=== PATIENT | female | born 1965 | race Two or more races ===

== ENCOUNTER → 2020-04-04 12:36 | Outpatient (BNVA) | payer OTHER, SELFPAY | PROVIDERS: PCP Emergency Medicine; Referring Provider Emergency Medicine; Visit Provider Nurse Practitioner Gerontology | DX: E11.65 Type 2 diabetes mellitus with hyperglycemia (principal); E11.649 Type 2 diabetes mellitus with hypoglycemia without coma; E11.42 Type 2 diabetes mellitus with diabetic polyneuropathy; Z79.4 Long term (current) use of insulin; I10 Essential (primary) hypertension; E78.5 Hyperlipidemia, unspecified; E66.01 Morbid (severe) obesity due to excess calories; Z68.42 Body mass index [BMI] 45.0-49.9, adult | CPT/HCPCS: 99212 ==

== ENCOUNTER 2020-04-05 12:56 | Outpatient (REF) | payer OTHER, SELFPAY ==
[2020-04-05 14:38] LABS: Estimated Average Glucose 212 mg/dL
[2020-04-05 15:07] LABS: Cholesterol 221 mg/dL; HDL Cholesterol 45 mg/dL; LDL Cholesterol Calculated 137 mg/dl; Triglycerides 195 mg/dL
[2020-04-05 15:48] LABS: Creatinine Urine 92.12 mg/dL; Microalbum/Creatinine Ratio Ur 6.5 ug/mg cr
== END 2020-04-05 12:57 | disposition home or self-care (01) ==
LOC: HO.10HDL 12:56
PROVIDERS: Visit Provider Nurse Practitioner Gerontology
DX: E11.42 Type 2 diabetes mellitus with diabetic polyneuropathy (principal); E11.65 Type 2 diabetes mellitus with hyperglycemia
CPT/HCPCS: 80061; 82043; 83036

== ENCOUNTER 2020-05-02 12:46 | Outpatient (RCR) | payer OTHER, SELFPAY | END 2020-05-09 08:00 | disposition home or self-care (01) | LOC: HO.WCC 12:46 | PROVIDERS: Visit Provider Surgery | DX: M79.671 Pain in right foot (principal); L98.8 Other specified disorders of the skin and subcutaneous tissue; E11.9 Type 2 diabetes mellitus without complications | CPT/HCPCS: 99212 ==

== ENCOUNTER 2020-05-02 13:52 | Outpatient (REF) | payer OTHER, SELFPAY ==
--- NOTE | 2020-05-02 14:04 | XR_ITS ---
EXAMINATION: XR FOOT, RIGHT CLINICAL INFORMATION: Diabetic foot. COMPARISON: None TECHNIQUE: AP, lateral, and oblique views of the right foot. FINDINGS: There is no visible acute fracture or dislocation. The large calcaneal heel and retrocalcaneal enthesophytes. The ankle mortise and subtalar joints are normal. The soft tissues are normal. XR/XR foot RT 2V IMPRESSION: Large calcaneal heel and retrocalcaneal enthesophytes.
== END 2020-05-02 13:53 | disposition home or self-care (01) ==
LOC: HO.XRAY 13:52
PROVIDERS: PCP Emergency Medicine; Visit Provider Surgery
DX: E11.621 Type 2 diabetes mellitus with foot ulcer (principal)
CPT/HCPCS: 73620

== ENCOUNTER 2020-06-14 10:13 | Day surgery (SDC) | payer OTHER, SELFPAY ==
[2020-04-05 10:27] VITALS: BMI 43.6
--- NOTE | 2020-04-08 08:44 | P.CONAN_ITS ---
HPI - Anesthesia Eval Consult details Narrative: Postponed d/t elevated A1C 04/05/2020 54yo F for umbilical hernia repair Cardiac cleared at interm risk - avoid fluid overload, watch for daryl arrhythmia (01/2020 had junctional rhythm - resolved with d/c of clonidine and metoprolol.) [facility] Past Medical History Medical History (Updated 04/04/20 @ 16:11 by Abimbola Aj) Anxiety Asthma BMI 45.0-49.9, adult Depression Essential hypertension Fatty liver GERD (gastroesophageal reflux disease) Hyperlipidemia LDL goal <100 Morbid obesity due to excess calories Pre-syncope Type 2 diabetes mellitus with diabetic polyneuropathy Type 2 diabetes mellitus with hyperglycemia Umbilical hernia Family History Family History (Updated 03/22/20 @ 08:32 by EFFIE Goldstein) Father Diabetes mellitus HTN (hypertension) Mother CVD (cardiovascular disease) Mother Diabetes mellitus HTN (hypertension) Asthma Surgical History Surgical History (Updated 03/22/20 @ 08:30 by EFFIE Goldstein) History of esophagogastroduodenoscopy (EGD) Hx of gastric bypass Social History Social History (Updated 04/04/20 @ 16:12 by Abimbola Aj) Household Members: None Alcohol intake: never Smoking Status: Never smoker Meds Allergies Allergy/AdvReac Type Severity Reaction Status Date / Time Penicillins Allergy Severe analphylaxi Verified 04/05/20 10:20 s dulaglutide [From Trulicity] Allergy Unknown Rash Verified 04/05/20 10:20 potassium Allergy Unknown Itching Verified 04/05/20 10:20 SHELLFISH Allergy Unknown HIVES Uncoded 04/04/20 12:46 Home Medications Medication Instructions Recorded Confirmed Type amlodipine 5 mg tablet 5 mg PO DAILY 04/04/20 04/05/20 History fenofibrate 54 mg tablet 54 mg PO DAILY 04/04/20 04/05/20 History fluoxetine 40 mg capsule 40 mg PO DAILY 04/04/20 04/05/20 History gabapentin 300 mg capsule 900 mg PO TID cap 04/04/20 04/05/20 History insulin glargine 100 unit/mL (3 16 unit SUBCUT QPM ml 04/04/20 04/05/20 History mL) subcutaneous pen omeprazole 20 mg capsule,delayed 20 mg PO DAILY 04/04/20 04/05/20 History release polyethylene glycol 3350 17 17 g PO DAILY 04/04/20 04/04/20 History gram/dose oral powder rosuvastatin 40 mg tablet 40 mg PO DAILY 04/04/20 04/05/20 History trazodone 100 mg tablet 100 mg PO BEDTIME PRN 04/04/20 04/05/20 History bupropion HCl 1 tab PO BID 04/05/20 04/05/20 History fluticasone propionate [Flovent 1 puff PO BID 04/05/20 04/05/20 History HFA] lisinopril 1 tab PO QAM 04/05/20 04/05/20 History Exam Exam Date and Time: April 08, 2020 0844 Height,Weight and Vital Signs: Height 4 ft 11 in Weight 97.976 kg Pertinent Lab Results Pertinent Lab Results: Laboratory Tests 12/08/19 01/04/20 05:43 11:38 WBC 9.8 Hgb 12.4 Hct 39.1 Plt Count 321 Sodium 137 Potassium 5.1 Chloride 102 BUN 19 H Creatinine 0.86 Narrative Narrative: Holter: SR with avg rate in 60's Echo: nml EF, grade 2 DD, Nuc stress: Suboptimal quality d/t body habitus, no definite evidence of ischemia or infarct noted, EF 52%, trans ischemic dilation could not be evaluated d/t poor image quality EKG 11/2019: SB with short RI @57, mod volt criteria for LVH Assessment and Plan Assessment Anesthesia Assessment: Chart Reviewed
--- NOTE | 2020-06-13 09:37 | P.CONAN_ITS ---
Documented by User: Hilda Whittenney 06/13/20 09:49 HPI - Anesthesia Eval Consult details Narrative: 54yo F for umbilical hernia repair Cardiac cleared at [facility] risk - avoid fluid overload, watch for daryl arrhythmia (01/2020 had junctional rhythm - resolved with d/c of clonidine and metoprolol.) Prev cancel d/t elevated A1C=9. No repeat since. Per Dr Guzman, redraw preop. [facility] Past Medical History Medical History Anxiety Asthma BMI 45.0-49.9, adult Depression Essential hypertension Fatty liver GERD (gastroesophageal reflux disease) Hyperlipidemia LDL goal <100 Morbid obesity due to excess calories Pre-syncope Type 2 diabetes mellitus with diabetic polyneuropathy Type 2 diabetes mellitus with hyperglycemia Umbilical hernia Family History Family History Father Diabetes mellitus HTN (hypertension) Mother CVD (cardiovascular disease) Mother Diabetes mellitus HTN (hypertension) Asthma Surgical History Surgical History History of esophagogastroduodenoscopy (EGD) Hx of gastric bypass Social History Social History Household Members: None Alcohol intake: never Smoking Status: Never smoker Use of substances other than those prescribed or required for medical reasons: No Have you been hit, kicked, punched, or otherwise hurt by someone within the past year? If so, by whom?: No Advance Directives: No Advance Directives Information Provided: No Advance Directives on File: No Recently lost weight without trying: No Meds Allergies Allergy/AdvReac Type Severity Reaction Status Date / Time Penicillins Allergy Severe analphylaxi Verified 04/05/20 10:20 s dulaglutide [From Trulicity] Allergy Unknown Rash Verified 04/05/20 10:20 potassium Allergy Unknown Itching Verified 04/05/20 10:20 SHELLFISH Allergy Unknown HIVES Uncoded 04/04/20 12:46 Home Medications Medication Instructions Recorded Confirmed Type fenofibrate 54 mg tablet 54 mg PO DAILY 04/04/20 04/05/20 History fluoxetine 40 mg capsule 40 mg PO DAILY 04/04/20 04/05/20 History gabapentin 300 mg capsule 900 mg PO TID cap 04/04/20 04/05/20 History insulin glargine 100 unit/mL (3 16 unit SUBCUT QPM ml 04/04/20 04/05/20 History mL) subcutaneous pen omeprazole 20 mg capsule,delayed 20 mg PO DAILY 04/04/20 04/05/20 History release polyethylene glycol 3350 17 17 g PO DAILY 04/04/20 04/04/20 History gram/dose oral powder rosuvastatin 40 mg tablet 40 mg PO DAILY 04/04/20 04/05/20 History trazodone 100 mg tablet 100 mg PO BEDTIME PRN 04/04/20 04/05/20 History bupropion HCl 1 tab PO BID 04/05/20 04/05/20 History fluticasone propionate [Flovent 1 puff PO BID 04/05/20 04/05/20 History HFA] lisinopril 1 tab PO QAM 04/05/20 04/05/20 History alcohol swabs 0 pad TOPICAL 05/02/20 History blood sugar diagnostic #10 ea 05/02/20 History lancets 33 gauge #100 ea 05/02/20 History metoprolol tartrate 50 mg tablet 50 mg PO BID 05/02/20 History multivitamin-ferrous 0 tab PO 05/02/20 History fumarate-folic acid 18 mg-400 mcg tablet pen needle, diabetic 32 gauge x #50 ea 05/02/20 History spironolactone 25 mg tablet 25 mg PO QAM 05/02/20 History Exam Exam Date and Time: June 13, 2020 0937 Height,Weight and Vital Signs: Height 4 ft 11 in Weight 97.976 kg Pertinent Lab Results Pertinent Lab Results: Laboratory Tests 12/08/19 01/04/20 05:43 11:38 WBC 9.8 Hgb 12.4 Hct 39.1 Plt Count 321 Sodium 137 Potassium 5.1 Chloride 102 BUN 19 H Creatinine 0.86 Narrative Narrative: Holter: SR with avg rate in 60's Echo: nml EF, grade 2 DD, Nuc stress: Suboptimal quality d/t body habitus, no definite evidence of ischemia or infarct noted, EF 52%, trans ischemic dilation could not be evaluated d/t poor image quality EKG 11/2019: SB with short MO @57, mod volt criteria for LVH Assessment and Plan Assessment Anesthesia Assessment: Chart Reviewed Documented by User: Hilary Eid 06/14/20 11:26 PMFSH Past Medical History Medical History Anxiety Asthma BMI 45.0-49.9, adult Depression Essential hypertension Fatty liver GERD (gastroesophageal reflux disease) Hyperlipidemia LDL goal <100 Morbid obesity due to excess calories Pre-syncope Type 2 diabetes mellitus with diabetic polyneuropathy Type 2 diabetes mellitus with hyperglycemia Umbilical hernia Family History Family History Father Diabetes mellitus HTN (hypertension) Mother CVD (cardiovascular disease) Mother Diabetes mellitus HTN (hypertension) Asthma Family history of problems with anesthesia: No Surgical History Surgical History History of esophagogastroduodenoscopy (EGD) Hx of gastric bypass History of Problems with Anesthesia: No Social History Social History Household Members: None Alcohol intake: never Smoking Status: Never smoker Use of substances other than those prescribed or required for medical reasons: No Have you been hit, kicked, punched, or otherwise hurt by someone within the past year? If so, by whom?: No Advance Directives: No Advance Directives Information Provided: No Advance Directives on File: No Recently lost weight without trying: No Meds Allergies Allergy/AdvReac Type Severity Reaction Status Date / Time Penicillins Allergy Severe analphylaxi Verified 04/05/20 10:20 s dulaglutide [From Trulicity] Allergy Unknown Rash Verified 04/05/20 10:20 potassium Allergy Unknown Itching Verified 04/05/20 10:20 SHELLFISH Allergy Unknown HIVES Uncoded 04/04/20 12:46 Home Medications Medication Instructions Recorded Confirmed Type fenofibrate 54 mg tablet 54 mg PO DAILY 04/04/20 04/05/20 History fluoxetine 40 mg capsule 40 mg PO DAILY 04/04/20 04/05/20 History gabapentin 300 mg capsule 900 mg PO TID cap 04/04/20 04/05/20 History insulin glargine 100 unit/mL (3 16 unit SUBCUT QPM ml 04/04/20 04/05/20 History mL) subcutaneous pen omeprazole 20 mg capsule,delayed 20 mg PO DAILY 04/04/20 04/05/20 History release polyethylene glycol 3350 17 17 g PO DAILY 04/04/20 04/04/20 History gram/dose oral powder rosuvastatin 40 mg tablet 40 mg PO DAILY 04/04/20 04/05/20 History trazodone 100 mg tablet 100 mg PO BEDTIME PRN 04/04/20 04/05/20 History bupropion HCl 1 tab PO BID 04/05/20 04/05/20 History fluticasone propionate [Flovent 1 puff PO BID 04/05/20 04/05/20 History HFA] lisinopril 1 tab PO QAM 04/05/20 04/05/20 History alcohol swabs 0 pad TOPICAL 05/02/20 History blood sugar diagnostic #10 ea 05/02/20 History lancets 33 gauge #100 ea 05/02/20 History metoprolol tartrate 50 mg tablet 50 mg PO BID 05/02/20 History multivitamin-ferrous 0 tab PO 05/02/20 History fumarate-folic acid 18 mg-400 mcg tablet pen needle, diabetic 32 gauge x #50 ea 05/02/20 History spironolactone 25 mg tablet 25 mg PO QAM 05/02/20 History Exam Height,Weight and Vital Signs: Vital Signs Temp Pulse Resp BP Pulse Ox 06/14/20 10:45 97 F 49 L 18 132/42 L 99 Pertinent Lab Results Pertinent Lab Results: Lab Results 06/14/20 Range/Units 10:41 POC Glucose 200 H (60-115) mg/dL Airway Mallampati Class: II TM Dist: >3cm Neck ROM: Full Denture: Upper Heart: RRR Lungs: CTAB Assessment and Plan Assessment Anesthesia Assessment: Anesthesia Plan Discussed and Chart Reviewed Final Anesthetic Review NPO: Yes ASA Class: III Final Preanesthetic Review: No Changes in Pt Med Stat, Meds/Allgs Chart Reviewed, Consent Obtained/Reviewed and Anes Risks/Benef Reviewed Patient Risk: Intermediate Procedure Risk: Low Assessment/Block/Sedation in SS: Assess/Block/Sedation-SS Anesthetic Plan Anesthetic Plan: GA Disposition: Standard PACU
[2020-06-14] VITALS (13 sets, daily range): BP systolic 132–185; BP diastolic 42–73; PULSE 49–70; RESP 16–18; TEMP 36.1–36.6; O2SAT 92–100; BMI 43.6
[2020-06-14 10:45] LABS: Glucose, Whole Blood 200 mg/dL (60-115)
--- NOTE | 2020-06-14 10:55 | MHC.SHP ---
Pre-Procedural Eval Section B Chief Complaint: Umbilical Hernia Details of Present Illness: has partially reducible umb hernia x many years, increasing in size Relevant Family History (Specify if Yes): No Relevant Social History: None Present Medications: see Short Stay Collaborative assessment Medical History: Significant History (obesity, DM, HTN) History of Previous Operations: Relevant previous surgery/procedure and date(s) (gastric bypass, 2005) Allergies: Allergies Allergy/AdvReac Type Severity Reaction Status Date / Time Penicillins Allergy Severe analphylaxi Verified 04/05/20 10:20 s dulaglutide [From Trulicity] Allergy Unknown Rash Verified 04/05/20 10:20 potassium Allergy Unknown Itching Verified 04/05/20 10:20 SHELLFISH Allergy Unknown HIVES Uncoded 04/04/20 12:46 Review of Systems Sugical H&P ROS: Negative: Constitution, Cardiovascular, Respiratory, Neurological, Psychiatric, Hem-Onc, Allergic/Immunologic, Gastrointestinal, Genitourinary, Musculoskeletal, Integumentary, Endocrine and Eyes/Ears/Nose/Throat Exam Surgical H&P Exam: Normal: HEENT, Normal: Heart, Normal: Lungs, Normal: Extremities, Normal: Skin and Normal: Neurological and Significant Findings: Abdomen (umbilical hernia, about 3 cm, partially reducible) Plan Diagnosis/Plan: Unchanged I have reviewed the history and physical and performed a pertinent physical examination on my patient. No changes have occurred unless specified.
--- NOTE | 2020-06-14 10:56 | PC.NURSE ---
aic cancelled per dr cantrell and anesthesia poc 200
[2020-06-14] MEDS: ceFAZolin Sodium/Dextrose,Iso 2 GM/50 ML PIGGYBACK IV (11:04)
[2020-06-14] MEDS: Lactated Ringers 1,000 ML 100 ML IVCONT (11:07)
--- NOTE | 2020-06-14 12:22 | PM.OP ---
Brief Operative Note Date of Service: 06/14/20 Pre-op diagnosis: umbilical hernia Post-op diagnosis: same Procedure: repair of umbilical hernia with mesh Implants: Ventralex 8cm mesh Surgeon: FUENTES SHELLEY MD Anesthesia: [place] Home [employer] Washing Machine Mechanic: Karie Poole Estimated blood loss (mL): 10 Pathology: none sent Condition: stable Disposition: PACU
[2020-06-14] MEDS: fentaNYL citrate/PF 100 MCG/2 ML VIAL 25 MCG IVPUSH ×2 (12:49→13:00)
[2020-06-14] MEDS: oxyCODONE HCl Immed Release 5 MG TABLET PO (12:50)
--- NOTE | 2020-06-14 13:26 | OP_ITS ---
SURGEON: Jonny Guzman MD INDICATIONS: The patient is a 54-year-old female with a large umbilical hernia, which she has had for many years. This has been increasing in size, and she wanted to proceed with repair. She was morbidly obese, so exact dimensions of the hernia was difficult to ascertain, but it appeared to be about 3 cm to 4 cm. This actually turned out to be much bigger intraoperatively. She understood the technique of the procedure and she was aware of the risks, benefits, and alternatives. PREOPERATIVE DIAGNOSIS: Umbilical hernia. POSTOPERATIVE DIAGNOSIS: Umbilical hernia. PROCEDURE PERFORMED: Repair of large umbilical hernia with Ventralex mesh. ESTIMATED BLOOD LOSS: COMPLICATIONS: ANESTHESIA: ASSISTANTS: Karie Poole PA-C SPECIMENS: DESCRIPTION OF PROCEDURE: She was brought to the operating room and placed in supine position under general anesthesia via endotracheal tube. The abdomen was prepped in the usual sterile fashion. A surgical time-out was done. The patient received cefazolin 2 g IV preoperatively. A transverse infraumbilical incision was made in the skin using blade #15. It was carried down to full-thickness skin and subcutaneous layer with electrocautery. We therefore then proceeded to continue to dissect. We were able to visualize the sac, and we continued to dissect around this to separate this from the rest of the thick subcutaneous layer. Again, the patient was morbidly obese, so she had a very thick layer of subcutaneous fat. We had to do a lot of sharp dissection with electrocautery to separate the entire sac off the rest of the subcutaneous layer. This part of the procedure took an extended period of time until we were able to reach the neck of the hernia. There was large amount of omentum within the hernia. We could not reduce this through the neck. Proceeded to continue to define the neck. I decided to open the sac to allow us to reduce the entire hernia. We made an incision using electrocautery and proceeded to excise the entire sac at the fascial edge. The excision of the entire sac was done using electrocautery circumferentially. The sac was sent as specimen. We then able to reduce the hernia through the fascial defect. We were able to apply Khadar clamps on the fascial edges on all four quadrants. We measured the fascial defect, which was about almost 5 cm in diameter and circular. However, the fascial edges came together without difficulty and without tension, so I chose a large Ventralex mesh. The mesh was positioned underneath the fascial defect. We applied 4 transfascial sutures, one in each quadrant through the fascia into the Prolene side of the mesh. We then proceeded to pull up all 4 stay sutures and to bring the fascia flat on the abdominal wall. All the 4 subfascial sutures were then tied tight. We then proceeded to copiously irrigate. I closed the fascia with multiple [id number] Maxon 1 sutures. We then proceeded to irrigate again in view of the thick subcutaneous layer. We trimmed the excess skin. I reapposed with thick subcutaneous layer with Dexon 3-0 interrupted sutures. Skin closure achieved with skin rosmery. The incision was then infiltrated with Marcaine 0.5% for postoperative analgesia. The procedure was completed. The patient tolerated this well. There were no complications noted. Initial and final counts of sponge and instruments were correct. Estimated blood loss was about 5 mL. The patient was extubated without difficulty and transferred to recovery room with stable vital signs. MD CT Tobar/GABRIEL / [id number] MTDDemi
== END 2020-06-14 14:43 | disposition home or self-care (01) ==
PROVIDERS: Visit Provider Surgery
PROC: (CPT 49585; principal; 2020-06-14 12:00)
DX: K42.9 Umbilical hernia without obstruction or gangrene (principal); E66.01 Morbid (severe) obesity due to excess calories; Z68.42 Body mass index [BMI] 45.0-49.9, adult; E11.65 Type 2 diabetes mellitus with hyperglycemia; E11.42 Type 2 diabetes mellitus with diabetic polyneuropathy; Z79.4 Long term (current) use of insulin; J45.909 Unspecified asthma, uncomplicated; I10 Essential (primary) hypertension; K76.0 Fatty (change of) liver, not elsewhere classified; K21.9 Gastro-esophageal reflux disease without esophagitis; Z98.84 Bariatric surgery status; Z79.51 Long term (current) use of inhaled steroids; Z79.899 Other long term (current) drug therapy; Z88.0 Allergy status to penicillin; Z88.8 Allergy status to other drugs, medicaments and biological substances
CPT/HCPCS: 49585; 82947; 88302; C1781; J0690; J1885; J2250; J2405; J3010

== ENCOUNTER → 2020-06-21 08:31 | Outpatient (BNVA) | payer OTHER, SELFPAY | PROVIDERS: Visit Provider Nurse Practitioner Gerontology | DX: E11.65 Type 2 diabetes mellitus with hyperglycemia (principal); E11.42 Type 2 diabetes mellitus with diabetic polyneuropathy; I10 Essential (primary) hypertension; E78.5 Hyperlipidemia, unspecified; E66.01 Morbid (severe) obesity due to excess calories; Z68.42 Body mass index [BMI] 45.0-49.9, adult | CPT/HCPCS: Q3014 ==

== ENCOUNTER → 2020-06-27 09:10 | Outpatient (BNVA) | payer OTHER, SELFPAY | PROVIDERS: PCP Emergency Medicine; Visit Provider Surgery | DX: K42.9 Umbilical hernia without obstruction or gangrene (principal) | CPT/HCPCS: 99212 ==

== ENCOUNTER 2020-06-27 09:44 | Outpatient (REF) | payer OTHER, SELFPAY | END 2020-06-27 09:45 | disposition home or self-care (01) | LOC: HO.LAB 09:44 | PROVIDERS: Visit Provider Internal Medicine | DX: Z20.822 Contact with and (suspected) exposure to COVID-19 (principal) | CPT/HCPCS: 36415; C9803; U0003 ==

== ENCOUNTER → 2020-08-01 11:39 | Outpatient (BNVA) | payer OTHER, SELFPAY | PROVIDERS: PCP Emergency Medicine; Visit Provider Surgery Vascular Surgery | DX: I83.11 Varicose veins of right lower extremity with inflammation (principal) | CPT/HCPCS: 99202 ==

== ENCOUNTER 2020-08-23 08:02 | Outpatient (REF) | payer OTHER, SELFPAY ==
--- NOTE | ~2020-08-23 | US_ITS ---
EXAMINATION: RIGHT AND LEFT LOWER EXTREMITY VENOUS ULTRASOUND (REFLUX EXAM) CLINICAL INDICATION: Varicose veins. COMPARISON: 10/29/2011 TECHNIQUE: Color flow triplex imaging and compression Doppler was performed to evaluate both the deep and the superficial systems bilaterally. To evaluate the superficial system, the examination was performed in the upright position. Color-flow Doppler ultrasound and compression ultrasound were utilized. In addition, maneuvers were utilized to demonstrate reflux. FINDINGS: 1. DEEP VENOUS ULTRASOUND OF THE RIGHT LOWER EXTREMITY: Respiratory variation, normal compression and augmented flow are noted in the right common femoral vein as well as the right popliteal vein and there is no evidence of deep venous thrombosis at these locations. There is no evidence of reflux in the deep system in either the common femoral vein or the popliteal vein. No popliteal artery aneurysm. No popliteal fossa cyst. 2. SUPERFICIAL ULTRASOUND WITH DOPPLER OF RIGHT LOWER EXTREMITY: The right great saphenous vein at the saphenofemoral junction measures 7 mm, at the midthigh 4 mm, [id number] 3 mm, [id number]-weu-ahsd 4 mm, at midcalf 3 mm and at the ankle measures 4 mm. There is reflux demonstrated in the right great saphenous vein only at the ankle with insufficiency time of approximately 2.5 seconds. The right small saphenous vein measures 3 mm and shows no reflux. There are right perforators seen within the proximal thigh one measuring approximately 4 mm in diameter without reflux. Within the distal calf there is a 5 mm greater saphenous vein sports centre manager with reflux up to 2.5 seconds in duration. Varicose veins are seen within the calf measuring up to 3 mm in diameter and with reflux time up to 2.5 seconds. 3. DEEP VENOUS ULTRASOUND OF THE LEFT LOWER EXTREMITY: Respiratory variation, normal compression and augmented flow are noted in the left common femoral vein as well as the left popliteal vein and there is no evidence of deep venous thrombosis at these locations. There is no evidence of reflux in the deep system in either the common femoral vein or the popliteal vein. No popliteal fossa cyst. No popliteal artery aneurysm. 4. SUPERFICIAL ULTRASOUND WITH DOPPLER OF LEFT LOWER EXTREMITY: Left great saphenous vein at the saphenofemoral junction measures 6 mm, at the midthigh 3 mm, kvslg-gxo-sjuc 2 mm, vemwr-bzd-afye 3 mm, at midcalf 2 mm and at the ankle measures 3 mm. There is no reflux demonstrated in the left great saphenous vein. The left small saphenous vein measures 2 mm and shows no reflux. There is a left greater saphenous vein sports centre manager seen in the distal calf measuring 2 mm in diameter without reflux. Small varicose veins with reflux are seen within the mid to distal calf. US/US venous duplex LE BI IMPRESSION: 1. No evidence of reflux or thrombus in the common femoral veins or popliteal veins bilaterally. 2. No reflux identified at the saphenofemoral junctions bilaterally. The only reflux noted was in the right ankle where it measured approximately 2.5 seconds in duration. Perforators and varicosities as described.
== END 2020-08-23 08:03 | disposition home or self-care (01) ==
LOC: HO.US 08:02
PROVIDERS: Visit Provider Surgery Vascular Surgery
DX: I83.893 Varicose veins of bilateral lower extremities with other complications (principal)
CPT/HCPCS: 93970

== ENCOUNTER → 2020-08-26 09:34 | Outpatient (BNVA) | payer OTHER, SELFPAY | PROVIDERS: Visit Provider Internal Medicine Cardiovascular Disease | DX: R42 Dizziness and giddiness (principal); I10 Essential (primary) hypertension | CPT/HCPCS: 93005; 99212 ==

== ENCOUNTER → 2020-09-05 10:20 | Outpatient (BNVA) | payer OTHER, SELFPAY | PROVIDERS: Visit Provider Surgery Vascular Surgery | DX: I83.11 Varicose veins of right lower extremity with inflammation (principal) | CPT/HCPCS: 99212 ==

== ENCOUNTER → 2020-10-18 14:10 | Outpatient (BNVA) | payer OTHER, SELFPAY | PROVIDERS: PCP Nurse Practitioner Family; Visit Provider Nurse Practitioner Gerontology | DX: Z13.89 Encounter for screening for other disorder (principal) | CPT/HCPCS: Q3014 ==

== ENCOUNTER → 2020-11-08 07:27 | Outpatient (BNVA) | payer OTHER, SELFPAY | PROVIDERS: Visit Provider Nurse Practitioner Gerontology | CPT/HCPCS: 99212 ==

== ENCOUNTER → 2020-12-17 11:01 | Outpatient (REF) | payer OTHER, SELFPAY ==
--- NOTE | 2020-12-17 11:04 | HM_ITS ---
REASON FOR TEST: Palpitation. INTERPRETATION: The patient was hooked up to cardiac event monitor from 12/17/2020 to 01/16/2021 for a total period of 30 days. FINDINGS: Baseline rhythm is normal sinus rhythm with heart rate varying from 39 beats per minute to 125 beats per minute. There were no arrhythmias noted including no ectopics or any supraventricular or ventricular tachyarrhythmias or bradyarrhythmias. The patient reported multiple events of palpitations which correlated with sinus rhythm or sinus bradycardia, sinus tachycardia. There were no arrhythmias noted. CONCLUSION: Holter report is remarkable for: 1. Baseline normal sinus rhythm. 2. Multiple patient reported symptoms of palpitation that did not correlate with any arrhythmias or any fast or slow heart rate. Parviz Pedersen MD NRS/MODL / [id number]
== END ==
LOC: HO.CARD 11:01
PROVIDERS: Visit Provider Internal Medicine Cardiovascular Disease
DX: R42 Dizziness and giddiness (principal)
CPT/HCPCS: 93270

== ENCOUNTER 2020-12-18 08:04 | Outpatient (REF) | payer OTHER, SELFPAY ==
[2020-12-18 10:38] LABS: Alanine Aminotransferase 15 U/L (0-31); Albumin Level 3.8 g/dL (3.5-5.0); Alkaline Phosphatase 89 U/L (39-117); Anion Gap 11 (12-20); Aspartate Amino Transferase 15 U/L (5-31); Bilirubin Total 0.4 mg/dL (0.0-1.0); Blood Urea Nitrogen 19 mg/dL (9-16); Calcium 9.3 mg/dL (8.4-10.2); Carbon Dioxide 28 mmol/L (22-29); Chloride 104 mmol/L (96-108); Cholesterol 208 mg/dL; Estimated Glomerular Filt Rate > 60; Glucose Fasting 190 mg/dL (60-99); HDL Cholesterol 47 mg/dL; LDL Cholesterol Calculated 117 mg/dl; Sodium 138 mmol/L (135-145); Total Protein 7.5 g/dL (6.5-8.0); Triglycerides 222 mg/dL
[2020-12-19 09:06] LABS: LDL Cholesterol Direct 114 mg/dL (<100)
== END 2020-12-18 08:05 | disposition home or self-care (01) ==
LOC: HO.10HDL 08:04
PROVIDERS: PCP Registered Nurse; Visit Provider Nurse Practitioner Gerontology
DX: E11.65 Type 2 diabetes mellitus with hyperglycemia (principal); E11.42 Type 2 diabetes mellitus with diabetic polyneuropathy; E66.01 Morbid (severe) obesity due to excess calories; Z68.42 Body mass index [BMI] 45.0-49.9, adult; E78.5 Hyperlipidemia, unspecified; I10 Essential (primary) hypertension; Z79.4 Long term (current) use of insulin
CPT/HCPCS: 36415; 80053; 80061; 82947; 83721; 99212

== ENCOUNTER → 2021-01-02 08:07 | Outpatient (BNVA) | payer OTHER, SELFPAY | PROVIDERS: PCP Registered Nurse; Visit Provider Nurse Practitioner Gerontology | DX: E66.01 Morbid (severe) obesity due to excess calories (principal); Z68.42 Body mass index [BMI] 45.0-49.9, adult | CPT/HCPCS: Q3014 ==

== ENCOUNTER → 2021-02-04 08:21 | Outpatient (BNVA) | payer OTHER, SELFPAY | PROVIDERS: PCP Registered Nurse; Referring Provider Registered Nurse; Visit Provider Internal Medicine Cardiovascular Disease | DX: R42 Dizziness and giddiness (principal); I10 Essential (primary) hypertension | CPT/HCPCS: 93005; 99212 ==

== ENCOUNTER → 2021-08-14 12:32 | Outpatient (BNVA) | payer OTHER, SELFPAY | PROVIDERS: Visit Provider Nurse Practitioner Gerontology | DX: E11.65 Type 2 diabetes mellitus with hyperglycemia (principal); E11.42 Type 2 diabetes mellitus with diabetic polyneuropathy; E78.5 Hyperlipidemia, unspecified; I10 Essential (primary) hypertension; E66.01 Morbid (severe) obesity due to excess calories; Z68.42 Body mass index [BMI] 45.0-49.9, adult; Z79.4 Long term (current) use of insulin | CPT/HCPCS: 82947; 83036; 99212 ==

== ENCOUNTER → 2021-11-13 10:38 | Outpatient (BNVA) | payer OTHER, SELFPAY | PROVIDERS: Visit Provider Nurse Practitioner Gerontology | DX: E11.65 Type 2 diabetes mellitus with hyperglycemia (principal); E11.42 Type 2 diabetes mellitus with diabetic polyneuropathy; I10 Essential (primary) hypertension; E78.5 Hyperlipidemia, unspecified; E66.01 Morbid (severe) obesity due to excess calories; Z68.42 Body mass index [BMI] 45.0-49.9, adult; Z79.4 Long term (current) use of insulin | CPT/HCPCS: Q3014 ==

== ENCOUNTER 2022-02-05 08:33 | Outpatient (REF) | payer OTHER, SELFPAY ==
[2022-02-05 10:11] LABS: Anion Gap 15 (12-20); Blood Urea Nitrogen 19 mg/dL (9-16); Calcium 9.1 mg/dL (8.4-10.2); Carbon Dioxide 24 mmol/L (22-29); Chloride 104 mmol/L (96-108); Estimated Glomerular Filt Rate > 60; Glucose Random 95 mg/dL (60-115); Magnesium 2.1 mg/dL (1.6-2.6); Potassium 4.8 mmol/L (3.3-5.1); Sodium 138 mmol/L (135-145)
[2022-02-05 10:39] LABS: TSH reflex Free T4 1.45 uIU/mL (0.32-4.0)
[2022-02-07 05:12] LABS: Lyme Abs Screen <0.90 index
== END 2022-02-05 08:34 | disposition home or self-care (01) ==
LOC: HO.LAB 08:33
PROVIDERS: PCP Nurse Practitioner Primary Care; Visit Provider Internal Medicine Cardiovascular Disease
DX: R00.1 Bradycardia, unspecified (principal); I11.0 Hypertensive heart disease with heart failure; I50.30 Unspecified diastolic (congestive) heart failure
CPT/HCPCS: 36415; 80048; 83735; 84443; 86617; 86618; 93005; 99212

== ENCOUNTER → 2022-02-26 08:51 | Outpatient (REF) | payer OTHER, SELFPAY ==
--- NOTE | 2022-02-26 08:53 | CA_ITS ---
Transthoracic Echocardiogram Patient (Last, First, Middle): Sia Tripathi, Gender: Female Date of : 1965 Age: 56 Procedure Date: 02/26/2022 Procedure Type: Transthoracic Echocardiogram Location: OP Height: 152.4 cm Weight: 95.26 kg BSA: 1.91 m2 Heart Rate: 44 bpm BP: 140 / 80 mmHg Air Hose Coupler: ANNELISE Referring MD: Parviz Pedersen MD Logistics Engineer: Parviz Pedersen MD Symptoms: R00.1 - Bradycardia, unspecified Study Quality: Fair ECG Rhythm: Sinus bradycardia Conclusions: - 1. Normal LV systolic function with pseudonormal filling pattern 2. Mildly dilated left atrium 3. Mild aortic stenosis 4. Normal RV systolic pressure 5. No gross pericardial effusion Findings Left Ventricle Normal left ventricular size, thickness, and systolic function. The visually estimated ejection fraction is between 55-60%. Spectral Doppler is indicative of a pseudonormal filling pattern. E/E prime ratio is between 8 and 15 consistent with indeterminate filling pressures. Wall Motion Rest Echo Findings The basal inferior segment is hypokinetic. The basal inferoseptal segment is akinetic. All other scored wall segments showed normal motion. Right Ventricle Normal right ventricular cavity size and systolic function. Atria The left atrium is mildly dilated. Interatrial shunt cannot be excluded. The right atrium is normal in size. Aortic Valve There is mild aortic valve stenosis. The peak aortic gradient is 15 mmHg.The mean gradient is 7 mmHg. The aortic valve area is 1.80 cm2. There is no aortic valve regurgitation. Mitral Valve There is mild anterior and moderate posterior mitral leaflet thickening. There is trace mitral valve regurgitation. There is no mitral valve stenosis. Tricuspid Valve Normal tricuspid valve structure. There is mild tricuspid valve regurgitation. The right ventricular systolic pressure is normal. The right ventricular systolic pressure is 31 mmHg. Normal right atrial pressure. There is no evidence of pulmonary hypertension. Great Vessels All visible segments of the aorta are normal in size. The pulmonary artery was not well visualized. Venous The inferior vena cava is normal in size and collapses greater than 50% with inspiration. Pericardium/Pleural There is no evidence of pericardial effusion. Measurements 2D Linear Measurements IVSd: 0.80 0.6-0.9/0.6-1.0 cm LVIDd: 5.06 3.9-5.3/4.2-5.9 cm LVIDd Index: 2.65 2.4-3.2/2.2-3.1 cm/m2 LVIDs: 3.85 2.0-3.6 cm LVPWd: 1.19 0.7-1.1 cm LA Diam: 4.00 2.7-3.8/3.0-4.0 cm LAIDs Index: 2.09 1.5-2.3 cm/m2 LV Mass: 229.53 67-162/88-224 g LV Mass Index: 120.17 43-95/49-115 g/m2 LVOT Diam: 2.00 3.0+(-)1.3 cm 2D Systolic Function EF 4C: 56.20 >55% EF 2C: 55.80 >55% Mitral Valve MV Pk E: 0.99 MV PK A: 0.57 MV Decel Time: 249.00 E/A: 1.70 E'Lateral: 8.70 E'Medial: 8.92 E/E' Med: 11.00 E/E' Lat: 11.30 PHT: 73.00 MVA PHT: 3.01 Decel Titus: 3.96 Aortic Valve AoV Pk Tomas: 1.95 AoV Mn Tomas: 1.21 AoV VTI: 0.49 AoV Pk Grad: 15.00 Aov Mn Grad: 7.00 ANDREW Cont.VTI: 1.80 LVOT LVOT Pk Tomas: 1.01 LVOT Mn Tomas: 0.72 LVOT VTI: 0.28 LVOT Pk Grad: 4.00 LVOT Mn Grad: 2.00 LVOT Diam: 2.00 LVOT Area: 3.14 Diastolic Function MV Pk E: 0.99 MV Pk A: 0.57 E/A: 1.70 E'Medial: 8.92 E/E' Med: 11.00 E' Laterial: 8.70 E/E' Lat: 11.30 Right Ventricle TAPSE (mm): 23.30 TVS' Tomas: 17.00 Tricuspid Valve TR Pk Tomas: 2.63 TR Pk Grad: 28.00 RA Press: 3.00 RVSP: 31.00 Great Vessels Aorta Sinus of Valsalva: 3.20 2.0-3.5 cm Ao Asc: 3.20 2.1-3.4 cm Pulmonary Valve PV Pk Tomas: 0.97 Peak PV Grad: 4.00 Updated in Other Vendor System with Status of Final Parviz Pedersen MD electronically signed on 02/27/2022 12:35:19 PM with status of Final
--- NOTE | 2022-02-26 08:53 | HM_ITS ---
* Total monitoring time 2 days and 23 hours. * Underlying rhythm is sinus. Average heart rate 57/Min. Range 39 to 115/Min. * About 63% the time, rate less than 60/Min. * Very rare supraventricular and ventricular ectopy. * No significant pauses or AV blocks. * No patient diary. MTDD
== END ==
LOC: HO.CARD 08:51
PROVIDERS: PCP Nurse Practitioner Primary Care; Visit Provider Internal Medicine Cardiovascular Disease
DX: R00.1 Bradycardia, unspecified (principal)
CPT/HCPCS: 93242; 93306

== ENCOUNTER 2022-03-17 10:55 | Outpatient (REF) | payer OTHER, SELFPAY ==
--- NOTE | ~2022-03-17 | MM_ITS ---
EXAMINATION: MM SCREENING DIGITAL BREAST TOMOSYNTHESIS, BILATERAL CLINICAL INFORMATION: Screening. Asymptomatic. The lifetime risk of breast cancer based on the Tyrer-Cuzick Model is 6%. COMPARISON: Mammography: 06/27/2019, 11 12/05/2017, 01/13/2017 TECHNIQUE: Digital breast tomosynthesis is performed in both the craniocaudal and mediolateral oblique views along with computer-aided detection (CAD). Synthesized 2D images are generated from the tomosynthesis. FINDINGS: The breasts are almost entirely fatty (ACR BI-RADS breast composition Category a). Background stromal markings are normal. No developing density or architectural abnormality. There are no significant masses, abnormal calcifications, or other abnormalities. The axilla and skin contours are unremarkable. MM/MM tomosynthesis screening BI IMPRESSION: No mammographic evidence of malignancy. ASSESSMENT: BI-RADS 1: Negative RECOMMENDATION: Routine annual mammography screening. This patient's information was entered into a reminder system with a target due date for their next mammogram.
== END 2022-03-17 10:56 | disposition home or self-care (01) ==
LOC: HO.MAMMO 10:55
PROVIDERS: PCP Nurse Practitioner Primary Care; Visit Provider Nurse Practitioner Primary Care
DX: Z12.31 Encounter for screening mammogram for malignant neoplasm of breast (principal)
CPT/HCPCS: 77063; 77067

== ENCOUNTER → 2022-04-28 09:23 | Outpatient (BNVA) | payer OTHER, SELFPAY | PROVIDERS: PCP Nurse Practitioner Primary Care; Referring Provider Nurse Practitioner Primary Care; Visit Provider Internal Medicine Cardiovascular Disease | DX: R00.1 Bradycardia, unspecified (principal); I35.0 Nonrheumatic aortic (valve) stenosis | CPT/HCPCS: 99212 ==

== ENCOUNTER → 2022-04-29 08:49 | Outpatient (REF) | payer OTHER, SELFPAY ==
--- NOTE | 2022-04-29 08:52 | CA_ITS ---
Acquisition Time: 2022-04-29 09:13:00 Total Exercise Time: 00:02:50 Test Indications: BRADYCARDIA Medications: SEE CHART Protocol: SAMUEL Max HR: 127 BPM 76% of Pred: 166 BPM Max BP: 170/040 mmHG Max Work Load: 4.6 METS Exercise stress test with exercise 2 min 50 sec of Samuel protocol, achieving 76% MPHR ( baseline as 27% MPHR), with report of dizziness and need to stop exercise, with moderate sob, no chest discomfort, with frequent isolated PVCs, with one ventricular cuplet, with normotensive response to exercise, with normal chronotropic response at achieved workload, with nondiagnostic EKG for ischemia due to suboptimal heart rate. In recovery PVCs resolved, symptoms resolved and heart rate returned to 30% MPHR. Test reviewed with Dr Pemberton Referred By: Parviz Pedersen Overread By: RANI BARRIENTOS
== END ==
LOC: HO.CARD 08:49
PROVIDERS: PCP Nurse Practitioner Primary Care; Visit Provider Internal Medicine Cardiovascular Disease
DX: R00.1 Bradycardia, unspecified (principal)
CPT/HCPCS: 93017

== ENCOUNTER → 2022-09-17 09:04 | Outpatient (BNVA) | payer OTHER, SELFPAY | PROVIDERS: PCP Nurse Practitioner Primary Care; Visit Provider Surgery Vascular Surgery | DX: I83.11 Varicose veins of right lower extremity with inflammation (principal); R20.0 Anesthesia of skin | CPT/HCPCS: 99212 ==

== ENCOUNTER 2022-09-22 08:17 | Outpatient (REF) | payer OTHER, SELFPAY ==
--- NOTE | ~2022-09-22 | US_ITS ---
EXAMINATION: RIGHT AND LEFT LOWER EXTREMITY VENOUS ULTRASOUND (REFLUX EXAM) CLINICAL INDICATION: Varicose veins with inflammation. COMPARISON: 10/23/2020 and 10/29/2011. TECHNIQUE: Color flow triplex imaging and compression Doppler was performed to evaluate both the deep and the superficial systems bilaterally. To evaluate the superficial system, the examination was performed in the upright position. Color-flow Doppler ultrasound and compression ultrasound were utilized. In addition, maneuvers were utilized to demonstrate reflux. FINDINGS: 1. DEEP VENOUS ULTRASOUND OF THE RIGHT LOWER EXTREMITY: Respiratory variation, normal compression and augmented flow are noted in the right common femoral vein as well as the right popliteal vein and there is no evidence of deep venous thrombosis at these locations. There is no evidence of reflux in the deep system in either the common femoral vein or the popliteal vein. No popliteal artery aneurysm or popliteal fossa cyst. 2. SUPERFICIAL ULTRASOUND WITH DOPPLER OF RIGHT LOWER EXTREMITY: The right great saphenous vein at the saphenofemoral junction measures 4 mm, at the midthigh 4 mm, above the knee 3 mm, below the knee 2 mm, at midcalf 4 mm and at the ankle measures 3 mm. There is no reflux demonstrated in the right great saphenous vein other than for the midcalf where there is reflux time of approximately 1.7 seconds. The right small saphenous vein measures 3 mm and shows no reflux. There are varicosities seen within the calf measuring up to 6 mm in diameter. Within the distal calf, there is a 5 mm in diameter perforating vein. 3. DEEP VENOUS ULTRASOUND OF THE LEFT LOWER EXTREMITY: Respiratory variation, normal compression and augmented flow are noted in the left common femoral vein as well as the left popliteal vein and there is no evidence of deep venous thrombosis at these locations. There is no evidence of reflux in the deep system in either the common femoral vein or the popliteal vein. No popliteal artery aneurysm. No popliteal fossa cyst. 4. SUPERFICIAL ULTRASOUND WITH DOPPLER OF LEFT LOWER EXTREMITY: Left great saphenous vein at the saphenofemoral junction measures 6 mm, at the midthigh 2 mm, above the knee 2 mm, below the knee 3 mm, at midcalf 3 mm and at the ankle measures 2 mm. There is no reflux demonstrated in the left great saphenous vein other than in the upper calf with reflux time of 2.7 seconds and at the ankle where there is a reflux time of 0.9 seconds. The left small saphenous vein measures 2 mm and shows no reflux. Within the calf, there are some varices present off of the greater saphenous vein and small saphenous vein. These measure up to 5 mm in diameter. A greater saphenous stock broker is seen within the distal calf. US/US venous duplex LE BI IMPRESSION: No evidence of reflux or thrombus in the common femoral veins or popliteal veins bilaterally. No venous insufficiency seen at the saphenofemoral junctions bilaterally. Bilateral varicosities and stock broker seen within the capsule. Venous insufficiency on the right is seen in the midcalf and on the left within the midcalf and ankle.
== END 2022-09-22 08:18 | disposition home or self-care (01) ==
LOC: HO.US 08:17
PROVIDERS: PCP Nurse Practitioner Primary Care; Visit Provider Surgery Vascular Surgery
DX: I83.11 Varicose veins of right lower extremity with inflammation (principal)
CPT/HCPCS: 93970

== ENCOUNTER → 2022-10-27 13:04 | Outpatient (BNVA) | payer OTHER, SELFPAY | PROVIDERS: PCP Nurse Practitioner Primary Care; Referring Provider Nurse Practitioner Primary Care; Visit Provider Nurse Practitioner Family | DX: R07.89 Other chest pain (principal); R00.1 Bradycardia, unspecified; I35.0 Nonrheumatic aortic (valve) stenosis; I10 Essential (primary) hypertension; R42 Dizziness and giddiness; E11.65 Type 2 diabetes mellitus with hyperglycemia | CPT/HCPCS: 93005; 99212 ==

== ENCOUNTER → 2022-11-12 08:48 | Outpatient (BNVA) | payer OTHER, SELFPAY | PROVIDERS: PCP Nurse Practitioner Primary Care; Visit Provider Surgery Vascular Surgery | DX: M79.606 Pain in leg, unspecified (principal) | CPT/HCPCS: 99212 ==

== ENCOUNTER → 2022-12-15 08:51 | Outpatient (REF) | payer OTHER, SELFPAY ==
--- NOTE | ~2022-12-15 | NM_ITS ---
EXERCISE MYOCARDIAL PERFUSION STUDY INDICATION: Chest pain TECHNIQUE: The patient was brought in for an exercise perfusion study on 12/15/2022. Patient performed exercise as per Thomas protocol and was injected 30 mCi of sestamibi once target heart rate was achieved. Images were obtained using the SPECT gamma camera interlaced with the gating device. Images were obtained in supine position. Resting perfusion study was performed on 12/17/2022. Patient was administered 30 mCi of sestamibi intravenously at rest. Images were then obtained in supine position. Total DLP 145mGy-cm. Images were processed with the software and compared side to side in short axis, horizontal long axis and vertical long axis views. FINDINGS: Raw images were reviewed. Imaging quality is suboptimal. The stress perfusion study showed diminished tracer uptake in the distal part of inferolateral wall and adjacent apex. There is some improvement with CT attenuation correction and hence could indicate components of diaphragmatic attenuation artifact. The gated study shows diminished LV systolic function with calculated LVEF of 50%. LV cavity is normal in size. The gated study shows diminished lateral wall contractility towards the distal aspect. Resting study shows diminished tracer uptake in the distal part of lateral wall and adjacent apex. Difficult to comment regarding CT attenuation correction. Gating at rest reveals ejection fraction at 41%. Probable distal lateral hypokinesis. The findings are consistent with fixed defect in the distal part of lateral wall and adjacent apex of inferior reversible. NH/NH cardiolite stress test IMPRESSION: 1. Myocardial perfusion imaging study shows fixed defect in the distal part of lateral wall and adjacent apex. Could indicate prior infarct. However, the study quality is also suboptimal and hence can't exclude artifactual findings. 2. Gated LVEF is 50% during stress and 46% during rest. 3. Transient ischemic dilatation not present. EKG component of the test reported separately.
--- NOTE | 2022-12-15 08:53 | CA_ITS ---
Acquisition Time: 2022-12-15 09:07:19 Total Exercise Time: 00:05:51 Test Indications: CP Medications: SEE H Protocol: SAMUEL Max HR: 134 BPM 81% of Pred: 165 BPM Max BP: 150/062 mmHG Max Work Load: 4.7 METS Exercise stress test exercise 5 min 51 sec of Samuel protocol (held stage one increased speed to 1.9 MPHthen decreased to 1.5 MPH), with 7/10 mid chest tightness, mild SOB, with isolated PVCs, ventricular bigemeny and cuplets, with normal chronotropic response to exercise, with downsloping ST V3-V6. Chest discomfort resolved with rest. Nuclear images pending. Test reviewed with Dr. Pemberton. Referred By: Conchita Kennedy Overread By: Ayden Pemberton
== END ==
LOC: HO.CARD 08:51
PROVIDERS: Visit Provider Nurse Practitioner Family
DX: R07.89 Other chest pain (principal); R00.1 Bradycardia, unspecified; I10 Essential (primary) hypertension
CPT/HCPCS: 78452; 93017; A9500

== ENCOUNTER → 2022-12-15 08:53 | Outpatient (BNV) | payer OTHER, SELFPAY | PROVIDERS: Visit Provider Internal Medicine Cardiovascular Disease | DX: I25.10 Atherosclerotic heart disease of native coronary artery without angina pectoris (principal) | CPT/HCPCS: 78452; 93016; 93018 ==

== ENCOUNTER 2023-01-27 17:52 | Outpatient (REF) | payer OTHER, SELFPAY ==
[2023-01-28 13:10] LABS: BV Int Neg Control Negative (Negative); BV Int Pos Control Positive (Positive)
[2023-02-02 18:49] LABS: HPV mRNA E6/E7 rflx Not Detected (Not Detected)
== END 2023-01-27 17:53 | disposition home or self-care (01) ==
LOC: HO.HHCLNP 17:52
PROVIDERS: Visit Provider Advanced Practice Midwife
DX: Z12.4 Encounter for screening for malignant neoplasm of cervix (principal); Z11.51 Encounter for screening for human papillomavirus (HPV); L29.2 Pruritus vulvae
CPT/HCPCS: 87480; 87510; 87624; 87660; 88142

== ENCOUNTER 2023-03-09 10:07 | Outpatient (REF) | payer OTHER, SELFPAY ==
[2023-03-09 11:54] LABS: MANUAL DIFF FLAG NO
[2023-03-09 12:17] LABS: Basophils Percent Auto 0.4 % (0-2); Eosinophils Absolute Auto 0.2 X10*3/uL (0.0-0.4); Eosinophils Percent Auto 1.7 % (0-4); Hematocrit 40.2 % (37.0-47.0); Hemoglobin 12.4 g/dl (12.0-16.0); Imm Gran Abs Auto 0.04 X10*3/uL (0.00-0.03); Imm Gran Pct Auto 0.4 % (0.0-0.4); Lymphocytes Absolute Auto 2.4 X10*3/uL (1.2-4.9); Mean Corpuscular HGB Conc 30.8 g/dl (31.0-35.0); Mean Corpuscular Hemoglobin 28.8 pg (27.0-33.0); Mean Corpuscular Volume 93.5 fL (80.0-98.0); Mean Platelet Volume 9.1 fL (9.4-12.3); Monocytes Absolute Auto 0.7 X10*3/uL (0.1-1.2); Monocytes Percent Auto 7.9 % (2-11); Neutrophils Absolute Auto 5.6 x10*3/uL (2.0-8.3); Neutrophils Percent Auto 62.6 % (45-73); Platelet Count 359 X10*3/uL (160-400); White Blood Count 8.9 X10*3/uL (4.8-10.8)
[2023-03-09 12:44] LABS: Creatinine Urine 58.45 mg/dL; Microalbumin Urine < 5.0 mg/L
[2023-03-09 12:53] LABS: Vitamin B12 390 pg/mL (200-900)
[2023-03-09 13:01] LABS: Anion Gap 14 (12-20); Blood Urea Nitrogen 16 mg/dL (9-16); Calcium 9.8 mg/dL (8.4-10.2); Carbon Dioxide 25 mmol/L (22-29); Chloride 105 mmol/L (96-108); Cholesterol 184 mg/dL (<200); Estimated Glomerular Filt Rate > 60; Ferritin 115 ng/mL (10-250); Glucose Random 74 mg/dL (60-115); HDL Cholesterol 53 mg/dL (>40); Iron 79 mcg/dL (30-160); LDL Cholesterol Calculated 98 mg/dL (<100); Percent Iron Saturation 25 % (15-50); Potassium 4.9 mmol/L (3.3-5.1); Sodium 139 mmol/L (135-145); Total Iron Binding Capacity 314 mcg/dL (228-428); Triglycerides 169 mg/dL (<150); Unsaturated Iron Binding 235 ug/dL
== END 2023-03-09 10:08 | disposition home or self-care (01) ==
LOC: HO.HHCL 10:07
PROVIDERS: Visit Provider Nurse Practitioner Primary Care
DX: I15.2 Hypertension secondary to endocrine disorders (principal); E11.59 Type 2 diabetes mellitus with other circulatory complications; R23.3 Spontaneous ecchymoses; R52 Pain, unspecified
CPT/HCPCS: 36415; 80048; 80061; 82043; 82550; 82570; 82607; 82728; 83540; 85025

== ENCOUNTER 2023-03-18 10:00 | Outpatient (REF) | payer OTHER, SELFPAY ==
--- NOTE | ~2023-03-18 | XR_ITS ---
EXAMINATION: XR CHEST CLINICAL INFORMATION: Cough. COMPARISON: Chest x-ray 12/07/2019 TECHNIQUE: 2 views of the chest were obtained. FINDINGS: The lungs are well-expanded and clear. The heart size is enlarged. Pulmonary vascularity is normal. There is moderate spondylosis dorsal spine. XR/XR chest 2V IMPRESSION: Mild cardiomegaly. Otherwise no acute process seen.
[2023-03-18 19:33] LABS: Influenza A PCR NEGATIVE (Negative); Influenza B PCR NEGATIVE (Negative); Resp Syncy Virus RNA Qual PCR NEGATIVE (Negative); SARS COV2 PCR INHOUSE NEGATIVE (Negative)
== END 2023-03-18 10:01 | disposition home or self-care (01) ==
LOC: HO.HHCX 10:00
PROVIDERS: Visit Provider Family Medicine
DX: Z20.822 Contact with and (suspected) exposure to COVID-19 (principal); J06.9 Acute upper respiratory infection, unspecified; R05.9 Cough, unspecified
CPT/HCPCS: 0241U; 71046

== ENCOUNTER 2023-03-19 07:05 | Emergency (ER) | payer OTHER, SELFPAY ==
[2023-03-19 07:09] VITALS: BP 132/44; PULSE 57; RESP 18; TEMP 36.9; O2SAT 95; BMI 42.2
--- NOTE | 2023-03-19 07:20 | ED_ITS ---
HPI - URI/Sore Throat General Chief Complaint: Upper Respiratory Symptoms Stated Complaint: cold cough Time Seen by Provider: 03/19/23 07:20 Source: patient and healthcare interpreter Mode of arrival: ambulatory Limitations: no limitations History of Present Illness HPI Narrative: 57 yo female with PMH of aortic stenosis, HTN, HLD, obesity, DM, bradycardia, asthma, anxiety, depression was seen at urgent care yesterday for URI symptoms had negative chest xray and negative SARS/FLU/COVID testing that is in our system. She received both of her flu and pneumonia vaccines last week. urgent care sent her home with supportive medications. She presents to the ED today with c/o persistent cough, wheezing, white phlegm and difficulty sleeping. No fevers or chest pain. MD elicited complaint: cough Pertinent past history: asthma Onset (ago): day(s) (7) Consistency: intermittent Severity: moderate Description of mucous: clear Able to tolerate fluids by mouth: Yes Exacerbating factors: other (laying down and coughing) Relieving factors: nothing Context: other Associated symptoms: rhinorrhea, cough and shortness of breath Treatments prior to arrival: none Related Data Home Medications Medication Instructions Recorded Confirmed fenofibrate 54 mg tablet 54 mg PO DAILY 04/04/20 10/27/22 fluoxetine 40 mg capsule 40 mg PO DAILY 04/04/20 10/27/22 omeprazole 20 mg capsule,delayed 20 mg PO DAILY 04/04/20 10/27/22 release polyethylene glycol 3350 17 17 g PO DAILY 04/04/20 10/27/22 gram/dose oral powder (Miralax) rosuvastatin 40 mg tablet 40 mg PO DAILY 04/04/20 10/27/22 trazodone 100 mg tablet 100 mg PO BEDTIME PRN Insomnia 04/04/20 10/27/22 fluticasone propionate 220 1 puff PO BID 04/05/20 10/27/22 mcg/actuation HFA aerosol inhaler (Flovent HFA) alcohol swabs 0 pad topical 05/02/20 10/27/22 blood sugar diagnostic #10 ea 05/02/20 10/27/22 lancets 33 gauge #100 ea 05/02/20 10/27/22 pen needle, diabetic 32 gauge x #50 ea 05/02/20 10/27/22 lisinopril 40 mg tablet 40 mg PO QAM 06/21/20 10/27/22 cholecalciferol (vitamin D3) 50 50 mcg PO DAILY 08/01/20 10/27/22 mcg (2,000 unit) capsule cyclobenzaprine 5 mg tablet 5 mg PO TID PRN muscle pain 08/01/20 10/27/22 ipratropium 0.5 mg-albuterol 3 mg ml inhalation 08/01/20 10/27/22 (2.5 mg base)/3 mL nebulization soln gabapentin 400 mg capsule 400 mg PO TID 08/14/21 10/27/22 levothyroxine 25 mcg tablet 25 mcg PO DAILY 08/14/21 10/27/22 multivitamin-iron sulfate 15 1 tab PO QAM 08/14/21 10/27/22 mg-folic acid 400 mcg tablet (Tab-A-Cristobal Multivitamin w-iron) bupropion HCl 150 mg tablet,12 hr 150 mg PO BID 04/28/22 10/27/22 sustained-release amlodipine 2.5 mg tablet 2.5 mg PO QAM 10/27/22 10/27/22 glucose 4 gram chewable tablet 16 g PO 10/27/22 10/27/22 (TRUEplus Glucose) semaglutide 0.25 mg or 0.5 mg (2 mg subcut 11/12/22 mg/3 mL) subcutaneous pen injector (OzWireic) Previous Rx's Medication Instructions Recorded ibuprofen 600 mg tablet 600 mg PO Q6H PRN pain #30 tabs 06/14/20 lancets 33 gauge (TRUEplus Lancets) 1 gauge miscellaneous QID for 12/22/20 diabetes mellitus #300 ea blood sugar diagnostic (FreeStyle #400 ea 11/13/21 Lite Strips) blood-glucose meter (FreeStyle #1 ea 11/13/21 [place] Lite kit) empagliflozin 25 mg tablet 25 mg PO QAM #30 tabs 11/13/21 (Jardiance) insulin aspart U-100 100 unit/mL 6 - 12 unit (0.06 - 0.12 mL) 11/13/21 (3 mL) subcutaneous pen (Novolog subcut TID #15 mL FlexPen U-100 Insulin aspart) insulin glargine 100 unit/mL (3 24 unit (0.24 mL) subcut QPM #15 mL 11/13/21 mL) subcutaneous pen (Lantus Solostar U-100 Insulin) pen needle, diabetic 32 gauge x #125 ea 11/13/2132 (BD Ultra-Fine Sirena Pen Needle) metformin 500 mg tablet 1,000 mg (2 x 500 mg) PO BID #120 02/24/22 tabs ezetimibe 10 mg tablet 10 mg PO QAM #30 tabs 07/03/22 azithromycin 250 mg tablet See Rx Instructions PO .COMPLEX #6 03/19/23 tabs prednisone 20 mg tablet 40 mg (2 x 20 mg) PO DAILY 4 days 03/19/23 #8 tabs Allergies Allergy/AdvReac Type Severity Reaction Status Date / Time Penicillins Allergy Severe analphylaxi Verified 03/19/23 07:16 s dulaglutide [From Trulicity] Allergy Unknown Rash Verified 03/19/23 07:16 potassium Allergy Unknown Itching Verified 03/19/23 07:16 SHELLFISH Allergy Unknown HIVES Uncoded 10/27/22 13:23 Review of Systems Review of Systems: Constitutional : No Fever, No Chills ENT/Mouth : No Hoarseness, No sore throat, No Rhinorrhea Eyes: No Redness, No Discharge, No Vision Changes Cardiovascular : No Chest Pain, positive SOB, positive Dyspnea on Exertion, No Edema Respiratory : positive Cough, pos Sputum, positive Wheezing, Gastrointestinal : No Nausea, No Vomiting, No Diarrhea, No abdominal Pain Genitourinary : No Dysuria, No Hematuria Musculoskeletal : No joint pain, No Myalgias Skin : No rash Neuro : No Weakness, No Numbness, No Headache Psych : No anxiety, depression Heme/Lymph: No Bruising, No Bleeding Endocrine : No Polyuria, No Polydipsia All other systems reviewed and are negative [facility] Past Medical History Attestation statement: The following information was validated with the patient. Source: old records reviewed Medical History GERD (gastroesophageal reflux disease) Pre-syncope Umbilical hernia Fatty liver Asthma Anxiety Depression Type 2 diabetes mellitus with diabetic polyneuropathy Essential hypertension Hyperlipidemia LDL goal <100 Morbid obesity due to excess calories BMI 45.0-49.9, adult Type 2 diabetes mellitus with hyperglycemia Surgical History Hx of hernia repair Hx of gastric bypass History of esophagogastroduodenoscopy (EGD) Family History Family History Father Diabetes mellitus HTN (hypertension) Mother CVD (cardiovascular disease) Mother HTN (hypertension) Diabetes mellitus Asthma Social History Social History Household Members: None Alcohol intake: never Patient Tobacco Use Status: Never used Tobacco Advance Directives: No Advance Directives Information Provided: Yes Physical Exam Vital Signs: Vital Signs: Last Vital Signs Temp 98.4 F 03/19/23 07:09 Pulse 57 03/19/23 08:40 Resp 18 03/19/23 08:40 BP 132/44 L 03/19/23 07:09 Pulse Ox 95 03/19/23 07:09 O2 Del Method Room Air 03/19/23 07:09 BMI result Body Mass Index 42.2 Appearance: Alert. Oriented X3. No acute distress. Eyes: Pupils equal, round and reactive to light. ENT: Pharynx normal. Neck: Normal inspection. Neck supple. CVS: Normal heart rate and rhythm. Pulses normal. Respiratory: No respiratory distress. Breath sounds diminished with exp wheezes throughout Abdomen: Soft and non-tender. Skin: Skin warm and dry. Normal skin color. Normal skin turgor. Extremities: No lower extremity edema. Neuro: Oriented X 3. No motor deficit. No sensory deficit. Course Course Course Narrative: improved eager to go home stable for DC Medications Administered Discontinued Medications Generic Name Dose Route Start Last Admin Trade Name Freq PRN Reason Stop Dose Admin Albuterol Sulfate 2 puff 03/19/23 08:32 03/19/23 08:39 Albuterol Sulfate 90 Mcg 8 Gm Inhaler INHALE 03/19/23 08:33 2 puff ONCE ONE Administration Prednisone 40 mg 03/19/23 07:47 03/19/23 08:05 Prednisone 20 Mg Tablet PO 03/19/23 07:48 40 mg ONCE ONE Administration Medical Decision Making Medical Decision Making [facility] Narrative: 57 yo female with PMH of aortic stenosis, HTN, HLD, obesity, DM, bradycardia, asthma, anxiety, depression here with wheezing and productive cough just had PCR panel that was negative, normal CXR she is not having fevers at this time concern for bronchitis will give neb, PO prednisone and likely treatment for bronchitis - no CP to suggest ACS, VTE. She has no LE edema to suggest BNP Differential Diagnosis Differential Diagnoses: The differential diagnosis associated with the presentation includes asthma, viral syndrome, bronchitis Admission/Observation Consideration of admission/observation: Escalation of care including admission/observation considered improved, no hypoxia stable for DC Lab Data MDM Lab Attestation statement: I reviewed the patient's lab results. Independent Interpretation I performed an independent interpretation of an: Plain X-Ray (from yesterday no pneumonia) Radiology Impression Discussion of test interpretation with radiology: I have reviewed the radiologist's reading. External Record Review External record reviewed: Inpatient record Prescription Management I considered prescription management with: Antibiotic and Other Discharge Plan Discharge Clinical Impression: Bronchitis Patient Disposition: Home, Self-Care Instructions: Acute Bronchitis (ED) Additional Instructions: return for worsening breathing, pain, fevers, or no improvement. use your inhalers and breathing adjuncts. start the prednisone tomorrow you were already given a dose in the emergency department today. Regrese si empeora la respiraci?n, dolor, fiebre o no mejora. use henrietta inhaladores y complementos respiratorios. ma?vivi empieza la prednisona, hoy ya te dieron debra dosis en urgencias. Prescriptions: New prednisone 20 mg tablet 40 mg PO DAILY 4 Days Qty: 8 0RF azithromycin 250 mg tablet See Rx Instructions PO .COMPLEX Qty: 6 0RF Rx Instructions: For 250 mg dose pack: take 500 mg today (day 1), then 250 mg for 4 days (days 2-5) No Action lancets [TRUEplus Lancets] 33 gauge misc 1 gauge miscellaneous QID Qty: 300 8RF metformin 500 mg tablet 1,000 mg PO BID Qty: 120 3RF ezetimibe 10 mg tablet 10 mg PO QAM Qty: 30 4RF Flovent HFA 220 mcg/actuation HFA aerosol inhaler 1 puff PO BID ibuprofen 600 mg tablet 600 mg PO Q6H PRN (Reason: pain) Qty: 30 0RF lisinopril 40 mg tablet 40 mg PO QAM bupropion HCl 150 mg tablet sustained-release 12 hr 150 mg PO BID rosuvastatin 40 mg tablet 40 mg PO DAILY polyethylene glycol 3350 [Miralax] 17 gram/dose powder 17 g PO DAILY fenofibrate 54 mg tablet 54 mg PO DAILY fluoxetine 40 mg capsule 40 mg PO DAILY omeprazole 20 mg capsule,delayed release(DR/EC) 20 mg PO DAILY trazodone 100 mg tablet 100 mg PO BEDTIME PRN (Reason: Insomnia) (DME) lancets 33 gauge misc See Rx Instructions .ROUTE TID Qty: 100 Rx Instructions: As directed (DME) pen needle, diabetic 32 gauge x 5/32 needle See Rx Instructions .ROUTE DAILY Qty: 50 Rx Instructions: As directed alcohol swabs Pads, Medicated 0 pad topical (DME) blood sugar diagnostic Strip See Rx Instructions .ROUTE TID Qty: 10 Rx Instructions: As directed cholecalciferol (vitamin D3) 50 mcg (2,000 unit) capsule 50 mcg PO DAILY cyclobenzaprine 5 mg tablet 5 mg PO TID PRN (Reason: muscle pain) ipratropium-albuterol 0.5 mg-3 mg(2.5 mg base)/3 mL solution for nebulization inhalation levothyroxine 25 mcg tablet 25 mcg PO DAILY gabapentin 400 mg capsule 400 mg PO TID Tab-A-Cristobal Multivitamin w-iron 15 mg iron- 400 mcg tablet 1 tab PO QAM insulin aspart U-100 [Novolog FlexPen U-100 Insulin] 100 unit/mL (3 mL) insulin pen 6 - 12 unit subcut TID Qty: 15 7RF Jardiance 25 mg tablet 25 mg PO QAM Qty: 30 7RF (DME) blood-glucose meter [FreeStyle [place] Lite] Kit See Rx Instructions .ROUTE .MEDSUPPLY Qty: 1 0RF Rx Instructions: 4 times a day (DME) FreeStyle Lite Strips Strip See Rx Instructions .ROUTE .MEDSUPPLY Qty: 400 3RF Rx Instructions: four times a day insulin glargine [Lantus Solostar U-100 Insulin] 100 unit/mL (3 mL) insulin pen 24 unit subcut QPM Qty: 15 6RF (DME) pen needle, diabetic [BD Ultra-Fine Sirena Pen Needle] 32 gauge x 5/32 needle See Rx Instructions .ROUTE .MEDSUPPLY Qty: 125 11RF Rx Instructions: As directed four times a day glucose [TRUEplus Glucose] 4 gram tablet,chewable 16 g PO amlodipine 2.5 mg tablet 2.5 mg PO QAM Ozempic 0.25 mg or 0.5 mg (2 mg/3 mL) pen injector subcut Print Language: Pashto
[2023-03-19] MEDS: predniSONE 20 MG TABLET 40 MG PO (08:05)
[2023-03-19] MEDS: Albuterol Sulfate 90 MCG 8 GM INHALER 2 PUFF INHALE (08:39)
[2023-03-19 08:40] VITALS: PULSE 57; RESP 18; O2SAT 95
== END 2023-03-19 08:58 | disposition home or self-care (01) ==
PROVIDERS: Emergency Provider Emergency Medicine; PCP Nurse Practitioner Primary Care
DX: J40 Bronchitis, not specified as acute or chronic (principal); R05.9 Cough, unspecified; Z79.899 Other long term (current) drug therapy
CPT/HCPCS: 94640; 99283; 99284

== ENCOUNTER 2023-05-18 08:58 | Outpatient (AMB) | payer OTHER, SELFPAY ==
[2023-05-18 09:41] VITALS: BP 120/52; PULSE 59; BMI 40.4
--- NOTE | 2023-05-18 09:41 | A.OFFVIS_ITS ---
Intake Vital Signs 05/18/23 09:41 Height 5 ft Weight 206 lb 12.697 oz BMI 40.4 BP 120/52 L Blood Pressure Location Lt brachial Position Sitting Pulse 59 Pulse Source Pulse Oximeter Intake Visit Reasons: r/s 6 month f/u Music Writer Required: Yes Music Writer Language: Asphalt Mixer Name: mandy hall [id number] Allergies Penicillins Allergy (Severe, Verified 05/18/23 09:44) analphylaxis dulaglutide [From Trulicity] Allergy (Unknown, Verified 05/18/23 09:44) Rash potassium Allergy (Unknown, Verified 05/18/23 09:44) Itching SHELLFISH Allergy (Unknown, Uncoded 10/27/22 13:23) HIVES Medication List - Last Reconciled 05/18/23 by KENNEDY Gifford alcohol swabs 0 pad topical amlodipine 2.5 mg PO QAM azithromycin For 250 mg dose pack: take 500 mg today (day 1), then 250 mg for 4 days (days 2-5) blood sugar diagnostic As directed blood sugar diagnostic (FreeStyle Lite Strips) four times a day blood-glucose meter (FreeStyle [place] Lite kit) 4 times a day bupropion HCl 150 mg PO BID cholecalciferol (vitamin D3) 50 mcg PO DAILY cyclobenzaprine 5 mg PO TID PRN empagliflozin (Jardiance) 25 mg PO QAM ezetimibe 10 mg PO QAM fenofibrate 54 mg PO DAILY fluoxetine 40 mg PO DAILY fluticasone propionate 220 mcg/actuation (Flovent HFA) 1 puff PO BID gabapentin 400 mg PO TID glucose (TRUEplus Glucose) 16 grams PO ibuprofen 600 mg PO Q6H PRN insulin aspart U-100 (Novolog FlexPen U-100 Insulin aspart) 6 - 12 units (0.06 - 0.12 mL) subcut TID insulin glargine (Lantus Solostar U-100 Insulin) 24 units (0.24 mL) subcut QPM ipratropium-albuterol 0.5 mg-3 mg(2.5 mg base)/3 mL mL inhalation lancets As directed lancets (TRUEplus Lancets) 1 gauge miscellaneous QID levothyroxine 25 mcg PO DAILY lisinopril 40 mg PO QAM metformin 1,000 mg (2 x 500 mg) PO BID multivit-iron sulf-folic acid 15 mg iron- 400 mcg (Tab-A-Cristobal Multivitamin w- iron) 1 tab PO QAM omeprazole 20 mg PO DAILY pen needle, diabetic As directed pen needle, diabetic (BD Ultra-Fine Sirena Pen Needle) As directed four times a day polyethylene glycol 3350 (Miralax) 17 grams PO DAILY prednisone 40 mg (2 x 20 mg) PO DAILY 4 days rosuvastatin 40 mg PO DAILY semaglutide (Ozempic) mg subcut trazodone 100 mg PO BEDTIME PRN HPI r/s 6 month f/u HPI Details Sia is a 57-year-old female with past medical history of hypertension, hyperlipidemia, diabetes, morbid obesity, sinus bradycardia, mild aortic stenosis who presents for follow-up of chest discomfort. Today she reports she has not been doing well in recent months. She has been having increasing amounts of left-sided chest discomfort. She describes it as a sharp feeling to the left chest that what can last for several minutes before relieving some. When she has the discomfort she can notice some shortness of breath and feeling sweaty. Has occurred with walking and stair climbing. It also has occurred at rest. She reports much concern. No she shortness of breath at rest, PND, orthopnea or edema. No palpitations, presyncope, syncope, falls. Taking meds as directed. Certified visual and stock associate used [facility] Medical History GERD (gastroesophageal reflux disease) Pre-syncope Umbilical hernia Fatty liver Asthma Anxiety Depression Type 2 diabetes mellitus with diabetic polyneuropathy Essential hypertension Hyperlipidemia LDL goal <100 Morbid obesity due to excess calories BMI 45.0-49.9, adult Type 2 diabetes mellitus with hyperglycemia Surgical History Hx of hernia repair Hx of gastric bypass History of esophagogastroduodenoscopy (EGD) Family History Father Diabetes mellitus HTN (hypertension) Mother CVD (cardiovascular disease) Mother HTN (hypertension) Diabetes mellitus Asthma Social History Household Members: None Alcohol intake: never Patient Tobacco Use Status: Never used Tobacco Review of Systems Const All systems reviewed & are unremarkable except as noted in HPI and below ENT Reports no additional complaints and Denies dizziness Card Details: feels sweaty when she gets chest pains Reports chest pain, Reports chest pain at rest, Reports chest pain with activity, Denies rapid heart rate, Denies pedal edema, Denies edema, Denies leg edema, Denies lightheadedness, Denies palpitations, Denies dyspnea, Reports dyspnea on exertion and Denies orthopnea Resp Denies cough, Denies dyspnea and Reports dyspnea on exertion GI Denies hematochezia and Denies change in stool character Musc Denies abnormal gait, Denies limited range of motion, Denies muscle cramps, Denies muscle weakness, Denies numbness, Denies radiating pain into limb, Denies stiffness and Denies tingling Neuro Denies abnormal gait, Denies dizziness, Denies numbness and Denies tingling Endo Denies palpitations Physical Exam Vital Signs: Last Vital Signs Pulse 59 05/18/23 09:41 BP 120/52 L 05/18/23 09:41 BMI result Body Mass Index 40.4 Const General: cooperative, comfortable and no acute distress Orientation/consciousness: patient oriented x3 Neck Neck: Yes normal visual inspection Resp Effort & Inspection: normal respiratory effort Auscultation: clear to auscultation bilaterally, no rales, no rhonchi and no wheezes Cardio Jugular venous distension: no JVD Rate: regular rate Rhythm: regular rhythm Heart sounds: S1 normal heart sound present, S2 normal heart sound present, no murmurs and no rubs Neuro General: patient oriented x3 Extrem General: Yes normal to inspection, No no pedal edema and No calf tenderness Psych Appearance: grossly normal Mental Status: mental status grossly normal Speech and movement: Normal speech and movement present Office Procedures EKG Details: Today, read by me, sinus bradycardia, short KS interval, no acute ST or T-wave abnormalities, can not exclude anterior infarct however R-wave progression could be from body habitus, rate 57, QTC 337 millisecond [id number], Complete Assessment & Plan Assessment & Plan (1) Chest discomfort: Code(s): R07.89 - Other chest pain Plan: Reports of chest discomfort at rest and with activity, sharp, left chest and radiated up into her head increasing over the last year. Last echo done 02/26/22 showing EF 55-60%, mild aortic stenosis, basal inferior hypokinetic and inferior septal akinetic. No known CAD history. She does have cardiac risk factors of hypertension, hyperlipidemia, diabetes, obesity. An exercise stress test was done 03/2022 with poor exercise capacity and nondiagnostic EKGs for ischemia. Following last visit she underwent an exercise nuclear stress test with exercise close to 6 minutes, 7/10 chest tightness, mild shortness of breath, downsloping ST segments noted, nuclear imaging showing fixed defect in the distal part of lateral wall and adjacent apex, could be prior infarct however can not exclude artifact. T.i.d. not present. Cardiac catheterization had been scheduled however patient canceled the appointment. Today she reports increasing amounts of chest discomfort with associated symptoms of shortness of breath and feeling sweaty. EKG done today shows no acute ST or T-wave abnormalities. Spent time reviewing cardiac catheterization procedure, risks and possible findings. Inform the symptoms may be that her heart is not getting good blood flow and it needs to be addressed. She is agreeable to proceed with cardiac catheterization at this time. We will make arrangements. Will increase amlodipine up to 5 mg daily. Unable to add beta-solo due to history of bradycardia with heart rate in the 50s. Cardiology follow-up 2 weeks post catheterization. Emergency care if needed for symptoms not relieved by rest. (2) Sinus bradycardia: Code(s): R00.1 - Bradycardia, unspecified Plan: History of sinus bradycardia with EKG done last visit showing sinus Magan, heart rate 44. A Holter monitor was done on 02/26/2022 for 3 days showing sinus bradycardia with average heart rate 57, heart rate range 39 to 115 with no significant Magan or pauses. During exercise nuclear stress test 11/2022, she was noted to have normal chronotropic competence. EKG done today showing sinus bradycardia, short KS, rate 57. Keep off all rate slowing medications. (3) Aortic stenosis: Code(s): I35.0 - Nonrheumatic aortic (valve) stenosis Plan: Last echo done 02/26/2022 shows mild aortic stenosis. Plan for repeat echo about 2 years from last. (4) Essential hypertension: Code(s): I10 - Essential (primary) hypertension Plan: Well controlled at present time. Increasing amlodipine from 2.5 mg daily up to 5 mg daily to help as antianginal (5) Abnormal nuclear stress test: Code(s): R94.39 - Abnormal result of other cardiovascular function study Plan: As above Plan Time spent on chart review, documentation, interview and assessment Orders: Orders Prothrombin Time INR Today R94.39 - Abnormal result of other cardiovascular function study Cardiac Cath LT w PCI Today Basic Metabolic Panel Today R94.39 - Abnormal result of other cardiovascular function study Complete Blood Count Auto Diff Today R94.39 - Abnormal result of other cardiovascular function study Medications: New amlodipine 5 mg PO DAILY 30 tabs 5RF Coding Level of Care Code Est Pt Level 4 (36485) Diagnoses Chest discomfort R07.89 Sinus bradycardia R00.1 Aortic stenosis I35.0 Essential hypertension I10 Abnormal nuclear stress test R94.39 CPT Codes EKG - CPT: 54237-[id number], Complete ([id number]) Time Spent (min) 30
== END 2023-05-18 10:15 | disposition home or self-care (01) ==
PROVIDERS: PCP Nurse Practitioner Primary Care; Visit Provider Nurse Practitioner Family
DX: R07.89 Other chest pain (principal); R00.1 Bradycardia, unspecified; I35.0 Nonrheumatic aortic (valve) stenosis; I10 Essential (primary) hypertension; R94.39 Abnormal result of other cardiovascular function study
CPT/HCPCS: 93010; 99214

== ENCOUNTER → 2023-05-18 08:58 | Outpatient (BNVA) | payer OTHER, SELFPAY | PROVIDERS: PCP Nurse Practitioner Primary Care; Visit Provider Nurse Practitioner Family | DX: R07.89 Other chest pain (principal); R94.39 Abnormal result of other cardiovascular function study; R00.1 Bradycardia, unspecified; I35.0 Nonrheumatic aortic (valve) stenosis; I10 Essential (primary) hypertension | CPT/HCPCS: 93005; 99212 ==

== ENCOUNTER 2023-07-06 10:43 | Outpatient (REF) | payer OTHER, SELFPAY ==
--- NOTE | ~2023-07-06 | XR_ITS ---
EXAMINATION: XR CHEST CLINICAL INFORMATION: Cough x1 month COMPARISON: Chest 03/18/2023 TECHNIQUE: 2 views of the chest were obtained. FINDINGS: The lungs are hypoexpanded but clear of acute process. Heart size is mildly enlarged. Pulmonary vascularity is normal. No gross bony abnormality seen. XR/XR chest 2V IMPRESSION: Hypoexpanded lungs without acute process. Mild cardiomegaly. No major change from 03/18/2023
== END 2023-07-06 10:44 | disposition home or self-care (01) ==
LOC: HO.HHCX 10:43
PROVIDERS: Visit Provider Nurse Practitioner Primary Care
DX: R05.1 Acute cough (principal)
CPT/HCPCS: 71046

== ENCOUNTER 2023-07-28 08:22 | Outpatient (REF) | payer OTHER, SELFPAY ==
[2023-07-28 10:30] LABS: Hematocrit 38.7 % (37.0-47.0); Hemoglobin 12.3 g/dl (12.0-16.0); Mean Corpuscular HGB Conc 31.8 g/dl (31.0-35.0); Mean Corpuscular Hemoglobin 29.5 pg (27.0-33.0); Mean Corpuscular Volume 92.8 fL (80.0-98.0); Platelet Count 347 X10*3/uL (160-400); Red Blood Count 4.17 X10*6/uL (4.20-5.50); White Blood Count 7.5 X10*3/uL (4.8-10.8)
[2023-07-28 10:35] LABS: INTERNATIONAL NORM RATIO 0.9 (0.9-1.1); Prothrombin Time 10.9 SEC (11.1-13.3)
[2023-07-28 11:02] LABS: Anion Gap 11 (12-20); Blood Urea Nitrogen 16 mg/dL (9-16); Calcium 9.5 mg/dL (8.4-10.2); Carbon Dioxide 25 mmol/L (22-29); Chloride 107 mmol/L (96-108); Estimated Glomerular Filt Rate > 60; Glucose Random 87 mg/dL (60-115); Potassium 4.2 mmol/L (3.3-5.1); Sodium 139 mmol/L (135-145)
== END 2023-07-28 08:23 | disposition home or self-care (01) ==
LOC: HO.LAB 08:22
PROVIDERS: PCP Nurse Practitioner Primary Care; Visit Provider Internal Medicine Cardiovascular Disease
DX: R07.9 Chest pain, unspecified (principal); I35.0 Nonrheumatic aortic (valve) stenosis; Z79.4 Long term (current) use of insulin; Z79.899 Other long term (current) drug therapy
CPT/HCPCS: 36415; 80048; 85027; 85610; 93005; 99212

== ENCOUNTER 2023-07-28 08:22 | Outpatient (AMB) | payer OTHER, SELFPAY ==
--- NOTE | 2023-07-28 08:42 | A.OFFVIS_ITS ---
Intake Vital Signs 07/28/23 08:44 Pulse 60 Pulse Source Pulse Oximeter Intake Visit Reasons: Follow up/discuss rescheduling cath (cx'd 4x) Intake Note: follow up to discuss reschedule cath. PT feels good Civil Engineer Land Development Required: No Allergies Penicillins Allergy (Severe, Verified 07/28/23 08:47) analphylaxis dulaglutide [From Trulicity] Allergy (Unknown, Verified 07/28/23 08:47) Rash potassium Allergy (Unknown, Verified 07/28/23 08:47) Itching SHELLFISH Allergy (Unknown, Uncoded 10/27/22 13:23) HIVES Medication List - Last Reconciled 07/28/23 by Parviz Pedersen MD alcohol swabs 0 pad topical amlodipine 5 mg PO DAILY blood sugar diagnostic As directed blood sugar diagnostic (FreeStyle Lite Strips) four times a day blood-glucose meter (FreeStyle [place] Lite kit) 4 times a day bupropion HCl 150 mg PO BID cholecalciferol (vitamin D3) 50 mcg PO DAILY cyclobenzaprine 5 mg PO TID PRN empagliflozin (Jardiance) 25 mg PO QAM ezetimibe 10 mg PO QAM fenofibrate 54 mg PO DAILY fluoxetine 40 mg PO DAILY fluticasone propionate 220 mcg/actuation (Flovent HFA) 1 puff PO BID gabapentin 400 mg PO TID glucose (TRUEplus Glucose) 16 grams PO ibuprofen 600 mg PO Q6H PRN insulin aspart U-100 (Novolog FlexPen U-100 Insulin aspart) 6 - 12 units (0.06 - 0.12 mL) subcut TID insulin glargine (Lantus Solostar U-100 Insulin) 24 units (0.24 mL) subcut QPM ipratropium-albuterol 0.5 mg-3 mg(2.5 mg base)/3 mL mL inhalation lancets As directed lancets (TRUEplus Lancets) 1 gauge miscellaneous QID levothyroxine 25 mcg PO DAILY lisinopril 40 mg PO QAM metformin 1,000 mg (2 x 500 mg) PO BID multivit-iron sulf-folic acid 15 mg iron- 400 mcg (Tab-A-Cristobal Multivitamin w- iron) 1 tab PO QAM omeprazole 20 mg PO DAILY pen needle, diabetic As directed pen needle, diabetic (BD Ultra-Fine Sirena Pen Needle) As directed four times a day polyethylene glycol 3350 (Miralax) 17 grams PO DAILY prednisone 40 mg (2 x 20 mg) PO DAILY 4 days rosuvastatin 40 mg PO DAILY semaglutide (Ozempic) mg subcut trazodone 100 mg PO BEDTIME PRN HPI HPI Comments History of Present Illness Details Sia comes for follow-up. She continues to have exertional chest discomfort and shortness of breath as well as she had 1 episode a couple weeks ago while she was resting she suddenly got precordial chest pressure associated diaphoresis with left arm and leg numbness. Symptoms then subsided within 10-15 minutes. She has had no recurrent chest discomfort at rest since then. She has had prior cardiac catheterization appointments but she could not make it due to asthma attack 1 time and the COVID infection the next time. She takes all her medications. No heart failure symptoms. No lightheadedness, syncope. [facility] Medical History GERD (gastroesophageal reflux disease) Pre-syncope Umbilical hernia Fatty liver Asthma Anxiety Depression Type 2 diabetes mellitus with diabetic polyneuropathy Essential hypertension Hyperlipidemia LDL goal <100 Morbid obesity due to excess calories BMI 45.0-49.9, adult Type 2 diabetes mellitus with hyperglycemia Surgical History Hx of hernia repair Hx of gastric bypass History of esophagogastroduodenoscopy (EGD) Family History Father Diabetes mellitus HTN (hypertension) Mother CVD (cardiovascular disease) Mother HTN (hypertension) Diabetes mellitus Asthma Social History Household Members: None Alcohol intake: never Patient Tobacco Use Status: Never used Tobacco Review of Systems Const Denies chills, Denies fatigue, Denies fever(s), Denies frequent falls, Denies weakness, Denies weight gain and Denies weight loss ENT Denies dizziness Card Reports chest pain, Denies leg edema, Denies lightheadedness, Denies palpitations, Denies dyspnea, Denies dyspnea on exertion, Denies orthopnea and Denies other (loss of consciousness) Resp Denies cough, Denies dyspnea and Denies dyspnea on exertion GI Denies hematochezia and Denies change in stool character Musc Denies abnormal gait, Denies muscle weakness, Denies numbness, Denies radiating pain into limb and Denies tingling Neuro Denies abnormal gait, Denies dizziness, Denies frequent falls, Denies numbness, Denies tingling and Denies weakness Endo Denies fatigue and Denies palpitations Physical Exam Vital Signs: Last Vital Signs Pulse 60 07/28/23 08:44 Const General: cooperative, comfortable and no acute distress Orientation/consciousness: patient oriented x3 Neck Neck: Yes normal visual inspection Resp Effort & Inspection: normal respiratory effort Auscultation: clear to auscultation bilaterally, no rales, no rhonchi and no wheezes Cardio Jugular venous distension: no JVD Rate: regular rate Rhythm: regular rhythm Heart sounds: S1 normal heart sound present, S2 normal heart sound present, Murmur heart sound present systolic early, decrescendo and crescendo and no rubs Neuro General: patient oriented x3 Extrem General: Yes normal to inspection, No no pedal edema and No calf tenderness Psych Appearance: grossly normal Mental Status: mental status grossly normal Speech and movement: Normal speech and movement present Office Procedures EKG Details: EKG shows normal sinus rhythm with nonspecific T-wave changes [id number], Complete Assessment & Plan Assessment & Plan (1) Exertional chest pain: Code(s): R07.9 - Chest pain, unspecified Plan: Exertional chest pain in this middle-aged woman with multiple risk factors including hypertension, diabetes, hyperlipidemia with concerning symptoms with positive EKG portion of treadmill stress test although myocardial perfusion imaging did not show any significant perfusion defects. Concern for balanced ischemia. Patient had 1 episode of symptoms at rest. Recommend her to undergo cardiac catheterization to further evaluate coronary anatomy and pursue revascularization if needed. Meanwhile will start on isosorbide therapy. If she has prolonged chest pain she is advised to come to the emergency room. Continue amlodipine therapy. Continue low-dose aspirin therapy. Continue high- intensity statin therapy along with ezetimibe. Continue diabetes management. She can not be on beta-solo due to baseline bradycardia. (2) Aortic stenosis: Code(s): I35.0 - Nonrheumatic aortic (valve) stenosis Plan: Aortic stenosis which appears to be mild. Recommend to continue aggressive vascular risk factor modification above. No interventions required per se for the same. Will follow up in the clinic after cardiac catheterization. Thank you for allowing me to partake in her care Coding Level of Care Code Est Pt Level 4 (24322) Diagnoses Exertional chest pain R07.9 Aortic stenosis I35.0 CPT Codes EKG - CPT: 55673-[id number], Complete ([id number])
[2023-07-28 08:44] VITALS: PULSE 60
== END 2023-07-28 09:30 | disposition home or self-care (01) ==
PROVIDERS: PCP Nurse Practitioner Primary Care; Visit Provider Internal Medicine Cardiovascular Disease
DX: R07.9 Chest pain, unspecified (principal); I35.0 Nonrheumatic aortic (valve) stenosis
CPT/HCPCS: 93010; 99214

== ENCOUNTER → 2023-08-10 23:59 | Outpatient (BNV) | payer OTHER, SELFPAY | PROVIDERS: PCP Nurse Practitioner Primary Care; Visit Provider Internal Medicine Cardiovascular Disease | DX: I20.89 Other forms of angina pectoris (principal) | CPT/HCPCS: 93458; 99152 ==

== ENCOUNTER 2023-08-24 08:24 | Outpatient (AMB) | payer OTHER, SELFPAY ==
[2023-08-24 08:50] VITALS: BP 120/42; PULSE 54; BMI 40.5
--- NOTE | 2023-08-24 08:50 | MHC.OFFVIS ---
Intake Vital Signs 08/24/23 08:50 Height 5 ft Weight 207 lb 3.752 oz BMI 40.5 BP 120/42 L Blood Pressure Location Lt brachial Position Sitting Pulse 54 Pulse Source Pulse Oximeter Intake Visit Reasons: 2 wk s/p cath NS Glass Breaker Required: Yes Glass Breaker Language: Sling Operator Name: mandy atkins [id number] Allergies Penicillins Allergy (Severe, Verified 08/24/23 08:54) analphylaxis dulaglutide [From Trulicity] Allergy (Unknown, Verified 08/24/23 08:54) Rash potassium Allergy (Unknown, Verified 08/24/23 08:54) Itching SHELLFISH Allergy (Unknown, Uncoded 08/24/23 08:54) HIVES Medication List - Last Reconciled 08/24/23 by KENNEDY Gifford alcohol swabs 0 pad topical amlodipine 5 mg PO DAILY blood sugar diagnostic As directed blood sugar diagnostic (FreeStyle Lite Strips) four times a day blood-glucose meter (FreeStyle [place] Lite kit) 4 times a day bupropion HCl 150 mg PO BID cholecalciferol (vitamin D3) 50 mcg PO DAILY cyclobenzaprine 5 mg PO TID PRN empagliflozin (Jardiance) 25 mg PO QAM ezetimibe 10 mg PO QAM fenofibrate 54 mg PO DAILY fluoxetine 40 mg PO DAILY fluticasone propionate 220 mcg/actuation (Flovent HFA) 1 puff PO BID gabapentin 400 mg PO TID glucose (TRUEplus Glucose) 16 grams PO ibuprofen 600 mg PO Q6H PRN insulin aspart U-100 (Novolog FlexPen U-100 Insulin aspart) 6 - 12 units (0.06 - 0.12 mL) subcut TID ipratropium-albuterol 0.5 mg-3 mg(2.5 mg base)/3 mL mL inhalation isosorbide mononitrate ER 30 mg PO DAILY lancets As directed lancets (TRUEplus Lancets) 1 gauge miscellaneous QID levothyroxine 25 mcg PO DAILY lisinopril 40 mg PO QAM metformin 1,000 mg (2 x 500 mg) PO BID multivit-iron sulf-folic acid 15 mg iron- 400 mcg (Tab-A-Cristobal Multivitamin w-iron) 1 tab PO QAM omeprazole 20 mg PO DAILY pen needle, diabetic As directed pen needle, diabetic (BD Ultra-Fine Sirena Pen Needle) As directed four times a day polyethylene glycol 3350 (Miralax) 17 grams PO DAILY prednisone 40 mg (2 x 20 mg) PO DAILY 4 days rosuvastatin 40 mg PO DAILY semaglutide (Ozempic) mg subcut trazodone 100 mg PO BEDTIME PRN HPI 2 wk s/p cath NS HPI Details Audelia is a 58-year-old female with past medical history of hypertension, hyperlipidemia, diabetes, morbid obesity who reported chest discomfort and had abnormal stress test. She then underwent a cardiac catheterization and now presents for follow-up. Today she reports that she has episodes of sharp pains in her left chest that occur randomly and lasts 5-10 minutes before fully resolving. The area is tender to palpation. She states that her prior exertional chest symptoms have improved since taking isosorbide. She currently does not get chest discomfort brought on by physical activity. She has mild shortness of breath with exertion which is not new. No PND, orthopnea or edema. No heart palpitations, lightheadedness, presyncope, syncope, falls. Her right radial catheterization site is feeling good. Takes all meds as directed. [facility] Medical History (Updated 08/24/23 @ 10:53 by Conchita Kennedy, GEOVANNA-C) GERD (gastroesophageal reflux disease) Pre-syncope Umbilical hernia Fatty liver Asthma Anxiety Depression Type 2 diabetes mellitus with diabetic polyneuropathy Essential hypertension Hyperlipidemia LDL goal <100 Morbid obesity due to excess calories BMI 45.0-49.9, adult Type 2 diabetes mellitus with hyperglycemia Surgical History (Updated 08/24/23 @ 11:39 by Conchita Kennedy, MUNICIPAL SERVICES MANAGER-C) History of cardiac cath Hx of hernia repair Hx of gastric bypass History of esophagogastroduodenoscopy (EGD) Family History Father Diabetes mellitus HTN (hypertension) Mother CVD (cardiovascular disease) Mother HTN (hypertension) Diabetes mellitus Asthma Social History Household Members: None Alcohol intake: never Patient Tobacco Use Status: Never used Tobacco Review of Systems Const All systems reviewed & are unremarkable except as noted in HPI and below ENT Denies dizziness Card Reports chest pain, Denies chest pain at rest, Denies chest pain with activity, Denies rapid heart rate, Denies pedal edema, Denies edema, Denies leg edema, Denies lightheadedness, Denies palpitations, Denies dyspnea, Denies dyspnea on exertion and Denies orthopnea Resp Denies cough, Denies dyspnea and Denies dyspnea on exertion GI Denies hematochezia and Denies change in stool character Musc Denies abnormal gait, Denies limited range of motion, Denies muscle cramps, Denies muscle weakness, Denies numbness, Denies radiating pain into limb, Denies stiffness and Denies tingling Neuro Denies abnormal gait, Denies dizziness, Denies numbness and Denies tingling Endo Denies palpitations Physical Exam Vital Signs: Last Vital Signs Pulse 54 08/24/23 08:50 BP 120/42 L 08/24/23 08:50 BMI result Body Mass Index 40.5 Const General: cooperative, healthy appearing, comfortable and no acute distress Orientation/consciousness: patient oriented x3 Neck Neck: Yes normal visual inspection and Yes no JVD Chest Other: Tenderness to palpation of left chest, facial grimace and pulls away Resp Effort & Inspection: normal respiratory effort Auscultation: clear to auscultation bilaterally, no rales, no rhonchi and no wheezes Cardio Jugular venous distension: no JVD Rate: regular rate Rhythm: regular rhythm Heart sounds: S1 normal heart sound present, S2 normal heart sound present, no murmurs and no rubs Neuro General: patient oriented x3 Extrem General: Yes normal to inspection and No no pedal edema Psych Appearance: grossly normal Mental Status: mental status grossly normal Speech and movement: Normal speech and movement present Assessment & Plan Assessment & Plan (1) Abnormal nuclear stress test: Code(s): R94.39 - Abnormal result of other cardiovascular function study Plan: Patient with reports of shortness of breath and chest discomfort with activity. She had a nuclear stress test done 12/17/2022 showing a fixed defect in the distal part of the lateral wall and adjacent apex which could indicate prior infarct. On last visit she reported exertional symptoms. She was started on isosorbide. She then underwent a cardiac catheterization on 08/10/2023 showing only nonobstructive disease. Today she reports having sharp pains to the left chest in a localized area that is worse to palpation. This symptom is most likely chest wall in nature. She states her prior exertional symptoms resolved with the addition of the isosorbide. Since she is feeling better on isosorbide will have her continue that medication. Reviewed signs and symptoms of true angina root with her. Continue risk factor modification including good blood sugar, blood pressure and cholesterol control. Benefits of increasing physical activity and weight loss reviewed. Aspirin is not on her list, no allergy listed. Will sent to her pharmacy. Will have her continue on rosuvastatin and Zetia with ideal LDL goal less than 70. Continue amlodipine and isosorbide. Cardiology follow-up 6 months, sooner if needed. (2) Chest discomfort: Code(s): R07.89 - Other chest pain Plan: Currently atypical and most likely chest wall discomfort (3) History of cardiac cath: Comment: 08/10/2023, lad mild luminal irregularities, left circumflex minimal luminal irregularities, RCA distal 50% stenosis Code(s): Z98.890 - Other specified postprocedural states Plan: Right radial catheterization site well healed (4) CAD (coronary artery disease): Code(s): I25.10 - Atherosclerotic heart disease of [place] coronary artery without angina pectoris Plan: As above, nonobstructive coronary disease (5) Essential hypertension: Code(s): I10 - Essential (primary) hypertension Plan: Well controlled at present time. No medication changes made (6) Hyperlipidemia LDL goal <100: Code(s): E78.5 - Hyperlipidemia, unspecified Plan: [facility] LDL goal actually less than 70 in patient with diabetes and CAD. Labs done on 03/09/2023 showed LDL 98. Will recheck of fasting lipid profile and if continues to be elevated she would benefit from PCSK9 inhibitor Plan Time spent on chart review, documentation, interview and assessment Orders: Orders Lipid Panel Today I25.10 - Atherosclerotic heart disease of [place] coronary artery without angina pectoris Comprehensive Met. Panel Today I25.10 - Atherosclerotic heart disease of [place] coronary artery without angina pectoris Medications: New aspirin 81 mg PO DAILY 90 tabs 3RF Coding Level of Care Code Est Pt Level 4 (44042) Diagnoses Abnormal nuclear stress test R94.39 Chest discomfort R07.89 History of cardiac cath Z98.890 CAD (coronary artery disease) I25.10 Essential hypertension I10 Hyperlipidemia LDL goal <100 E78.5 Time Spent (min) 28
== END 2023-08-24 09:33 | disposition home or self-care (01) ==
PROVIDERS: PCP Nurse Practitioner Primary Care; Visit Provider Nurse Practitioner Family
DX: R94.39 Abnormal result of other cardiovascular function study (principal); R07.89 Other chest pain; Z98.890 Other specified postprocedural states; I25.10 Atherosclerotic heart disease of native coronary artery without angina pectoris; I10 Essential (primary) hypertension; E78.5 Hyperlipidemia, unspecified
CPT/HCPCS: 99214

== ENCOUNTER → 2023-08-24 08:24 | Outpatient (BNVA) | payer OTHER, SELFPAY | PROVIDERS: PCP Nurse Practitioner Primary Care; Visit Provider Nurse Practitioner Family | DX: I25.10 Atherosclerotic heart disease of native coronary artery without angina pectoris (principal); I10 Essential (primary) hypertension; R94.39 Abnormal result of other cardiovascular function study; R07.89 Other chest pain; E78.5 Hyperlipidemia, unspecified; Z98.890 Other specified postprocedural states | CPT/HCPCS: 99212 ==

== ENCOUNTER 2023-09-22 08:27 | Outpatient (REF) | payer OTHER, SELFPAY ==
--- NOTE | ~2023-09-22 | MM_ITS ---
EXAMINATION: MM SCREENING DIGITAL BREAST TOMOSYNTHESIS, BILATERAL CLINICAL INFORMATION: Screening. Asymptomatic. COMPARISON: Mammography: 03/17/2022, 06/27/2019, 11 12/05/2017, 01/13/2017 TECHNIQUE: Digital breast tomosynthesis is performed in both the craniocaudal and mediolateral oblique views along with computer-aided detection (CAD). Synthesized 2D images are generated from the tomosynthesis. FINDINGS: The breasts are almost entirely fatty (ACR BI-RADS breast composition Category a). There are bilateral vascular calcifications. There are no suspicious masses, suspicious grouped calcifications, or areas of architectural distortion in either breast. The parenchymal pattern is stable from prior exams. MM/MM tomosynthesis screening BI IMPRESSION: No mammographic evidence of malignancy. ASSESSMENT: BI-RADS BI-RADS 1 - Negative RECOMMENDATION: Routine annual mammography screening. 1 year F/U This examination should not preclude the clinical evaluation of a suspicious palpable abnormality. This patient's information was entered into a reminder system with a target due date for their next mammogram.
== END 2023-09-22 08:28 | disposition home or self-care (01) ==
LOC: HO.MAMMO 08:27
PROVIDERS: PCP Nurse Practitioner Primary Care; Visit Provider Nurse Practitioner Primary Care
DX: Z12.31 Encounter for screening mammogram for malignant neoplasm of breast (principal)
CPT/HCPCS: 77063; 77067

== ENCOUNTER → 2023-09-22 08:45 | Outpatient (BNV) | payer OTHER, SELFPAY | PROVIDERS: PCP Nurse Practitioner Primary Care; Visit Provider Radiology Diagnostic Radiology | DX: Z12.31 Encounter for screening mammogram for malignant neoplasm of breast (principal) | CPT/HCPCS: 77063; 77067 ==

== ENCOUNTER 2024-02-14 08:31 | Outpatient (REF) | payer OTHER, SELFPAY ==
[2024-02-14 09:26] LABS: MANUAL DIFF FLAG NO
[2024-02-14 09:46] LABS: Basophils Absolute Auto 0.1 X10*3/uL (0.0-0.2); Basophils Percent Auto 0.7 % (0-2); Eosinophils Absolute Auto 0.2 X10*3/uL (0.0-0.4); Hematocrit 38.8 % (37.0-47.0); Hemoglobin 12.3 g/dl (12.0-16.0); Imm Gran Abs Auto 0.07 X10*3/uL (0.00-0.03); Imm Gran Pct Auto 0.8 % (0.0-0.4); Lymphocytes Absolute Auto 2.5 X10*3/uL (1.2-4.9); Lymphocytes Percent Auto 30.2 % (20-40); Mean Corpuscular HGB Conc 31.7 g/dl (31.0-35.0); Mean Corpuscular Hemoglobin 29.6 pg (27.0-33.0); Mean Corpuscular Volume 93.5 fL (80.0-98.0); Mean Platelet Volume 8.7 fL (9.4-12.3); Monocytes Absolute Auto 0.6 X10*3/uL (0.1-1.2); Monocytes Percent Auto 7.4 % (2-11); Neutrophils Absolute Auto 4.9 x10*3/uL (2.0-8.3); Neutrophils Percent Auto 58.9 % (45-73); Platelet Count 346 X10*3/uL (160-400); Red Blood Count 4.15 X10*6/uL (4.20-5.50); Red Cell Distribution Width 13.8 % (11.0-16.0); White Blood Count 8.4 X10*3/uL (4.8-10.8)
[2024-02-14 09:51] LABS: INTERNATIONAL NORM RATIO 0.9 (0.9-1.1); Prothrombin Time 10.7 SEC (11.1-13.3)
[2024-02-14 10:03] LABS: Estimated Average Glucose 126 mg/dL
[2024-02-14 10:34] LABS: Alanine Aminotransferase 19 U/L (0-31); Albumin Level 3.9 g/dL (3.5-5.0); Alkaline Phosphatase 66 U/L (39-117); Anion Gap 12 (12-20); Aspartate Amino Transferase 18 U/L (5-31); Bilirubin Total 0.3 mg/dL (0.0-1.0); Blood Urea Nitrogen 24 mg/dL (9-16); Calcium 9.6 mg/dL (8.4-10.2); Carbon Dioxide 27 mmol/L (22-29); Chloride 107 mmol/L (96-108); Cholesterol 181 mg/dL (<200); Estimated Glomerular Filt Rate > 60; Glucose Random 85 mg/dL (60-115); HDL Cholesterol 58 mg/dL (>40); LDL Cholesterol Calculated 105 mg/dL (<100); Potassium 4.6 mmol/L (3.3-5.1); Sodium 141 mmol/L (135-145); Total Protein 7.3 g/dL (6.5-8.0); Triglycerides 94 mg/dL (<150)
[2024-02-14 10:53] LABS: TSH reflex Free T4 1.43 uIU/mL (0.32-4.0)
[2024-02-14 11:20] LABS: Vitamin B12 363 pg/mL (200-900)
== END 2024-02-14 08:32 | disposition home or self-care (01) ==
LOC: HO.LAB 08:31
PROVIDERS: PCP Nurse Practitioner Primary Care; Referring Provider Nurse Practitioner Primary Care; Visit Provider Nurse Practitioner Family
DX: E11.69 Type 2 diabetes mellitus with other specified complication (principal); E11.42 Type 2 diabetes mellitus with diabetic polyneuropathy; E03.9 Hypothyroidism, unspecified; R94.39 Abnormal result of other cardiovascular function study; E78.5 Hyperlipidemia, unspecified; I10 Essential (primary) hypertension; E66.9 Obesity, unspecified; I25.10 Atherosclerotic heart disease of native coronary artery without angina pectoris; R07.89 Other chest pain; Z98.890 Other specified postprocedural states
CPT/HCPCS: 36415; 80053; 80061; 82607; 83036; 84443; 85025; 85610; 99212

== ENCOUNTER 2024-02-14 08:31 | Outpatient (AMB) | payer OTHER, SELFPAY ==
[2024-02-14 08:33] VITALS: BP 118/42; PULSE 51; BMI 38.6
--- NOTE | 2024-02-14 08:33 | A.OFFVIS_ITS ---
Vital Signs 02/14/24 08:33 Height 5 ft Weight 197 lb 8.547 oz BMI 38.6 BP 118/42 L Blood Pressure Location Lt brachial Position Sitting Pulse 51 Pulse Source Pulse Oximeter Intake Visit Reasons: 6 mnth f/up [employer] Revenue Officer Required: Yes [employer] Revenue Officer Name: mandy hanley [id number] Allergies Penicillins Allergy (Severe, Verified 02/14/24 08:36) analphylaxis dulaglutide [From Trulicity] Allergy (Unknown, Verified 02/14/24 08:36) Rash potassium Allergy (Unknown, Verified 02/14/24 08:36) Itching SHELLFISH Allergy (Unknown, Uncoded 02/14/24 08:36) HIVES Medication List - Last Reconciled 02/14/24 by KENNEDY Gifford alcohol swabs 0 pad topical amlodipine 5 mg PO DAILY aspirin 81 mg PO DAILY blood sugar diagnostic As directed blood sugar diagnostic (FreeStyle Lite Strips) four times a day blood-glucose meter (FreeStyle [place] Lite kit) 4 times a day bupropion HCl SR 150 mg PO BID cholecalciferol (vitamin D3) 50 mcg PO DAILY cyclobenzaprine 5 mg PO TID PRN empagliflozin (Jardiance) 25 mg PO QAM ezetimibe 10 mg PO QAM fenofibrate 54 mg PO DAILY fluoxetine 40 mg PO DAILY fluticasone propionate 220 mcg/actuation (Flovent HFA) 1 puff PO BID gabapentin 400 mg PO TID glucose (TRUEplus Glucose) 16 grams PO ibuprofen 600 mg PO Q6H PRN insulin aspart U-100 (Novolog FlexPen U-100 Insulin aspart) 6 - 12 units (0.06 - 0.12 mL) subcut TID ipratropium-albuterol 0.5 mg-3 mg(2.5 mg base)/3 mL mL inhalation isosorbide mononitrate ER 30 mg PO QAM lancets As directed lancets (TRUEplus Lancets) 1 gauge miscellaneous QID levothyroxine 25 mcg PO DAILY lisinopril 40 mg PO QAM metformin 1,000 mg (2 x 500 mg) PO BID multivit-iron sulf-folic acid 15 mg iron- 400 mcg (Tab-A-Cristobal Multivitamin w- iron) 1 tab PO QAM omeprazole 20 mg PO DAILY pen needle, diabetic As directed pen needle, diabetic (BD Ultra-Fine Sirena Pen Needle) As directed four times a day polyethylene glycol 3350 (Miralax) 17 grams PO DAILY prednisone 40 mg (2 x 20 mg) PO DAILY 4 days rosuvastatin 40 mg PO DAILY semaglutide (Ozempic) mg subcut trazodone 100 mg PO BEDTIME PRN HPI HPI 6 mnth f/up: Details: Audelia is a 58-year-old female with past medical history of hypertension, hyperlipidemia, diabetes, morbid obesity who reported chest discomfort and had abnormal stress test. She then underwent a cardiac catheterization showing nonobstructive CAD. Today she reports that she still has episodes of sharp pains in her left chest that occur randomly and lasts 5-10 minutes before fully resolving. The area is tender to palpation. She continues to report that her prior exertional chest symptoms have improved since taking isosorbide. She currently does not get chest discomfort brought on by physical activity. She has mild shortness of breath with exertion which is not new. No PND, orthopnea or edema. No heart palpitations, lightheadedness, presyncope, syncope, falls. Takes all meds as directed. [facility] Medical History GERD (gastroesophageal reflux disease) Pre-syncope Umbilical hernia Fatty liver Asthma Anxiety Depression Type 2 diabetes mellitus with diabetic polyneuropathy Essential hypertension Hyperlipidemia LDL goal <100 Morbid obesity due to excess calories BMI 45.0-49.9, adult Type 2 diabetes mellitus with hyperglycemia Surgical History History of cardiac cath Hx of hernia repair Hx of gastric bypass History of esophagogastroduodenoscopy (EGD) Family History Father Diabetes mellitus HTN (hypertension) Mother CVD (cardiovascular disease) Mother HTN (hypertension) Diabetes mellitus Asthma Social History Household Members: None Alcohol intake: never Patient Tobacco Use Status: Never used Tobacco Review of Systems Const All systems reviewed & are unremarkable except as noted in HPI and below ENT Reports dizziness Card Reports chest pain (quick sharp stabbing), Denies chest pain at rest, Denies chest pain with activity, Denies rapid heart rate, Denies pedal edema, Denies edema, Denies leg edema, Denies lightheadedness, Denies palpitations, Denies dyspnea, Denies dyspnea on exertion and Denies orthopnea Resp Denies cough, Denies dyspnea and Denies dyspnea on exertion GI Denies hematochezia and Denies change in stool character Musc Denies abnormal gait, Reports limited range of motion, Reports muscle cramps, Denies muscle weakness, Denies numbness, Denies radiating pain into limb, Denies stiffness and Denies tingling Neuro Denies abnormal gait, Reports dizziness, Denies numbness and Denies tingling Endo Denies palpitations Physical Exam Vital Signs: Last Vital Signs Pulse 51 02/14/24 08:33 BP 118/42 L 02/14/24 08:33 BMI result Body Mass Index 38.6 Const General: cooperative, healthy appearing, comfortable and no acute distress Orientation/consciousness: patient oriented x3 Neck Neck: Yes normal visual inspection and Yes no JVD Chest Other: Tenderness to palpation of left chest, facial grimace and pulls away Resp Effort & Inspection: normal respiratory effort Auscultation: clear to auscultation bilaterally, no rales, no rhonchi and no wheezes Cardio Jugular venous distension: no JVD Rate: regular rate Rhythm: regular rhythm Heart sounds: S1 normal heart sound present, S2 normal heart sound present, no murmurs and no rubs Neuro General: patient oriented x3 Extrem General: Yes normal to inspection and No no pedal edema Psych Appearance: grossly normal Mental Status: mental status grossly normal Speech and movement: Normal speech and movement present Assessment & Plan Assessment & Plan (1) Abnormal nuclear stress test: Code(s): R94.39 - Abnormal result of other cardiovascular function study Category: Medical Plan: Prior reports of shortness of breath and chest discomfort with activity. She had a nuclear stress test done 12/17/2022 showing a fixed defect in the distal part of the lateral wall and adjacent apex which could indicate prior infarct. She had a cardiac catheterization on 08/10/2023 showing only nonobstructive disease. Today she reports still having sharp pains to the left chest in a l ocalized area that is worse to palpation. This symptom is most likely chest wall in nature. She states her prior exertional symptoms resolved with the addition of the isosorbide. Reviewed signs and symptoms of angina with her. Continue risk factor modification including good blood sugar, blood pressure and cholesterol control. Benefits of increasing physical activity and weight loss reviewed. Continue Aspirin. Continue on rosuvastatin and Zetia with ideal LDL goal less than 70. Continue amlodipine and isosorbide. Will send her for labs today. Cardiology follow-up 6 months, sooner if needed. (2) Chest discomfort: Code(s): R07.89 - Other chest pain Category: Medical Plan: Currently atypical and most likely chest wall discomfort (3) History of cardiac cath: Comment: 08/10/2023, lad mild luminal irregularities, left circumflex minimal luminal irregularities, RCA distal 50% stenosis Code(s): Z98.890 - Other specified postprocedural states Category: Surgical Plan: as above (4) CAD (coronary artery disease): Code(s): I25.10 - Atherosclerotic heart disease of [place] coronary artery without angina pectoris Category: Medical Plan: As above, nonobstructive coronary disease (5) Essential hypertension: Code(s): I10 - Essential (primary) hypertension Category: Medical Plan: Well controlled at present time. No medication changes made (6) Hyperlipidemia LDL goal <100: Code(s): E78.5 - Hyperlipidemia, unspecified Category: Medical Plan: [place] LDL goal actually less than 70 in patient with diabetes and CAD. Labs done on 03/09/2023 showed LDL 98. Will recheck of fasting lipid profile today and if continues to be elevated she would benefit from PCSK9 inhibitor Plan Time spent on chart review, documentation, interview and assessment Coding Level of Care Code Est Pt Level 3 (60243) Diagnoses Abnormal nuclear stress test R94.39 Chest discomfort R07.89 History of cardiac cath Z98.890 CAD (coronary artery disease) I25.10 Essential hypertension I10 Hyperlipidemia LDL goal <100 E78.5 Time Spent (min) 24
== END 2024-02-14 08:58 | disposition home or self-care (01) ==
PROVIDERS: PCP Nurse Practitioner Primary Care; Visit Provider Nurse Practitioner Family
DX: R94.39 Abnormal result of other cardiovascular function study (principal); R07.89 Other chest pain; Z98.890 Other specified postprocedural states; I25.10 Atherosclerotic heart disease of native coronary artery without angina pectoris; I10 Essential (primary) hypertension; E78.5 Hyperlipidemia, unspecified
CPT/HCPCS: 99213

== ENCOUNTER 2024-04-07 10:23 | Outpatient (REF) | payer OTHER, SELFPAY ==
--- NOTE | ~2024-04-07 | XR_ITS ---
EXAMINATION: XR HIP, LEFT CLINICAL INFORMATION: Left hip pain following a fall. COMPARISON: None available. TECHNIQUE: Two views of the left hip. FINDINGS: No acute fracture or dislocation. Mild left hip joint space narrowing with small marginal osteophytes. No osseous erosion. No evidence of femoral head avascular necrosis. Atherosclerotic calcifications. XR/XR hip LT min 2V IMPRESSION: 1. No acute fracture or dislocation. 2. Mild left hip osteoarthritis. Electronically signed by: Dima Kraft MD 04/07/2024 12:45 PM KAREN PEARSON
== END 2024-04-07 10:24 | disposition home or self-care (01) ==
LOC: HO.HHCX 10:23
PROVIDERS: Visit Provider Nurse Practitioner Primary Care
DX: M25.552 Pain in left hip (principal)
CPT/HCPCS: 73502

== ENCOUNTER 2024-07-27 16:24 | Outpatient (REF) | payer OTHER, SELFPAY ==
[2024-07-27 16:44] LABS: Appearance Urine Clear; Color Urine Yellow; Glucose Urine UA >=1000 mg/dL (Negative); Leukocyte Esterase Urine Negative (Negative); Nitrite Urine Negative (Negative); PH 6.5 (5.0-9.0); Specific Gravity - Urine 1.025 (1.005-1.025); UMIC TRIGGER UACC YES; Urine Blood Negative (Negative); Urine Ketones Negative (Negative); Urine Protein Negative (Neg-Trace)
[2024-07-27 17:08] LABS: Bacteria Urine None Seen (None Seen); Hyaline Casts Urine 0-2 /LPF (0-2); RBC Urine 0-2 /HPF (0-2); Squamous Epithelial Cell Urine 0-2 /HPF (0-2); WBC Urine 0-5 /HPF (0-5)
[2024-07-27 17:12] LABS: Creatinine Urine 25.75 mg/dL; Microalbumin Urine < 5.0 mg/L
== END 2024-07-27 16:25 | disposition home or self-care (01) ==
LOC: HO.HHCLNP 16:24
PROVIDERS: Visit Provider Nurse Practitioner Primary Care
DX: Z13.89 Encounter for screening for other disorder (principal)
CPT/HCPCS: 81001; 82043; 82570

== ENCOUNTER 2024-07-27 17:00 | Outpatient (REF) | payer OTHER, SELFPAY ==
--- OUTSIDE RECORDS SUMMARY | 2024-07-27 19:33 | XMS_ITS | Encounter Summary ---
Demographics Address [address] [place] [address] [address] [place] [address] Mobile Phone Home Phone Preferred Language es Marital Status Single Episcopal Affiliation Unknown Race Other Race Ethnic Group Cuban Author Organization [employer] Address [address] [place] [address] Care Team Providers Care Relationship Advisor Name Role Phone Angie Edwards Primary Care Provider [phone] Reason for Visit * Reason Comments Med Refill Encounter Details Date Type Department Care Team ([facility] st Contact Info) Description 01/21/2024 Refill [facility] [address] [place], [place] [phone] Angie Edwards ANP [address] [place] [address] Type 2 diabetes mellitus with hyperlipidemia (CMS/HCC) (CMS/HCC); Diabetic polyneuropathy associated with type 2 diabetes mellitus (CMS/HCC) Social History Tobacco Use Types Packs/Day Years Used Date Smoking Tobacco: Never Smokeless Tobacco: Never Alcohol Use Standard Drinks/Week Comments Not Currently 0 (1 standard drink = 0.6 oz pur e alcohol) Alcohol Answer Date Recorded Frequency of Alcohol Consumption Not on file 08/05/2023 Average Number of Drinks Not on file 024 Frequency of Binge Drinking Not on file 11/2023 Score 0 08/05/2023 Depression Answer Date Recorded Patient Health Questionnaire-9 Score 20 01/06/2024 Patient Health Questionnaire-9 Score 20 01/06/2024 Last PHQ-9: Questionnaire Data Not on file 0 01/06/2024 Housing Stability Answer Date Recorded What is your housing situation today? I have sugar rodas 03/18/[address] you li ve. Do you have problems with any of the following? None of the above 03/18/2023 Food Insecurity Answer Date Recorded Within the past 12 months, y ou worried that your food would run out before you got money to buy more: Never True 03/18/2023 Within the past 12 months,th e food you bought just didn't last and you didn't have enough money to get more: Never True Transportation Answer Date Recorded In the past 12 months, has l ack of transportation kept you from medical appts, meetings, work or from getting things needed for daily living? No 03/18/2023 Utilities Answer Date Recorded In the past 12 months, has t he electric, gas, oil or water company threatened to shut off services in your home? No 03/18/2023 Depression Answer Date Recorded Patient Health Questionnaire-2 Score 4 01/06/2024 Comments No Sex and Gender Information Value Date Recorded Sex Assigned at Female 03/30/2022 10:21 AM EDT Legal Sex Female 10:21 AM EDT Gender Identity Female 03/30/2022 10:21 AM EDT Sexual Orientation Straight 03/30/2022 10 :21 AM EDT documented as of this encounter Plan of Treatment Upcoming Encounters Date Type Department Care Team (Late st Contact Info) Description 08/09/2024 9:30 AM EDT Clinical Support [facility] [address] [place] [phone] 10/27/2024 9:15 AM EDT Office Visit [facility] [address] [place] [phone] Angie Edwards ANP [address] [place] [phone] documented as of this encounter Visit Diagnoses Diagnosis Type 2 diabetes mellitus with hyperlipidemia (CMS/HCC) (CMS/HCC) Diabetic polyneuropathy associated with type 2 diabetes mellitus (CMS/HCC) documented in this encounter Additional Health Concerns Assessment Noted Time PHQ-9 Depression Total Score: 20 024 9:36 AM EDT documented as of this encounter Care Teams Relationship Advisor Relationship Specialty Start Date End Date Angie Edwards ANP [address] [place] [id number] PCP - General Family Medicine 05/05/22 documented as of this encounter
--- OUTSIDE RECORDS SUMMARY | 2024-07-27 19:33 | XMS_ITS | Encounter Summary ---
Author Organization [employer] Address [address] [facility] 7t [place] [address] Care Team Providers Care Cleaning Porter Name Role Phone Angie Edwards Primary Care Provider [phone] Reason for Visit * Reason Comments Pre-visit Planning SDOH Screening posit leon and Tobacco screening negative Encounter Details Date Type Department Care Team ([facility] st Contact Info) Description 07/14/2024 Patient Outreach [facility] [address] [place] [address] Angie Edwards ANP [address] [place] [address] Pre-visit Planning (SDOH Screening positive and Tobacco screening negative) Social History Tobacco Use Types Packs/Day Years [...] Answer Date Recorded Patient Health Questionnaire-9 Score 9 04/07/2024 Patient Health Questionnaire-9 Score 9 04/07/2024 Last PHQ-9: Questionnaire Data Not on file 1 06/07/2023 Housing Stability Answer Date Recorded What is your housing situation today? I have sugar rodas 07/14/[address] you li ve. Do you have problems with any of the following? None of the above 07/14/2024 Food Insecurity Answer Date Recorded Within the past 12 months, y ou worried that your food would run out before you got money to buy more: Often true 07/14/2024 Within the past 12 months,th e food you bought just didn't last and you didn't have enough money to get more: Often true Transportation Answer Date Recorded In the past 12 months, has l ack of transportation kept you from medical appts, meetings, work or from getting things needed for daily living? No 07/14/2024 Utilities Answer Date Recorded In the past 12 months, has t he electric, gas, oil or water company threatened to shut off services in your home? No 07/14/2024 Depression Answer Date Recorded Patient Health Questionnaire-2 Score 4 04/07/2024 Internet Access Answer Date Recorded Internet Access Q1 Yes 07/14/2024 Internet Access Q2 Not on file 07/14/2024 Comments No Sex and Gender Information Value Date Recorded Sex Assigned at Female 03/30/2022 10:21 AM EDT Legal Sex Female 10:21 AM EDT Gender Identity Female 03/30/2022 10:21 AM EDT Sexual Orientation Straight 03/30/2022 10 :21 AM EDT documented as of this encounter Progress Notes * Anitra Flores - 07/14/2024 10:16 AM EST CC Anitra Medina placed successful outbound call to patient for pre-visit planning. Patient name and confirmed. Patient confirms appt date and time, and has transportation arrangements. Biggest concern for appointment at this time is came out with arthritis in the hip and been having so much pain and would like more information about it. Patient advised to bring to appointment a photo id and insurance card. Appropriate screenings completed in anticipation of appointment. . SDOH positive. Patient looking for assistance with Food insecurities. Referral will be placed. documented in this encounter Plan of Treatment Upcoming Encounters Date Type Department Care Team ([facility] st Contact Info) Description 08/09/2024 9:30 AM EDT Clinical Support [facility] [address] [place] [phone] 10/27/2024 9:15 AM EDT Office Visit [facility] [address] [place] [address] Angie Edwards, FRANCISCA [address] [place] [address] documented as of this encounter Visit Diagnoses Not on filedocumented in this encounter Additional Health Concerns Assessment Noted Time PHQ-9 Depression Total Score: 9 04/07/20 24 10:05 AM EST documented as of this encounter Care Teams Cleaning Porter Relationship Specialty Start Date End Date Angie Edwards ANP [address] [place] [address] PCP - General Family Medicine 05/05/22 documented as of this encounter
--- OUTSIDE RECORDS SUMMARY | 2024-07-27 19:33 | XMS_ITS | Encounter Summary ---
Author Organization [employer] Address 75 [facility] 7t [place] [address] Care Team Providers Care Wax Engraver Name Role Phone Angie Edwards Primary Care Provider [phone] Reason for Visit * Reason Comments Diabetes Encounter Details Date Type Department Care Team (Latest Contact Info) Description 07/27/2024 9:00 AM EST Office Visit [facility] [address] [place], [place] [phone] Angie Edwards ANP [address] [place] [address] Dysuria (Primary Dx); Vaginal itching; Type 2 diabetes mellitus with hyperlipidemia ([facility]) Social History Tobacco Use Types Packs/Day Years Used Date Smoking Tobacco: Never Smokeless Tobacco: Never Tobacco Cessation:Counseling Given: Not Answered Alcohol Use Standard Drinks/Week Comments Not Currently [...] AM EDT documented as of this encounter Last Filed Vital Signs Vital Sign Reading Time Taken Comments Blood Pressure 156/62 07/27/2024 9:36 AM EST Pulse 67 07/27/2024 9:36 AM EST Temperature 36.4 ??C (97.5 ??F) 07/27/2024 9:36 AM ES T Respiratory Rate 14 07/27/2024 9:36 AM EST Oxygen Saturation 98% 07/27/2024 9:36 AM EST Inhaled Oxygen Concentration - - Weight 92.7 kg (204 lb 6.4 oz) 07/27/2024 9:36 A M EST Height - - Body Mass Index 38.62 01/06/2024 9:26 AM EDT documented in this encounter Plan of Treatment Upcoming Encounters Date Type Department Care Team (Late st Contact Info) Description 08/09/2024 9:30 AM EDT Clinical Support [facility] [address] [place] [phone] 10/27/2024 9:15 AM EDT Office Visit [facility] [address] [place] [phone] Angie Edwards, RFANCISCA [address] [place] [address] Scheduled Orders Name Type Priority Associated Diagnoses Orde r Schedule Bacterial Vaginosis Panel Microbiology Routine Vaginal itching Ordered: 07/27/2024 documented as of this encounter Procedures Procedure Name Priority Date/Time Associated Diagnosis Comments POCT URINALYSIS DIPSTICK Routine 07/27/2024 10:35 AM EST Dysuria URINALYSIS, COMPLETE, WITH REFLEX TO CULTURE Routine 07/27/2024 10:30 AM EST Dysuria ALBUMIN, RANDOM URINE W/CREATININE Routine 07/27/2024 10:30 AM EST Type 2 diabetes mellitus with hyperlipidemia (CMS/HCC) documented in this encounter Results * POCT Urinalysis (07/27/2024 10:35 AM EST) Color, UA Yellow Clarity, UA Clear Glucose, UA Trace Comment:500mg Bilirubin, UA Negative Ketones, UA Negative Spec Grav, UA 1.025 Blood, UA Negative Negative, None Detected pH, UA 6.0 Protein, UA Negative Urobilinogen, UA 0.2 Leukocytes, UA Negative Negative, Rare, Trace Nitrite, UA Negative Negative, None Detected Appearance, UA clear QC Media Lot # [id number] Lot# Expiration Date Urine 07/27/2024 10:3 5 AM EST [facility] POINT OF CARE TEST ENTER/EDIT OR DERABLES Final Result * Albumin, Random Urine W/Creatinine (07/27/2024 10:30 AM EST) Creatinine, Urine 25.75 mg/dL [facility] Microalbumin Urine <5.0 mg/L [facility] Microalbum Creatinine Ratio Ur TNP <30 ug/mg cr [facility] Comment:Unable to calculate albumin/creatinine ratio due to lowmicroalbumin or creatinine result. Urine (Urine, Random) 07/27/2024 10:30 AM EST 07/27/2024 4:26 PM EST Angie Edwards ANP LAB URINE ORDERABLES Final Resul t Performing Organization Address [facility] Co de Phone Number [facility] [address] [place] [address] [phone] * (ABNORMAL) Urinalysis, Complete, with Reflex to Culture (07/27/2024 10:30 AM EST) Color Urine Yellow [facility] Appearance Urine Clear [facility] PH 6.5 5.0 - 9.0 [facility] Glucose Urine UA >=1000(A) Negative mg/dL [facility] Urine Blood Negative Negative [facility] Specific [place] - Urine 1.025 1.005 - 1.025 [facility] Urine Protein Negative Neg-Trace mg/dL [facility] Urine Ketones Negative Negative mg/dL [facility] Nitrite Urine Negative Negative [facility] Leukocyte Esterase Urine Negative Negative [facility] RBC Urine 0-2 0 - 2 /HPF [facility] Urine WBC 0-5 0 - 5 /HPF [facility] Urine Squamous Epithelial Cell 0-2 0 - 2 /HPF [facility] Urine Bacteria None Seen None Seen [facility] Hyaline Casts, Urine 0-2 0 - 2 /LPF [facility] Urine 07/27/2024 10:3 0 AM EST 07/27/2024 4:26 PM EST Narrative [facility] - 07/27/2024 5:11 PM EST Urine, Clean Catch Angie Edwards ANP LAB URINE ORDERABLES Final Resul t Performing Organization Address [facility]/ZIP Co de Phone Number [facility] [address] [place] [phone] documented in this encounter Visit Diagnoses Diagnosis Dysuria- Primary Vaginal itching Pruritus of genital organs Type 2 diabetes mellitus with hyperlipidemia (CMS/HCC) documented in this encounter Additional Health Concerns Assessment Noted Time PHQ-9 Depression Total Score: 9 04/07/20 24 10:05 AM EST documented as of this encounter Care Teams Wax Engraver Relationship Specialty Start Date End Date Angie Edwards ANP [address] [place] [address] PCP - General Family Medicine 05/05/22 documented as of this encounter
--- OUTSIDE RECORDS SUMMARY | 2024-07-27 19:33 | XMS_ITS | Encounter Summary ---
Demographics Address [address] [place] [address] [address] [place] [address] Mobile Phone Home Phone Preferred Language es Marital Status Single Anglican Affiliation Unknown Race Other Race Ethnic Group Jamaican Author Organization [employer] Address [address] [facility] 7t [place] [address] Care Team Providers Care Charge Entry Specialist Name Role Phone Angie Edwards Primary Care Provider [phone] Reason for Visit * Reason Comments Med Refill Encounter Details Date Type Department Care Team ([facility] st Contact Info) Description 07/21/2024 Refill [facility] [address] [place], [place] [phone] Angie Edwards ANP [address] [place] [address] Type 2 diabetes mellitus with hyperlipidemia (CMS/HCC) ; Diabetic polyneuropathy associated with type 2 diabetes [...] Description 08/09/2024 9:30 AM EDT Clinical Support [facility] [address] [place] [address] 10/27/2024 9:15 AM EDT Office Visit [facility] [address] [place] [address] Angie Edawrds ANP [address] [place] [address] documented as of this encounter Visit Diagnoses Diagnosis Type 2 diabetes mellitus with hyperlipidemia (CMS/HCC) Diabetic polyneuropathy associated with type 2 diabetes mellitus (CMS/HCC) documented in this encounter Additional Health Concerns Assessment Noted Time PHQ-9 Depression Total Score: 9 04/07/20 24 10:05 AM EST documented as of this encounter Care Teams Charge Entry Specialist Relationship Specialty Start Date End Date Angie Edwards ANP [address] [place] [phone] PCP - General Family Medicine 05/05/22 documented as of this encounter
--- OUTSIDE RECORDS SUMMARY | 2024-07-27 19:33 | XMS_ITS | Encounter Summary ---
Demographics Address [address] [place] [address] [address] [place] [address] Mobile Phone Home Phone Preferred Language es Marital Status Single Jehovah'S Witness Affiliation Unknown Race Other Race Ethnic Group Jordanian Author Organization [employer] Address [address] [facility] 7t [place] [address] Care Team Providers Care Construction Management Assistant Name Role Phone Angie Edwards Primary Care Provider [phone] Reason for Visit * Reason Comments Med Refill Encounter Details Date Type Department Care Team ([facility] st Contact Info) Description 07/20/2024 Refill [facility] [address] [place], [place] [phone] Angie Edwards ANP [address] [place] [address] Type 2 diabetes mellitus with hyperlipidemia (CMS/HCC) [...] Description 08/09/2024 9:30 AM EDT Clinical Support [facility] [address] [place] [phone] 10/27/2024 9:15 AM EDT Office Visit [facility] [address] [place] [phone] Angie Edwards ANP [address] [place] [address] documented as of this encounter Visit Diagnoses Diagnosis Type 2 diabetes mellitus with hyperlipidemia (CMS/HCC) Diabetic polyneuropathy associated with type 2 diabetes mellitus (CMS/HCC) documented in this encounter Additional Health Concerns Assessment Noted Time PHQ-9 Depression Total Score: 9 04/07/20 24 10:05 AM EST documented as of this encounter Care Teams Construction Management Assistant Relationship Specialty Start Date End Date Angie Edawrds ANP [address] [place] [phone] PCP - General Family Medicine 05/05/22 documented as of this encounter
--- OUTSIDE RECORDS SUMMARY | 2024-07-27 19:33 | XMS_ITS | Encounter Summary ---
Author Organization [employer] Address [address] [facility] 7t [place] [address] Care Team Providers Care Fuel Quality Tech Name Role Phone Angie Edwards Primary Care Provider [phone] Reason for Visit * Reason Comments Med Refill Encounter Details Date Type Department Care Team (Late st Contact Info) Description 12/16/[address] [address] Angie Edwards ANP [address] [place] [address] Diabetic polyneuropathy associated with type 2 diabetes mellitus (CMS/HCC); Type 2 diabetes mellitus with hyperlipidemia ([facility]) Social History Tobacco Use Types Packs/Day Years Used Date Smoking Tobacco: Never Smokeless Tobacco: Never Alcohol Use Standard Drinks/Week Comments Not Currently 0 (1 standard drink = 0.6 oz pur e alcohol) PHQ-2 Answer Date Recorded Patient Health Questionnaire-2 Score 0 11/10/2022 Depression Answer Date Recorded Patient Health Questionnaire-2 Score 0 11/10/2022 Comments Unknown Sex and Gender Information Value Date Recorded Sex Assigned at Female 03/30/2022 10:21 AM EDT Legal Sex Female 10:21 AM EDT Gender Identity Female 03/30/2022 10:21 AM EDT Sexual Orientation Straight 03/30/2022 10 :21 AM EDT documented as of this encounter Plan of Treatment Upcoming Encounters Date Type Department Care Team (Late st Contact Info) Description 08/09/2024 9:30 AM EDT Clinical Support [address] [address] 10/27/2024 9:15 AM EDT Office Visit [address] [address] Angie Edwards ANP [address] [place] [address] documented as of this encounter Visit Diagnoses Diagnosis Diabetic polyneuropathy associated with type 2 diabetes mellitus (CMS/HCC) Type 2 diabetes mellitus with hyperlipidemia (CMS/HCC) (CMS/HCC) documented in this encounter Care Teams Fuel Quality Tech Relationship Specialty Start Date End Date Angie Edwards ANP [address] [place] [address] PCP - General Family Medicine 05/05/22 documented as of this encounter
--- OUTSIDE RECORDS SUMMARY | 2024-07-27 19:33 | XMS_ITS | Encounter Summary ---
Author Organization [employer] Address [address] [facility] 7t [place] [address] Care Team Providers Care Cotton Header Name Role Phone Angie Edwards Primary Care Provider [phone] Reason for Visit * Reason Comments SDOH Concerns BELLA Gonzalez SDOH food insecurities Encounter Details Date Type Department Care Team (Latest Contact Info) Description 07/14/2024 Patient Outreach [facility] [address] [place] [address] Angie Edwards ANP [address] [place] [address] SDOH Concerns (BELLA GonzalezOH food insecurities ) Social History Tobacco Use Types Packs/Day Years [...] as of this encounter Progress Notes * Jett Jacques - 07/14/2024 10:53 AM EST CHW Jett Jacques, placed outbound call to patient in regards to SDOH food insecurity concern. No answer at this time. CHW lvm letting patient know that food pantry list was mailed. CHW also advisedpatient to contact Counsel at [facility] to inform of food insecurity. documented in this encounter Plan of Treatment Upcoming Encounters Date Type Department Care Team ([facility] st Contact Info) Description 08/09/2024 9:30 AM EDT Clinical Support [facility] [address] [place] [phone] 10/27/2024 9:15 AM EDT Office Visit [facility] [address] [place] [address] Angie Edwards ANP [address] [place] [address] documented as of this encounter Visit Diagnoses Not on filedocumented in this encounter Additional Health Concerns Assessment Noted Time PHQ-9 Depression Total Score: 9 04/07/20 24 10:05 AM EST documented as of this encounter Care Teams Cotton Header Relationship Specialty Start Date End Date Angie Edwards ANP [address] [place] [address] PCP - General Family Medicine 05/05/22 documented as of this encounter
--- OUTSIDE RECORDS SUMMARY | 2024-07-27 19:33 | XMS_ITS | Encounter Summary ---
Author Organization [email or web address] Address [address] [facility] [address] 7[address] [place] [address] Care Team Providers Care Patient Attendant Name Role Phone Angie Edwards FRANCISCA Primary Care Provider [phone] Reason for Visit * Reason Onset Date Comments chart prep 07/21/2024 Encounter Details Date Type Department Care Team (Late st Contact Info) Description 07/21/2024 Telephone [facility] [address] [place] [address] Berta Bello MA chart prep Social History Tobacco Use Types Packs/Day Years [...] AM EDT documented as of this encounter Miscellaneous Notes * Telephone Encounter - Berta Bello MA - 07/21/2024 12:45 PM EST Chart Prep Labs: done Images: done Vaccines due: yes Referrals: ortho autho Screenings: Foot Exam Overdue care gaps: A1C, Glucose documented in this encounter Plan of Treatment Upcoming Encounters Date Type Department Care Team (Late st Contact Info) Description 08/09/2024 9:30 AM EDT Clinical Support [address] [address] 10/27/2024 9:15 AM EDT Office Visit [facility] [address] [place] [phone] Angie Edwards ANP [address] [place] [phone] documented as of this encounter Visit Diagnoses Not on filedocumented in this encounter Additional Health Concerns Assessment Noted Time PHQ-9 Depression Total Score: 9 04/07/20 24 10:05 AM EST documented as of this encounter Care Teams Patient Attendant Relationship Specialty Start Date End Date Angie Edwards ANP [address] [place] [phone] PCP - General Family Medicine 05/05/22 documented as of this encounter
--- OUTSIDE RECORDS SUMMARY | 2024-07-27 19:33 | XMS_ITS | Encounter Summary ---
Author Organization [employer] Address [address] [facility] 7t [place] [address] Care Team Providers Care Nutrition Assistant Name Role Phone Angie Edwards Primary Care Provider [phone] Encounter Details Date Type Department Care Team (Latest Contact Info) Description 07/27/2024 Travel Social History Tobacco Use Types Packs/Day Years [...] Description 08/09/2024 9:30 AM EDT Clinical Support [address] [address] 10/27/2024 9:15 AM EDT Office Visit [address] [address] Angie Edwards ANP [address] [place] [address] documented as of this encounter Visit Diagnoses Not on filedocumented in this encounter Additional Health Concerns Assessment Noted Time PHQ-9 Depression Total Score: 9 04/07/20 24 10:05 AM EST documented as of this encounter Care Teams Nutrition Assistant Relationship Specialty Start Date End Date Angie Edwards ANP [address] [place] [address] PCP - General Family Medicine 05/05/22 documented as of this encounter
--- OUTSIDE RECORDS SUMMARY | 2024-07-27 19:33 | XMS_ITS | Clinical Summary ---
Author Organization [employer] Address [address] [facility] [address] [place] [address] Care Team Providers Care Insurance Claim Approver Name Role Phone Stephanie Markham Primary Care Provider [phone] Allergies Active Allergy Reactions Criticality Noted Date Comments Dulaglutide 04/21/2021 Other reaction(s): Rash, Rash Penicillins Anaphylaxis High 05/05/2022 Medications * This document contains information received from the source organization and may not represent a complete record from that organization. Blood Pressure kitIndications:H ypertension associated with type 2 diabetes mellitus (CMS/HCC) ([facility]) 1 kit in the morning. 1 kit 022 Active buPROPion SR (Wellbutrin SR) 150 MG 12 hr tablet Take 1 tablet by mouth every 12 (twelve) hours. Active FLUoxetine (PROzac) 40 MG capsule Take 2 capsules by mouth in the morning. Active spironolactone (Aldactone) 25 MG tablet Take 1 tablet by mouth 1 (one) time each day. Active TRAZODONE HCL PO Take 100 mg by mouth at bedtime. Active Respiratory Therapy Supplies (Nebulizer) device Inhale 1 Device if needed in the morning, at noon, in the evening, and at bedtime. 021 Active TRUEplus Lancets 33G miscIndications: Type 2 diabetes mellitus with hyperlipidemia (CMS/HCC) ([facility]) TEST BLOOD SUGAR FOUR TIMES DAILY 300 each 023 Active glucose blood (FREESTYLE LITE) test stripIndications :Diabetic polyneuropathy associated with type 2 diabetes mellitus ([facility]) Check BG 4x daily or more as needed 200 each 023 Active glucose 4 g chewable tabletIndication s:Type 2 diabetes mellitus with hypoglycemia without coma, with long-term current use of insulin ([facility]) CHEW 4 TABLETS NEEDED FOR LOW BLOOD SUGAR, IF STILL LOW AFTER 15 MINUTES CHEW 4 MORE TABLETS. IF STILL LOW AFTER ANOTHER 15 MINUTES CHEW 4 MORE TABLETS AND CALL 911. 50 tablet 3 023 Active budesonide-formo terol (Symbicort) 160-4.5 MCG/ACT inhalerIndicatio ns:Moderate persistent asthma without complication Inhale 2 puffs in the morning and at bedtime. Rinse mouth with water after use to reduce aftertaste and incidence of candidiasis. Do not swallow. 1 each Active Continuous Blood Gluc Hammer Smith (FreeStyle Ata 2 Alabaster) deviceIndication s:Type 2 diabetes mellitus with hypoglycemia without coma, with long-term current use of insulin ([facility]) Use to check blood sugar 4x/d and more if symptomatic 1 each 024 Active Continuous Blood Gluc Sensor (FreeStyle Ata 2 Sensor) miscIndications: Type 2 diabetes mellitus with hypoglycemia without coma, with long-term current use of insulin ([facility]) 1 each every 14 (fourteen) days. 6 each 3 024 Active glucose blood (FreeStyle Precision Vipul Test) test stripIndications :Type 2 diabetes mellitus with hypoglycemia without coma, with long-term current use of insulin ([facility]) Use to check BG 3-5 times daily 100 each 12 024 2024 Active glucagon (Baqsimi) 3 MG/DOSE nasal powderIndication s:Type 2 diabetes mellitus with hypoglycemia without coma, with long-term current use of insulin ([facility]) Administer 3 mg into affected nostril(s) 1 (one) time if needed for low blood sugar. 2 each 1 Active Alcohol Swabs (Alcohol Prep) 70 % pads USE FOUR TIMES DAILY DIRECTED 100 each Active levothyroxine (Synthroid, Levoxyl) 25 MCG tabletIndication s:Hypothyroidism , unspecified type TAKE 1 TABLET BY MOUTH EVERY MORNING BEFORE BREAKFAST 30 tablet Active loratadine (Claritin) 10 MG tablet TAKE 1 TABLET BY MOUTH EVERY MORNING 90 tablet Active fenofibrate (Tricor) 54 MG tablet TAKE 1 TABLET BY MOUTH AT BEDTIME 90 tablet 1 024 Active lisinopril 40 MG tablet TAKE 1 TABLET BY MOUTH EVERY MORNING 90 tablet 1 024 Active Ozempic, 1 MG/DOSE, 4 MG/3ML solution pen-injectorIndi cations:Type 2 diabetes mellitus with hyperlipidemia (CMS/HCC) ([facility]) INJECT 1mg SUBCUTANEOUSLY ONCE WEEKLY DIRECTED 3 mL 11 024 Active Multiple Vitamins-Iron (Tab-A-Cristobal/Iron ) tabletIndication s:Type 2 diabetes mellitus with hyperlipidemia (CMS/HCC) ([facility]) Take 1 tablet by mouth in the morning. 90 tablet 024 Active Diclofenac Sodium (Voltaren) 1 % gelIndications:L eft hip pain Apply 2-4g up to 4x/d to affected joint(s) for pain/swelling 100 g 2 024 Active ezetimibe (Zetia) 10 MG tabletIndication s:Type 2 diabetes mellitus with hyperlipidemia (CMS/HCC) ([facility]) TAKE 1 TABLET BY MOUTH EVERY MORNING 90 tablet 1 024 Active rosuvastatin (Crestor) 40 MG tabletIndication s:Type 2 diabetes mellitus with hyperlipidemia (CMS/HCC) ([facility]) TAKE 1 TABLET BY MOUTH AT BEDTIME 90 tablet 1 024 Active fluticasone (Flonase) 50 MCG/ACT nasal spray Administer 2 sprays into each nostril Once per day. Shake gently. Before first use, prime pump. After use, clean tip and replace cap. 48 g 1 025 Active albuterol (2.5 MG/3ML) 0.083% nebulizer solutionIndicati ons:Moderate persistent asthma with exacerbation Take 3 mL (2.5 mg) by nebulization every 4 (four) hours if needed for wheezing. 360 mL 2 025 2025 Active pantoprazole (ProtoNix) 40 MG EC tabletIndication s:Gastroesophage al reflux disease, unspecified whether esophagitis present TAKE 1 TABLET BY MOUTH EVERY MORNING BEFORE BREAKFAST DO NOT BREAK, CRUSH, DISSOLVE OR CHEW 30 tablet 11 025 Active Jardiance 25 MGIndications:Ty pe 2 diabetes mellitus with diabetic polyneuropathy, with long-term current use of insulin ([facility]) TAKE 1 TABLET BY MOUTH EVERY MORNING 90 tablet 1 025 Active D3 Super Strength 50 MCG (1999) capsuleIndicatio ns:Vitamin D deficiency TAKE 1 CAPSULE BY MOUTH EVERY MORNING 90 capsule 1 025 Active gabapentin (Neurontin) 100 MG capsuleIndicatio ns:Type 2 diabetes mellitus with hyperlipidemia ([facility]/HCC) ([facility]),Diabet ic polyneuropathy associated with type 2 diabetes mellitus ([facility]) TAKE 2 CAPSULES BY MOUTH THREE TIMES DAILY IN THE MORNING, EVENING AND BEDTIME 180 capsule 2 025 Active terconazole (Terazol 7) 0.4 % vaginal creamIndications :Vaginal itching INSERT 1 APPLICATORFUL VAGINALLY AT BEDTIME FOR 7 DAYS 45 g 025 Active amLODIPine (Norvasc) 5 MG tablet 025 Active Aspirin EC Adult Low Dose 81 MG EC tablet Take 81 mg by mouth at bedtime. Active amLODIPine (Norvasc) 2.5 MG tabletIndication s:Hypertension associated with type 2 diabetes mellitus ([facility]/HCC) ([facility]) TAKE 1 TABLET BY MOUTH EVERY MORNING 90 tablet 1 023 2024 Discontinued(D ose adjustment) terconazole (Terazol 7) 0.4 % vaginal creamIndications :Vaginal itching INSERT 1 APPLICATORFUL VAGINALLY AT BEDTIME FOR 7 DAYS 45 g 024 2024 Discontinued(R eorder (will not trigger notification to Pharmacy)) gabapentin (Neurontin) 100 MG capsuleIndicatio ns:Type 2 diabetes mellitus with hyperlipidemia ([facility]/HCC) ([facility]),Diabet ic polyneuropathy associated with type 2 diabetes mellitus ([facility]) TAKE 2 CAPSULES BY MOUTH THREE TIMES DAILY IN THE MORNING, EVENING AND BEDTIME 180 capsule 2 024 2024 Discontinued Hospital, Clinic, or Other Facility Administered Medication Ordered Dose Route Frequency Start Date End Date Status ipratropium-albuterol (Duo-Neb) 0.5-2.5 mg/3 mL nebulizer solution 3 mLIndications:Moderate persistent asthma with exacerbation 3 mL NEBULIZATION Once 05/05/2022 Active Active Problems Problem Noted Date Diagnosed Date Moderate persistent asthma without complication 08/05/2023 Umbilical hernia 05/05/2022 Bilateral plantar fasciitis 05/14/2020 Diastolic dysfunction 12/29/2019 Essential hypertension 05/26/2018 Type 2 diabetes mellitus with hyperlipidemia (CM S/HCC) 05/08/2016 Overview (05/23/2024): Lab Results Component Value Date HGBA1C 6.6 (A) 04/07/2024 Meds were Metformin 500 mg 2 tabs twice a day, Lantus 12 units daily --> these were STOPPED d/t hypoglycemia which we became aware of b/c she was wearing CGM and was going low overnight. She is now on: Jardiance 25mg daily, ozempic 1mg wkly. A1c </= 7.0 Foot exam: Moderate varicosities, decreased distal pulses, monofilament exam wnl, repeat at f/u Statin: YES / SARAHI or ARB: yes / ASA: yes Eye exam: Clarify at f/u Zetia 10mg daily, rosuvastatin 40mg Could not tolerate Trulicity d/t rash Depressive disorder 02/02/2012 Diabetic neuropathy 02/02/2012 Morbid obesity 02/02/2012 Resolved Problems Problem Noted Date Diagnosed Date Resolved Date Thigh hematoma, right, initial encounter 12/11/2022 03/18/2023 Assessment & Plan (12/11/2022 2:41 PM EDT): 12 x 5 cm hematoma following blunt trauma - no signs of infection currently - continue to monitor blood sugars closely - apply compression to hematoma daily - apply ice 2-3 times daily - trial Diclofenac gel for pain relief, discontinue use of topical alcohol - to represent to clinic with any signs/sx of infection, fevers, spreading of lesion Pruritus of vagina 02/04/2018 2 Encounters Date Type Department Care Team Description 07/27/2024 9:00 AM EST Office Visit [facility] [address] [place] [phone] Stephanie Markham ANP Dysuria (Primary Dx); Vaginal itching; Type 2 diabetes mellitus with hyperlipidemia (CMS/HCC) 07/27/2024 Travel 07/21/2024 Telephone [facility] [address] [place] [phone] Berta Bello MA chart prep 07/21/2024 Refill [facility] [address] [place] [phone] Stephanie Markham ANP Type 2 diabetes mellitus with hyperlipidemia ([facility]/HCC) ; Diabetic polyneuropathy associated with type 2 diabetes mellitus ([facility]/HCC) 07/20/2024 Refill [facility] [address] [place] [phone] Stephanie Markham ANP Type 2 diabetes mellitus with hyperlipidemia ([facility]/HCC) ; Diabetic polyneuropathy associated with type 2 diabetes mellitus ([facility]/HCC) 07/15/2024 Refill [facility] [address] [place] [phone] Stephanie Markham ANP Type 2 diabetes mellitus with hyperlipidemia ([facility]) ; Diabetic polyneuropathy associated with type 2 diabetes mellitus ([facility]/HCC) 07/14/2024 Patient Outreach [address] [id number] Stephanie Markham ANP SDOH Concerns ([facility] Jett Jacques, TC SDOH food insecurities ) 07/14/2024 Patient Outreach [facility] [address] [place] [phone] Stephanie Markham ANP Pre-visit Planning (SDOH Screening positive and Tobacco screening negative) 06/15/2024 Telephone [facility] [address] [place] [phone] Stephanie Markham ANP Referral 06/14/[address] [address] Berta Bello [place] Results (Tried calling pt Please let pt know, x-ray showed mild 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 Hopefully by now she has had PT - if still with pain, can refer to orthopedics. Thanks /no answer lv .) 06/13/2024 Refill [facility] [address] [place] [phone] Stephanie Markham ANP Type 2 diabetes mellitus with diabetic polyneuropathy, with long-term current use of insulin ([facility]); Vitamin D deficiency 06/10/2024 Refill [facility] [address] [place] [phone] Stephanie Markham ANP Gastroesophageal reflux disease, unspecified whether esophagitis present 06/06/2024 8:40 AM EST Office Visit [facility] [address] [place] [phone] Salomnó Hunter MD Moderate persistent asthma with exacerbation (Primary Dx) 05/29/2024 Telephone [facility] [address] [place] [phone] Estela Pichardo MA July recall 05/23/2024 Orders Only [facility] [address] [place] [phone] Stephanie Markham ANP Type 2 diabetes mellitus with hyperlipidemia (CMS/HCC) (Primary Dx) 05/18/2024 Refill [facility] [address] [place] [phone] Stephanie Markham ANP Type 2 diabetes mellitus with hyperlipidemia ([facility]/HCC) ([facility]/HCC) 05/02/2024 Telephone [facility] [address] [place] [address] [phone] Stephnaie Markham ANP FYI from Last 3 Months Immunizations Name Administration Dates Next Due Hep B, adult 06/28/2013,02/14/2013 Influenza Injectable Quadriv alant Preservative Free IIV4 MDCK 04/23/2020 Influenza injectable quadriv alent IIV4 with preservative 05/04/2017,04/12/2015 Influenza injectable quadriv alent preservative free 03/09/2023,02/27/2022,04/21/2021,03/07,05/26/2018 Influenza, IIV3, injectable 03/19/2014, 1,03/06/2010 Influenza, Split (incl. [place] f[place] antigen) 02/14/2013,02/02/2012 Influenza, seasonal, injecta ble, preservative free 02/17/2024 Moderna Covid-19 Vaccine 12+ 04/23/2021,09/07/19 21,08/09/2020 Pertussis 07/09/2009 Pfizer Covid-19 Vaccine 12+ 02/17/2024 Pneumococcal Conjugate PCV 20 03/09/2023 Pneumococcal Polysaccharide PPSV23 07/09/2009 TD (adult), 2 Lf tetanus tox oid, preservative free, adsorbed 01/01/2022 Td (adult), 5 Lf tetanus tox oid, preservative free, adsorbed 05/17/2015 Tdap 02/17/2024,09/29/2011 Social History Tobacco Use Types Packs/Day Years [...] Orientation Straight 03/30/2022 10 :21 AM EDT Last Filed Vital Signs Vital Sign Reading [...] oz) 07/27/2024 9:36 A M EST Height 154.9 cm (5' 1 ) 01/06/2024 9:26 AM EDT Body Mass Index 38.62 01/06/2024 9:26 AM EDT Plan of Treatment Upcoming Encounters Date Type Department Care Team (Late st Contact Info) Description 08/09/2024 9:30 AM EDT Clinical Support [address] [phone] 10/27/2024 9:15 AM EDT Office Visit [facility] [address] [place] [phone] Stephanie Markham, ANP [address] [place] [phone] Health Maintenance Due Date Last Done Comments CT Colonography 1967 Colonoscopy 1967 FIT 1967 FOBT 1967 HIV Screening 1967 Sigmoidoscopy 1967 Diabetes: Foot Exam 1977 Eye Exam 1977 Hepatitis B Vaccines (3 of 3 - 19+ 3-dose series) 08/23/2013 06/28/2013, 02/14/2013 Zoster Vaccines (1 of 2) 2017 Diabetes: Urine Protein Screening 03/09/2024 07/27/2024, 03/09/2023, 07/23/2020, Additional history exists Diabetes: Hemoglobin A1C 07/08/2024 024, 02/14/2024, 10/05/2023, Additional history exists Alcohol/Substance Use Screening 08/04/2024 08/05/2023 Mammogram 09/21/2024 09/22/2023, 02/28, 06/28/2019, Additional history exists Depression Monitoring (PHQ-9) 10/05/2024 04/07/2024, 04/07/2024 Lipid Panel 02/13/2025 02/14/2024, 02/28, 01/17/2021, Additional history exists Depression Screening 04/07/2025 04/07/2024, 04/07/20 Colorectal Cancer Screening 06/25/2025 FIT DNA/Cologuard 06/25/2025 SDOH Screening 07/14/2025 07/14/2024 Tobacco Screening 07/27/2025 07/27/2024 Cervical Cancer Screening 01/28/2028 HPV/Cotest 01/28/2028 01/27/2023, 12/30/2016 Pap Smear 01/28/2028 01/27/2023 DTaP/Tdap/Td Vaccines (5 - Td or Tdap) 02/16/2034 02/17/2024, 01/01/2022, 05/17/2015, Additional history exists RSV Patients and Patients Aged 60 years or older (1 - 1-dose 75+ series) 2042 Hepatitis C Screening Completed 07/23/2020 Pneumococcal Vaccine: 50+ Years Completed 03/09/2023, 07/09/2009 COVID-19 Vaccine Completed 02/17/2024, , 09/06/2020, Additional history exists Influenza Vaccine Completed 02/17/2024, , 02/27/2022, Additional history exists HIB Vaccines Aged Out No longer eligi ble based on patient's age to complete this topic HPV Vaccines Aged Out No longer eligi ble based on patient's age to complete this topic Hepatitis A Vaccines Aged Out No long er eligible based on patient's age to complete this topic IPV Vaccines Aged Out No longer eligi ble based on patient's age to complete this topic Meningococcal Vaccine Aged Out No kirit long eligible based on patient's age to complete this topic RSV under 20 months Aged Out No longe r eligible based on patient's age to complete this topic Rotavirus Vaccines Aged Out No longer eligible based on patient's age to complete this topic Procedures Procedure Name Priority Date/Time Associated Diagnosis Comments POCT URINALYSIS DIPSTICK Routine 07/27/2024 10:35 AM EST Dysuria ALBUMIN, RANDOM URINE W/CREATININE Routine 07/27/2024 10:30 AM EST Type 2 diabetes mellitus with hyperlipidemia (CMS/HCC) URINALYSIS, COMPLETE, WITH REFLEX TO CULTURE Routine 07/27/2024 10:30 AM EST Dysuria POCT INFLUENZA B (ID NOW RAPID MOLECULAR) Routine 06/06/2024 9:01 AM EST Moderate persistent asthma with exacerbation POCT INFLUENZA A (ID NOW RAPID MOLECULAR) Routine 06/06/2024 9:01 AM EST Moderate persistent asthma with exacerbation POCT RAPID STREP A Routine 06/06/2024 9: 01 AM EST Moderate persistent asthma with exacerbation POCT RAPID COVID ANTIGEN Routine 06/06/2024 9:01 AM EST Moderate persistent asthma with exacerbation POCT GLYCATED HEMOGLOBIN, TOTAL Routine 04/07/2024 9:12 AM EST Diabetic polyneuropathy associated with type 2 diabetes mellitus (CMS/HCC) LIPID PANEL, STANDARD Routine 02/14/2024 9:24 AM EDT Type 2 diabetes mellitus with hyperlipidemia (CMS/HCC) BI MAMMOGRAM SCREENING TOMOSYNTHESIS BILATERAL Routine 09/22/2023 8:45 AM EDT HPV MRNA E6/E7 REFLEX TO HPV 16, 18/45 Routine 01/27/2023 10:18 AM EDT PAP SMEAR Routine 01/27/2023 ZZZ HISTORICAL HEPATITIS C AB W/REFL TO HCV RNA, QN, PCR Routine 07/23/2020 8:16 AM EST from Last 3 Months or Most Recently Relevant to Health Maintenance Results * POCT Urinalysis (07/27/2024 10:35 AM [...] Date Urine 07/27/2024 10:3 5 AM EST Stephanie Markham ANP POINT OF CARE TEST ENTER/EDIT OR DERABLES Final Result * (ABNORMAL) Urinalysis, Complete, with Reflex to Culture (07/27/2024 10:30 AM EST) Color Urine Yellow [facility] Appearance Urine Clear [facility] PH 6.5 5.0 - 9.0 [facility] Glucose Urine UA >=1000(A) Negative mg/dL [facility] Urine Blood Negative Negative [facility] Specific [place] - Urine 1.025 1.005 - 1.025 [facility] Urine Protein Negative Neg-Trace mg/dL [facility] Urine Ketones Negative Negative mg/dL [facility] Nitrite Urine Negative Negative [facility] Leukocyte Esterase Urine Negative Negative [facility] RBC Urine 0-2 0 - 2 /HPF [facility] Urine WBC 0-5 0 - 5 /HPF [facility] Urine Squamous Epithelial Cell 0-2 0 - 2 /HPF [facility] Urine Bacteria None Seen None Seen [facility] Hyaline Casts, Urine 0-2 0 - 2 /LPF [facility] Urine 07/27/2024 10:3 0 AM EST 07/27/2024 4:26 PM EST Narrative [facility] - 07/27/2024 5:11 PM EST Urine, Clean Catch us Stephanie Markham ANP LAB URINE ORDERABLES Final Resul t Performing Organization Address City/State/[facility] Co de Phone Number [facility] [address] [place] [phone] * Albumin, Random Urine W/Creatinine (07/27/2024 10:30 AM EST) Creatinine, Urine 25.75 mg/dL [facility] Microalbumin Urine <5.0 mg/L [facility] Microalbum Creatinine Ratio Ur TNP <30 ug/mg cr [facility] Comment:Unable to calculate albumin/creatinine ratio due to lowmicroalbumin or creatinine result. Urine (Urine, Random) 07/27/2024 10:30 AM EST 07/27/2024 4:26 PM EST us Stephanie ESPINOSA LAB URINE ORDERABLES Final Resul t Performing Organization Address [facility] Co de Phone Number [facility] [address] [place] [phone] * Influenza B (ID NOW Rapid Molecular) (06/06/2024 9:01 AM EST) Influenza B Negative Negative, Indeterminate [facility] Swab 06/06/2024 9:01 AM EST us Salomón Hunter MD POINT OF CARE TEST ENTER/EDIT OR DERABLES Final Result Performing Organization Address [facility] Co de Phone Number [facility] [address] [place] [phone] * Influenza A (ID NOW Rapid Molecular) (06/06/2024 9:01 AM EST) Influenza A Negative Negative, Indeterminate [facility] Swab 06/06/2024 9:01 AM EST us Salomón Hunter MD POINT OF CARE TEST ENTER/EDIT OR DERABLES Final Result Performing Organization Address [facility] Co de Phone Number [facility] [address] [place] [phone] * POCT Rapid COVID Ag (06/06/2024 9:01 AM EST) [facility] Rapid COVID Ag Negative [facility] Swab 06/06/2024 9:01 AM EST Salomón Hunter MD POINT OF CARE TEST ENTER/EDIT OR DERABLES Final Result Performing Organization Address [facility] Co de Phone Number [facility] [address] [place] [phone] * POCT rapid strep A manually resulted (06/06/2024 9:01 AM EST) [facility] Rapid Strep A Screen Negative Negative, None Detected [facility] Swab 06/06/2024 9:01 AM EST Salomón Hunter MD POINT OF CARE TEST ENTER/EDIT OR DERABLES Final Result Performing Organization Address [facility] Co de Phone Number [facility] [address] [place] [phone] * (ABNORMAL) POCT HGB A1C (04/07/2024 9:12 AM EST) [facility] Hemoglobin A1C 6.6(A) 4.0 - 6.0 % QC Media Lot # [id number] Lot# Expiration Date Blood 04/07/2024 9:12 AM EST Stephanie ESPINOSA POINT OF CARE TEST ENTER/EDIT OR DERABLES Final Result * (ABNORMAL) Lipid Panel, Standard (02/14/2024 9:24 AM EDT) [facility] Triglycerides 94 <150 mg/dL [facility] Comment:Desirable Triglyceri de: less than 150 mg/dLBorderline High Triglyceride 150-199 mg/dLHigh Triglyceride: 200-499 mg/dLVery High Triglyceride: greater than or equal to 5OO mg/dL Cholesterol 181 <200 mg/dL [facility] Comment:Desirable Cholestero l: less than 200 mg/dLBorderline High Cholesterol: 200-239 mg/dLHigh Cholesterol: greater than 239 mg/dL LDL Cholesterol Calculated 105(H) <100 mg/dL [facility] Comment:Desirable LDL: less than 100 mg/dLNear Optimal/Above Optimal LDL: 110- 129 mg/dLBorderline High LDL: 130-159 mg/dLHigh LDL: 160-189 mg/dLVery High LDL: greater than or equal to 190 mg/dL HDL Cholesterol 58 >40 mg/dL [facility] Comment:Desirable HDL: great er than 40 mg/dL Note: This HDL assay may give artificially low results in patients with liver disease. Blood Venous blood specimen / Unknown 02/14/2024 9:24 AM EDT 02/14/2024 9:24 AM EDT [facility] BLOOD ORDERABLES Final Resul t [facility] [address] [place] [address] [phone] * BI Mammogram Screening Tomosynthesis Bilateral (09/22/2023 8:45 AM EDT) Anatomical Region Laterality Modality Breast Bilateral Mammography 09/22/2023 8:45 AM EDT Narrative 10/13/2023 9:29 AM EDT ? [facility] ? [address] ?[place] [address] ? Mammography Report ? Signed ? Patient: Pena Lopez,Sia ?MR#: M ?? [id number] ? : 1965 ?Acct:[id number] ? Age/Sex: 58 / F ?ADM Date: 04/24/24 ? Loc: HO.MAMMO ? Attending Dr: Stephanie Markham CHIEF CLINICAL DIETITIAN ? Ordering Physician: STEPHANIE MARKHAM NP ?Results: 1Negative ? Date of Service: 09/22/23 ?Follow Up: 1 Year From Orig ?? inal Mammogram ? Procedure(s): MM tomosynthesis screening BI ?? Accession Number(s): [id number] ? cc: STEPHANIE MARKHAM NP ? EXAMINATION: ?? MM SCREENING DIGITAL BREAST TOMOSYNTHESIS, BILATERAL ? CLINICAL INFORMATION: ? Screening. Asymptomatic. ? COMPARISON: ?? Mammography: 03/17/2022, 06/27/2019, 12/05/2017, 01/13/2017 ? TECHNIQUE: ?? Digital breast tomosynthesis is performed in both the craniocaudal and ?? mediolateral oblique views along with computer-aided detection (CAD). ?? Synthesized 2D images are generated from the tomosynthesis. ? FINDINGS: ?? The breasts are almost entirely fatty (ACR BI-RADS breast composition ?? Category a). ? There are bilateral vascular calcifications. ??There are no suspicious ?? masses, suspicious grouped calcifications, or areas of architectural ?? distortion in either breast. The parenchymal pattern is stable from ?? prior exams. ? MM/MM tomosynthesis screening BI ?? IMPRESSION: ?? No mammographic evidence of malignancy. ? ASSESSMENT: ? BI-RADS BI-RADS 1 - Negative ? RECOMMENDATION: ?? Routine annual mammography screening. ? 1 year F/U ? This examination should not preclude the clinical evaluation of a ?? suspicious palpable abnormality. ? This patient's information was entered into a reminder system with a ?? target due date for their next mammogram. ? Dictated By: ?Benji Dotson MD ? Signed By: ?<Electronically signed by Benji Dotson MD in OV> ?10/13/23 0926 ? DD/ 0845 ? TD/TT: ? Jumpbasting Collar Baster: ? Procedure Note Donotuseinterpreter, Image - 10/13/2023 [place] [facility] [address] [place] [address] Mammography Report Signed Patient: Ismael Tripathi#: M [id number] : 1965Acct:[id number] Age/Sex: 58 / FADM Date: 09/22/23 Loc: HO.MAMMO Attending Dr: Stephanie Markham NP Ordering Physician: STEPHANIE MARKHAM NPResults: 1Negative Date of Service: 09/22/23Follow Up: 1 Year From Orig inal Mammogram Procedure(s): MM tomosynthesis screening BI Accession Number(s): [id number] cc: STEPHANIE MARKHAM NP EXAMINATION: MM SCREENING DIGITAL BREAST TOMOSYNTHESIS, BILATERAL CLINICAL INFORMATION: Screening. Asymptomatic. COMPARISON: Mammography: 03/17/2022, 06/27/2019, 11 12/05/2017, 01/13/2017 TECHNIQUE: Digital breast tomosynthesis is performed in both the craniocaudal and mediolateral oblique views along with computer-aided detection (CAD). Synthesized 2D images are generated from the tomosynthesis. FINDINGS: The breasts are almost entirely fatty (ACR BI-RADS breast composition Category a). There are bilateral vascular calcifications. There are no suspicious masses, suspicious grouped calcifications, or areas of architectural distortion in either breast. The parenchymal pattern is stable from prior exams. MM/MM tomosynthesis screening BI IMPRESSION: No mammographic evidence of malignancy. ASSESSMENT: BI-RADS BI-RADS 1 - Negative RECOMMENDATION: Routine annual mammography screening. 1 year F/U This examination should not preclude the clinical evaluation of a suspicious palpable abnormality. This patient's information was entered into a reminder system with a target due date for their next mammogram. Dictated By: Benji Dotson MD Signed By: <Electronically signed by Benji Dotson MD in OV> 10/13/23 09 DD/ 0845 TD/TT: Jumpbasting Collar Baster: us Stephanie ESPINOSA IMG BI PROCEDURES Final Result * HPV mRNA E6/E7 w/Reflex to HPV Genotypes 16, 18/45 (01/27/2023 10:18 AM EDT) HPV nRNA E6/E7 Not Detected Not Detected [facility] Comment:Methodology: Transcr iption-Mediated AmplificationThis assay detects E6/E7 viral messenger RNA (mRNA) from 14high-risk HPV types (16,18,31,33,35,39,45,51,52,56,58,59,66,68).Cervical sources are required for HPV testing.If a vaginal source from a patient who has had atotal hysterectomy with removal of cervix wassubmitted, please contact the testing laboratoryfor alternative testing options.For additional information, please refer tohttp://education.PayProp/faq/ZAV623s7(This link if provided for information/educational purposes only.)THIS TEST WAS PERFORMED AT:[facility] [place] [id number] MORGAN MD HPV mRNA E6/E7 [facility] HPV 16 RNA [facility] HPV 18/45 RNA [facility] 01/27/2023 10:1 8 AM EDT 01/28/2023 12:15 PM EDT us Alba MATHUR LAB CYTOLOGY ORDERABLES F inal Result [facility] [address] [place] [address] [phone] * Pap Smear (01/27/2023) 01/27/2023 01/28/2023 12: 15 PM EDT Narrative [facility] - 02/09/2023 10:04 AM EDT ----- ------- Name: Sia Tripathi ?Age/Sex: 57/F ? : 1965 Unit#: [id number] ?? Attend Dr: ALBA MONROY CNM ?Re01/27/23 ?Status: DEP REF ? Location: HO.HHCLNP ? Disch: ? ----- ------- SPEC : [id number] ?RECD: 01/28/23-1214 ? STATUS: ??SOUT ? REQ NUM: [id number] ? RASHIDA: 01/27/23- ? SUBM : ALBA MONROY CNM ? ENTERED: ??01/28/23-1218 ?SP TYPE: Pap Smr ?OTHR : ? ORDERED: ??Pap Smear ? Interpretation ?? Satisfactory for evaluation. ?? Cytolysis noted. ?? Negative for intraepithelial lesion or malignancy. ?HPV mRNA E6/E7: ?NOT DETECTED ? This assay detects E6/E7 viral messenger RNA (mRNA) from 14 high-risk HPV types (16, 18, ?? 31, 33, 35, 39, 45, 51, 52, 56, 58, 59, 66, 68) ?? HPV testing performed by [facility], [place], [place]. ??See reference laboratory ?? pion of the EMR for entire report. ?Clinical Information LMP:Unknown date Previous PAP test:Unknown date/findings ? Material Received ?? ThinPrep-Vaginal/Cervical ----- ------- Signed (signature on file) MELVA Clemens (ASCP) 02/09/23 1004 ? ----- ------- ? END OF REPORT ? Alba Monroy CNJevon LAB CYTOLOGY ORDERABLES F inal Result [facility] [address] [place] [address] [phone] * HEPATITIS C AB W/REFL TO HCV RNA, QN, PCR (07/23/2020 8:16 AM EST) HEPATITIS C ANTIBODY NON-REACT DIANE NON-REACT DIANE [facility] INDEX 0.03 <1.00 [facility] Comment: ?? HCV antibody was non-reactive. There is no laboratory ?? evidence of HCV infection. ?? In most cases, no further action is required. However, if recent HCV exposure is suspected, a test for HCV RNA (test code 72747) is suggested. ?? For additional information please refer to http://education.PayProp/faq/XBQ64e6 (This link is being provided for informational/ educational purposes only.) ?? 07/23/2020 8:16 AM EST Historical Provider HISTORICAL/NON ORDERABLE LABS Final Result Performing Organization Address City/[facility] Co de Phone Number [facility] [address] [place] [address], from Last 3 Months or Most Recently Relevant to Health Maintenance Insurance [address] [address] [facility] Care Teams Insurance Claim Approver Relationship Specialty Start Date End Date Stephanie Markham ANP [address] [place] [address] PCP - General Family Medicine 05/05/22
--- OUTSIDE RECORDS SUMMARY | 2024-07-27 19:33 | XMS_ITS | Encounter Summary ---
Demographics Address [address] [place] [address] [address] [place] [address] Mobile Phone Home Phone Preferred Language es Marital Status Single Christian Affiliation Unknown Race Other Race Ethnic Group Ecuadorean Author Organization [employer] Address [address] [facility] 7t [place] [address] Care Team Providers Care Foster Care Case Manager Name Role Phone Angie Edwards Primary Care Provider [phone] Reason for Visit * Reason Comments Med Refill Encounter Details Date Type Department Care Team (Late st Contact Info) Description 12/03/2022 Refill [facility] [address] [place], [place] [phone] Angie Edwards ANP [address] [place] [address] Diabetic polyneuropathy associated with type 2 diabetes mellitus (CMS/HCC); Type 2 diabetes mellitus with hyperlipidemia ([facility]/HCC) Social History Tobacco Use Types Packs/Day Years [...] Orientation Straight 03/30/2022 10 :21 AM EDT COVID-19 Exposure Response Date Recorded In the last 10 days, have yo u been in contact with someone who was confirmed or suspected to have Coronavirus/COVID-19? No / Unsure 11/10/2022 8:59 AM EDT documented as of this encounter Plan of Treatment Upcoming Encounters Date Type Department Care Team (Late st Contact Info) Description 08/09/2024 9:30 AM EDT Clinical Support [address] [address] 10/27/2024 9:15 AM EDT Office Visit [address] [address] Angie Edwards ANP [address] [place] [address] documented as of this encounter Visit Diagnoses Diagnosis Diabetic polyneuropathy associated with type 2 diabetes mellitus (CMS/HCC) Type 2 diabetes mellitus with hyperlipidemia (CMS/HCC) ([facility]/HCC) documented in this encounter Care Teams Foster Care Case Manager Relationship Specialty Start Date End Date [place] [address] PCP - General Family Medicine 05/05/22 documented as of this encounter
--- OUTSIDE RECORDS SUMMARY | 2024-07-27 19:33 | XMS_ITS | Encounter Summary ---
Author Organization [employer] [facility] Address [address] [facility] 7t [place] [address] Care Team Providers Care Airplane Woodworker Name Role Phone Angie Edwards Primary Care Provider [phone] Encounter Details Date Type Department Care Team ([facility] Contact Info) Description 05/05/[address] [address] Provider, MD Emy Social History Tobacco Use Types Packs/Day Years Used Date Smoking Tobacco: Never Smokeless Tobacco: Never Comments Unknown Sex and Gender Information Value [...] suspected to have Coronavirus/COVID-19? No / Unsure 05/05/2022 9:08 AM EST documented as of this encounter Plan of Treatment Upcoming Encounters Date Type Department Care Team (Late Contact Info) Description 08/09/2024 9:30 AM EDT Clinical Support [address] [address] 10/27/2024 9:15 AM EDT Office Visit [facility] [address] [place] [address] Angie Edwards ANP [address] [place] [address] documented as of this encounter Visit Diagnoses Not on filedocumented in this encounter Care Teams Airplane Woodworker Relationship Specialty Start Date End Date Angie Edwards ANP [address] [place] [address] PCP - General Family Medicine 05/05/22 documented as of this encounter
--- OUTSIDE RECORDS SUMMARY | 2024-07-27 19:33 | XMS_ITS | Encounter Summary ---
Demographics Address [address] [place] [address] [address] [place] [address] Mobile Phone Home Phone Preferred Language es Marital Status Single Roman Catholic Affiliation Unknown Race Other Race Ethnic Group Panamanian Author Organization [employer] Address [address] [facility] 7t [place] [address] Care Team Providers Care Metal Caster Name Role Phone Angie Edwards Primary Care Provider [phone] Reason for Visit * Reason Comments Med Refill Encounter Details Date Type Department Care Team ([facility] st Contact Info) Description 07/15/2024 Refill [facility] [address] [place], [place] [phone] Angie Edwards ANP [address] [place] [address] Type 2 diabetes mellitus with hyperlipidemia (CMS/HCC) [...] Clinical Support [facility] [address] [place] [address] 10/27/2024 9:15 AM EDT Office Visit [facility] [address] [place] [address] Angie Edwards ANP [address] [place] [address] documented as of this encounter Visit Diagnoses Diagnosis Type 2 diabetes mellitus with hyperlipidemia (CMS/HCC) Diabetic polyneuropathy associated with type 2 diabetes mellitus (CMS/HCC) documented in this encounter Additional Health Concerns Assessment Noted Time PHQ-9 Depression Total Score: 9 04/07/20 24 10:05 AM EST documented as of this encounter Care Teams Metal Caster Relationship Specialty Start Date End Date Angie Edwards ANP [address] [place] [address] PCP - General Family Medicine 05/05/22 documented as of this encounter
--- OUTSIDE RECORDS SUMMARY | 2024-07-27 19:33 | XMS_ITS | Encounter Summary ---
Author Organization [email or web address] Address [address] [facility] 7t [place] [address] Care Team Providers Care Crucible Packer Name Role Phone Angie Edwards Primary Care Provider [phone] Reason for Visit * Reason Comments Med Refill Encounter Details Date Type Department Care Team ([facility] st Contact Info) Description 03/07/2023 Refill [facility] [address] [place], [place] [phone] Angie Edwards ANP [address] [place] [address] Type 2 diabetes mellitus with hyperlipidemia (CMS/HCC) ; Diabetic polyneuropathy associated with type 2 diabetes mellitus (CMS/HCC) Social History Tobacco Use Types Packs/Day Years Used Date Smoking Tobacco: Never Smokeless Tobacco: Never Alcohol Use Standard Drinks/Week Comments Not Currently 0 (1 standard drink = 0.6 oz pur e alcohol) PHQ-2 Answer Date Recorded Patient Health Questionnaire-2 Score 0 11/10/2022 Housing Stability Answer Date Recorded What is your housing situation today? I have sugar rodas 03/07/[address] you li ve. Do you have problems with any of the following? None of the above 03/07/2023 Food Insecurity Answer Date Recorded Within the past 12 months, y ou worried that your food would run out before you got money to buy more: Never True 03/07/2023 Within the past 12 months,th e food you bought just didn't last and you didn't have enough money to get more: Never True 12/2022 Transportation Answer Date Recorded In the past 12 months, has l ack of transportation kept you from medical appts, meetings, work or from getting things needed for daily living? No 03/07/2023 Utilities Answer Date Recorded In the past 12 months, has t he electric, gas, oil or water company threatened to shut off services in your home? No 03/07/2023 Depression Answer Date Recorded Patient Health Questionnaire-2 Score 0 11/10/2022 Comments No Sex and Gender Information Value [...] Description 08/09/2024 9:30 AM EDT Clinical Support [address] [address] 10/27/2024 9:15 AM EDT Office Visit [address] [address] Angie dEwards ANP [address] [place] [address] documented as of this encounter Visit Diagnoses Diagnosis Type 2 diabetes mellitus with hyperlipidemia (CMS/HCC) (CMS/HCC) Diabetic polyneuropathy associated with type 2 diabetes mellitus (CMS/HCC) documented in this encounter Care Teams Crucible Packer Relationship Specialty Start Date End Date Angie Edwards ANP [address] [place] [address] PCP - General Family Medicine 05/05/22 documented as of this encounter
--- OUTSIDE RECORDS SUMMARY | 2024-07-27 19:33 | XMS_ITS | Encounter Summary ---
Demographics Address [address] [place] [address] [address] [place] [address] Mobile Phone Home Phone Preferred Language es Marital Status Single Orthodoxy Affiliation Unknown Race Other Race Ethnic Group Guinean Author Organization [employer] Address [address] [facility] 7t [place] [address] Care Team Providers Care Teletype Mechanic Name Role Phone Angie Edwards Primary Care Provider [phone] Reason for Visit * Reason Comments Med Refill Encounter Details Date Type Department Care Team (Late Contact Info) Description 12/08/2022 Refill [facility] [address] [place], [place] [phone] Angie Edwards ANP [address] [place] [address] Type 2 diabetes mellitus with hyperglycemia (CMS/HCC); intermodal owner operator truck driver (current) use of insulin (CMS/[facility]) Social History Tobacco Use Types Packs/Day Years [...] Description 08/09/2024 9:30 AM EDT Clinical Support [address] [address] 10/27/2024 9:15 AM EDT Office Visit [address] [address] Angie Edwards ANP [address] [place] [address] documented as of this encounter Visit Diagnoses Diagnosis Type 2 diabetes mellitus with hyperglycemia (CMS/HCC) intermodal owner operator truck driver (current) use of insulin (CMS/[facility]) documented in this encounter Care Teams Teletype Mechanic Relationship Specialty Start Date End Date Angie Edwards ANP [address] [place] [address] PCP - General Family Medicine 05/05/22 documented as of this encounter
[2024-07-28 12:09] LABS: Bacterial Vaginosis PCR NEGATIVE (Negative); Candida Group PCR NOT DETECTED (Not Detect); Candida glab krusei PCR DETECTED (Not Detect); Trichomonas vaginalis PCR NOT DETECTED (Not Detect)
== END 2024-07-27 17:01 | disposition home or self-care (01) ==
LOC: HO.LNP 17:00
PROVIDERS: Visit Provider Nurse Practitioner Primary Care
DX: N89.8 Other specified noninflammatory disorders of vagina (principal)
CPT/HCPCS: 81001; 81515; 82570

== ENCOUNTER 2024-08-14 09:21 | Outpatient (REF) | payer OTHER, SELFPAY ==
--- NOTE | ~2024-08-14 | XR_ITS ---
EXAMINATION: XR LUMBOSACRAL SPINE CLINICAL INFORMATION: Low back pain x1 week. No tingling and numbness down. COMPARISON: None available. TECHNIQUE: Three views of the lumbosacral spine. FINDINGS: There is normal lumbar lordosis. The vertebral heights and alignment is normal. There is loss of L2-3 disc level with moderate ventral spondylosis. Rest the disc heights are normal. No visible acute fracture, dislocation or subluxation seen. The paravertebral soft tissues are normal. SI joints are normal. XR/XR lumbar spine 2-3V IMPRESSION: Mild degenerative disc changes with ventral spondylosis L2-3 disc level. No visible acute fracture or dislocation seen. Electronically signed by: Fredi Del Rio MD 08/14/2024 09:42 AM EDT
--- OUTSIDE RECORDS SUMMARY | 2024-08-14 10:08 | XMS_ITS | Encounter Summary ---
Author Organization [employer] Address [address] [facility] 7t [place] [address] Care Team Providers Care Reserves Clerk Name Role Phone Angie Edwards Primary Care Provider [phone] Reason for Visit * Reason Comments Med Refill Encounter Details Date Type Department Care Team ([facility] st Contact Info) Description 03/07/2023 Refill [facility] [address] [place], [place] [phone] Angie Edwards ANP [address] [place] [address] Type 2 diabetes mellitus with hyperlipidemia (CMS/HCC) [...] Care Team (Late st Contact Info) Description 10/27/2024 9:15 AM EDT Office Visit [facility] [address] [place] [address] Angie Edwards ANP 230 [place] [address] documented as of this encounter Visit Diagnoses Diagnosis Type 2 diabetes mellitus with hyperlipidemia (CMS/HCC) (CMS/HCC) Diabetic polyneuropathy associated with type 2 diabetes mellitus (CMS/HCC) documented in this encounter Care Teams Reserves Clerk Relationship Specialty Start Date End Date Angie Edwards ANP [address] [place] [phone] PCP - General Family Medicine 05/05/22 documented as of this encounter
--- OUTSIDE RECORDS SUMMARY | 2024-08-14 10:08 | XMS_ITS | Encounter Summary ---
Demographics Address [address] [facility] [address] [place] [address] Mobile Phone Home Phone Preferred Language es Marital Status Single Hindu Affiliation Unknown Race Other Race Ethnic Group Martiniquais Author Organization [employer] Address [address] [facility] 7t [place] [address] Care Team Providers Care Paper Reel Operator Name Role Phone Angie Edwards Primary Care Provider [phone] Reason for Visit * Reason Comments Med Refill Encounter Details Date Type Department Care Team ([facility] st Contact Info) Description 01/21/[address] [facility] [address] [place], [place] [phone] Angie Edwards ANP [address] [place] [address] Type 2 diabetes mellitus with hyperlipidemia (CMS/HCC) [...] Description 10/27/2024 9:15 AM EDT Office Visit [facility] [address] [place] [address] Angie Edwards ANP [address] [place] [address] documented as of this encounter Visit Diagnoses Diagnosis Type 2 diabetes mellitus with hyperlipidemia (CMS/HCC) (CMS/HCC) Diabetic polyneuropathy associated with type 2 diabetes mellitus (CMS/HCC) documented in this encounter Additional Health Concerns Assessment Noted Time PHQ-9 Depression Total Score: 20 024 9:36 AM EDT documented as of this encounter Care Teams Paper Reel Operator Relationship Specialty Start Date End Date Angie Edwards ANP [address] [place] [address] PCP - General Family Medicine 05/05/22 documented as of this encounter
--- OUTSIDE RECORDS SUMMARY | 2024-08-14 10:08 | XMS_ITS | Encounter Summary ---
Author Organization [employer] Address [address] [facility] 7t [place] [address] Care Team Providers Care Allergy Physician Name Role Phone Angie Edwards Primary Care Provider [phone] Reason for Visit * Reason Comments Med Refill Encounter Details Date Type Department Care Team ([facility] st Contact Info) Description 07/15/2024 Refill [facility] [address] [place], [place] [phone] Angie Edwards ANP [address] [place] [address] Type 2 diabetes mellitus with hyperlipidemia (CMS/HCC) [...] Description 10/27/2024 9:15 AM EDT Office Visit [facility] [address] [place] [address] Angie Edwards ANP [address] [place] [address] documented as of this encounter Visit Diagnoses Diagnosis Type 2 diabetes mellitus with hyperlipidemia (CMS/HCC) Diabetic polyneuropathy associated with type 2 diabetes mellitus (CMS/HCC) documented in this encounter Additional Health Concerns Assessment Noted Time PHQ-9 Depression Total Score: 9 04/07/20 24 10:05 AM EST documented as of this encounter Care Teams Allergy Physician Relationship Specialty Start Date End Date Angie Edwards ANP [address] [place] [address] PCP - General Family Medicine 05/05/22 documented as of this encounter
--- OUTSIDE RECORDS SUMMARY | 2024-08-14 10:08 | XMS_ITS | Encounter Summary ---
Author Organization [employer] Address [address] [facility] [address] 7t [place] [address] Care Team Providers Care Human Development Professor Name Role Phone Angie Edwards FRANCISCA Primary Care Provider [phone] Reason for Visit * Reason Onset Date Comments chart prep 07/21/2024 Encounter Details Date Type Department Care Team ([facility] st Contact Info) Description 07/21/2024 Telephone [facility] [address] [place], [place] [phone] Berta Bello MA chart prep Social History [...] Description 10/27/2024 9:15 AM EDT Office Visit [facility] [address] [place] [address] Angie Edwards ANP [address] [place] [address] documented as of this encounter Visit Diagnoses Not on filedocumented in this encounter Additional Health Concerns Assessment Noted Time PHQ-9 Depression Total Score: 9 04/07/20 24 10:05 AM EST documented as of this encounter Care Teams Human Development Professor Relationship Specialty Start Date End Date Angie Edwards ANP [address] [place] [address] PCP - General Family Medicine 05/05/22 documented as of this encounter
--- OUTSIDE RECORDS SUMMARY | 2024-08-14 10:08 | XMS_ITS | Encounter Summary ---
Author Organization [employer] Address [address] [facility] 7t [place] [address] Care Team Providers Care Log Deckman Name Role Phone Angie Edwards Primary Care Provider [phone] Encounter Details Date Type Department Care Team [...] Description 10/27/2024 9:15 AM EDT Office Visit [facility] [address] [place] [phone] Angie Edwards ANP 230 [place] [address] documented as of this encounter Visit Diagnoses Not on filedocumented in this encounter Additional Health Concerns Assessment Noted Time PHQ-9 Depression Total Score: 9 04/07/20 24 10:05 AM EST documented as of this encounter Care Teams Log Deckman Relationship Specialty Start Date End Date Angie Edwards ANP [address] [place] [address] PCP - General Family Medicine 05/05/22 documented as of this encounter
--- OUTSIDE RECORDS SUMMARY | 2024-08-14 10:08 | XMS_ITS | Encounter Summary ---
Author Organization [employer] Address [address] [facility] [address] [place] [address] Care Team Providers Care Battery Filler Name Role Phone Angie Edwards Primary Care Provider [phone] Reason for Visit * Reason Comments Diabetes Encounter Details Date Type Department Care Team (Latest Contact Info) Description 07/27/2024 9:00 AM EST Office Visit [facility] [address] [place], [place] [phone] Angie Edwards ANP [address] [place] [address] Dysuria (Primary Dx); Vaginal itching; Type 2 diabetes mellitus with hyperlipidemia (CMS/HCC) ; Yeast infection Social History Tobacco Use Types Packs/Day Years [...] 9:26 AM EDT documented in this encounter Progress Notes * FRANCISCA Machado - 07/27/2024 9:00 AM EST SUBJECTIVE: Sia Martinez is a 59 y.o. year old female who presents for chronic disease management. Denies recent illness, injury, or hospitalization. PMH includes type 2 diabetes with polyneuropathy, hypertension, dyslipidemia, depression, asthma Follows with Dr. Martinez for psychiatry [facility] [place] Acute Concerns: Dysuria and frequency x 1 week. Had vag discharge a week ago but none now. Used terconazole w/ goodeffect for vaginal discharge but dysuria cont. DM: lost her CGM reader. Metformin and Lantus were stopped previously due to hypoglycemia. She is continuing Jardiance and Ozempic. She has an appt with ortho next week for her hip. Non-smoker Lives w/ her son, pursuing guardianship/adoption. Social History Social History Narrative Not on file Patient Active Problem List Diagnosis Bilateral plantar fasciitis Depressive disorder Diabetic neuropathy ([facility]) Diastolic dysfunction Essential hypertension Morbid obesity ([facility]) Type 2 diabetes mellitus with hyperlipidemia ([facility]) Umbilical hernia Moderate persistent asthma without complication Past Surgical History: Procedure Laterality Date BARIATRIC SURGERY No family history on file. Review of Systems Constitutional: Negative for chills and fever. HENT: Negative for sore throat. Respiratory: Negative for cough and shortness of breath. Cardiovascular: Negative for chest pain. Gastrointestinal: Negative for constipation and diarrhea. Endocrine: Negative for polydipsia, polyphagia and polyuria. Genitourinary: Positive for dysuria. Negative for flank pain, frequency, genital sores, hematuria, pelvic pain, urgency and vaginal pain. OBJECTIVE: Vitals: 07/27/24 0936 BP: (!) 156/62 BP Location: Right arm Patient Position: Sitting BP Cuff Size: Adult long Pulse: 67 Resp: 14 Temp: 97.5 ??F (36.4 ??C) TempSrc: Temporal SpO2: 98% Weight: 204 lb 6.4 oz (92.7 kg) Physical Exam Constitutional: General: She is not in acute distress. Appearance: Normal appearance. She is obese. She is not ill-appearing. HENT: Head: Normocephalic and atraumatic. Eyes: General: No scleral icterus. Extraocular Movements: Extraocular movements intact. Pupils: Pupils are equal, round, and reactive to light. Cardiovascular: Rate and Rhythm: Normal rate. Pulmonary: Effort: Pulmonary effort is normal. No accessory muscle usage or respiratory distress. Musculoskeletal: Right lower leg: No edema. Left lower leg: No edema. Neurological: Mental Status: She is alert and oriented to person, place, and time. Psychiatric: Mood and Affect: Mood normal. Behavior: Behavior normal. ASSESSMENT/PLAN Sia was seen today for diabetes. Diagnoses and all orders for this visit: Dysuria (Primary) Recommend hydration and UA as below. - Urinalysis, Complete, with Reflex to Culture - POCT Urinalysis Latest Reference Range & Units 07/27/24 10:30 pH, Urine 5.0 - 9.0 6.5 Color Urine Yellow Appearance Urine Clear Specific [place] - Urine 1.005 - 1.025 1.025 Nitrite Urine Negative Negative Leukocyte Esterase Urine Negative Negative Hyaline Casts, Urine 0 - 2 /LPF 0-2 Microalbumin Urine mg/L <5.0 Creatinine, Urine mg/dL 25.75 Glucose Urine UA Negative mg/dL >=1000 ! Microalbum Creatinine Ratio Ur <30 ug/mg cr TNP (due to no microalbumin in urine) RBC Urine 0 - 2 /HPF 0-2 Urine Bacteria None Seen None Seen Urine Blood Negative Negative Urine Ketones Negative mg/dL Negative Urine Protein Neg-Trace mg/dL Negative Urine Squamous Epithelial Cell 0 - 2 /HPF 0-2 Urine WBC 0 - 5 /HPF 0-5 Vaginal itching - terconazole (Terazol 7) 0.4 % vaginal cream; INSERT 1 APPLICATORFUL VAGINALLY AT BEDTIME FOR 7 DAYS - Bacterial Vaginosis Panel Type 2 diabetes mellitus with hyperlipidemia ([facility]) Lab Results Component Value Date HGBA1C 7.5 (A) 08/09/2024 HGBA1C 6.6 (A) 04/07/2024 HGBA1C 6.0 02/14/2024 A1c near goal </= 7 Cont: Jardiance 25mg Continue ozempic 1mg/wk. Metformin stopped due to hypoglycemia Advised patient to please completely stop using Lantus Cont rosuvastatin, zetia, fenofibrate, lisinopril Foot exam no abnormal sensation, yes decreased pedal pulses and varicosities BLE 01/06/24 Eye exam 2022 mild retinopathy R eye. Following w/ eye dr regularly. Call clinic if BG < 70 are frequent or any < 60 occur - Albumin, Random Urine W/Creatinine follow-up 3 mo DM Yeast infection After visit, testing + for yeast. If continues or recurs will need to consider alternate to Jardiance. - fluconazole (Diflucan) 150 MG tablet; Take 1 tablet (150 mg) by mouth 1 (one) time for 1 dose. Repeat once 3 days after 1st dose. Follow Up: with RN for CGM set up, has smart phone, can use as reader Current Outpatient Medications on File Prior to Visit Medication Sig Dispense Refill amLODIPine (Norvasc) 5 MG tablet albuterol (2.5 MG/3ML) 0.083% nebulizer solution Take 3 mL (2.5 mg) by nebulization every 4 (four) hours if needed for wheezing. 360 mL 2 Alcohol Swabs (Alcohol Prep) 70 % pads USE FOUR TIMES DAILY DIRECTED 100 each 11 Aspirin EC Adult Low Dose 81 MG EC tablet Take 81 mg by mouth at bedtime. Blood Pressure kit 1 kit in the morning. 1 kit 0 budesonide-formoterol (Symbicort) 160-4.5 MCG/ACT inhaler Inhale 2 puffs in the morning and at bedtime. Rinse mouth with water after use to reduce aftertaste and incidence of candidiasis. Do not swallow. 1 each 11 buPROPion SR (Wellbutrin SR) 150 MG 12 hr tablet Take 1 tablet by mouth every 12 (twelve) hours. Continuous Blood Gluc [employer]opter (FreeStyle Ata 2 [place]) device Use to check blood sugar 4x/d and more if symptomatic 1 each 0 Continuous Blood Gluc Sensor (FreeStyle Ata 2 Sensor) misc 1 each every 14 (fourteen) days. 6 each 3 D3 Super Strength 50 MCG (2000 UT) capsule TAKE 1 CAPSULE BY MOUTH EVERY MORNING 90 capsule 1 Diclofenac Sodium (Voltaren) 1 % gel Apply 2-4g up to 4x/d to affected joint(s) for pain/swelling 100 g 2 ezetimibe (Zetia) 10 MG tablet TAKE 1 TABLET BY MOUTH EVERY MORNING 90 tablet 1 fenofibrate (Tricor) 54 MG tablet TAKE 1 TABLET BY MOUTH AT BEDTIME 90 tablet 1 FLUoxetine (PROzac) 40 MG capsule Take 2 capsules by mouth in the morning. fluticasone (Flonase) 50 MCG/ACT nasal spray Administer 2 sprays into each nostril Once per day. Shake gently. Before first use, prime pump. After use, clean tip and replace cap. 48 g 1 gabapentin (Neurontin) 100 MG capsule TAKE 2 CAPSULES BY MOUTH THREE TIMES DAILY IN THE MORNING, EVENING AND BEDTIME 180 capsule 2 glucagon (Baqsimi) 3 MG/DOSE nasal powder Administer 3 mg into affected nostril(s) 1 (one) time if needed for low blood sugar. 2 each 1 glucose 4 g chewable tablet CHEW 4 TABLETS NEEDED FOR LOW BLOOD SUGAR, IF STILL LOW AFTER 15 MINUTES CHEW 4 MORE TABLETS. IF STILL LOW AFTER ANOTHER 15 MINUTES CHEW 4 MORE TABLETS AND CALL 911. 50tablet 3 glucose blood (FREESTYLE LITE) test strip Check BG 4x daily or more as needed 200 each 11 [] glucose blood (FreeStyle Precision Vipul Test) test strip Use to check BG 3-5 times daily 100 each 12 Jardiance 25 MG TAKE 1 TABLET BY MOUTH EVERY MORNING 90 tablet 1 levothyroxine (Synthroid, Levoxyl) 25 MCG tablet TAKE 1 TABLET BY MOUTH EVERY MORNING BEFORE BREAKFAST 30 tablet 11 lisinopril 40 MG tablet TAKE 1 TABLET BY MOUTH EVERY MORNING 90 tablet 1 loratadine (Claritin) 10 MG tablet TAKE 1 TABLET BY MOUTH EVERY MORNING 90 tablet 0 Multiple Vitamins-Iron (Tab-A-Cristobal/Iron) tablet Take 1 tablet by mouth in the morning. 90 tablet 0 Ozempic, 1 MG/DOSE, 4 MG/3ML solution pen-injector INJECT 1mg SUBCUTANEOUSLY ONCE WEEKLY DIRECTED 3 mL 11 pantoprazole (ProtoNix) 40 MG EC tablet TAKE 1 TABLET BY MOUTH EVERY MORNING BEFORE BREAKFAST DO NOT BREAK, CRUSH, DISSOLVE OR CHEW 30 tablet 11 Respiratory Therapy Supplies (Nebulizer) device Inhale 1 Device if needed in the morning, at noon, in the evening, and at bedtime. rosuvastatin (Crestor) 40 MG tablet TAKE 1 TABLET BY MOUTH AT BEDTIME 90 tablet 1 spironolactone (Aldactone) 25 MG tablet Take 1 tablet by mouth 1 (one) time each day. TRAZODONE HCL PO Take 100 mg by mouth at bedtime. TRUEplus Lancets 33G [facility] TEST BLOOD SUGAR FOUR TIMES DAILY 300 each 8 Current Facility-Administered Medications on File Prior to Visit Medication Dose Route Frequency Provider Last Rate Last Admin ipratropium-albuterol (Duo-Neb) 0.5-2.5 mg/3 mL nebulizer solution 3 mL 3 mL Nebulization Once FRANCISCA Machado documented in this encounter Miscellaneous Notes * Result Encounter Note - FRANCISCA Machado - 07/27/2024 9:00 AM EST Please let Sia know that her urine was normal and her vaginal testing came back positive for yeast. I will send Diflucan pill to take once and then repeat in 3 days. thanks documented in this encounter Plan of Treatment Upcoming Encounters Date Type Department Care Team (Late st Contact Info) Description 10/27/2024 9:15 AM EDT Office Visit [facility] [address] [place] [address] Angie Edwards ANP [address] [place] [address] documented as of this encounter Procedures Procedure Name Priority Date/Time Associated Diagnosis Comments POCT URINALYSIS DIPSTICK Routine 07/27/2024 10:35 AM EST Dysuria URINALYSIS, COMPLETE, WITH REFLEX TO CULTURE Routine 07/27/2024 10:30 AM EST Dysuria ALBUMIN, RANDOM URINE W/CREATININE Routine 07/27/2024 10:30 AM EST Type 2 diabetes mellitus with hyperlipidemia ([facility]) BACTERIAL VAGINOSIS PANEL Routine 07/27/2024 12:00 AM EST Vaginal itching documented in this encounter Results * POCT [...] Date Urine 07/27/2024 10:3 5 AM EST Angie ESPINOSA POINT OF CARE TEST ENTER/EDIT OR DERABLES Final Result * Albumin, Random Urine W/Creatinine (07/27/2024 10:30 AM EST) Creatinine, Urine 25.75 mg/dL [facility] Microalbumin Urine <5.0 mg/L [facility] Microalbum Creatinine Ratio Ur TNP <30 ug/mg cr [facility] Comment:Unable to calculate albumin/creatinine ratio due to lowmicroalbumin or creatinine result. Urine (Urine, Random) 07/27/2024 10:30 AM EST 07/27/2024 4:26 PM EST Angie Edwards [facility] URINE ORDERABLES Final Resul t Performing Organization Address City/State/[facility] Co de Phone Number [facility] [address] [place] [phone] * (ABNORMAL) Urinalysis, Complete, with Reflex to Culture (07/27/2024 10:30 AM EST) Color Urine Yellow [facility] Appearance Urine Clear [facility] PH 6.5 5.0 - 9.0 [facility] Glucose Urine UA >=1000(A) Negative mg/dL [facility] Urine Blood Negative Negative [facility] Specific [place] - Urine 1.025 1.005 - 1.025 [facility] Urine Protein Negative Neg-Trace mg/dL [facility] Urine Ketones Negative Negative mg/dL [facility] Nitrite Urine Negative Negative [facility] Leukocyte Esterase Urine Negative Negative [facility] RBC Urine 0-2 0 - 2 /HPF [facility] Urine WBC 0-5 0 - 5 /HPF [facility] Urine Squamous Epithelial Cell 0-2 0 - 2 /HPF [facility] Urine Bacteria None Seen None Seen [facility] Hyaline Casts, Urine 0-2 0 - 2 /LPF [facility] Urine 07/27/2024 10:3 0 AM EST 07/27/2024 4:26 PM EST Narrative [facility] - 07/27/2024 5:11 PM EST Urine, Clean Catch Angie ESPINOSA LAB URINE ORDERABLES Final Resul t Performing Organization Address [facility] Co de Phone Number [facility] [address] [place] [phone] * (ABNORMAL) Bacterial Vaginosis Panel (07/27/2024 12:00 AM EST) TRICHOMONAS VAGINALIS DETECTION BY PCR NOT DETECTED Not Detect [facility] BACTERIAL VAGINOSIS DETECTION BY PCR NEGATIVE Negative [facility] Comment:The BV organism targ ets of the Xpert Xpress MVP test can becommensal in women; Xpert Xpress MVP positive results forbacterial vaginosis should be considered in conjunction withother clinical and patient information to determine thedisease status. Organisms that are not detected by the XpertXpress MVP test have also been reported to be associatedwith BV and aerobic vaginitis.The Xpert Xpress MVP test performance has not been evaluatedin patients under the age of 14. FLORES [employer] DETECTION BY PCR NOT DETECTED Not Detect [facility] Flores glab krusei PCR DETECTED(A) Not Detect [facility] Swab Vaginal structure / Unknown 07/27/2024 07/27/2024 5:02 PM EST Angie ESPINOSA LAB MICROBIOLOGY - GENERAL ORDER DANISHA Final Result Performing Organization Address [facility] Co de Phone Number [facility] [address] [place] [phone] documented in this encounter Visit Diagnoses Diagnosis Dysuria- Primary Vaginal itching Pruritus of genital organs Type 2 diabetes mellitus with hyperlipidemia (CMS/HCC) Yeast infection documented in this encounter Additional Health Concerns Assessment Noted Time PHQ-9 Depression Total Score: 9 04/07/20 24 10:05 AM EST documented as of this encounter Care Teams Battery Filler Relationship Specialty Start Date End Date Angie Edwards ANP [address] [place] [phone] PCP - General Family Medicine 05/05/22 documented as of this encounter
--- OUTSIDE RECORDS SUMMARY | 2024-08-14 10:08 | XMS_ITS | Clinical Summary ---
Author Organization [employer] Address [address] [facility] [address] [place] [address] Care Team Providers Care Medical Technologist Microbiology Name Role Phone Stephanie Markham Primary Care Provider [phone] Allergies Active Allergy Reactions Criticality Noted Date Comments Dulaglutide 04/21/2021 Other reaction(s): Rash, Rash Penicillins Anaphylaxis High 05/05/2022 Medications * This document contains information received from the source organization and may not represent a complete record from that organization. Blood Pressure kitIndications:H ypertension associated with type 2 diabetes mellitus (CMS/HCC) ([facility]) 1 kit in the morning. 1 kit [...] Type 2 diabetes mellitus with hyperlipidemia (CMS/HCC) ([facility]) TEST BLOOD SUGAR FOUR TIMES DAILY 300 each 023 Active glucose blood (FREESTYLE LITE) test stripIndications :Diabetic polyneuropathy associated with type 2 diabetes mellitus ([facility]) Check BG 4x daily or more as needed 200 each 023 Active glucose 4 g chewable tabletIndication s:Type 2 diabetes mellitus with hypoglycemia without coma, with long-term current use of insulin ([facility]) CHEW 4 TABLETS NEEDED FOR LOW BLOOD [...] swallow. 1 each Active Continuous Blood Gluc Seat Scooper Machine (FreeStyle Ata 2 Ferguson) deviceIndication s:Type 2 diabetes mellitus with hypoglycemia without coma, with long-term current use of insulin ([facility]) Use to check blood sugar 4x/d and more if symptomatic 1 each 024 Active glucagon (Baqsimi) 3 MG/DOSE nasal powderIndication s:Type 2 diabetes mellitus with hypoglycemia without coma, with long-term current use of insulin ([facility]) Administer 3 mg into affected nostril(s) 1 (one) time if needed for low blood sugar. 2 each 1 024 Active Alcohol Swabs (Alcohol Prep) 70 % pads USE FOUR TIMES DAILY DIRECTED 100 each 024 Active levothyroxine (Synthroid, Levoxyl) 25 MCG tabletIndication s:Hypothyroidism , unspecified type TAKE 1 TABLET BY MOUTH EVERY MORNING BEFORE BREAKFAST 30 tablet 024 Active loratadine (Claritin) 10 MG tablet TAKE 1 TABLET BY MOUTH EVERY MORNING 90 tablet 024 Active lisinopril 40 MG tablet TAKE 1 TABLET BY MOUTH EVERY MORNING 90 tablet 1 024 Active Ozempic, 1 MG/DOSE, 4 MG/3ML solution pen-injectorIndi cations:Type 2 diabetes mellitus with hyperlipidemia (CMS/HCC) ([facility]) INJECT 1mg SUBCUTANEOUSLY ONCE WEEKLY DIRECTED 3 mL 11 Active Multiple Vitamins-Iron (Tab-A-Cristobal/Iron ) tabletIndication s:Type 2 diabetes mellitus with hyperlipidemia (CMS/HCC) ([facility]) Take 1 tablet by mouth in the morning. 90 tablet 024 Active Diclofenac Sodium (Voltaren) 1 % gelIndications:L eft hip pain Apply 2-4g up to 4x/d to affected joint(s) for pain/swelling 100 g 2 024 Active ezetimibe (Zetia) 10 MG tabletIndication s:Type 2 diabetes mellitus with hyperlipidemia ([facility]/HCC) ([facility]) TAKE 1 TABLET BY MOUTH EVERY MORNING 90 tablet 1 024 Active rosuvastatin (Crestor) 40 MG tabletIndication s:Type 2 diabetes mellitus with hyperlipidemia (CMS/HCC) ([facility]) TAKE 1 TABLET BY MOUTH AT BEDTIME [...] polyneuropathy, with long-term current use of insulin ([facility]) TAKE 1 TABLET BY MOUTH EVERY MORNING 90 tablet 025 Active D3 Super Strength 50 MCG (1999 UT) capsuleIndicatio ns:Vitamin D deficiency TAKE 1 CAPSULE BY MOUTH EVERY MORNING 90 capsule 025 Active gabapentin (Neurontin) 100 MG capsuleIndicatio ns:Type 2 diabetes mellitus with hyperlipidemia (CMS/HCC) ([facility]),Diabet ic polyneuropathy associated with type 2 diabetes mellitus ([facility]) TAKE 2 CAPSULES BY MOUTH THREE TIMES DAILY IN THE MORNING, EVENING AND BEDTIME 180 capsule 2 025 Active terconazole (Terazol 7) 0.4 % vaginal creamIndications :Vaginal itching INSERT 1 APPLICATORFUL VAGINALLY AT BEDTIME FOR 7 DAYS 45 g Active amLODIPine (Norvasc) 5 MG tablet Active Aspirin EC Adult Low Dose 81 MG EC tablet Take 81 mg by mouth at bedtime. Active fenofibrate (Tricor) 54 MG tablet TAKE 1 TABLET BY MOUTH AT BEDTIME 90 tablet 1 Active Continuous Glucose Sensor (FreeStyle Ata 2 Sensor) miscIndications: Type 2 diabetes mellitus with hypoglycemia without coma, with long-term current use of insulin ([facility]) USE DIRECTED CHANGE EVERY 14 DAYS 2 each 3 Active meloxicam (Mobic) 15 MG tablet Take 1 tablet (15 mg) by mouth Once per day. 30 tablet 025 2025 Active acetaminophen (Tylenol Extra Strength) 500 MG tablet Take 1 tablet (500 mg) by mouth every 6 (six) hours if needed for mild pain. 120 tablet 025 2024 Active phenazopyridine (Pyridium) 200 MG tablet Take 1 tablet (200 mg) by mouth if needed in the morning, at noon, and at bedtime for bladder spasms for up to 5 days. 15 tablet 025 2024 Active amLODIPine (Norvasc) 2.5 MG tabletIndication s:Hypertension associated with type 2 diabetes mellitus (CMS/HCC) ([facility]) TAKE 1 TABLET BY MOUTH EVERY MORNING 90 tablet 1 023 2024 Discontinued(D ose adjustment) Continuous Blood Gluc Sensor (FreeStyle Ata 2 Sensor) miscIndications: Type 2 diabetes mellitus with hypoglycemia without coma, with long-term current use of insulin ([facility]) 1 each every 14 (fourteen) days. 6 each 3 024 2024 Discontinued glucose blood (FreeStyle Precision Vipul Test) test stripIndications :Type 2 diabetes mellitus with hypoglycemia without coma, with long-term current use of insulin ([facility]) Use to check BG 3-5 times daily 100 each 12 024 2024 terconazole (Terazol 7) 0.4 % vaginal creamIndications :Vaginal itching INSERT 1 APPLICATORFUL VAGINALLY AT BEDTIME FOR 7 DAYS 45 g 024 2024 Discontinued(R eorder (will not trigger notification to Pharmacy)) fenofibrate (Tricor) 54 MG tablet TAKE 1 TABLET BY MOUTH AT BEDTIME 90 tablet 1 024 2024 Discontinued gabapentin (Neurontin) 100 MG capsuleIndicatio ns:Type 2 diabetes mellitus with hyperlipidemia (CMS/HCC) ([facility]),Diabet ic polyneuropathy associated with type 2 diabetes mellitus (CMS/HCC) TAKE 2 CAPSULES BY MOUTH THREE TIMES DAILY IN THE MORNING, EVENING AND BEDTIME 180 capsule 2 024 2024 Discontinued fluconazole (Diflucan) 150 MG tabletIndication s:Yeast infection Take 1 tablet (150 mg) by mouth 1 (one) time for 1 dose. Repeat once 3 days after 1st dose. 2 tablet 025 2024 Hospital, Clinic, or Other Facility Administered Medication Ordered Dose Route Frequency Start Date End Date Status ipratropium-albuterol (Duo-Neb) 0.5-2.5 mg/3 mL nebulizer solution 3 mLIndications:Moderate persistent asthma with exacerbation 3 mL NEBULIZATION Once 05/05/2022 Active Active Problems Problem Noted Date Diagnosed Date Acute bilateral low back pain with right-sided s ciatica 08/14/2024 Assessment & Plan (08/14/2024 9:10 AM EDT): It seems to be muscular, however due to associated LUTS I will order an ultrasound to rule out kidney stones. Take meloxicam daily for 1 or 2 weeks and Tylenol as needed. I will order Pyridium 3 times daily as needed urinary symptoms, advised that he may stay in the urine. I will order x-ray of the spine symptoms probably has underlying DJD of the spine, may need PT in the future Moderate persistent asthma without complication 08/05/2023 Umbilical [...] Encounters Date Type Department Care Team Description 08/14/2024 9:00 AM EDT Office Visit [facility] [address] [place] [phone] Tuyet Merlos MD Acute bilateral low back pain with right-sided sciatica (Primary Dx); Low back pain, unspecified back pain laterality, unspecified chronicity, unspecified whether sciatica present 08/14/2024 Orders Only [address] [address] Tuyet Merlos MD 08/09/2024 9:30 AM EDT Clinical Support [address] [address] Meg Huertas, RN Type 2 diabetes mellitus with hyperlipidemia ([facility]) 08/09/2024 Travel 08/09/2024 Refill [facility] [address] [place] [phone] Stephanie Markham ANP Type 2 diabetes mellitus with hypoglycemia without coma, with long-term current use of insulin ([facility]); Type 2 diabetes mellitus with hyperlipidemia ([facility]) 07/27/2024 9:00 AM EST Office Visit [facility] [address] [place] [phone] Stephanie Markham ANP Dysuria (Primary Dx); Vaginal itching; Type 2 diabetes mellitus with hyperlipidemia ([facility]) ; Yeast infection 07/27/2024 Travel 07/21/2024 Telephone [facility] [address] [place] [phone] Berta Bello MA chart prep 07/21/2024 Refill [facility] [address] [place] [phone] Stephanie Markham ANP Type 2 diabetes mellitus with hyperlipidemia ([facility]) ; Diabetic polyneuropathy associated with type 2 diabetes mellitus ([facility]) 07/20/2024 Telephone [facility] [address] [place] [phone] Stephanie Markham ANP Med Refill; Results 07/15/2024 Refill [facility] [address] [place] [phone] Stephanie Markham ANP Type 2 diabetes mellitus with hyperlipidemia ([facility]) ; Diabetic polyneuropathy associated with type 2 diabetes mellitus ([facility]) 07/14/2024 Patient Outreach [facility] [address] [place] [phone] Stephanie Markham ANP SDOH Concerns (ROBSONW Jett Jacques, TC SDOH food insecurities ) 07/14/2024 Patient Outreach [address] [address] Stephanie Markham ANP Pre-visit Planning (SDOH Screening positive and Tobacco screening negative) 06/15/2024 Telephone [facility] [address] [place] [phone] Stephanie Markham ANP Referral 06/14/2024 Telephone [facility] [address] [place] [phone] Berta Bello MA Results (Tried calling pt Please let pt know, x-ray showed mild 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 Hopefully by now she has had PT - if still with pain, can refer to orthopedics. Thanks /no answer lv .) 06/13/2024 Refill [facility] [address] [place] [address] Stephanie Markham ANP Type 2 diabetes mellitus with diabetic polyneuropathy, with long-term current use of insulin ([facility]); Vitamin D deficiency 06/10/2024 Refill [facility] [address] [place] [address] Stephanie Markham ANP Gastroesophageal reflux disease, unspecified whether esophagitis present 06/06/2024 8:40 AM EST Office Visit [facility] [address] [place] [phone] Salomón Hunter MD Moderate persistent asthma with exacerbation (Primary Dx) 05/29/2024 Telephone [facility] [address] [place] [phone] Estela Pichardo MA February recall 05/23/2024 Orders Only [facility] [address] [place] [address] Stephanie Markham ANP Type 2 diabetes mellitus with hyperlipidemia ([facility]) (Primary Dx) 05/18/2024 Refill [facility] [address] [place] [address] Stephanie Markham ANP Type 2 diabetes mellitus with hyperlipidemia ([facility]/HCC) ([facility]) from Last 3 Months Immunizations Name Administration [...] Sign Reading Time Taken Comments Blood Pressure 151/69 08/14/2024 8:52 AM EDT Pulse 65 08/14/2024 8:52 AM EDT Temperature 36.8 ??C (98.2 ??F) 08/14/2024 8:52 AM ED T Respiratory Rate 16 08/14/2024 8:52 AM EDT Oxygen Saturation 98% 08/14/2024 8:52 AM EDT Inhaled Oxygen Concentration - - Weight 95.3 kg (210 lb) 08/14/2024 8:52 AM EDT Height 154.9 cm (5' 1 ) 01/06/2024 9:26 AM EDT Body Mass Index 39.68 01/06/2024 9:26 AM EDT Plan of Treatment Upcoming Encounters Date Type Department Care Team (Late st Contact Info) Description 10/27/2024 9:15 AM EDT Office Visit [facility] [address] [place] [phone] Stephanie Markham ANP [address] [place] [address] Health Maintenance Due Date Last Done Comments CT Colonography 1967 Colonoscopy 1967 FIT 1967 FOBT 1967 HIV Screening 1967 Sigmoidoscopy 1967 Diabetes: Foot Exam 1977 Eye Exam 1977 Alcohol/Substance Use Screening 1979 Hepatitis B Vaccines (3 of 3 - 19+ 3-dose series) 08/23/2013 06/28/2013, 02/14/2013 Zoster Vaccines (1 of 2) 2017 Mammogram 09/21/2024 09/22/2023, 02/28, 06/28/2019, Additional history exists Depression Monitoring (PHQ-9) 10/05/2024 04/07/2024, 04/07/2024 Diabetes: Hemoglobin A1C 11/09/2024 032 025, 04/07/2024, 02/14/2024, Additional history exists Lipid Panel 02/13/2025 02/14/2024, 02/28, 01/17/2021, Additional history exists Depression Screening 04/07/2025 04/07/2024, 04/07/20 Colorectal Cancer Screening 06/25/2025 FIT DNA/Cologuard 06/25/2025 SDOH Screening 07/14/2025 07/14/2024 Diabetes: Urine Protein Screening 07/27/2025 07/27/2024, 03/09/2023, 07/23/2020, Additional history exists Tobacco Screening 07/27/2025 07/27/2024 Cervical Cancer Screening [...] Procedure Name Priority Date/Time Associated Diagnosis Comments XR LUMBAR SPINE 2-3 VIEWS Routine 08/14/2024 9:23 AM EDT POCT URINALYSIS DIPSTICK Routine 08/14/2024 8:59 AM EDT Acute bilateral low back pain with right-sided sciatica POCT GLYCATED HEMOGLOBIN, TOTAL Routine 08/09/2024 10:32 AM EDT Type 2 diabetes mellitus with hyperlipidemia ([facility]) POCT URINALYSIS DIPSTICK Routine 07/27/2024 10:35 AM EST Dysuria ALBUMIN, RANDOM URINE W/CREATININE Routine 07/27/2024 10:30 AM EST Type 2 diabetes mellitus with hyperlipidemia ([facility]) URINALYSIS, COMPLETE, WITH REFLEX TO CULTURE Routine 07/27/2024 10:30 AM EST Dysuria BACTERIAL VAGINOSIS PANEL Routine 07/27/2024 12:00 AM EST Vaginal itching POCT INFLUENZA B (ID NOW RAPID MOLECULAR) Routine 06/06/2024 9:01 AM EST Moderate persistent asthma with exacerbation POCT INFLUENZA A (ID NOW RAPID MOLECULAR) Routine 06/06/2024 9:01 AM EST Moderate persistent asthma with exacerbation POCT RAPID STREP A Routine 06/06/2024 9: 01 AM EST Moderate persistent asthma with exacerbation POCT RAPID COVID ANTIGEN Routine 06/06/2024 9:01 AM EST Moderate persistent asthma with exacerbation LIPID PANEL, STANDARD Routine 02/14/2024 9:24 AM [...] Recently Relevant to Health Maintenance Results * XR Lumbar Spine 2-3 Views (08/14/2024 9:23 AM EDT) Anatomical Region Laterality Modality Spine, L-spine Radiographic Allie ging 08/14/2024 9:23 AM EDT Narrative 08/14/2024 9:45 AM EDT ?[facility] ?[address] ?[place] [address] ?XRay Report ? Signed ? Patient: Sia Tripathi ?MR#: M ?? [id number] ? : 1965 ?Acct:[id number] ? Age/Sex: 59 / F ?ADM Date: 08/14/24 ? Loc: HO.HHCX ? Attending Dr: Tuyet Merlos MD ? Ordering Physician: Tuyet Merlos MD ?? Date of Service: 08/14/24 ?? Procedure(s): XR lumbar spine 2-3V ?? Accession Number(s): [id number] ? cc: Tuyet Merlos MD ? EXAMINATION: ?? XR LUMBOSACRAL SPINE ? CLINICAL INFORMATION: ?? Low back pain x1 week. No tingling and numbness down. ? COMPARISON: ?? None available. ? TECHNIQUE: ?? Three views of the lumbosacral spine. ? FINDINGS: ?? There is normal lumbar lordosis. The vertebral heights and alignment is ?? normal. There is loss of L2-3 disc level with moderate ventral ?? spondylosis. Rest the disc heights are normal. No visible acute ?? fracture, dislocation or subluxation seen. The paravertebral soft ?? tissues are normal. SI joints are normal. ? XR/XR lumbar spine 2-3V ?? IMPRESSION: ?? Mild degenerative disc changes with ventral spondylosis L2-3 disc ?? level. No visible acute fracture or dislocation seen. ? Electronically signed by: ??Fredi Del Rio MD ??08/14/2024 09:42 AM EDT RP ? Dictated By: ?Fredi Del Rio MD ? Signed By: ?<Electronically signed by Fredi Del Rio MD in OV> ?08/14/24 0942 ? DD/ 2 ? TD/TT: 08/14/24922 ? Electroneurodiagnostic Technician: MSM ? Procedure Note [facility], Image - 08/14/[address] [address] XRay Report Signed Patient: Dara TripathiKofi#: M [id number] : 1965Acct:[id number] Age/Sex: 59 / FADM Date: 08/14/24 Loc: HO.HHCX Attending Dr: Tuyet Merlos MD Ordering Physician: Tuyet Merlos MD Date of Service: 08/14/24 Procedure(s): XR lumbar spine 2-3V Accession Number(s): [id number] cc: Tuyet Merlos MD EXAMINATION: XR LUMBOSACRAL SPINE CLINICAL INFORMATION: Low back pain x1 week. No tingling and numbness down. COMPARISON: None available. TECHNIQUE: Three views of the lumbosacral spine. FINDINGS: There is normal lumbar lordosis. The vertebral heights and alignment is normal. There is loss of L2-3 disc level with moderate ventral spondylosis. Rest the disc heights are normal. No visible acute fracture, dislocation or subluxation seen. The paravertebral soft tissues are normal. SI joints are normal. XR/XR lumbar spine 2-3V IMPRESSION: Mild degenerative disc changes with ventral spondylosis L2-3 disc level. No visible acute fracture or dislocation seen. Electronically signed by: Fredi Del Rio MD 08/14/2024 09:42 AM EDT RP Dictated By: Fredi Del Rio MD Signed By: <Electronically signed by Fredi Del Rio MD in OV> 08/14/24941 DD/ 2 TD/TT: 08/14/24922 Electroneurodiagnostic Technician: [facility] Tuyet Merlos MD IMG XR PROCEDURES Final Result * POCT urinalysis dipstick manually resulted (08/14/2024 8:59 AM EDT) Only the most recent of2 resultswithin the time period is included. Color, UA Yellow Clarity, UA Clear Glucose, UA 4+ >500 Comment:1000mg Bilirubin, UA Negative Ketones, UA Negative Spec Grav, UA 1.010 Blood, UA Negative Negative, None Detected pH, UA 5.5 Protein, UA Negative Urobilinogen, UA 0.2 Leukocytes, UA Negative Negative, Rare, Trace Nitrite, UA Negative Negative, None Detected Appearance, UA OK Urine 08/14/2024 8:59 AM EDT Tuyet Merlos MD POINT OF CARE TEST ENTER /EDIT ORDERABLES Final Result * (ABNORMAL) POCT HGB A1C (08/09/2024 10:32 AM EDT) Hemoglobin A1C 7.5(A) 4.0 - 6.0 % QC Media Lot # [id number] Lot# Expiration Date Blood 08/09/2024 10:3 2 AM EDT Stephanie ESPINOSA POINT OF CARE TEST ENTER/EDIT OR DERABLES Final Result * (ABNORMAL) Urinalysis, Complete, with Reflex to Culture (07/27/2024 10:30 AM EST) Color Urine Yellow [facility] Appearance Urine Clear [facility] PH 6.5 5.0 - 9.0 [facility] Glucose Urine UA >=1000(A) Negative mg/dL [facility] Urine Blood Negative Negative [facility] Specific [place] - Urine 1.025 1.005 - 1.025 [facility] Urine Protein Negative Neg-Trace mg/dL [facility] Urine Ketones Negative Negative mg/dL [facility] Nitrite Urine Negative Negative [facility] Leukocyte Esterase Urine Negative Negative [facility] RBC Urine 0-2 0 - 2 /HPF [facility] Urine WBC 0-5 0 - 5 /HPF [facility] Urine Squamous Epithelial Cell 0-2 0 - 2 /HPF [facility] Urine Bacteria None Seen None Seen [facility] Hyaline Casts, Urine 0-2 0 - 2 /LPF [facility] Urine 07/27/2024 10:3 0 AM EST 07/27/2024 4:26 PM EST Narrative [facility] - 07/27/2024 5:11 PM EST Urine, Clean Catch Stephanie Markham ANP LAB URINE ORDERABLES Final Resul t Performing Organization Address [facility] Co de Phone Number [facility] [address] [place] [phone] * Albumin, Random Urine W/Creatinine (07/27/2024 10:30 AM EST) Creatinine, Urine 25.75 mg/dL [facility] Microalbumin Urine <5.0 mg/L [facility] Microalbum Creatinine Ratio Ur TNP <30 ug/mg cr [facility] Comment:Unable to calculate albumin/creatinine ratio due to lowmicroalbumin or creatinine result. Urine (Urine, Random) 07/27/2024 10:30 AM EST 07/27/2024 4:26 PM EST Stephanie Markham ANP LAB URINE ORDERABLES Final Resul t Performing Organization Address City/[facility] Co de Phone Number [facility] [address] [place] [phone] * (ABNORMAL) Bacterial Vaginosis Panel (07/27/2024 12:00 AM EST) [facility] TRICHOMONAS VAGINALIS DETECTION BY PCR NOT DETECTED Not Detect [facility] BACTERIAL VAGINOSIS DETECTION BY PCR NEGATIVE Negative [facility] Comment:The BV organism targ ets of [...] DETECTION BY PCR NOT DETECTED Not Detect [facility] Flores glab krusei PCR DETECTED(A) Not Detect [facility] Swab Vaginal structure / Unknown 07/27/2024 07/27/2024 5:02 PM EST Stephanie ESPINOSA LAB MICROBIOLOGY - GENERAL ORDER DANISHA Final Result Performing Organization Address City/[facility]/ZIP Co de Phone Number [facility] [address] [place] [phone] * Influenza B (ID NOW Rapid Molecular) (06/06/2024 9:01 AM EST) [facility] Influenza B Negative Negative, Indeterminate [facility] Swab 06/06/2024 9:01 AM EST Salomón Hunter MD POINT OF CARE TEST ENTER/EDIT OR DERABLES Final Result Performing Organization Address [facility]/ZIP Co de Phone Number [facility] [address] [place] [phone] * Influenza A (ID NOW Rapid Molecular) (06/06/2024 9:01 AM EST) [facility] Influenza A Negative Negative, Indeterminate [facility] Swab 06/06/2024 9:01 AM EST us Salomón Hunter MD POINT OF CARE TEST ENTER/EDIT OR DERABLES Final Result Performing Organization Address [facility] Co de Phone Number [facility] [address] [place] [phone] * POCT Rapid COVID Ag (06/06/2024 9:01 AM EST) Rapid COVID Ag Negative [facility] Swab 06/06/2024 9:01 AM EST us Salomón Hunter MD POINT OF CARE TEST ENTER/EDIT OR DERABLES Final Result Performing Organization Address [facility] Phone Number [facility] [address] [place] [phone] * POCT rapid strep A manually resulted (06/06/2024 9:01 AM EST) [facility] Rapid Strep A Screen Negative Negative, None Detected [facility] Swab 06/06/2024 9:01 AM EST us Salomón Hunter MD POINT OF CARE TEST ENTER/EDIT OR DERABLES Final Result Performing Organization Address [facility] Phone Number [facility] [facility] [address] [place] [phone] * (ABNORMAL) Lipid Panel, Standard (02/14/2024 9:24 AM EDT) [facility] Triglycerides 94 <150 mg/dL [facility] Comment:Desirable Triglyceri de: less than 150 mg/dLBorderline High Triglyceride 150-199 mg/dLHigh Triglyceride: 200-499 mg/dLVery High Triglyceride: greater than or equal to 5OO mg/dL Cholesterol 181 <200 mg/dL [facility] Comment:Desirable Cholestero l: less than 200 mg/dLBorderline High Cholesterol: 200-239 mg/dLHigh Cholesterol: greater than 239 mg/dL LDL Cholesterol Calculated 105(H) <100 mg/dL [facility] Comment:Desirable LDL: less than 100 mg/dLNear Optimal/Above Optimal LDL: 110- 129 mg/dLBorderline High LDL: 130-159 mg/dLHigh LDL: 160-189 mg/dLVery High LDL: greater than or equal to 190 mg/dL HDL Cholesterol 58 >40 mg/dL [facility] Comment:Desirable HDL: great er than 40 mg/dL Note: This HDL assay may give artificially low results in patients with liver disease. Blood Venous blood specimen / Unknown 02/14/2024 9:24 AM EDT 02/14/2024 9:24 AM EDT us Stephanie Markham [facility] LAB BLOOD ORDERABLES Final Resul t [facility] [address] [place] [address] [phone] * BI Mammogram Screening Tomosynthesis Bilateral (09/22/2023 8:45 AM EDT) Anatomical Region Laterality Modality Breast Bilateral Mammography 09/22/2023 8:45 AM EDT Narrative 10/13/2023 9:29 AM EDT ? [facility] [place] ? [address] ?[place] [phone] ? Mammography Report ? Signed ? Patient: Pena Lopez,Sia ?MR#: M ?? [id number] ? : 1965 ?Acct:[id number] ? Age/Sex: 58 / F ?ADM Date: 04/24/24 ? Loc: HO.MAMMO ? Attending Dr: Stephanie Markham MECHANICAL PROCESS ENGINEER ? Ordering Physician: STEPHANIE MARKHAM NP ?Results: 1Negative ? Date of Service: 09/22/23 ?Follow Up: 1 Year From Orig ?? inal Mammogram ? Procedure(s): MM tomosynthesis screening BI ?? Accession Number(s): [id number] ? cc: SHAHRZAD,STEPHANIE AUSTIN ? EXAMINATION: ?? MM SCREENING DIGITAL BREAST TOMOSYNTHESIS, BILATERAL ? CLINICAL INFORMATION: ? Screening. Asymptomatic. ? COMPARISON: ?? Mammography: 03/17/2022, 06/27/2019, 11 12/05/2017, 01/13/2017 ? TECHNIQUE: ?? Digital breast [...] 0926 ? DD/ 0845 ? TD/TT: ? Electroneurodiagnostic Technician: ? Procedure Note Donotuseinterpreter, Image - 10/13/2023 [facility] [address] [place] [address] Mammography Report Signed Patient: Radha TripathiR#: M [id number] : 1965Acct:[id number] Age/Sex: 58 / FADM Date: 09/22/23 Loc: HO.MAMMO Attending Dr: Stephanie Markham NP Ordering Physician: STEPHANIE MARKHAM NPResults: 1Negative Date of Service: 09/22/23Follow Up: 1 Year From Orig inal Mammogram Procedure(s): MM tomosynthesis screening BI Accession Number(s): [id number] cc: STEPHANIE MARKHAM NP EXAMINATION: MM SCREENING [...] by Benji Dotson MD in OV> 10/13/23 0926 DD/ 0845 TD/TT: Electroneurodiagnostic Technician: Stephanie Markham ANP IMG BI PROCEDURES Final Result * HPV mRNA E6/E7 w/Reflex to HPV Genotypes 16, 18/45 (01/27/2023 10:18 AM EDT) HPV nRNA E6/E7 Not Detected Not Detected [facility] Comment:Methodology: Transcr iption-Mediated AmplificationThis assay detects E6/E7 viral messenger RNA (mRNA) from 14high-risk HPV types (16,18,31,33,35,39,45,51,52,56,58,59,66,68).Cervical sources are required for HPV testing.If a vaginal source from a patient who has had atotal hysterectomy with removal of cervix wassubmitted, please contact the testing laboratoryfor alternative testing options.For additional information, please refer tohttp://education.ZenPayroll/faq/ZYR216x8(This link if provided for information/educational purposes only.)THIS TEST WAS PERFORMED AT:[facility] [place] [phone] MORGAN MD HPV mRNA E6/E7 TNP [facility] HPV 16 [facility] HPV 18/45 RNA [facility] 01/27/2023 10:1 8 AM EDT 01/28/2023 12:15 PM EDT Alba Monroy [facility] LAB CYTOLOGY ORDERABLES F inal Result [facility] [address] [place] [phone] * Pap Smear (01/27/2023) 01/27/2023 01/28/2023 12: 15 PM EDT Narrative [facility] - 02/09/2023 10:04 AM EDT ----- ------- Name: Sia Tripathi ?Age/Sex: 57/F ? : 1965 Unit#: [id number] ?? Attend Dr: ALBA MONROY CNM ?Re01/27/23 ?Status: DEP REF ? Location: HO.HHCLNP ? Disch: ? ----- ------- SPEC : [id number] ?RECD: 01/28/23-1214 ? STATUS: ??SOUT ? REQ NUM: [id number] ? RASHIDA: 01/27/23- ? SUBM DR: ALBA MONROY CNM ? ENTERED: ??01/28/23-1218 ?SP [...] 66, 68) ?? HPV testing performed by [facility], [place], [place]. ??See reference laboratory ?? pion of the EMR for entire report. ?Clinical Information LMP:Unknown date Previous PAP test:Unknown date/findings ? Material Received ?? ThinPrep-Vaginal/Cervical ----- ------- Signed (signature on file) MELVA Clemens (ASCP) 02/09/23 1004 ? ----- ------- ? END OF REPORT ? us Alba Monroy CN LAB CYTOLOGY ORDERABLES F inal Result [facility] [address] [place] [phone] [phone] * HEPATITIS C AB W/REFL TO HCV RNA, QN, PCR (07/23/2020 8:16 AM EST) HEPATITIS C ANTIBODY NON-REACT DIANE NON-REACT DIANE [facility] INDEX 0.03 <1.00 [facility] Comment: ?? HCV antibody was non-reactive. There is no laboratory ?? evidence of HCV infection. ?? In most cases, no further action is required. However, if recent HCV exposure is suspected, a test for HCV RNA (test code 49024) is suggested. ?? For additional information please refer to http://education.ZenPayroll/faq/ISM68s0 (This link is being provided for informational/ educational purposes only.) ?? 07/23/2020 8:16 AM EST us Historical Provider MD HISTORICAL/NON ORDERABLE LABS Final Result Performing Organization Address City/[facility]/ZIP Co de Phone Number [facility] [address] from Last 3 Months or Most Recently Relevant to Health Maintenance Insurance [facility] Care Teams Medical Technologist Microbiology Relationship Specialty Start Date End Date Stephanie Markham ANP [address] [place] [phone] PCP - General Family Medicine 05/05/22
--- OUTSIDE RECORDS SUMMARY | 2024-08-14 10:09 | XMS_ITS | Encounter Summary ---
Author Organization [facility] Address [address] 7t [place] [address] Care Team Providers Care Harvesting Manager Name Role Phone Angie Edwards Primary Care Provider [phone] Encounter Details Date Type Department Care Team ([facility] Contact Info) Description 05/05/2022 Abstract [facility] MEDICINE [address] [place] [phone] Provider, MD Emy Social History Tobacco Use [...] Department Care Team (Late Contact Info) Description 10/27/2024 9:15 AM EDT Office Visit [facility]INE [address] [place] [phone] Angie Edwards ANP [address] [place] [phone] documented as of this encounter Visit Diagnoses Not on filedocumented in this encounter Care Teams Harvesting Manager Relationship Specialty Start Date End Date Angie Edwards ANP [address] [place] [phone] PCP - General Family Medicine 05/05/22 documented as of this encounter
--- OUTSIDE RECORDS SUMMARY | 2024-08-14 10:09 | XMS_ITS | Encounter Summary ---
Demographics Address [address] [place] [address] Mobile Phone Home Phone Preferred Language es Marital Status Single Restorationist Affiliation Unknown Race Other Race Ethnic Group South Korean Author Organization [employer] Address [address] [facility] 7t [place] [address] Care Team Providers Care Safety And Health Manager Name Role Phone Angie Edwards Primary Care Provider [phone] Reason for Visit * Reason Comments Med Refill Encounter Details Date Type Department Care Team ([facility] st Contact Info) Description 08/09/2024 Refill [facility] [address] [place], [place] [phone] Angie Edwards ANP [address] [place] [address] Type 2 diabetes mellitus with hypoglycemia without coma, with long-term current use of insulin ([facility]); Type 2 diabetes mellitus with hyperlipidemia ([facility]) Social History [...] Description 10/27/2024 9:15 AM EDT Office Visit [facility] [address] [place] [phone] Angie Edwards ANP [address] [place] [address] documented as of this encounter Visit Diagnoses Diagnosis Type 2 diabetes mellitus with hypoglycemia without coma, with long-term current use of insulin ([facility]) Type 2 diabetes mellitus with hyperlipidemia ([facility]) documented in this encounter Additional Health Concerns Assessment Noted Time PHQ-9 Depression Total Score: 9 04/07/20 24 10:05 AM EST documented as of this encounter Care Teams Safety And Health Manager Relationship Specialty Start Date End Date Angie Edwards ANP [address] [place] [phone] PCP - General Family Medicine 05/05/22 documented as of this encounter
--- OUTSIDE RECORDS SUMMARY | 2024-08-14 10:09 | XMS_ITS | Encounter Summary ---
Author Organization [employer] Address [address] [facility] 7t [place] [address] Care Team Providers Care Shaker Washer Name Role Phone Angie Edwards Primary Care Provider [phone] Encounter Details Date Type Department Care Team (Latest Contact Info) Description 08/09/2024 Travel Social History Tobacco Use Types Packs/Day [...] Description 10/27/2024 9:15 AM EDT Office Visit [facility]INE [address] [place] [phone] Angie Edwards ANP [address] [place] [address] documented as of this encounter Visit Diagnoses Not on filedocumented in this encounter Additional Health Concerns Assessment Noted Time PHQ-9 Depression Total Score: 9 04/07/20 24 10:05 AM EST documented as of this encounter Care Teams Shaker Washer Relationship Specialty Start Date End Date Angie Edwards ANP [address] [place] [phone] PCP - General Family Medicine 05/05/22 documented as of this encounter
--- OUTSIDE RECORDS SUMMARY | 2024-08-14 10:09 | XMS_ITS | Encounter Summary ---
Author Organization [employer] Address [address] [facility] 7t [place] [address] Care Team Providers Care Label Operator Name Role Phone Angie Edwards Primary Care Provider [phone] Reason for Visit * Reason Onset Date Comments Med Refill Results 07/20/2024 Encounter Details Date Type Department Care Team ([facility] st Contact Info) Description 07/20/2024 Telephone [facility] [address] [place], [place] [phone] Angie Edwards ANP [address] [place] [address] Med Refill; Results Social History Tobacco Use Types Packs/Day Years [...] encounter Miscellaneous Notes * Telephone Encounter - Meg Huertas RN - 07/29/2024 10:17 AM EST Telephone call placed to pt regarding below results and POC. Informed urine testing normal but vaginal testing showed yeats which is a common fungal infection. Informed pill sent to her pharmacy to treat this. Informed that it is 1 pill and it should clear it up. If she has any vaginal Sx remainingafter Tx, let us know. Pt verbalized understanding and denied having any further questions or concerns at this time. * Telephone Encounter - Kailey Carroll RN - 07/28/2024 4:38 PM EST Telephone call to pt to advise of below results and medication available. No answer, left voicemailto call back [facility]. Will task to call again. * Telephone Encounter - Kailey Carroll RN - 07/28/2024 4:36 PM EST ----- Message from Angie Edwards sent at 07/28/2024 4:18 PM EST ----- Please let Sia know that her urine was normal and her vaginal testing came back positive for yeast. I will send Diflucan pill to take once and then repeat in 3 days. thanks documented in this encounter Plan of Treatment Upcoming Encounters Date Type Department Care Team (Late st Contact Info) Description 10/27/2024 9:15 AM EDT Office Visit [facility] [address] [place] [address] Angie Edwards ANP [address] [place] [address] documented as of this encounter Visit Diagnoses Diagnosis Type 2 diabetes mellitus with hyperlipidemia (CMS/HCC) Diabetic polyneuropathy associated with type 2 diabetes mellitus (CMS/HCC) documented in this encounter Additional Health Concerns Assessment Noted Time PHQ-9 Depression Total Score: 9 04/07/20 24 10:05 AM EST documented as of this encounter Care Teams Label Operator Relationship Specialty Start Date End Date Angie Edwards ANP [address] [place] [phone] PCP - General Family Medicine 05/05/22 documented as of this encounter
--- OUTSIDE RECORDS SUMMARY | 2024-08-14 10:09 | XMS_ITS | Encounter Summary ---
Author Organization [employer] Address [address] [facility] [address] 7[address] [place] [address] Care Team Providers Care Hand Spinner Name Role Phone Angie Edwards Primary Care Provider [phone] Encounter Details Date Type Department Care Team ([facility] st Contact Info) Description 08/14/2024 Orders Only [facility] [address] [place], [place] [phone] Tuyet Merlos MD [address] [place], [place] [phone] Social History Tobacco Use Types Packs/Day Years [...] Description 10/27/2024 9:15 AM EDT Office Visit [facility] [address] [place] [address] Angie Edwards ANP [address] [place] [address] documented as of this encounter Procedures Procedure Name Priority Date/Time Associated Diagnosis Comments XR LUMBAR SPINE 2-3 VIEWS Routine 08/14/2024 9:23 AM EDT documented in this encounter Results * XR Lumbar Spine 2-3 Views (08/14/2024 9:23 AM EDT) Anatomical Region Laterality Modality Spine, L-spine Radiographic Allie ging 08/14/2024 9:23 AM EDT Narrative 08/14/2024 9:45 AM EDT ?[facility] ?[address] ?[place] [address] ?XRay Report ? Signed ? Patient: Pena Lopez,Sia ?MR#: M ?? [id number] ? : 1965 ?Acct:[id number] ? Age/Sex: 59 / F ?ADM Date: 03/17/25 ? Loc: HO.HHCX ? Attending Dr: Tuyet Merlos MD ? Ordering Physician: Tuyet Merlos MD ?? Date of Service: 08/14/24 ?? Procedure(s): XR lumbar spine 2-3V ?? Accession Number(s): [id number] ? cc: Tuyet Merlos MD ? EXAMINATION: [...] MD in OV> ?08/14/24 0942 ? DD/ 09 ? TD/TT: 08/14/24 0923 ? Audio Visual Project Manager: MSM ? Procedure Note Ama Winslow - 08/14/[address] [address] XRay Report Signed Patient: Dara TripathiKofi#: M [id number] : 1965Acct:[id number] Age/Sex: 59 / FADM Date: 08/14/24 Loc: HO.HHCX Attending Dr: Tuyet Merlos MD Ordering Physician: Tuyet Merlos MD Date of Service: 08/14/24 Procedure(s): XR lumbar spine 2-3V Accession Number(s): [id number] cc: Tuyet Merlos MD EXAMINATION: XR LUMBOSACRAL [...] Del Rio MD 08/14/2024 09:42 AM EDT Dictated By: Fredi Del Rio MD Signed By: <Electronically signed by Fredi Del Rio MD in OV> 08/14/24941 DD/ 2 TD/TT: 08/14/24922 Audio Visual Project Manager: MSM Tuyet Merlos MD IMG XR PROCEDURES Final Result documented in this encounter Visit Diagnoses Not on filedocumented in this encounter Additional Health Concerns Assessment Noted Time PHQ-9 Depression Total Score: 9 04/07/20 24 10:05 AM EST documented as of this encounter Care Teams Hand Spinner Relationship Specialty Start Date End Date Angie Edwards ANP [address] [place] [phone] PCP - General Family Medicine 05/05/22 documented as of this encounter
--- OUTSIDE RECORDS SUMMARY | 2024-08-14 10:09 | XMS_ITS | Encounter Summary ---
Author Organization [employer] Address [address] [facility] 7t [place] [address] Care Team Providers Care Squadron Worker Name Role Phone Angie Edwards Primary Care Provider [phone] Reason for Visit * Reason Comments Med Refill Encounter Details Date Type Department Care Team (Late Contact Info) Description 12/08/2022 Refill [facility] [address] [place], [place] [phone] Angie Edwards ANP [address] [place] [address] Type 2 diabetes mellitus with hyperglycemia (CMS/HCC); intermediate accountant (current) use of insulin (CMS/[facility]) Social History Tobacco Use Types [...] Description 10/27/2024 9:15 AM EDT Office Visit [facility] [address] [place] [address] Angie Edwards ANP [address] [place] [address] documented as of this encounter Visit Diagnoses Diagnosis Type 2 diabetes mellitus with hyperglycemia (CMS/HCC) intermediate accountant (current) use of insulin (CMS/[facility]) documented in this encounter Care Teams Squadron Worker Relationship Specialty Start Date End Date Angie Edwards ANP [address] [place] [phone] PCP - General Family Medicine 05/05/22 documented as of this encounter
--- OUTSIDE RECORDS SUMMARY | 2024-08-14 10:09 | XMS_ITS | Encounter Summary ---
Author Organization [employer] Address [address] [facility] 7t [place] [address] Care Team Providers Care Svp Operations Name Role Phone Angie Edwards Primary Care Provider [phone] Reason for Visit * Reason Comments Med Refill Encounter Details Date Type Department Care Team (Late st Contact Info) Description 12/03/2022 Refill [facility] [address] [place], [place] [phone] Angie Edwards ANP [address] [place] [address] Diabetic polyneuropathy associated with type 2 diabetes mellitus (CMS/HCC); Type 2 diabetes mellitus with hyperlipidemia ([facility]/HCC) Social History Tobacco Use Types Packs/Day Years [...] 9:15 AM EDT Office Visit [facility] [address] [place] [address] Angie Edwards ANP [address] [place] [address] documented as of this encounter Visit Diagnoses Diagnosis Diabetic polyneuropathy associated with type 2 diabetes mellitus (CMS/HCC) Type 2 diabetes mellitus with hyperlipidemia (CMS/HCC) ([facility]/HCC) documented in this encounter Care Teams Svp Operations Relationship Specialty Start Date End Date Angie Edwards ANP [address] [place] [address] PCP - General Family Medicine 05/05/22 documented as of this encounter
--- OUTSIDE RECORDS SUMMARY | 2024-08-14 10:09 | XMS_ITS | Encounter Summary ---
Author Organization [employer] Address [address] [facility] 7t [place] [address] Care Team Providers Care Supervisor Real Estate Office Name Role Phone Angie Edwards Primary Care Provider Reason for Visit * Reason Comments RN LOIREES F/U Encounter Details Date Type Department Care Team (Latest Contact Info) Description 08/09/2024 9:30 AM EDT Clinical Support [facility] MEDICINE [address] [place], [place] [phone] Meg Huertas RN [address] [place], [place] [phone] Type 2 diabetes mellitus with hyperlipidemia ([facility]/HCC) Social History Tobacco Use Types Packs/Day [...] as of this encounter Progress Notes * Meg Huertas RN - 08/09/2024 9:30 AM EDT Images from the original note were not included. SUBJECTIVE: Sia Martinez is a pleasant 59 y.o. year old female who presents for instruction on how to connect phone to CGM sensor. However, she does not remember her apple password and states it is written down at home. I screen shot the maría name and picture and gave instruction on how to download and connect once she gets home. To make this appointment useful to the patient, we completed a RN DSMES F/U visit instead. Preferred language for medical information: Dynamometer Tester Engine needed: No. She is bilingual and declined needing hand drawer in helper. Symptoms: diabetic polyneuropathy, polyuria, polydipsia, or blurred vision No, is feeling well today CGM device: CGM DEVICE: Pinnattayle Ata Current Outpatient Medications Medication Sig Dispense Refill albuterol (2.5 MG/3ML) 0.083% nebulizer solution Take 3 mL (2.5 mg) by nebulization every 4 (four) hours if needed for wheezing. 360 mL 2 Alcohol Swabs (Alcohol Prep) 70 % pads USE FOUR TIMES DAILY DIRECTED 100 each 11 amLODIPine (Norvasc) 5 MG tablet Aspirin EC Adult Low Dose 81 MG [...] every 12 (twelve) hours. Continuous Blood Gluc Carder Blankets (GoGoVanStyle Ata 2 [place]) device Use to check blood sugar 4x/d [...] or more as needed 200 each 11 Jardiance 25 MG TAKE 1 TABLET BY [...] by mouth 1 (one) time each day. terconazole (Terazol 7) 0.4 % vaginal cream INSERT 1 APPLICATORFUL VAGINALLY AT BEDTIME FOR 7 DAYS 45 g 0 TRAZODONE HCL PO Take 100 mg by mouth at bedtime. TRUEplus Lancets 33G misc TEST BLOOD SUGAR FOUR TIMES DAILY 300 each 8 Current Facility-Administered Medications Medication Dose Route Frequency Provider Last Rate Last Admin ipratropium-albuterol (Duo-Neb) 0.5-2.5 mg/3 mL nebulizer solution 3 mL 3 mL Nebulization Once FRANCISCA Machado Patient Active Problem List Diagnosis Date Noted Moderate persistent asthma without complication 08/05/2023 Umbilical hernia 05/05/2022 Bilateral plantar fasciitis 05/14/2020 Diastolic dysfunction 12/29/2019 Essential hypertension 05/26/2018 Type 2 diabetes mellitus with hyperlipidemia ([facility]) 05/08/2016 Depressive disorder 02/02/2012 Diabetic neuropathy ([facility]) 02/02/2012 Morbid obesity ([facility]) 02/02/2012 Penicillins and Dulaglutide Sia Jeanne Martinez does confirm adherence to medications for diabetes listed above. Recent hospitalizations: she reports multiple hospital visits for, heart problems . Reports is following with Cardiology for this. Social history as reported by patient: Caffeine use: No Social History Tobacco Use Smoking Status Never Smokeless Tobacco Never Social History Substance and Sexual Activity Alcohol Use Not Currently Social History Substance and Sexual Activity Drug Use Never OBJECTIVE: Lab Results Component Value Date ALT 19 02/14/2024 AST 18 02/14/2024 LDLCHOLCAL 105 (H) 02/14/2024 LDLCHOL 121 (H) 01/17/2021 TRIG 94 02/14/2024 K 4.6 02/14/2024 NA 141 02/14/2024 VITB12 363 02/14/2024 MICROALBCREU TNP 07/27/2024 CREATININE 0.84 02/14/2024 EGFR >60 02/14/2024 HGBA1C 6.6 (A) 04/07/2024 HGBA1C 6.0 02/14/2024 HGBA1C 6.2 (A) 10/05/2023 Lab Results Component Value Date HGBA1C 6.6 (A) 04/07/2024 POCGLU 171 04/07/2024 A1C due today. Completed: 7.5% Immunization History Administered Date(s) Administered Hep B, adult 02/14/2013, 06/28/2013 Influenza Injectable Quadrivalant Preservative Free IIV4 MDCK 04/23/2020 Influenza injectable quadrivalent IIV4 with preservative 04/12/2015, 05/04/2017 Influenza injectable quadrivalent preservative free 05/26/2018, 03/07/2019, 04/21/2021, 02/27/2022,03/09/2023 Influenza, IIV3, injectable 03/06/2010, 02/09/2011, 03/19/2014 Influenza, Split (incl. purified surface antigen) 02/02/2012, 02/14/2013 Influenza, seasonal, injectable, preservative free 02/17/2024 Moderna Covid-19 Vaccine 12+ 08/09/2020, 09/06/2020, 04/23/2021 Pertussis 07/09/2009 Pfizer Covid-19 Vaccine 12+ 02/17/2024 Pneumococcal Conjugate PCV 20 03/09/2023 Pneumococcal Polysaccharide PPSV23 07/09/2009 TD (adult), 2 Lf tetanus toxoid, preservative free, adsorbed 01/01/2022 Td (adult), 5 Lf tetanus toxoid, preservative free, adsorbed 05/17/2015 Tdap 09/29/2011, 02/17/2024 BP Readings from Last 4 Encounters: 07/27/24 (!) 156/62 06/06/24 135/63 04/07/24 130/65 01/06/24 (!) 144/67 Pulse Readings from Last 4 Encounters: 07/27/24 67 06/06/24 61 04/07/24 (!) 48 01/06/24 (!) 48 Dental exam in the past 6 months Yes Eye exam in the past 12 months Yes Foot exam in the past 12 months No, due for foot exam at next PCP visit. CGM sensor data: Hypoglycemic occurrences: Lowest 64mg/dL 08/07/24 Potential reasons: Was ~3 am when pt reports that she usually has hypo events. Hyperglycemic occurrences: Highest 322mg/dL 08/07/24 Potential reasons: Pt reports that this is an improvement. Her BG used to be in the 400s/500s daily Interpretation: Pt is only scanning 28% of the time. Time at target 56%. Time high/very high 43%. Time low 1%. Average glucose 174mg/dL. These numbers aren't very accurate because of how infrequentlyshe is scanning. GOALS: Healthy eating/diet: Breakfast: 2 pieces of wheat toast and eggs Lunch: soup with a few crackers Dinner: rice (1 scoop) with baked meat and beans. She likes vegetables. Some favorites are: broccoli, carrots, green beans, and corn. States only vegetable she doesn't like is cauliflower because it doesn't agree with her stomach. Drinks: Pt reports that she thinks her drinks are the reason why her A1C increased. Pt reports thatshe drinks 3 cups of Coca-Cola daily. She also drinks water and crystal light packets (only likes the lemonade, iced tea, and fruit punch flavors). We discussed alternatives to Coca-Cola. Pt states that she has already tried Diet Coke and Coke Zero as well as the flavored versions (like sage and vanilla) and tried diet pepsi as well and she doesn't like the taste of any of them. Recommended she try a flavored sparkling water or seltzer so she gets the carbonation without the fake sugar taste that she doesn't like. Snacks: not everyday but some nights when she is craving a snack, she usually eats chips Eat out: once/week maximum. Favorites are subway and [employer] Activity level: retired but walks every day Glucose monitoring: Pt is only scanning 28% of the time. We discussed the reason for this. Pt goes for walks usually multiple times/day and also likes to go sit out on her porch and doesn't like bringing her reader with her on these activities. She will work on connecting sensor to her phone later today. Adherence to medication: taking meds Problem solving/Reducing risks: When low she drinks water a lot of water and doesn't eat. At night she does report frequent hypoglycemic events. Advised to keep a small snack next to her bed in case her BG drops at night. Pt reports that she knows when BG is low because she gets shaky and dizzy. Healthy coping: Pt lives alone and cooks for herself. Reports that she tried having a GLASS ETCHER but she prefers to stay busy and cook and clean for herself. Was diagnosed with diabetes in 2008. She remembers, because it was the year my life changed . Reports that she was stressed out and having frequenthyperglycemia and that she gained weight very rapidly. She denies current diabetic burn out and nowthat she feels her diabetes is better controled. She states that she changed her entire lifestyle and feels good now. EDUCATION: The following was reviewed with Sia Martinez and they confirmed understanding Healthy diet and lifestyle Discussed role of A1c monitoring, A1c and SMBG goals Reviewed risks of macrovascular and microvascular complications of uncontrolled T2DM Reviewed signs, symptoms and treatments of hypoglycemia to which patient confirmed understanding ASSESSMENT: Achieve A1C of <7.0% while minimizing episodes of hypoglycemia SMART Goal: Pt will connect new sensor to her phone by the end of today. If she is unable to get itconnected at home, call me or come back in and ask for me so we can do it together. PLAN: Today's findings to be reviewed with PCP. Labs ordered Yes, POCT A1C completed. Sia Martinez agrees to try lifestyle goals listed above and at least 70% usage on CGM. Future Appointments Date Time Provider Department Center 08/09/2024 9:30 AM [facility] MICHAELA TEAM NURSE MEDICINE [facility] 10/27/2024 9:15 AM FRANCISCA Macahdo MEDICINE [facility] Meg Huertas, RN documented in this encounter Plan of Treatment Upcoming Encounters Date Type Department Care Team (Late st Contact Info) Description 10/27/2024 9:15 AM EDT Office Visit [facility] MEDICINE [address] [place] [address] Angie Edwards ANP [address] [place] [address] documented as of this encounter Procedures Procedure Name Priority Date/Time Associated Diagnosis Comments POCT GLYCATED HEMOGLOBIN, TOTAL Routine 08/09/2024 10:32 AM EDT Type 2 diabetes mellitus with hyperlipidemia (CMS/HCC) documented in this encounter Results * (ABNORMAL) POCT HGB A1C (08/09/2024 10:32 AM EDT) Hemoglobin A1C 7.5(A) 4.0 - 6.0 % QC Media Lot # [id number] Lot# Expiration Date Blood 08/09/2024 10:3 2 AM EDT Angie ESPINOSA POINT OF CARE TEST ENTER/EDIT OR DERABLES Final Result documented in this encounter Visit Diagnoses Diagnosis Type 2 diabetes mellitus with hyperlipidemia (CMS/HCC) documented in this encounter Additional Health Concerns Assessment Noted Time PHQ-9 Depression Total Score: 9 04/07/20 24 10:05 AM EST documented as of this encounter Care Teams Supervisor Real Estate Office Relationship Specialty Start Date End Date Angie Edwards ANP [address] [place] [address] PCP - General Family Medicine 05/05/22 documented as of this encounter
--- OUTSIDE RECORDS SUMMARY | 2024-08-14 10:09 | XMS_ITS | Encounter Summary ---
Author Organization [employer] Address [address] [facility] 7t [place] [address] Care Team Providers Care Ballistics Professor Name Role Phone Angie Edwards Primary Care Provider [phone] Reason for Visit * Reason Comments Med Refill Encounter Details Date Type Department Care Team ([facility] st Contact Info) Description 07/21/2024 Refill [facility] MED[facility]INE [address] [place], [place] [phone] Angie Edwards ANP [address] [place] [address] Type 2 diabetes mellitus with hyperlipidemia (CMS/HCC) [...] Description 10/27/2024 9:15 AM EDT Office Visit [facility] MED[facility]INE [address] [place] [phone] Angie Edwards ANP [address] [place] [address] documented as of this encounter Visit Diagnoses Diagnosis Type 2 diabetes mellitus with hyperlipidemia (CMS/HCC) Diabetic polyneuropathy associated with type 2 diabetes mellitus (CMS/HCC) documented in this encounter Additional Health Concerns Assessment Noted Time PHQ-9 Depression Total Score: 9 04/07/20 24 10:05 AM EST documented as of this encounter Care Teams Ballistics Professor Relationship Specialty Start Date End Date Angie Edwards ANP [address] [place] [id number] PCP - General Family Medicine 05/05/22 documented as of this encounter
--- OUTSIDE RECORDS SUMMARY | 2024-08-14 10:09 | XMS_ITS | Encounter Summary ---
Author Organization [employer] Address [address] [facility] 7t [place] [address] Care Team Providers Care Clinical Laboratory Aides Teacher Name Role Phone Angie Edwards Primary Care Provider [phone] Reason for Referral * Imaging (Routine) - Authorized Specialty Diagnoses / Procedures Referred By Contac t Referred To Contact Radiology Diagnoses Acute bilateral low back pain with right-sided sciatica Procedures US RENAL BI Tuyet Merlos MD [address] [place] [address] Phone: tel: fax: [address] Phone: tel: fax: Referral ID Status Reason Start Date Expiration Date V isits Requested Visits Authorized [id number] Authorized 08/14/2024 08/14/2025 1 1 Reason for Visit * Reason Comments IBP Back Pain Encounter Details Date Type Department Care Team (Late st Contact Info) Description 08/14/2024 9:00 AM EDT Office Visit [facility] [address] [place] [phone] Tuyet Merlos MD [address] [place], [place] [phone] Acute bilateral low back pain with right-sided sciatica (Primary Dx); Low back pain, unspecified back pain laterality, unspecified chronicity, unspecified whether sciatica present Social History Tobacco Use Types Packs/Day Years [...] (210 lb) 08/14/2024 8:52 AM EDT Height - - Body Mass Index 39.68 01/06/2024 9:26 AM EDT documented in this encounter Progress Notes * Tuyet Merlos MD - 08/14/2024 9:00 AM EDT SUBJECTIVE: Sia Martinez is a 59 y.o. year old female who presents for Walk In Center/LBP . Denies recent illness, injury, or hospitalization. Acute Concerns: Patient complaining of right-sided back pain radiated to the right groin for approximately 4 days, associated to increased urinary frequency and dysuria. No fever no abdominal pain nausea, nausea or recent fall. She has history of bilateral back pain for few years which is usually resolved with Tylenol 51 or 2 days, she has not received PT and she has not had any significant fall. Social History Social History Narrative Not on file Patient Active Problem List Diagnosis Bilateral plantar fasciitis Depressive disorder Diabetic neuropathy ([facility]) Diastolic dysfunction Essential hypertension Morbid obesity ([facility]) Type 2 diabetes mellitus with hyperlipidemia ([facility]) Umbilical hernia Moderate persistent asthma without complication Acute bilateral low back pain with right-sided sciatica No family history on file. Review of Systems Constitutional: Negative for chills, fatigue and fever. HENT: Negative for congestion, ear pain, nosebleeds, rhinorrhea, sinus pressure, sore throat and trouble swallowing. Eyes: Negative for pain and discharge. Respiratory: Negative for cough, chest tightness and shortness of breath. Cardiovascular: Negative for chest pain, palpitations and leg swelling. Gastrointestinal: Negative for abdominal pain, blood in stool, constipation, diarrhea and nausea. Endocrine: Negative for polydipsia and polyuria. Genitourinary: Positive for dysuria and frequency. Negative for genital sores, pelvic pain and vaginal discharge. Musculoskeletal: Positive for arthralgias and back pain. Negative for neck pain. Skin: Negative for rash. Allergic/Immunologic: Negative for environmental allergies. Neurological: Negative for dizziness, seizures, weakness, light-headedness and headaches. Hematological: Negative for adenopathy. Psychiatric/Behavioral: Negative for agitation, behavioral problems, self-injury and suicidal ideas. OBJECTIVE: Vitals: 08/14/24 0852 BP: (!) 151/69 Pulse: 65 Resp: 16 Temp: 98.2 ??F (36.8 ??C) SpO2: 98% Physical Exam Constitutional: Appearance: Normal appearance. HENT: Right Ear: Tympanic membrane and ear canal normal. Left Ear: Tympanic membrane and ear canal normal. Mouth/Throat: Mouth: Mucous membranes are moist. Pharynx: No oropharyngeal exudate or posterior oropharyngeal erythema. Eyes: Pupils: Pupils are equal, round, and reactive to light. Cardiovascular: Rate and Rhythm: Normal rate and regular rhythm. Heart sounds: No murmur heard. Pulmonary: Breath sounds: Normal breath sounds. No wheezing. Abdominal: General: Bowel sounds are normal. Palpations: Abdomen is soft. Tenderness: There is no abdominal tenderness. There is right CVA tenderness and guarding. Musculoskeletal: Cervical back: Normal range of motion. No tenderness. Thoracic back: Spasms and tenderness present. Lumbar back: Tenderness present. Positive right straight leg raise test. Skin: General: Skin is warm. Neurological: General: No focal deficit present. Mental Status: She is alert and oriented to person, place, and time. Psychiatric: Mood and Affect: Mood normal. Office Visit on 08/14/2024 Component Date Value Ref Range Status Color, UA 08/14/2024 Yellow Final Clarity, UA 08/14/2024 Clear Final Glucose, UA 08/14/2024 4+ >500 Final 1000mg Bilirubin, UA 08/14/2024 Negative Final Ketones, UA 08/14/2024 Negative Final Spec Grav, UA 08/14/2024 1.010 Final Blood, UA 08/14/2024 Negative Negative, None Detected Final pH, UA 08/14/2024 5.5 Final Protein, UA 08/14/2024 Negative Final Urobilinogen, UA 08/14/2024 0.2 Final Leukocytes, UA 08/14/2024 Negative Negative, Rare, Trace Final Nitrite, UA 08/14/2024 Negative Negative, None Detected Final Appearance, UA 08/14/2024 OK Final Problem List Items Addressed This Visit Acute bilateral low back pain with right-sided sciatica - Primary It seems to be muscular, however due [...] spine, may need PT in the future Relevant Orders POCT urinalysis dipstick manually resulted (Completed) US RENAL BI Other Visit Diagnoses Low back pain, unspecified back pain laterality, unspecified chronicity, unspecified whether sciatica present Relevant Orders XR Lumbar Spine Complete 4+ Views Follow Up: Current Outpatient Medications on File Prior to Visit Medication Sig Dispense Refill albuterol (2.5 MG/3ML) [...] every 12 (twelve) hours. Continuous Blood Gluc Clinical Tech (FreeStyle Ata 2 [place]) device Use to check blood sugar 4x/d and more if symptomatic 1 each 0 Continuous Glucose Sensor (FreeStyle Ata 2 Sensor) misc USE DIRECTED CHANGE EVERY 14 DAYS 2 each 3 D3 Super Strength 50 MCG [...] by mouth at bedtime. TRUEplus Lancets 33G [facility] TEST BLOOD SUGAR FOUR TIMES DAILY 300 each 8 [DISCONTINUED] Continuous Blood Gluc Sensor (FreeStyle Ata 2 Sensor) misc 1 each every 14 (fourteen) days. 6 each 3 [DISCONTINUED] fenofibrate (Tricor) 54 MG tablet TAKE 1 TABLET BY MOUTH AT BEDTIME 90 tablet 1 Current Facility-Administered Medications on File Prior to Visit Medication Dose Route Frequency Provider Last Rate Last Admin ipratropium-albuterol (Duo-Neb) 0.5-2.5 mg/3 mL nebulizer solution 3 mL 3 mL Nebulization Once FRANCISCA Machado documented in this encounter Miscellaneous Notes * Assessment & Plan Note - Tuyet Merlos MD - 08/14/2024 9:10 AM EDT Associated Problem(s): Acute bilateral low back pain with right-sided sciatica It seems to be muscular, however due [...] spine, may need PT in the future documented in this encounter Plan of Treatment Upcoming Encounters Date Type Department Care Team (Late st Contact Info) Description 10/27/2024 9:15 AM EDT Office Visit [facility] [address] [place] [address] Angie Edwards ANP [address] [place] [address] Scheduled Orders Name Type Priority Associated Diagnoses Orde r Schedule XR Lumbar Spine Complete 4+ Views Imaging Routine Low back pain, unspecified back pain laterality, unspecified chronicity, unspecified whether sciatica present Ordered: 08/14/2024 US RENAL BI Imaging Routine Acute bilateral low back pain with right-sided sciatica Expected: 08/14/2024 (Approximate), Expires: 08/14/2025 documented as of this encounter Procedures Procedure Name Priority Date/Time Associated Diagnosis Comments POCT URINALYSIS DIPSTICK Routine 08/14/2024 8:59 AM EDT Acute bilateral low back pain with right-sided sciatica documented in this encounter Results * POCT urinalysis dipstick manually resulted (08/14/2024 8:59 AM EDT) Color, UA Yellow Clarity, UA Clear Glucose, [...] CARE TEST ENTER /EDIT ORDERABLES Final Result documented in this encounter Visit Diagnoses Diagnosis Acute bilateral low back pain with right-sided sciatica- Primary Low back pain, unspecified back pain laterality, unspecified chronicity, unspecified whether sciatica present documented in this encounter Additional Health Concerns Assessment Noted Time PHQ-9 Depression Total Score: 9 04/07/20 24 10:05 AM EST documented as of this encounter Care Teams Clinical Laboratory Aides Teacher Relationship Specialty Start Date End Date Angie Edwards ANP [address] [place] [id number] PCP - General Family Medicine 05/05/22 documented as of this encounter
--- OUTSIDE RECORDS SUMMARY | 2024-08-14 10:09 | XMS_ITS | Encounter Summary ---
Author Organization [employer] Address [address] [place] [address] 7[address] [place] [address] Care Team Providers Care Chief Operating Engineer Name Role Phone Angie Edwards Primary Care Provider [phone] Reason for Visit * Reason Comments Med Refill Encounter Details Date Type Department Care Team (Late st Contact Info) Description 12/16/2022 Refill [facility] [address] [place] [phone] Angie Edwards ANP [address] [place], [place] [phone] Diabetic polyneuropathy associated with type 2 diabetes mellitus (CMS/HCC); Type 2 diabetes mellitus with hyperlipidemia ([facility]) Social History Tobacco Use Types [...] Description 10/27/2024 9:15 AM EDT Office Visit [facility] [address] [place] [phone] Angie Edwards ANP [address] [place] [address] documented as of this encounter Visit Diagnoses Diagnosis Diabetic polyneuropathy associated with type 2 diabetes mellitus (CMS/HCC) Type 2 diabetes mellitus with hyperlipidemia (CMS/HCC) (CMS/HCC) documented in this encounter Care Teams Chief Operating Engineer Relationship Specialty Start Date End Date Angie Edwards ANP [address] [place] [address] PCP - General Family Medicine 05/05/22 documented as of this encounter
== END 2024-08-14 09:22 | disposition home or self-care (01) ==
LOC: HO.HHCX 09:21
PROVIDERS: Visit Provider Internal Medicine
DX: M54.50 Low back pain, unspecified (principal)
CPT/HCPCS: 72100

== ENCOUNTER → 2024-08-14 09:23 | Outpatient (BNV) | payer OTHER, SELFPAY | PROVIDERS: Visit Provider Radiology Diagnostic Radiology | DX: M54.50 Low back pain, unspecified (principal) | CPT/HCPCS: 72100 ==

== ENCOUNTER 2024-08-17 13:01 | Outpatient (AMB) | payer OTHER, SELFPAY ==
--- NOTE | 2024-08-17 13:05 | MHC.OFFVIS ---
Vital Signs 08/17/24 13:08 Height 5 ft Weight 212 lb 15.465 oz BMI 41.6 BP 120/42 L Blood Pressure Location Lt brachial Position Sitting Pulse 55 Pulse Source Monitor Intake Visit Reasons: 6 mth f/up Security Management Specialist Required: Yes Security Management Specialist Language: Rn Clinical Research Name: voice cartwright [id number] Allergies Penicillins Allergy (Severe, Verified 08/17/24 13:10) analphylaxis dulaglutide [From [facility]] Allergy (Unknown, Verified 08/17/24 13:10) Rash potassium Allergy (Unknown, Verified 08/17/24 13:10) Itching SHELLFISH Allergy (Unknown, Uncoded 08/17/24 13:10) HIVES Medication List - Last Reconciled 08/17/24 by KENNEDY Gifford alcohol swabs 0 pad topical amlodipine 5 mg PO DAILY aspirin 81 mg PO QPM blood sugar diagnostic As directed blood sugar diagnostic (FreeStyle Lite Strips) four times a day blood-glucose meter (FreeStyle Rosepine Lite kit) 4 times a day bupropion HCl SR 150 mg PO BID cholecalciferol (vitamin D3) 50 mcg PO DAILY cyclobenzaprine 5 mg PO TID PRN empagliflozin (Jardiance) 25 mg PO QAM evolocumab (Repatha SureClick) 140 mg subcut Q2W ezetimibe 10 mg PO QAM fenofibrate 54 mg PO DAILY fluoxetine 40 mg PO DAILY fluticasone propionate 220 mcg/actuation (Flovent HFA) 1 puff PO BID gabapentin 400 mg PO TID glucose (TRUEplus Glucose) 16 grams PO ibuprofen 600 mg PO Q6H PRN insulin aspart U-100 (Novolog FlexPen U-100 Insulin aspart) 6 - 12 units (0.06 - 0.12 mL) subcut TID ipratropium-albuterol 0.5 mg-3 mg(2.5 mg base)/3 mL mL inhalation isosorbide mononitrate ER 30 mg PO QAM lancets As directed lancets (TRUEplus Lancets) 1 gauge miscellaneous QID levothyroxine 25 mcg PO DAILY lisinopril 40 mg PO QAM multivit-iron sulf-folic acid 15 mg iron- 400 mcg (Tab-A-Cristobal Multivitamin w-iron) 1 tab PO QAM omeprazole 20 mg PO DAILY pen needle, diabetic As directed pen needle, diabetic (BD Ultra-Fine Sirena Pen Needle) As directed four times a day polyethylene glycol 3350 (Miralax) 17 grams PO DAILY prednisone 40 mg (2 x 20 mg) PO DAILY 4 days rosuvastatin 40 mg PO DAILY semaglutide (Ozempic) mg subcut trazodone 100 mg PO BEDTIME PRN HPI HPI 6 mth f/up: Details: Audelia is a 59-year-old female with past medical history of hypertension, hyperlipidemia, diabetes, morbid obesity, nonobstructive CAD who presents for follow-up. Today she reports that she gets random sharp pains in her left chest that she describes as pinching. This can occur at rest or during activity. The left chest region is tender to palpation and she had Mets that this is her discomfort. She has mild shortness of breath with exertion which is not new. No PND, orthopnea or edema. No heart palpitations, lightheadedness, presyncope, syncope, falls. Takes all meds as directed. Certified cylinder filler used. [facility] Medical History GERD (gastroesophageal reflux disease) Pre-syncope Umbilical hernia Fatty liver Asthma Anxiety Depression Type 2 diabetes mellitus with diabetic polyneuropathy Essential hypertension Hyperlipidemia LDL goal <100 Morbid obesity due to excess calories BMI 45.0-49.9, adult Type 2 diabetes mellitus with hyperglycemia Surgical History History of cardiac cath Hx of hernia repair Hx of gastric bypass History of esophagogastroduodenoscopy (EGD) Family History Father Diabetes mellitus HTN (hypertension) Mother CVD (cardiovascular disease) Mother HTN (hypertension) Diabetes mellitus Asthma Social History Household Members: None Alcohol intake: never Patient Tobacco Use Status: Never used Tobacco Review of Systems Const All systems reviewed & are unremarkable except as noted in HPI and below ENT Denies dizziness Card Reports chest pain (worse with palpation, pinching pain), Reports chest pain at rest, Reports chest pain with activity, Denies rapid heart rate, Denies pedal edema, Denies edema, Denies leg edema, Denies lightheadedness, Denies palpitations, Denies dyspnea, Denies dyspnea on exertion and Denies orthopnea Resp Denies cough, Denies dyspnea and Denies dyspnea on exertion GI Denies hematochezia and Denies change in stool character Musc Denies abnormal gait, Denies limited range of motion, Denies muscle cramps, Denies muscle weakness, Denies numbness, Denies radiating pain into limb, Denies stiffness and Denies tingling Neuro Denies abnormal gait, Denies dizziness, Denies numbness and Denies tingling Endo Denies palpitations Physical Exam Vital Signs: Last Vital Signs Pulse 55 08/17/24 13:08 BP 120/42 L 08/17/24 13:08 BMI result Body Mass Index 41.6 Const General: cooperative, healthy appearing, comfortable and no acute distress Orientation/consciousness: patient oriented x3 Neck Neck: Yes normal visual inspection and Yes no JVD Carotids: normal carotid upstroke Resp Effort & Inspection: normal respiratory effort Auscultation: clear to auscultation bilaterally, no crackles, no rales, no rhonchi and no wheezes Cardio Jugular venous distension: no JVD Rate: regular rate Rhythm: regular rhythm Heart sounds: S1 normal heart sound present, S2 normal heart sound present, no gallops, no murmurs and no rubs Neuro General: patient oriented x3 Extrem General: Yes normal to inspection, No no pedal edema and No calf tenderness Psych Appearance: grossly normal Mental Status: mental status grossly normal Speech and movement: Normal speech and movement present Office Procedures EKG Details: Read by me, sinus bradycardia, can not exclude prior anterior infarct, rate 55, QTC 403 milliseconds [id number], Complete Assessment & Plan Assessment & Plan (1) CAD (coronary artery disease): Code(s): I25.10 - Atherosclerotic heart disease of [place] coronary artery without angina pectoris Category: Medical Plan: Nobstructive coronary disease as seen on cardiac catheterization last year. Currently reporting only atypical chest discomfort that is worse with palpation of the area. EKG done today showing sinus bradycardia, can not exclude prior anterior infarct, rate 55. Continue aspirin indefinitely. Continue Repatha, rosuvastatin and Zetia with ideal LDL goal less than 70. Continue lisinopril for good blood pressure control. She was previously put on isosorbide for more anginal sounding chest discomfort and she said it did help. Blood pressure is controlled. Will keep isosorbide on her list for now. Signs and symptoms of angina reviewed. Cardiology follow-up 6 months, sooner if needed. (2) Abnormal nuclear stress test: Code(s): R94.39 - Abnormal result of other cardiovascular function study Category: Medical Plan: She had a nuclear stress test done 12/17/2022 showing a fixed defect in the distal part of the lateral wall and adjacent apex which could indicate prior infarct. She had a cardiac catheterization on 08/10/2023 showing only nonobstructive disease. Stress test false-positive (3) Chest discomfort: Code(s): R07.89 - Other chest pain Category: Medical Plan: Currently atypical and most likely chest wall discomfort (4) History of cardiac cath: Comment: 08/10/2023, lad mild luminal irregularities, left circumflex minimal luminal irregularities, RCA distal 50% stenosis Code(s): Z98.890 - Other specified postprocedural states Category: Surgical Plan: as above (5) Essential hypertension: Code(s): I10 - Essential (primary) hypertension Category: Medical Plan: Well controlled at present time. No medication changes made (6) Hyperlipidemia LDL goal <100: Code(s): E78.5 - Hyperlipidemia, unspecified Category: Medical Plan: Hay LDL goal actually less than 70 in patient with diabetes and CAD. Labs done on 02/14/2024 showed LDL 105. He was started on Repatha. Will need to verify compliance and then have her recheck fasting lipid profile. Plan Time spent on chart review, documentation, interview and assessment Orders: Orders Lipid Panel Today I25.10 - Atherosclerotic heart disease of [place] coronary artery without angina pectoris Comprehensive Met. Panel Today I25.10 - Atherosclerotic heart disease of [place] coronary artery without angina pectoris Coding Level of Care Code Est Pt Level 4 (09476) Complex EM visit Add On G2211 Diagnoses CAD (coronary artery disease) I25.10 Abnormal nuclear stress test R94.39 Chest discomfort R07.89 History of cardiac cath Z98.890 Essential hypertension I10 Hyperlipidemia LDL goal <100 E78.5 CPT Codes EKG - CPT: [id number]-[id number], Complete ([id number]) Time Spent (min) 30
[2024-08-17 13:08] VITALS: BP 120/42; PULSE 55; BMI 41.6
== END 2024-08-17 13:42 | disposition home or self-care (01) ==
LOC: HO.HCS 13:02
PROVIDERS: PCP Nurse Practitioner Primary Care; Visit Provider Nurse Practitioner Family
DX: I25.10 Atherosclerotic heart disease of native coronary artery without angina pectoris (principal); R94.39 Abnormal result of other cardiovascular function study; R07.89 Other chest pain; Z98.890 Other specified postprocedural states; I10 Essential (primary) hypertension; E78.5 Hyperlipidemia, unspecified
CPT/HCPCS: 93010; 99214; G2211

== ENCOUNTER → 2024-08-17 13:01 | Outpatient (BNVA) | payer OTHER, SELFPAY | PROVIDERS: PCP Nurse Practitioner Primary Care; Visit Provider Nurse Practitioner Family | DX: I10 Essential (primary) hypertension (principal); I25.10 Atherosclerotic heart disease of native coronary artery without angina pectoris; E78.5 Hyperlipidemia, unspecified; R94.39 Abnormal result of other cardiovascular function study; R07.89 Other chest pain; E66.01 Morbid (severe) obesity due to excess calories; Z68.41 Body mass index [BMI] 40.0-44.9, adult; Z98.890 Other specified postprocedural states | CPT/HCPCS: 93005; 99212 ==

== ENCOUNTER 2024-09-08 08:05 | Outpatient (REF) | payer OTHER, SELFPAY ==
--- NOTE | ~2024-09-08 | XR_ITS ---
EXAMINATION: XR PELVIS CLINICAL INFORMATION: M25.559 - Pain in unspecified hip COMPARISON: 04/07/2024. TECHNIQUE: AP view of the pelvis. FINDINGS: No fracture, dislocation, or suspicious bone lesion. Normal bone mineralization. Mild degenerative arthritis in both hip joints. Normal acetabular coverage. Femoral heads normal in contour without evidence of AVN. Mild degenerative changes in both SI joints. The sacrum appears intact. Diffuse vascular calcifications present in the soft tissues. XR/XR pelvis 1-2V IMPRESSION: 1. No acute bony abnormalities. 2. 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 Electronically signed by: Benji Dotson MD 09/08/2024 09:55 AM EDT
--- OUTSIDE RECORDS SUMMARY | 2024-09-11 08:26 | XMS_ITS | Encounter Summary ---
Demographics Address [address] [facility] [address] [place] [address] Mobile Phone Home Phone Preferred Language es Marital Status Single Sikhism Affiliation Unknown Race Other Race Ethnic Group Wallisian Author Organization [employer] Address [address] [facility] 7t [place] [address] Care Team Providers Care Reed Worker Name Role Phone Angie Edwards Primary Care Provider [phone] Reason for Visit * Reason Comments Med Refill Encounter Details Date Type Department Care Team ([facility] st Contact Info) Description 01/21/2024 Refill [facility] [address] [place], [place] [phone] Angie Edwards ANP [address] [place] [address] Type 2 diabetes mellitus with hyperlipidemia (CMS/HCC) [...] Description 10/27/2024 9:15 AM EDT Office Visit [facility] [address] [place] [address] Angie Edwards ANP [address] [place] [address] documented as of this encounter Visit Diagnoses Diagnosis Type 2 diabetes mellitus with hyperlipidemia (CMS/HCC) (CMS/HCC) Diabetic polyneuropathy associated with type 2 diabetes mellitus (CMS/HCC) documented in this encounter Additional Health Concerns Assessment Noted Time PHQ-9 Depression Total Score: 20 024 9:36 AM EDT documented as of this encounter Care Teams Reed Worker Relationship Specialty Start Date End Date Angie Edwards ANP [address] [place] [address] PCP - General Family Medicine 05/05/22 documented as of this encounter
--- OUTSIDE RECORDS SUMMARY | 2024-09-11 08:26 | XMS_ITS | Encounter Summary ---
Author Organization [employer] Address [address] [facility] 7t [place] [address] Care Team Providers Care Bereavement Counselor Name Role Phone Angie Edwards Primary Care Provider [phone] Reason for Visit * Reason Comments Med Refill Encounter Details Date Type Department Care Team ([facility] st Contact Info) Description 03/07/[address] [facility] [address] [place], [place] [phone] Angie Edwards ANP [address] [place] [address] Type 2 diabetes mellitus with hyperlipidemia (CMS/HCC) [...] Description 10/27/2024 9:15 AM EDT Office Visit [facility] [address] [place] [address] Angie Edwards ANP [address] [place] [address] documented as of this encounter Visit Diagnoses Diagnosis Type 2 diabetes mellitus with hyperlipidemia (CMS/HCC) (CMS/HCC) Diabetic polyneuropathy associated with type 2 diabetes mellitus (CMS/HCC) documented in this encounter Care Teams Bereavement Counselor Relationship Specialty Start Date End Date Angie Edwards ANP [address] [place] [phone] PCP - General Family Medicine 05/05/22 documented as of this encounter
--- OUTSIDE RECORDS SUMMARY | 2024-09-11 08:26 | XMS_ITS | Clinical Summary ---
Author Organization [employer] Address [address] [facility] 7t [place] [address] Care Team Providers Care Gasket Winder Name Role Phone Stephanie Markham Primary Care Provider [phone] Allergies Active Allergy Reactions Criticality Noted Date Comments Dulaglutide 04/21/2021 Other reaction(s): Rash, Rash Penicillins Anaphylaxis High 05/05/2022 Medications * This document contains information received from the source organization and may not represent a complete record from that organization. Blood Pressure kitIndications:Hy pertension associated with type 2 diabetes mellitus ([facility]) 1 kit in the morning. 1 kit [...] ype 2 diabetes mellitus with hyperlipidemia (CMS/HCC) ([facility]) TEST BLOOD SUGAR FOUR TIMES DAILY 300 each 023 Active glucose blood (FREESTYLE LITE) test stripIndications: Diabetic polyneuropathy associated with type 2 diabetes mellitus ([facility]) Check BG 4x daily or more as needed 200 each 023 Active glucose 4 g chewable tabletIndications :Type 2 diabetes mellitus with hypoglycemia without coma, with long-term current use of insulin ([facility]) CHEW 4 TABLETS NEEDED FOR LOW BLOOD [...] swallow. 1 each Active Continuous Blood Gluc Data Collection Interviewer (FreeStyle Ata 2 Holt) deviceIndications :Type 2 diabetes mellitus with hypoglycemia without coma, with long-term current use of insulin ([facility]) Use to check blood sugar 4x/d and more if symptomatic 1 each 024 Active glucagon (Baqsimi) 3 MG/DOSE nasal powderIndications :Type 2 diabetes mellitus with hypoglycemia without coma, with long-term current use of insulin ([facility]) Administer 3 mg into affected nostril(s) 1 [...] pen-injectorIndic ations:Type 2 diabetes mellitus with hyperlipidemia ([facility]/HCC) ([facility]) INJECT 1mg SUBCUTANEOUSLY ONCE WEEKLY DIRECTED 3 mL 024 Active Multiple Vitamins-Iron (Tab-A-Cristobal/Iron) tabletIndications :Type 2 diabetes mellitus with hyperlipidemia ([facility]/HCC) ([facility]) Take 1 tablet by mouth in the morning. 90 tablet 024 Active Diclofenac Sodium (Voltaren) 1 % gelIndications:Le ft hip pain Apply 2-4g up to 4x/d to affected joint(s) for pain/swelling 100 g 2 024 Active ezetimibe (Zetia) 10 MG tabletIndications :Type 2 diabetes mellitus with hyperlipidemia ([facility]/HCC) ([facility]) TAKE 1 TABLET BY MOUTH EVERY MORNING 90 tablet 1 024 Active rosuvastatin (Crestor) 40 MG tabletIndications :Type 2 diabetes mellitus with hyperlipidemia ([facility]/HCC) ([facility]) TAKE 1 TABLET BY MOUTH AT BEDTIME [...] polyneuropathy, with long-term current use of insulin ([facility]) TAKE 1 TABLET BY MOUTH EVERY MORNING 90 tablet 1 025 Active D3 Super Strength 50 MCG (1999 UT) capsuleIndication s:Vitamin D deficiency TAKE 1 CAPSULE BY MOUTH EVERY MORNING 90 capsule 025 Active gabapentin (Neurontin) 100 MG capsuleIndication s:Type 2 diabetes mellitus with hyperlipidemia ([facility]/HCC) ([facility]),Diabeti c polyneuropathy associated with type 2 diabetes mellitus ([facility]) TAKE 2 CAPSULES BY MOUTH THREE TIMES [...] coma, with long-term current use of insulin ([facility]) USE DIRECTED CHANGE EVERY 14 DAYS 2 [...] Type Department Care Team Description 09/04/2024 Refill [facility] [address] [place] [address] Stephanie Markham ANP 08/15/2024 Telephone [facility] [address] [place] [address] Tuyet Merlos MD 08/14/2024 9:00 AM EDT Office Visit [facility] [address] [place] [phone] Tuyet Merlos MD Acute bilateral low back pain with right-sided sciatica (Primary Dx); Low back pain, unspecified back pain laterality, unspecified chronicity, unspecified whether sciatica present 08/14/2024 Orders Only [facility] [address] [place] [phone] Tuyet Merlos MD 08/09/2024 9:30 AM EDT Clinical Support [address] [address] Meg Huertas, RN Type 2 diabetes mellitus with hyperlipidemia (CMS/HCC) 08/09/2024 Travel 08/09/2024 Refill [facility] [address] [place] [address] Stephanie Markham ANP Type 2 diabetes mellitus with hypoglycemia without coma, with long-term current use of insulin ([facility]); Type 2 diabetes mellitus with hyperlipidemia (CMS/HCC) 07/27/2024 9:00 AM EST Office Visit [address] [address] Stephanie Markham ANP Dysuria (Primary Dx); Vaginal itching; Type 2 diabetes mellitus with hyperlipidemia (CMS/HCC) ; Yeast infection 07/27/2024 Travel 07/21/[address] [address] Berta Bello [place] chart prep 07/21/2024 Refill [facility] [address] [place] [phone] Stephanie Markham ANP Type 2 diabetes mellitus with hyperlipidemia (CMS/HCC) ; Diabetic polyneuropathy associated with type 2 diabetes mellitus (CMS/HCC) 07/20/2024 Telephone [facility] [address] [place] [phone] Stephanie Markham ANP Med Refill; Results 07/15/2024 Refill [facility] [address] [place] [phone] Stephanie Markham ANP Type 2 diabetes mellitus with hyperlipidemia (CMS/HCC) ; Diabetic polyneuropathy associated with type 2 diabetes mellitus ([facility]) 07/14/2024 Patient Outreach [facility] [address] [place] [phone] Stephanie Markham ANP SDOH Concerns (CHW Jett Jacques, TC SDOH food insecurities ) 07/14/2024 Patient Outreach [facility] [address], [place] [phone] Stephanie Markham ANP Pre-visit Planning (SDOH Screening positive and Tobacco screening negative) 06/15/[address] [phone] Stephanie Markham ANP Referral 06/14/[address] [phone] Berta Bello [place] Results (Tried calling pt Please let pt know, x-ray showed mild 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 Hopefully by now she has had PT - if still with pain, can refer to orthopedics. Thanks /no answer lv .) 06/13/[address] [phone] Stephanie Markham ANP Type 2 diabetes mellitus with diabetic polyneuropathy, with long-term current use of insulin ([facility]); Vitamin D deficiency from Last 3 Months Immunizations Name Administration [...] Description 10/27/2024 9:15 AM EDT Office Visit [facility] [address] [place] [address] Stephanie Markham, ANP [address] [place] [address] Health Maintenance Due Date Last Done Comments [...] EDT Type 2 diabetes mellitus with hyperlipidemia ([facility]/HCC) BI MAMMOGRAM SCREENING TOMOSYNTHESIS BILATERAL Routine 09/22/2023 [...] AM EDT Narrative 08/14/2024 9:45 AM EDT ?[facility] ?[address] ?[place] [address] ?XRay Report ? Signed ? Patient: Pena Lopez,Sia ?MR#: M ?? [id number] ? : 1965 ?Acct:[id number] ? Age/Sex: 59 / F ?ADM Date: 08/14/24 ? Loc: HO.HHCX ? Attending Dr: Tuyet Merlos MD ? Ordering Physician: Tuyet Merlos MD ?? Date of Service: 08/14/24 ?? Procedure(s): XR lumbar spine 2-3V ?? Accession Number(s): [id number] ? cc: Tuyet Merlos MD ? EXAMINATION: [...] ? DD/ 2 ? TD/TT: 08/14/24922 ? Mold Carpenter: MSM ? Procedure Note Nayla, Ama - 08/14/2024 [facility] [address] [place] [address] XRay Report Signed Patient: Ismael Tripathi#: M [id number] : 1965Acct:[id number] Age/Sex: 59 / FADM Date: 08/14/24 Loc: HO.HHCX Attending Dr: Tuyet Merlos MD Ordering Physician: Tuyet Merlos MD Date of Service: 08/14/24 Procedure(s): XR lumbar spine 2-3V Accession Number(s): [id number] cc: Tuyet Merlos MD EXAMINATION: XR LUMBOSACRAL [...] in OV> 08/14/24941 DD/ 2 TD/TT: 08/14/24922 Mold Carpenter: [facility] [place] Tuyet [...] Date Blood 08/09/2024 10:3 2 AM EDT us Stephanie ESPINOSA POINT OF CARE TEST ENTER/EDIT OR DERABLES Final Result * (ABNORMAL) Urinalysis, Complete, with Reflex to Culture (07/27/2024 10:30 AM EST) Color Urine Yellow [facility] Appearance Urine Clear [facility] PH 6.5 5.0 - 9.0 [facility] Glucose Urine UA >=1000(A) Negative mg/dL [facility] Urine Blood Negative Negative [facility] Specific Gideon - Urine 1.025 1.005 - 1.025 [facility] Urine Protein Negative Neg-Trace mg/dL [facility] Urine Ketones Negative Negative mg/dL [facility] Nitrite Urine Negative Negative [facility] Leukocyte Esterase Urine Negative Negative [facility] RBC Urine 0-2 0 - 2 /HPF [facility] Urine WBC 0-5 0 - 5 /HPF [facility] Urine Squamous Epithelial Cell 0-2 0 - 2 /HPF [facility] Urine Bacteria None Seen None Seen [facility] Hyaline Casts, Urine 0-2 0 - 2 /LPF [facility] Urine 07/27/2024 10:3 0 AM EST 07/27/2024 4:26 PM EST Narrative [facility] - 07/27/2024 5:11 PM EST Urine, Clean Catch Stephanie Markham ANP LAB URINE ORDERABLES Final Resul t Performing Organization Address [facility] de Phone Number [facility] [address] [place] [phone] * Albumin, Random Urine W/Creatinine (07/27/2024 10:30 AM EST) Creatinine, Urine 25.75 mg/dL [facility] Microalbumin Urine <5.0 mg/L [facility] Microalbum Creatinine Ratio Ur TNP <30 ug/mg cr [facility] Comment:Unable to calculate albumin/creatinine ratio due to lowmicroalbumin or creatinine result. Urine (Urine, Random) 07/27/2024 10:30 AM EST 07/27/2024 4:26 PM EST Stephanie Markham [facility] URINE ORDERABLES Final Resul t Performing Organization Address [facility] de Phone Number [facility] [address] [place] [phone] * (ABNORMAL) Bacterial Vaginosis Panel (07/27/2024 12:00 AM EST) TRICHOMONAS VAGINALIS DETECTION BY PCR NOT DETECTED Not Detect [facility] BACTERIAL VAGINOSIS DETECTION BY PCR NEGATIVE Negative [facility] Comment:The BV organism targ ets of [...] DETECTION BY PCR NOT DETECTED Not Detect [facility] Flores glab krusei PCR DETECTED(A) Not Detect [facility] Swab Vaginal structure / Unknown 07/27/2024 07/27/2024 5:02 PM EST Stephanie Markham ANP LAB MICROBIOLOGY - GENERAL ORDER DANISHA Final Result Performing Organization Address [facility] de Phone Number [facility] [address] [place] [phone] * (ABNORMAL) Lipid Panel, Standard (02/14/2024 9:24 AM EDT) Triglycerides 94 <150 mg/dL [facility] Comment:Desirable Triglyceri de: less than 150 mg/dLBorderline High Triglyceride 150-199 mg/dLHigh Triglyceride: 200-499 mg/dLVery High Triglyceride: greater than or equal to 5OO mg/dL Cholesterol 181 <200 mg/dL [facility] Comment:Desirable Cholestero l: less than 200 mg/dLBorderline High Cholesterol: 200-239 mg/dLHigh Cholesterol: greater than 239 mg/dL LDL Cholesterol Calculated 105(H) <100 mg/dL [facility] Comment:Desirable LDL: less than 100 mg/dLNear Optimal/Above Optimal LDL: 110- 129 mg/dLBorderline High LDL: 130-159 mg/dLHigh LDL: 160-189 mg/dLVery High LDL: greater than or equal to 190 mg/dL HDL Cholesterol 58 >40 mg/dL [facility] Comment:Desirable HDL: great er than 40 mg/dL Note: This HDL assay may give artificially low results in patients with liver disease. Blood Venous blood specimen / Unknown 02/14/2024 9:24 AM EDT 02/14/2024 9:24 AM EDT us Stephanie Markham ANP LAB BLOOD ORDERABLES Final Resul t Performing Organization Address [facility] Co de Phone Number [facility] [address] [place] [phone] * BI Mammogram Screening Tomosynthesis Bilateral (09/22/2023 8:45 AM EDT) Anatomical Region Laterality Modality Breast Bilateral Mammography 09/22/2023 8:45 AM EDT Narrative 10/13/2023 9:29 AM EDT ? [facility] ? [address] ?[place], [place] [address] ? Mammography Report ? Signed ? Patient: Pena Lopez,Sia ?MR#: M ?? [id number] ? : 1965 ?Acct:[id number] ? Age/Sex: 58 / F ?ADM Date: 09/22/23 ? Loc: HO.MAMMO ? Attending Dr: Stephanie Markham LAPEL STITCHER ? Ordering Physician: SHAHRZAD,STEPHANIE [place] ?Results: 1Negative ? Date of Service: 09/22/23 ?Follow Up: 1 Year From Orig ?? inal Mammogram ? Procedure(s): MM tomosynthesis screening BI ?? Accession Number(s): [id number] ? cc: SHAHRZAD,STEPHANIE [place] ? EXAMINATION: ?? [...] 0926 ? DD/ 0845 ? TD/TT: ? Mold Carpenter: ? Procedure Note Donmargaretter, Image - 10/13/2023 [place] [facility] [address] [place] [address] Mammography Report Signed Patient: Ismael Tripathi#: M [id number] : 1965Acct:[id number] Age/Sex: 58 / FADM Date: 09/22/23 Loc: RITO Attending Dr: Stephanie Markham LAPEL STITCHER Ordering Physician: STEPHANIE MARKHAM NPResults: 1Negative Date of Service: 09/22/23Follow Up: 1 Year From Orig inal Mammogram Procedure(s): MM tomosynthesis screening BI Accession Number(s): [id number] cc: STEPHANIE MARKHAM NP EXAMINATION: MM SCREENING [...] Dotson MD in OV> 10/13/23925 DD/ TD/TT: Mold Carpenter: [facility] BI PROCEDURES Final Result * HPV mRNA E6/E7 w/Reflex to HPV Genotypes 16, 18/45 (01/27/2023 10:18 AM EDT) HPV nRNA E6/E7 Not Detected Not Detected [facility] Comment:Methodology: Transcr iption-Mediated AmplificationThis assay detects E6/E7 viral messenger RNA (mRNA) from 14high-risk HPV types (16,18,31,33,35,39,45,51,52,56,58,59,66,68).Cervical sources are required for HPV testing.If a vaginal source from a patient who has had atotal hysterectomy with removal of cervix wassubmitted, please contact the testing laboratoryfor alternative testing options.For additional information, please refer tohttp://education.[employer]/faq/CXN628x7(This link if provided for information/educational purposes only.)THIS TEST WAS PERFORMED AT:[employer] [place] [phone] MORGAN MD HPV mRNA E6/E7 TNP [facility] HPV 16 [facility] HPV 18/45 RNA TNP [facility] 01/27/2023 10:1 8 AM EDT 01/28/2023 12:15 PM EDT us Alba Monroy CNM LAB CYTOLOGY ORDERABLES F inal Result [facility] [address] [place] [phone] * Pap Smear (01/27/2023) 01/27/2023 01/28/2023 12: 15 PM EDT Narrative [facility] - 02/09/2023 10:04 AM EDT ----- ------- Name: Sia Tripathi ?Age/Sex: 57/F ? : 1965 Unit#: [id number] ?? Attend Dr: ALBA MONROY CNM ?Re01/27/23 ?Status: DEP REF ? Location: HO.HHCLNP ? Disch: ? ----- ------- SPEC : [id number] ?RECD: 01/28/23-1214 ? STATUS: ??SOUT ? REQ NUM: [id number] ? RASHIDA: 01/27/23- ? SUBM DR: ALBA [...] 66, 68) ?? HPV testing performed by [employer], [place], [place]. ??See reference laboratory ?? pion of the EMR for entire report. ?Clinical Information LMP:Unknown date Previous PAP test:Unknown date/findings ? Material Received ?? ThinPrep-Vaginal/Cervical ----- ------- Signed (signature on file) MELVA Clemens ([facility]) 02/09/23 1004 ? ----- ------- ? END OF REPORT ? Alba Monroy [facility] CYTOLOGY ORDERABLES F inal Result [facility] [address] [place] [phone] * HEPATITIS C AB W/REFL TO HCV RNA, QN, PCR (07/23/2020 8:16 AM EST) HEPATITIS C ANTIBODY NON-REACT DIANE NON-REACT DIANE [facility] INDEX 0.03 <1.00 [facility] Comment: ?? HCV antibody was non-reactive. There is no laboratory ?? evidence of HCV infection. ?? In most cases, no further action is required. However, if recent HCV exposure is suspected, a test for HCV RNA (test code 12394) is suggested. ?? For additional information please refer to http://education.[employer]/faq/FZJ94i8 (This link is being provided for informational/ educational purposes only.) ?? 07/23/2020 8:16 AM EST Historical Provider HISTORICAL/NON ORDERABLE LABS Final Result [facility] [address] from Last 3 Months or Most Recently Relevant to Health Maintenance Insurance [address] [place] [id number] [facility] [address] [place] [id number] [place] [phone] Care Teams Gasket Winder Relationship Specialty Start Date End Date Stephanie Markham ANP [address] [place] [address] PCP - General Family Medicine 05/05/22
--- OUTSIDE RECORDS SUMMARY | 2024-09-11 08:26 | XMS_ITS | Encounter Summary ---
Author Organization [employer] [facility] Address [address] [facility] 7t [place] [address] Care Team Providers Care Extrusion Bender Name Role Phone Angie Edwards Primary Care Provider [phone] Encounter Details Date Type Department Care Team ([facility] Contact Info) Description 05/05/2022 Abstract [facility] MED[facility] [address] [place] [phone] Provider, MD Emy Social History Tobacco Use [...] Description 10/27/2024 9:15 AM EDT Office Visit [facility] [address] [place] [phone] Angie Edwards ANP [address] [place] [phone] documented as of this encounter Visit Diagnoses Not on filedocumented in this encounter Care Teams Extrusion Bender Relationship Specialty Start Date End Date Angie Edwards ANP [address] [place] [phone] PCP - General Family Medicine 05/05/22 documented as of this encounter
--- OUTSIDE RECORDS SUMMARY | 2024-09-11 08:26 | XMS_ITS | Encounter Summary ---
Author Organization [employer] Address [address] [facility] 7t [place] [address] Care Team Providers Care Motor Operator Name Role Phone Angie Edwards Primary Care Provider [phone] Reason for Visit * Reason Comments Med Refill Encounter Details Date Type Department Care Team ([facility] st Contact Info) Description 07/15/2024 Refill [facility] [address] [place], [place] [phone] Angie Edwards ANP [address] [place] [address] Type 2 diabetes mellitus with hyperlipidemia (CMS/HCC) [...] Description 10/27/2024 9:15 AM EDT Office Visit [facility] [address] [place] [phone] Angie Edwards ANP [address] [place] [address] documented as of this encounter Visit Diagnoses Diagnosis Type 2 diabetes mellitus with hyperlipidemia (CMS/HCC) Diabetic polyneuropathy associated with type 2 diabetes mellitus (CMS/HCC) documented in this encounter Additional Health Concerns Assessment Noted Time PHQ-9 Depression Total Score: 9 04/07/20 24 10:05 AM EST documented as of this encounter Care Teams Motor Operator Relationship Specialty Start Date End Date Angie Edwards ANP [address] [place] [phone] PCP - General Family Medicine 05/05/22 documented as of this encounter
--- OUTSIDE RECORDS SUMMARY | 2024-09-11 08:27 | XMS_ITS | Encounter Summary ---
Author Organization [employer] Address [address] [facility] 7t [place] [address] Care Team Providers Care Party Chief Name Role Phone Angie Edwards Primary Care Provider [phone] Reason for Visit * Reason Comments Med Refill Encounter Details Date Type Department Care Team (Late Contact Info) Description 12/08/2022 Refill [facility] MED[facility] [address] [place], [place] [phone] Angie Edwards ANP [address] [place] [address] Type 2 diabetes mellitus with hyperglycemia (CMS/HCC); terminal clerk (current) use of insulin (CMS/[facility]) Social History Tobacco Use Types Packs/Day Years [...] Description 10/27/2024 9:15 AM EDT Office Visit [facility] [address] [place] [address] Angie Edwards ANP [address] [place] [address] documented as of this encounter Visit Diagnoses Diagnosis Type 2 diabetes mellitus with hyperglycemia (CMS/HCC) terminal clerk (current) use of insulin (CMS/[facility]) documented in this encounter Care Teams Party Chief Relationship Specialty Start Date End Date Angie Edwards ANP [address] [place] [phone] PCP - General Family Medicine 05/05/22 documented as of this encounter
--- OUTSIDE RECORDS SUMMARY | 2024-09-11 08:27 | XMS_ITS | Encounter Summary ---
Author Organization [employer] Address [address] [place] [address] 7[address] [place] [address] Care Team Providers Care Automotive Parts Person Name Role Phone Angie Edwards Primary Care Provider [phone] Reason for Visit * Reason Comments Med Refill Encounter Details Date Type Department Care Team (Late st Contact Info) Description 12/16/2022 Refill [facility] [address] [place] [address] [phone] Angie Edwards ANP [address] [place], [place] [phone] Diabetic polyneuropathy associated with type 2 diabetes mellitus (CMS/HCC); Type 2 diabetes mellitus with hyperlipidemia ([facility]) Social History Tobacco Use [...] Description 10/27/2024 9:15 AM EDT Office Visit [facility] [address] [place] [phone] Angie Edwards ANP [address] [place] [address] documented as of this encounter Visit Diagnoses Diagnosis Diabetic polyneuropathy associated with type 2 diabetes mellitus (CMS/HCC) Type 2 diabetes mellitus with hyperlipidemia (CMS/HCC) (CMS/HCC) documented in this encounter Care Teams Automotive Parts Person Relationship Specialty Start Date End Date Angie Edwards ANP [address] [place] [address] PCP - General Family Medicine 05/05/22 documented as of this encounter
--- OUTSIDE RECORDS SUMMARY | 2024-09-11 08:27 | XMS_ITS | Encounter Summary ---
Author Organization [employer] Address [address] [facility] 7t [place] [address] Care Team Providers Care Special Education Bus Driver Name Role Phone Angie Edwards Primary Care Provider [phone] Reason for Visit * Reason Comments Med Refill Encounter Details Date Type Department Care Team (Late st Contact Info) Description 12/03/2022 Refill [facility] [address] [place], [place] [phone] Angie Edwards ANP 230 [place] [address] Diabetic polyneuropathy associated with type 2 diabetes mellitus (CMS/HCC); Type 2 diabetes mellitus with hyperlipidemia ([facility]/HCC) Social History Tobacco Use Types Packs/Day Years [...] Description 10/27/2024 9:15 AM EDT Office Visit [facility] [address] [place] [address] Angie Edwards ANP [address] [place] [address] documented as of this encounter Visit Diagnoses Diagnosis Diabetic polyneuropathy associated with type 2 diabetes mellitus (CMS/HCC) Type 2 diabetes mellitus with hyperlipidemia (CMS/HCC) ([facility]/HCC) documented in this encounter Care Teams Special Education Bus Driver Relationship Specialty Start Date End Date Angie Edwards ANP [address] [place] [address] PCP - General Family Medicine 05/05/22 documented as of this encounter
== END 2024-09-08 08:06 | disposition home or self-care (01) ==
LOC: HO.HOSX 08:05
PROVIDERS: Visit Provider Physician Assistant
DX: M17.12 Unilateral primary osteoarthritis, left knee (principal)
CPT/HCPCS: 20610; 72170; 99202; J1010; J2003

== ENCOUNTER 2024-09-08 09:38 | Outpatient (AMB) | payer OTHER, SELFPAY ==
[2024-09-08 09:48] VITALS: BMI 41.4
--- NOTE | 2024-09-08 09:48 | A.OFFVIS_ITS ---
Vital Signs 09/08/24 09:48 Height 5 ft Weight 212 lb BMI 41.4 Intake Visit Reasons: New Pt - left hip pain Intake Note: Sia 59 yr old female presents today for a new patient visit for her left hip pain. States pain started about 1 year ago and has worsen in the last 4-5 months. No injury she can recall. Currently complaining of groin pain, pain in her buttock area and radiates down her knee. Also has numbness and tingling in bilateral feet. Denies PT, injections, or anti-inflammatories. Patient is diabetic. Hx of LBP. Field Interviewer Name: Odalys ID#[id number] Allergies Penicillins Allergy (Severe, Verified 09/08/24 09:53) analphylaxis d[facility]ag[facility]ide [[facility]] Allergy (Unknown, Verified 09/08/24 09:53) Rash potassium Allergy (Unknown, Verified 09/08/24 09:53) Itching SHELLFISH Allergy (Unknown, Uncoded 09/08/24 09:53) HIVES HPI HPI New Pt - left hip pain: Details: 59 yo female presents to the office today for left lower ext pain . She states the pain is mainly in the left knee. She has pain with walking and stairs. She states there are moments the knee feels as though it will give out. She c.o left hip/ groin pain. She states she has diff getting in and out of a car trying to lift the leg up and out. She c/o numbness and tingling from the buttock region down the leg. This is not constant. She denies back pain. [facility] Medical History GERD (gastroesophageal reflux disease) Pre-syncope Umbilical hernia Fatty liver Asthma Anxiety Depression Type 2 diabetes mellitus with diabetic polyneuropathy Essential hypertension Hyperlipidemia LDL goal <100 Morbid obesity due to excess calories BMI 45.0-49.9, adult Type 2 diabetes mellitus with hyperglycemia Surgical History History of cardiac cath Hx of hernia repair Hx of gastric bypass History of esophagogastroduodenoscopy (EGD) Family History Father Diabetes mellitus HTN (hypertension) Mother CVD (cardiovascular disease) Mother HTN (hypertension) Diabetes mellitus Asthma Social History (Updated 09/08/24 @ 09:54 by EFFIE Shields) Household Members: None Alcohol intake: never Patient Tobacco Use Status: Never used Tobacco Current occupational status: disabled Current occupation: rt hand Review of Systems Const All systems reviewed & are unremarkable except as noted in HPI and below Physical Exam Vital Signs: BMI result Body Mass Index 41.4 Const General: cooperative and no acute distress Orientation/consciousness: patient oriented x3 Resp Effort & Inspection: normal respiratory effort and able to speak in complete sentences Cardio Peripheral pulses: Peripheral pulses 2+ throughout Neuro General: patient oriented x3 Extrem Other: Left knee skin intact, no erythema or joint effusion. Tenderness along the medial joint line. ROM full with crepitus. Negative steinmans. No ligamentous laxity. NVI. Left hip ROM full without pain. Office Procedures AMB Joint Injection/Aspiration Joint Injection/Aspiration Primary Site: left knee Prep: site was prepped using aseptic technique, ethochloride spray was applied and injection warnings given Injected: 40 mg of, DepoMedrol, with 8 mL of, 1% plain lidocaine and in the joint Approach Used: anterolateral Procedure: The patient tolerated the procedure well and there was some relief with the local anesthesia Coding 73788 - Glenohumeral/Tronchanteric Bursa/Intraarticular Procedure code (CPT) selection complete Results Reviewed Results Reviewed: X-rays of the left hip obtained in the office today and reviewed by me show mild arthritis X-rays of the left knee from 2013 show patellofemoral arthritis Assessment & Plan Assessment & Plan (1) Osteoarthritis of left knee: Code(s): M17.12 - Unilateral primary osteoarthritis, left knee Category: Medical Plan: We discussed options today, which include steroid injection. The patient did consent to move forward with the injection, which was tolerated well.? I recommended rest, ice and elevation and OTC antiinflammatories prn for discomfort. If symptoms persist over the next 6-8 weeks, they will contact our office, otherwise, prn We also discussed their diabetes and the effect the steroid can have on thier blood glucose levels; therefore, they will continue to monitor these very closely over the next 72 hours Orders: Orders XR pelvis 1-2V Today M25.559 - Pain in unspecified hip PT Evaluation and Treatment Today M17.12 - Unilateral primary osteoarthritis, left knee Coding Level of Care Code New Pt Level 3 (26741) Complex EM visit Add On G2211 Diagnoses Osteoarthritis of left knee M17.12 CPT Codes Coding - Joint 7: 46493 - Glenohumeral/Tronchanteric Bursa/Intraarticular ([id number])
--- OUTSIDE RECORDS SUMMARY | 2024-09-08 10:07 | XMS_ITS | Encounter Summary ---
Author Organization [employer] Address [address] [place] [address] Care Team Providers Care Database Coordinator Name Role Phone Angie Edwards Primary Care Provider [phone] Reason for Visit * Reason Comments Med Refill Encounter Details Date Type Department Care Team ([facility] st Contact Info) Description 09/04/2024 Refill [facility] [address] [place], [place] [phone] Angie Edwards ANP [address] [place] [address] Social History Tobacco Use Types Packs/Day Years [...] Description 10/27/2024 9:15 AM EDT Office Visit [facility] [address] [place] [address] Angie Edwards ANP [address] [place] [address] documented as of this encounter Visit Diagnoses Not on filedocumented in this encounter Additional Health Concerns Assessment Noted Time PHQ-9 Depression Total Score: 9 04/07/20 24 10:05 AM EST documented as of this encounter Care Teams Database Coordinator Relationship Specialty Start Date End Date Angie Edwards ANP [address] [place] [id number] PCP - General Family Medicine 05/05/22 documented as of this encounter
--- OUTSIDE RECORDS SUMMARY | 2024-09-08 10:07 | XMS_ITS | Encounter Summary ---
Demographics Address [address] [place] [address] Mobile Phone Home Phone Preferred Language es Marital Status Single Faith Affiliation Unknown Race Other Race Ethnic Group [place]ian Author Organization [employer] Address [address] [place] [address] Care Team Providers Care Airport Screener Name Role Phone Angie Edwards Primary Care Provider [phone] Reason for Visit * Reason Comments Med Refill Encounter Details Date Type Department Care Team ([facility] st Contact Info) Description 01/21/2024 Refill [facility] [address] [place], [place] [phone] Angie Edwards ANP [address] [place] [address] Type 2 diabetes mellitus with hyperlipidemia (CMS/HCC) [...] 9:15 AM EDT Office Visit [facility] [address] [place] [address] Angie Edwards ANP [address] [place] [address] documented as of this encounter Visit Diagnoses Diagnosis Type 2 diabetes mellitus with hyperlipidemia (CMS/HCC) (CMS/HCC) Diabetic polyneuropathy associated with type 2 diabetes mellitus (CMS/HCC) documented in this encounter Additional Health Concerns Assessment Noted Time PHQ-9 Depression Total Score: 20 024 9:36 AM EDT documented as of this encounter Care Teams Airport Screener Relationship Specialty Start Date End Date Angie Edwards ANP [address] [place] [address] PCP - General Family Medicine 05/05/22 documented as of this encounter
--- OUTSIDE RECORDS SUMMARY | 2024-09-08 10:07 | XMS_ITS | Clinical Summary ---
Author Organization [employer] Address [address] [facility] [address] [place] [address] Care Team Providers Care Sort Line Worker Name Role Phone Stephanie Markham Primary Care Provider [phone] Allergies Active Allergy Reactions Criticality Noted Date Comments Dulaglutide 04/21/2021 Other reaction(s): Rash, Rash Penicillins Anaphylaxis High 05/05/2022 Medications * This document contains information received from the source organization and may not represent a complete record from that organization. Blood Pressure kitIndications:Hy pertension associated with type 2 diabetes mellitus ([facility]) 1 kit in the morning. 1 kit [...] at bedtime. 021 Active TRUEplus Lancets 33G miscIndications:T ype 2 diabetes mellitus with hyperlipidemia (CMS/HCC) ([facility]) TEST BLOOD SUGAR FOUR TIMES DAILY 300 each 023 Active glucose blood (FREESTYLE LITE) test stripIndications: Diabetic polyneuropathy associated with type 2 diabetes mellitus ([facility]) Check BG 4x daily or more as needed 200 each 023 Active glucose 4 g chewable tabletIndications :Type 2 diabetes mellitus with hypoglycemia without coma, with long-term current use of insulin ([facility]) CHEW 4 TABLETS NEEDED FOR LOW BLOOD SUGAR, IF STILL LOW AFTER 15 MINUTES CHEW 4 MORE TABLETS. IF STILL LOW AFTER ANOTHER 15 MINUTES CHEW 4 MORE TABLETS AND CALL 911. 50 tablet 3 023 Active budesonide-formot chet (Symbicort) 160-4.5 MCG/ACT inhalerIndication s:Moderate persistent asthma without complication Inhale 2 puffs in the morning and at bedtime. Rinse mouth with water after use to reduce aftertaste and incidence of candidiasis. Do not swallow. 1 each Active Continuous Blood Gluc [employer] (FreeStyle Ata 2 [place]) deviceIndications :Type 2 diabetes mellitus with hypoglycemia without coma, with long-term current use of insulin ([facility]) Use to check blood sugar 4x/d and more if symptomatic 1 each 024 Active glucagon (Baqsimi) 3 MG/DOSE nasal powderIndications :Type 2 diabetes mellitus with hypoglycemia without coma, with long-term current use of insulin ([facility]) Administer 3 mg into affected nostril(s) 1 (one) time if needed for low blood sugar. 2 each 1 024 Active levothyroxine (Synthroid, Levoxyl) 25 MCG tabletIndications :Hypothyroidism, unspecified type TAKE 1 TABLET BY MOUTH EVERY MORNING BEFORE BREAKFAST 30 tablet 024 Active loratadine (Claritin) 10 MG tablet TAKE 1 TABLET BY MOUTH EVERY MORNING 90 tablet 024 Active lisinopril 40 MG tablet TAKE 1 TABLET BY MOUTH EVERY MORNING 90 tablet 1 024 Active Ozempic, 1 MG/DOSE, 4 MG/3ML solution pen-injectorIndic ations:Type 2 diabetes mellitus with hyperlipidemia ([facility]) ([facility]) INJECT 1mg SUBCUTANEOUSLY ONCE WEEKLY DIRECTED 3 mL 024 Active Multiple Vitamins-Iron (Tab-A-Cristobal/Iron) tabletIndications :Type 2 diabetes mellitus with hyperlipidemia ([facility]) ([facility]) Take 1 tablet by mouth in the morning. 90 tablet 024 Active Diclofenac Sodium (Voltaren) 1 % gelIndications:Le ft hip pain Apply 2-4g up to 4x/d to affected joint(s) for pain/swelling 100 g 2 024 Active ezetimibe (Zetia) 10 MG tabletIndications :Type 2 diabetes mellitus with hyperlipidemia ([facility]) ([facility]) TAKE 1 TABLET BY MOUTH EVERY MORNING 90 tablet 1 024 Active rosuvastatin (Crestor) 40 MG tabletIndications :Type 2 diabetes mellitus with hyperlipidemia ([facility]) ([facility]) TAKE 1 TABLET BY MOUTH AT BEDTIME 90 tablet 1 024 Active fluticasone (Flonase) 50 MCG/ACT nasal spray Administer 2 sprays into each nostril Once per day. Shake gently. Before first use, prime pump. After use, clean tip and replace cap. 48 g 025 Active albuterol (2.5 MG/3ML) 0.083% nebulizer solutionIndicatio ns:Moderate persistent asthma with exacerbation Take 3 mL (2.5 mg) by nebulization every 4 (four) hours if needed for wheezing. 360 mL 2 025 2025 Active pantoprazole (ProtoNix) 40 MG EC tabletIndications :Gastroesophageal reflux disease, unspecified whether esophagitis present TAKE 1 TABLET BY MOUTH EVERY MORNING BEFORE BREAKFAST DO NOT BREAK, CRUSH, DISSOLVE OR CHEW 30 tablet 025 Active Jardiance 25 MGIndications:Typ e 2 diabetes mellitus with diabetic polyneuropathy, with long-term current use of insulin ([facility]) TAKE 1 TABLET BY MOUTH EVERY MORNING 90 tablet 1 025 Active D3 Super Strength 50 MCG (1999 [place]) capsuleIndication s:Vitamin D deficiency TAKE 1 CAPSULE BY MOUTH EVERY MORNING 90 capsule 025 Active gabapentin (Neurontin) 100 MG capsuleIndication s:Type 2 diabetes mellitus with hyperlipidemia ([facility]) ([facility]),Diabeti c polyneuropathy associated with type 2 diabetes mellitus ([facility]) TAKE 2 CAPSULES BY MOUTH THREE TIMES DAILY IN THE MORNING, EVENING AND BEDTIME 180 capsule 2 025 Active terconazole (Terazol 7) 0.4 % vaginal creamIndications: Vaginal itching INSERT 1 APPLICATORFUL VAGINALLY AT BEDTIME FOR 7 DAYS 45 g 025 Active amLODIPine (Norvasc) 5 MG tablet Active Aspirin EC Adult Low Dose 81 MG EC tablet Take 81 mg by mouth at bedtime. Active fenofibrate (Tricor) 54 MG tablet TAKE 1 TABLET BY MOUTH AT BEDTIME 90 tablet 1 Active Continuous Glucose Sensor (FreeStyle Ata 2 Sensor) miscIndications:T ype 2 diabetes mellitus with hypoglycemia without coma, with long-term current use of insulin ([facility]) USE DIRECTED CHANGE EVERY 14 DAYS 2 each 3 Active meloxicam (Mobic) 15 MG tablet Take 1 tablet (15 mg) by mouth Once per day. 30 tablet 025 2025 Active acetaminophen (Tylenol Extra Strength) 500 MG tablet Take 1 tablet (500 mg) by mouth every 6 (six) hours if needed for mild pain. 120 tablet 025 2024 Active Alcohol Swabs (Alcohol Prep) 70 % pads USE DIRECTED FOUR TIMES DAILY 100 each 11 025 Active Alcohol Swabs (Alcohol Prep) 70 % pads USE FOUR TIMES DAILY DIRECTED 100 each 11 024 2024 Discontinued phenazopyridine (Pyridium) 200 MG tablet Take 1 tablet (200 mg) by mouth if needed in the morning, at noon, and at bedtime for bladder spasms for up to 5 days. 15 tablet 025 2024 Hospital, Clinic, or Other [...] Encounters Date Type Department Care Team Description 09/04/2024 Refill [facility] [address] [place] [address] Stephanie Markham ANP 08/15/2024 Telephone [facility] [address] [place] [address] Tuyet Merlos MD 08/14/2024 9:00 AM EDT Office Visit [facility] [address] [place] [address] Tuyet Merlos MD Acute bilateral low back pain with right-sided sciatica (Primary Dx); Low back pain, unspecified back pain laterality, unspecified chronicity, unspecified whether sciatica present 08/14/2024 Orders Only [facility] [address] [place] [phone] Tuyet Merlos MD 08/09/2024 9:30 AM EDT Clinical Support [address] [address] Meg Huertas, RN Type 2 diabetes mellitus with hyperlipidemia (CMS/HCC) 08/09/2024 Travel 08/09/2024 Refill [facility] [address] [place] [address] Stephanie Markham ANP Type 2 diabetes mellitus with hypoglycemia without coma, with long-term current use of insulin ([facility]); Type 2 diabetes mellitus with hyperlipidemia (CMS/HCC) 07/27/2024 9:00 AM EST Office Visit [address] [address] Stephanie Markham ANP Dysuria (Primary Dx); Vaginal itching; Type 2 diabetes mellitus with hyperlipidemia (CMS/HCC) ; Yeast infection 07/27/2024 Travel 07/21/[address] [address] Berta Bello [place] chart prep 07/21/2024 Refill [facility] [address] [place] [address] Stephanie Markham ANP Type 2 diabetes mellitus with hyperlipidemia (CMS/HCC) ; Diabetic polyneuropathy associated with type 2 diabetes mellitus (CMS/HCC) 07/20/2024 Telephone [facility] [address] [place] [phone] Stephanie Markham ANP Med Refill; Results 07/15/2024 Refill [facility] [address] [place] [address] Stephanie Markham ANP Type 2 diabetes mellitus with hyperlipidemia (CMS/HCC) ; Diabetic polyneuropathy associated with type 2 diabetes mellitus ([facility]) 07/14/2024 Patient Outreach [facility] [address] [place] [phone] Stephanie Markham ANP SDOH Concerns ([facility], [place] SDOH food insecurities ) 07/14/2024 Patient Outreach [facility] [address] [place], [place] [phone] Stephanie Markham ANP Pre-visit Planning (SDOH Screening positive and Tobacco screening negative) 06/15/[address] [phone] Stephanie Markham ANP Referral 06/14/[address] [phone] Berta Bello [place] Results (Tried calling pt Please let pt know, x-ray showed mild 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 Hopefully by now she has had PT - if still with pain, can refer to orthopedics. Thanks /no answer lv .) 06/13/[address] [address] Stephanie Markham ANP Type 2 diabetes mellitus with diabetic polyneuropathy, with long-term current use of insulin ([facility]); Vitamin D deficiency 06/10/[address] [phone] Stephanie Markham ANP Gastroesophageal reflux disease, unspecified whether esophagitis present from Last 3 Months Immunizations Name Administration [...] Description 10/27/2024 9:15 AM EDT Office Visit [facility] [address] [place] [address] Stephanie Markham ANP [address] [place] [address] Health Maintenance Due Date Last Done Comments CT Colonography 1965 Colonoscopy 1967 FIT 1967 FOBT 1967 HIV Screening 1967 Sigmoidoscopy 1967 Diabetes: Foot Exam 1977 Eye Exam 1977 Alcohol/Substance Use Screening 1979 Hepatitis B Vaccines (3 of 3 - 19+ 3-dose series) 08/23/2013 06/28/2013, 02/14/2013 Zoster Vaccines (1 of 2) 2017 Mammogram 09/21/2024 09/22/2023, 02/28, 06/28/2019, Additional history exists Depression Monitoring 10/05/2024 04/07/2024, 024 Diabetes: Hemoglobin A1C 11/09/2024 025, 04/07/2024, 02/14/2024, Additional history exists Lipid Panel 02/13/2025 02/14/2024, 02/28, 01/17/2021, Additional history exists Depression Screening 04/07/2025 04/07/2024, 04/07/20 24 Colorectal Cancer Screening 06/25/2025 FIT DNA/Cologuard 06/25/2025 [...] Type 2 diabetes mellitus with hyperlipidemia (CMS/HCC) POCT URINALYSIS DIPSTICK Routine 07/27/2024 10:35 AM EST Dysuria ALBUMIN, RANDOM URINE W/CREATININE Routine 07/27/2024 10:30 AM EST Type 2 diabetes mellitus with hyperlipidemia (CMS/HCC) URINALYSIS, COMPLETE, WITH REFLEX TO CULTURE Routine 07/27/2024 10:30 AM EST Dysuria BACTERIAL VAGINOSIS PANEL Routine 07/27/2024 12:00 AM EST Vaginal itching LIPID PANEL, STANDARD Routine 02/14/2024 9:24 AM [...] AM EDT Narrative 08/14/2024 9:45 AM EDT ?[facility] ?[address] ?[place] [address] ?XRay Report ? Signed ? Patient: Becky Lopez,Sia ?MR#: M ?? [id number] ? : 1965 ?Acct:[id number] ? Age/Sex: 59 / F ?ADM Date: 08/14/24 ? Loc: HO.HHCX ? Attending Dr: Tuyet Merlos MD ? Ordering Physician: Tuyet Merlos MD ?? Date of Service: 08/14/24 ?? Procedure(s): XR lumbar spine 2-3V ?? Accession Number(s): [id number] ? cc: Tuyet Merlos MD ? EXAMINATION: [...] dislocation seen. ? Electronically signed by: ??Fredi Eliane MD ??08/14/2024 09:42 AM EDT RP ? Dictated By: ?Eliane,Fredi S MD ? Signed By: ?<Electronically signed by Fredi S Eliane, MD in OV> ?08/14/24 0942 ? DD/ 0923 ? TD/TT: 08/14/24 0923 ? Money Order Clerk: MSM ? Procedure Note Donotuseinterpreter, Image - 08/14/[address] [address] XRay Report Signed Patient: Ismael Tripathi#: M [id number] : 1965Acct:[id number] Age/Sex: 59 / FADM Date: 08/14/24 [facility]: Tuyet Merlos MD Ordering Physician: Tuyet Merlos MD Date of Service: 08/14/24 Procedure(s): XR lumbar spine 2-3V Accession Number(s): [id number] cc: Tuyet Merlos MD EXAMINATION: XR LUMBOSACRAL [...] in OV> 08/14/24941 DD/ 2 TD/TT: 08/14/24922 Money Order Clerk: [facility] [place] Tuyet Merlos MD IMG XR PROCEDURES Final [...] (07/27/2024 10:30 AM EST) Color Urine Yellow [facility] Appearance Urine Clear [facility] PH 6.5 5.0 - 9.0 [facility] Glucose Urine UA >=1000(A) Negative mg/dL [facility] Urine Blood Negative Negative [facility] Specific [place] - Urine 1.025 1.005 - 1.025 [facility] Urine Protein Negative Neg-Trace mg/dL [facility] Urine Ketones Negative Negative mg/dL [facility] Nitrite Urine Negative Negative [facility] Leukocyte Esterase Urine Negative Negative [facility] RBC Urine 0-2 0 - 2 /HPF [facility] Urine WBC 0-5 0 - 5 /HPF [facility] Urine Squamous Epithelial Cell 0-2 0 - 2 /HPF [facility] Urine Bacteria None Seen None Seen [facility] Hyaline Casts, Urine 0-2 0 - 2 /LPF [facility] Urine 07/27/2024 10:3 0 AM EST 07/27/2024 4:26 PM EST Narrative [facility] - 07/27/2024 5:11 PM EST Urine, Clean Catch Stephanie Markham ANP LAB URINE ORDERABLES Final Resul t Performing Organization Address [facility] Phone Number [facility] [address] [place] [phone] * Albumin, Random Urine W/Creatinine (07/27/2024 10:30 AM EST) Creatinine, Urine 25.75 mg/dL [facility] Microalbumin Urine <5.0 mg/L [facility] Microalbum Creatinine Ratio Ur TNP <30 ug/mg cr [facility] Comment:Unable to calculate albumin/creatinine ratio due to lowmicroalbumin or creatinine result. Urine (Urine, Random) 07/27/2024 10:30 AM EST 07/27/2024 4:26 PM EST Stephanie Markham ANP LAB URINE ORDERABLES Final Resul t Performing Organization Address [facility] Phone Number [facility] [address] [place] [phone] * (ABNORMAL) Bacterial Vaginosis Panel (07/27/2024 12:00 AM EST) TRICHOMONAS VAGINALIS DETECTION BY PCR NOT DETECTED Not Detect [facility] BACTERIAL VAGINOSIS DETECTION BY PCR NEGATIVE Negative [facility] Comment:The BV organism targ ets [...] DETECTION BY PCR NOT DETECTED Not Detect [facility] Flores glab krusei PCR DETECTED(A) Not Detect [facility] Swab Vaginal structure / Unknown 07/27/2024 07/27/2024 5:02 PM EST Stephanie Markham [facility] MICROBIOLOGY - GENERAL ORDER DAINSHA Final Result Performing Organization Address [facility] Co de Phone Number [facility] [address] [place] [phone] * (ABNORMAL) Lipid Panel, Standard (02/14/2024 9:24 AM EDT) Triglycerides 94 <150 mg/dL [facility] Comment:Desirable Triglyceri de: less than 150 mg/dLBorderline High Triglyceride 150-199 mg/dLHigh Triglyceride: 200-499 mg/dLVery High Triglyceride: greater than or equal to 5OO mg/dL Cholesterol 181 <200 mg/dL [facility] Comment:Desirable Cholestero l: less than 200 mg/dLBorderline High Cholesterol: 200-239 mg/dLHigh Cholesterol: greater than 239 mg/dL LDL Cholesterol Calculated 105(H) <100 mg/dL [facility] Comment:Desirable LDL: less than 100 mg/dLNear Optimal/Above Optimal LDL: 110- 129 mg/dLBorderline High LDL: 130-159 mg/dLHigh LDL: 160-189 mg/dLVery High LDL: greater than or equal to 190 mg/dL HDL Cholesterol 58 >40 mg/dL [facility] Comment:Desirable HDL: great er than 40 mg/dL Note: This HDL assay may give artificially low results in patients with liver disease. Blood Venous blood specimen / Unknown 02/14/2024 9:24 AM EDT 02/14/2024 9:24 AM EDT us Stephanie Markham ANP LAB BLOOD ORDERABLES Final Resul t Performing Organization Address [facility] Co de Phone Number [facility] [address] [place] [address] [phone] * BI Mammogram Screening Tomosynthesis Bilateral (09/22/2023 8:45 AM EDT) Anatomical Region Laterality Modality Breast Bilateral Mammography 09/22/2023 8:45 AM EDT Narrative 10/13/2023 9:29 AM EDT ? [facility] [place] ? [address] ?[place] [address] ? Mammography Report ? Signed ? Patient: Becky Lopez,Sia ?MR#: M ?? [id number] ? : 1965 ?Acct:[id number] ? Age/Sex: 58 / F ?ADM Date: 09/22/23 ? Loc: HO.MAMMO ? Attending Dr: Stephanie Markham MARKET DEVELOPMENT ANALYST ? Ordering Physician: SHAHRZAD,STEPHANIE MARKET DEVELOPMENT ANALYST ?Results: 1Negative ? Date of Service: 09/22/23 ?Follow Up: 1 Year From Orig ?? inal Mammogram ? Procedure(s): MM tomosynthesis screening BI ?? Accession Number(s): [id number] ? cc: SHAHRZAD,STEPHANIE [place] ? EXAMINATION: ?? [...] signed by Benji Dotson MD in OV> ?10/13/2326 ? DD/ 0845 ? TD/TT: ? Money Order Clerk: ? Procedure Note Nayla, Image - [facility] [address] [place] [address] Mammography Report Signed Patient: Dara TripathiKofi#: M [id number] : 1965Acct:[id number] Age/Sex: 58 / FADM Date: 09/22/23 Loc: [facility] Attending Dr: Stephanie Markham NP Ordering Physician: STEPHANIE MARKHAMesults: 1Negative Date of Service: 09/22/23Follow Up: 1 Year From Orig inal Mammogram Procedure(s): MM tomosynthesis screening BI Accession Number(s): [id number] cc: STEPHANIE MARKHAM MARKET DEVELOPMENT ANALYST EXAMINATION: MM SCREENING DIGITAL BREAST TOMOSYNTHESIS, BILATERAL [...] signed by Benji Dotson MD in OV> 10/13/23925 DD/ TD/TT: Money Order Clerk: [facility] BI PROCEDURES Final Result * HPV mRNA E6/E7 w/Reflex to HPV Genotypes 16, 18/45 (01/27/2023 10:18 AM EDT) HPV nRNA E6/E7 Not Detected Not Detected [facility] Comment:Methodology: Transcr iption-Mediated AmplificationThis assay detects E6/E7 viral messenger RNA (mRNA) from 14high-risk HPV types (16,18,31,33,35,39,45,51,52,56,58,59,66,68).Cervical sources are required for HPV testing.If a vaginal source from a patient who has had atotal hysterectomy with removal of cervix wassubmitted, please contact the testing laboratoryfor alternative testing options.For additional information, please refer tohttp://education.Proxible/faq/OIX032e8(This link if provided for information/educational purposes only.)THIS TEST WAS PERFORMED AT:[facility] [place] [id number] MORGAN MD HPV mRNA E6/E7 TNP [facility] HPV 16 RNA TNP [facility] HPV 18/45 RNA TNP [facility] 01/27/2023 10:1 8 AM EDT 01/28/2023 12:15 PM EDT us Alba MATHUR LAB CYTOLOGY ORDERABLES F inal Result [facility] [address] [place] [phone] [phone] * Pap Smear (01/27/2023) 01/27/2023 01/28/2023 12: 15 PM EDT Narrative [facility] - 02/09/2023 10:04 AM EDT ----- ------- Name: Sia Tripathi ?Age/Sex: 57/F ? : 1965 Unit#: [id number] ?? Attend Dr: ALBA MONROY CNM ?Re01/27/23 ?Status: DEP REF ? Location: HO.HHCLNP ? Disch: ? ----- ------- SPEC : [id number] ?RECD: 01/28/23 ? STATUS: ??SOUT ? REQ NUM: [id number] ? RASHIDA: 01/27/23- ? SUBM DR: ALBA MONROY CNJevon ? ENTERED: ??01/28/23 ?SP TYPE: Pap Smr ?OTHR DR: ? ORDERED: ??Pap Smear ? Interpretation ?? Satisfactory for evaluation. ?? Cytolysis noted. ?? Negative for intraepithelial lesion or malignancy. ?HPV mRNA E6/E7: ?NOT DETECTED ? This assay detects E6/E7 viral messenger RNA (mRNA) from 14 high-risk HPV types (16, 18, ?? 31, 33, 35, 39, 45, 51, 52, 56, 58, 59, 66, 68) ?? HPV testing performed by [facility], [place], [place]. ??See reference laboratory ?? pion of the EMR for entire report. ?Clinical Information LMP:Unknown date Previous PAP test:Unknown date/findings ? Material Received ?? ThinPrep-Vaginal/Cervical ----- ------- Signed (signature on file) MELVA Clemens ([facility]) 02/09/23 1004 ? ----- ------- ? END OF REPORT ? us Alba Monroy [facility] CYTOLOGY ORDERABLES F inal Result [facility] [address] [place] [phone] * HEPATITIS C AB W/REFL TO HCV RNA, QN, PCR (07/23/2020 8:16 AM EST) HEPATITIS C ANTIBODY NON-REACT [facility] NON-REACT [facility] INDEX 0.03 <1.00 [facility] Comment: ?? HCV antibody was non-reactive. There is no laboratory ?? evidence of HCV infection. ?? In most cases, no further action is required. However, if recent HCV exposure is suspected, a test for HCV RNA (test code 39252) is suggested. ?? For additional information please refer to http://education.MOWGLI.PASSNFLY/faq/HVQ48t8 (This link is being provided for informational/ educational purposes only.) ?? 07/23/2020 8:16 AM EST us Historical Provider HISTORICAL/NON ORDERABLE LABS Final Result [facility] [address] [place] [address], from Last 3 Months or Most Recently Relevant to Health Maintenance Insurance [facility] [address] [place] [phone] [place] [phone] Care Teams Sort Line Worker Relationship Specialty Start Date End Date Stephanie Markham ANP [address] [place] [address] PCP - General Family Medicine 05/05/22
--- OUTSIDE RECORDS SUMMARY | 2024-09-08 10:07 | XMS_ITS | Encounter Summary ---
Author Organization [employer] Address [address] [facility] [address] [place] [address] Care Team Providers Care Concrete Gun Operator Name Role Phone Angie Edwards Primary Care Provider [phone] Reason for Visit * Reason Comments Med Refill Encounter Details Date Type Department Care Team ([facility] st Contact Info) Description 03/07/2023 Refill [facility] [address] [place], [place] [phone] Angie Edwards ANP [address] [place] [address] Type 2 diabetes mellitus with hyperlipidemia (CMS/HCC) [...] Description 10/27/2024 9:15 AM EDT Office Visit [facility] [address] [place] [address] Angie Edwards ANP [address] [place] [address] documented as of this encounter Visit Diagnoses Diagnosis Type 2 diabetes mellitus with hyperlipidemia (CMS/HCC) (CMS/HCC) Diabetic polyneuropathy associated with type 2 diabetes mellitus (CMS/HCC) documented in this encounter Care Teams Concrete Gun Operator Relationship Specialty Start Date End Date Angie Edwards ANP [address] [place] [phone] PCP - General Family Medicine 05/05/22 documented as of this encounter
--- OUTSIDE RECORDS SUMMARY | 2024-09-08 10:07 | XMS_ITS | Encounter Summary ---
Author Organization [employer] Address [address] [facility] 7t [place] [address] Care Team Providers Care In Room Dining Server Name Role Phone Angie Edwards Primary Care Provider [phone] Reason for Visit * Reason Comments Med Refill Encounter Details Date Type Department Care Team ([facility] st Contact Info) Description 07/15/2024 Refill [facility] [address] [place], [place] [phone] Angie Edwards ANP [address] [place] [address] Type 2 diabetes mellitus with hyperlipidemia (CMS/HCC) [...] 9:15 AM EDT Office Visit [facility] [address] [place] [phone] Angie Edwards ANP [address] [place] [address] documented as of this encounter Visit Diagnoses Diagnosis Type 2 diabetes mellitus with hyperlipidemia (CMS/HCC) Diabetic polyneuropathy associated with type 2 diabetes mellitus (CMS/HCC) documented in this encounter Additional Health Concerns Assessment Noted Time PHQ-9 Depression Total Score: 9 04/07/20 24 10:05 AM EST documented as of this encounter Care Teams In Room Dining Server Relationship Specialty Start Date End Date Angie Edwards ANP [address] [place] [phone] PCP - General Family Medicine 05/05/22 documented as of this encounter
--- OUTSIDE RECORDS SUMMARY | 2024-09-08 10:08 | XMS_ITS | Encounter Summary ---
Author Organization [employer] Address [address] [place] [address] 7t [place] [address] Care Team Providers Care Field Engineer Name Role Phone Angie Edwards Primary Care Provider [phone] Reason for Visit * Reason Comments Med Refill Encounter Details Date Type Department Care Team (Late st Contact Info) Description 12/16/2022 Refill [facility] [address] [place] [address] [phone] Angie Edwards ANP [address] [place], [place] [phone] Diabetic polyneuropathy associated with type 2 diabetes mellitus (CMS/HCC); Type 2 diabetes mellitus with hyperlipidemia ([facility]) Social History Tobacco Use Types Packs/Day Years [...] EDT Office Visit [facility] [address] [place] [phone] Angie Edwards ANP [address] [place] [address] documented as of this encounter Visit Diagnoses Diagnosis Diabetic polyneuropathy associated with type 2 diabetes mellitus (CMS/HCC) Type 2 diabetes mellitus with hyperlipidemia (CMS/HCC) (CMS/HCC) documented in this encounter Care Teams Field Engineer Relationship Specialty Start Date End Date Angie Edwards ANP [address] [place] [address] PCP - General Family Medicine 05/05/22 documented as of this encounter
--- OUTSIDE RECORDS SUMMARY | 2024-09-08 10:08 | XMS_ITS | Encounter Summary ---
Author Organization [employer] Address [address] [facility] 7t [place] [address] Care Team Providers Care Imposer Name Role Phone Angie Edwards Primary Care Provider [phone] Reason for Visit * Reason Comments Med Refill Encounter Details Date Type Department Care Team (Late Contact Info) Description 12/08/2022 Refill [facility] [address] [place], [place] [phone] Angie Edwards ANP [address] [place] [address] Type 2 diabetes mellitus with hyperglycemia (CMS/HCC); loan teller (current) use of insulin (CMS/[facility]) Social History Tobacco Use Types [...] 10/27/2024 9:15 AM EDT Office Visit [facility] [address] [place] [address] Angie Edwards ANP [address] [place] [address] documented as of this encounter Visit Diagnoses Diagnosis Type 2 diabetes mellitus with hyperglycemia (CMS/HCC) loan teller (current) use of insulin (CMS/[facility]) documented in this encounter Care Teams Imposer Relationship Specialty Start Date End Date Angie Edwards ANP [address] [place] [phone] PCP - General Family Medicine 05/05/22 documented as of this encounter
--- OUTSIDE RECORDS SUMMARY | 2024-09-08 10:08 | XMS_ITS | Encounter Summary ---
Author Organization [employer] [facility] Address [address] [facility] 7t [place] [address] Care Team Providers Care Cia Agent Name Role Phone Angie Edwards Primary Care Provider [phone] Encounter Details Date Type Department Care Team ([facility] Contact Info) Description 05/05/[address] [facility] [address] [place] [phone] Provider, MD Emy Social History Tobacco Use [...] 10/27/2024 9:15 AM EDT Office Visit [facility] [address] [place] [phone] Angie Edwards ANP [address] [place] [phone] documented as of this encounter Visit Diagnoses Not on filedocumented in this encounter Care Teams Cia Agent Relationship Specialty Start Date End Date Angie Edwards ANP [address] [place] [phone] PCP - General Family Medicine 05/05/22 documented as of this encounter
--- OUTSIDE RECORDS SUMMARY | 2024-09-08 10:08 | XMS_ITS | Encounter Summary ---
Author Organization [employer] Address [address] [facility] 7t [place] [address] Care Team Providers Care Cath Lab Name Role Phone Angie Edwards Primary Care Provider [phone] Reason for Visit * Reason Comments Med Refill Encounter Details Date Type Department Care Team (Late st Contact Info) Description 12/03/2022 Refill [facility] [address] [place], [place] [phone] Angie Edwards ANP [address] [place] [address] Diabetic polyneuropathy associated with type 2 diabetes mellitus (CMS/HCC); Type 2 diabetes mellitus with hyperlipidemia ([facility]/HCC) Social History Tobacco Use Types Packs/Day Years [...] Description 10/27/2024 9:15 AM EDT Office Visit [facility] [address] [place] [address] Angie Edwards ANP [address] [place] [address] documented as of this encounter Visit Diagnoses Diagnosis Diabetic polyneuropathy associated with type 2 diabetes mellitus (CMS/HCC) Type 2 diabetes mellitus with hyperlipidemia (CMS/HCC) ([facility]/HCC) documented in this encounter Care Teams Cath Lab Relationship Specialty Start Date End Date Angie Edwards ANP [address] [place] [address] PCP - General Family Medicine 05/05/22 documented as of this encounter
== END 2024-09-08 10:27 | disposition home or self-care (01) ==
LOC: HO.HOS 09:39
PROVIDERS: PCP Nurse Practitioner Primary Care; Visit Provider Physician Assistant
DX: M17.12 Unilateral primary osteoarthritis, left knee (principal)
CPT/HCPCS: 20610; 99203

== ENCOUNTER → 2024-09-08 09:41 | Outpatient (BNV) | payer OTHER, SELFPAY | PROVIDERS: Visit Provider Radiology Diagnostic Radiology | DX: M25.552 Pain in left hip (principal) | CPT/HCPCS: 72170 ==

== ENCOUNTER 2024-11-21 08:54 | Outpatient (AMB) | payer OTHER, SELFPAY ==
--- NOTE | 2024-11-21 08:59 | A.OFFVIS_ITS ---
Intake Visit Reasons: MANAGER OF APPLICATIONS DEVELOPMENT/HHC referral for VV w/ pain Intake Note: MANAGER OF APPLICATIONS DEVELOPMENT for VV veins with pain. Bilateral leg pain but left leg is worse. Has swelling and cramping. Accompanied by: Self / Same As Patient Allergies Penicillins Allergy (Severe, Verified 11/21/24 09:03) analphylaxis dulaglutide (From Trulicity) Allergy (Unknown, Verified 11/21/24 09:03) Rash potassium Allergy (Unknown, Verified 11/21/24 09:03) Itching SHELLFISH Allergy (Unknown, Uncoded 09/08/24 09:53) HIVES HPI HPI MANAGER OF APPLICATIONS DEVELOPMENT/HHC referral for VV w/ pain: Details: Sia, a pleasant 59yo [place] speaking only female patient, is presenting today on a referral from her PCP for concerns of VV with pain and inflammation. We utilized Alondra as an interpreter for the deaf. Complaints include pain and itching over varicosities, swelling of lower extremities, cramping, fatigue, and heaviness of the lower extremities. It has been affecting their daily activities including walking, standing, and physical activity. It is noted more so in the left leg. She has been seen in our office before, in 2022 with similar concerns and was negative. She states she has had the pain, swelling, and itching for awhile now. She is a diabetic on Insulin and oral medications; her last A1C was 6.0% on 02/14/24. She has never been a smoker. Patient denies any previous venous surgery or injections. Patient denies any history of DVT/ PE. Patient denies any history of phlebitis. Trial of compression includes - elevation without relief They now present for vascular evaluation regarding their varicose veins. [facility] Medical History GERD (gastroesophageal reflux disease) Pre-syncope Umbilical hernia Fatty liver Asthma Anxiety Depression Type 2 diabetes mellitus with diabetic polyneuropathy Essential hypertension Hyperlipidemia LDL goal <100 Morbid obesity due to excess calories BMI 45.0-49.9, adult Type 2 diabetes mellitus with hyperglycemia Surgical History History of cardiac cath Hx of hernia repair Hx of gastric bypass History of esophagogastroduodenoscopy (EGD) Family History Father Diabetes mellitus HTN (hypertension) Mother CVD (cardiovascular disease) Mother HTN (hypertension) Diabetes mellitus Asthma Social History Household Members: None Alcohol intake: never Patient Tobacco Use Status: Never used Tobacco Current occupational status: disabled Current occupation: rt hand Review of Systems Const Reports as per HPI and Denies weakness ENT Reports Normal hearing present and Denies dizziness Card Reports as per HPI, Denies chest pain, Denies chest pain at rest, Denies chest pain with activity, Denies dyspnea and Denies dyspnea on exertion Resp Reports as per HPI, Denies cough, Denies dyspnea and Denies dyspnea on exertion GI Reports as per HPI, Denies abdominal pain, Denies nausea and Denies vomiting Musc Denies numbness Skin/Breast Reports as per HPI, Denies erythema and Denies wounds Neuro Reports Normal hearing present, Denies dizziness, Denies numbness, Denies Sensory deficit (Neuro) and Denies weakness Psych Reports no additional complaints Endo Reports no additional complaints Physical Exam Const General: healthy appearing and no acute distress Orientation/consciousness: patient oriented x3 HEENT Head: Yes normal to inspection Ears: hearing grossly normal bilaterally Mouth: Normal oral and palatal mucosa present Resp Effort & Inspection: normal respiratory effort and able to speak in complete sentences Auscultation: clear to auscultation bilaterally Cardio Jugular venous distension: no JVD Rate: regular rate Rhythm: regular rhythm Heart sounds: S1 normal heart sound present and S2 normal heart sound present Bruits: no abdominal aortic bruits, no carotid bruits, no femoral bruits and no renal bruits Peripheral pulses: Peripheral pulses 2+ throughout GI Inspection: Yes normal to inspection Palpation (GI): No Abdominal aortic bruit present Skin General skin exam: no rashes or lesions noted Wounds: no wounds Hair: normal Neuro General: patient oriented x3 Cranial nerves: Yes Normal hearing present Cognition (Neuro): normal cognition Gait exam (Neuro): Normal gait present Motor exam (neuro): 5/5 motor strength present throughout Sensory Exam: No Sensory deficit (Neuro) Extrem Other: Bilateral lower extremities: +1 nonpitting edema noted, mostly in the ankles/lower calves. Telangiectases noted throughout both legs, from the upper thighs to the ankles, painful and itchy to palpation. Discoloration noted around the ankles, deep erythematous color. Palpable DP pulses. CEAP: C - 4 E - primary A - superficial P - reflux General: Yes normal to inspection, Yes full ROM, Yes capillary refill normal and Yes normal gait Assessment & Plan Assessment & Plan (1) Varicose veins of both lower extremities with inflammation: Code(s): I83.11 - Varicose veins of right lower extremity with inflammation; I83.12 - Varicose veins of left lower extremity with inflammation Category: Medical Plan: Sia is presenting today on a referral from her PCP for VV with pain and inflammation. In short, the patient has evidence of venous insufficiency. I have discussed the pathophysiology with the patient. In addition I have provided informational material regarding venous disease to the patient. We have discussed conservative measures including compression, elevation, and exercise. We were unable to provide her with the handout due to only having it available in Spanish. I have taken the liberty of ordering venous insufficiency testing with the patient. They will follow up with me after testing. The patient had an opportunity to ask questions regarding the treatment plan. All questions were answered. Imaging studies, laboratory studies and physical exam results were discussed and reviewed in detail. No major barriers to understanding were identified. The patient expressed understanding and agreement with the above treatment plan. The patient is aware they should contact our office by phone for worsening of the current condition or the appearance of new symptoms. Thank you for allowing me to participate in the vascular care of this patient. If you have any questions or concerns regarding the treatment for the above condition please do not hesitate to contact me. The office telephone contact is [phone]. This note is constructed using voice recognition software. While every effort has been made to ensure accuracy, crm analyst errors may have been included. Thank you for allowing me to participate in the care of your patient. Yours sincerely, TURNER Mac Orders: Orders US venous duplex LE BI 1 Week I83.11 - Varicose veins of right lower extremity with inflammation, I83.12 - Varicose veins of left lower extremity with inflammation Coding Level of Care Code New Pt Level 4 (19751) Diagnoses Varicose veins of both lower extremities with inflammation I83.11; I83.12
--- OUTSIDE RECORDS SUMMARY | 2024-11-21 09:20 | XMS_ITS | Encounter Summary ---
Author Organization [employer] Address [address] [facility] 7t [place] [address] Care Team Providers Care Edge Trimmer Name Role Phone Angie Edwards Primary Care Provider [phone] Reason for Visit * Reason Comments Med Refill Encounter Details Date Type Department Care Team ([facility] st Contact Info) Description 03/07/2023 Refill [facility] 230 [place], [place] [phone] Angie Edwards ANP 230 [place] [address] Type 2 diabetes mellitus with hyperlipidemia (CMS/HCC) [...] Care Team (Late st Contact Info) Description 11/27/2024 10:00 AM EDT Clinical Support [address] [address] 01/25/2025 11:00 AM EDT Office Visit [address] [address] Angie Edwards ANP [address] [place] [phone] documented as of this encounter Visit Diagnoses Diagnosis Type 2 diabetes mellitus with hyperlipidemia (CMS/HCC) (CMS/HCC) Diabetic polyneuropathy associated with type 2 diabetes mellitus (CMS/HCC) documented in this encounter Care Teams Edge Trimmer Relationship Specialty Start Date End Date Angie Edwards ANP [address] [place] [phone] PCP - General Family Medicine 05/05/22 documented as of this encounter
== END 2024-11-21 09:09 | disposition home or self-care (01) ==
LOC: HO.HVS 08:55
PROVIDERS: Visit Provider Physician Assistant Surgical
DX: I83.11 Varicose veins of right lower extremity with inflammation (principal); I83.12 Varicose veins of left lower extremity with inflammation
CPT/HCPCS: 99204

== ENCOUNTER → 2024-11-21 08:54 | Outpatient (BNVA) | payer OTHER, SELFPAY | PROVIDERS: Visit Provider Physician Assistant Surgical | DX: I83.11 Varicose veins of right lower extremity with inflammation (principal); I83.12 Varicose veins of left lower extremity with inflammation | CPT/HCPCS: 99202 ==

== ENCOUNTER 2024-11-28 09:11 | Outpatient (REF) | payer OTHER, SELFPAY ==
--- OUTSIDE RECORDS SUMMARY | 2024-11-28 09:42 | XMS_ITS | Clinical Summary ---
Author Organization [address] [facility] Address 175 [place] [address] Phone Care Team Providers Care Fruit Vendor Name Role Phone Angie Edwards GEOVANNA Primary Care Provider [phone] Medical History Medical History Date Comments HTN (hypertension) 03/29/2012 DX:HTN (hyper tension) Historical Medical DX 03/29/2012 DX:Hyperli pidemia LDL goal < 70 DM2 (diabetes mellitus, type 2) ([facility] V24, [facility] V28) 03/29/2012 DX:DM2 (diabetes mellitus, t ype 2) ([facility]) Morbid obesity ([facility] V24, [facility] V28) 2011 DX:Morbid obesity ([facility]) Atypical chest pain 03/29/2012 DX:Atypical chest pain Asthma 03/29/2012 DX:Asthma Cephalic vein thrombosis, 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, left Hypertriglyceridemia 03/29/2012 DX:Hypertri glyceridemia Family History Medical History Relation Name Comments Heart attack Father Stroke Father Relation Name Status Comments Father Social History Tobacco Use Types Packs/Day Years Used Date Smoking Tobacco: Never Alcohol Use Standard Drinks/Week Comments Not Asked 0 (1 standard drink = 0.6 oz pur e alcohol) Comments Unknown Sex and Gender Information Value Date Recorded Sex Assigned at Not on file Legal Sex Female 2:28 AM EST Gender Identity Not on file Sexual Orientation Not on file Obstetrics History Plan of Treatment Upcoming Encounters Date Type Department Care Team ([facility] Contact Info) Description 01/23/2025 9:30 AM EDT Consult Orthopedic Surgery - [place] [address] [phone] Ramesh Callaway, DPM [address] [address] Health Maintenance Due Date Last Done Comments Breast Cancer Screening 1965 Diabetes: Annual GFR (Glomer ular Filtration Rate) 1967 Diabetes: Annual Foot Exam 1977 Diabetes: Annual Retina Eye Exam 1977 DTaP,Tdap,and Td Vaccines (1 - Tdap) 1986 Hepatitis B Vaccines (1 of 3 - 19+ 3-dose series) 1986 Pneumococcal Vaccine: 50+ Ye ars (1 of 2 - PCV) 1986 Pneumococcal Vaccine: Pediat rics (0 to 5 Years) and At-Risk Patients (6 to 64 Years) (1 of 2 - PCV) 1986 Cervical Cancer Screening: P ap Smear 1988 Zoster Vaccines (1 of 2) 2017 COVID-19 Vaccine (2023-2 5 season) 2024 Cholesterol Screening (Lipid Panel) 10/31/2024 Colorectal Cancer Screening: Colonoscopy 10/31/2024 Depression Screening 10/31/2024 Diabetes: Annual Urine Albumin-Creatinine Ratio (uACR) 10/31/2024 Diabetes: Blood Sugar Contro l Test (HGBA1C) 10/31/2024 HIV Screening 10/31/2024 Hepatitis C Screening 10/31/2024 Hypertension/CHF/CAD Annual BMP Blood Test 10/31/2024 Medicare Annual Wellness Visit 10/31/2024 Social Influencers of Health Screening 10/31/2024 Influenza Vaccine (Season Ended) 2025 HIB Vaccines Aged Out No longer eligi [...] on patient's age to complete this topic MMR Vaccines Aged Out No longer eligi ble based on patient's age to complete this topic Meningococcal ACWY Vaccine Aged Out N o longer eligible based on patient's age to complete this topic Meningococcal B Vaccine Aged Out No l onger eligible based on patient's age to complete this topic RSV Immunization Patients Un reuben 20 months Aged Out No longer eligible b ased on patient's age to complete this topic Varicella Vaccines Aged Out No longer eligible based on patient's age to complete this topic Insurance * Guarantor: Sia Triptahi Account Type Relation to Patient Date of Phone Billing Address Personal/Family Self 1965 [address] [facility] [address] [place] [address] [employer] MEDICARE Member Subscriber Plan / Payer (Ef fective 2024-Present) Name:, Relation to Subscriber:Self Name:Sia Tripathi Payer ID:[id number] Group ID:Not on file Type:Not on file Address: [facility] [address] [phone] Care Teams Fruit Vendor Relationship Specialty Start Date End Date Angie Edwards NP [address] [place] [address] [place] [phone] PCP - General 10/31/24
== END 2024-11-28 09:12 | disposition home or self-care (01) ==
LOC: HO.MAMMO 09:11
PROVIDERS: Visit Provider Nurse Practitioner Primary Care
DX: Z12.31 Encounter for screening mammogram for malignant neoplasm of breast (principal)
CPT/HCPCS: 77063; 77067

== ENCOUNTER → 2024-11-28 09:15 | Outpatient (BNV) | payer OTHER, SELFPAY | PROVIDERS: Visit Provider Internal Medicine | DX: Z12.31 Encounter for screening mammogram for malignant neoplasm of breast (principal) | CPT/HCPCS: 77063; 77067 ==

== ENCOUNTER 2024-12-15 09:57 | Outpatient (REF) | payer OTHER, SELFPAY ==
--- NOTE | ~2024-12-15 | US_ITS ---
EXAMINATION: US LOWER EXTREMITY VENOUS (REFLUX EXAM), BILATERAL CLINICAL INFORMATION: I83.11 - Varicose veins of right lower extremity with inflammation COMPARISON: 09/22/2022 TECHNIQUE: Color flow triplex imaging and compression Doppler was performed to evaluate both the deep and the superficial systems bilaterally. To evaluate the superficial system, the examination was performed in the upright position. Color-flow Doppler ultrasound and compression ultrasound were utilized. In addition, maneuvers were utilized to demonstrate reflux. FINDINGS: 1. DEEP VENOUS ULTRASOUND OF THE RIGHT LOWER EXTREMITY: Common Femoral Vein: Compressible, normal respiratory variation and augmented flow. Femoral Vein: Compressible, normal color flow and augmentation. Popliteal Vein: Compressible, normal augmentation. Deep Reflux: There is no evidence of reflux in the deep system in either the common femoral vein, superficial femoral or the popliteal vein. 2. SUPERFICIAL ULTRASOUND WITH DOPPLER OF RIGHT LOWER EXTREMITY: GREAT SAPHENOUS VEIN: Saphenofemoral Junction: 0.3 cm; Reflux: 0 ms Proximal Thigh: 0.5 cm; Reflux: 0 ms Mid Thigh: 0.4 cm; Reflux: 0 ms Distal Thigh: 0.3 cm; Reflux: 0 ms At Knee: 0.2 cm; Reflux: 0 ms Below Knee/Proximal Calf: 0.2 cm; Reflux: 0 ms Mid Calf: 0.4 cm; Reflux: 1300 ms Ankle/Distal Calf: 0.3 cm; Reflux: 0 ms Lateral/Medial accessory GREAT SAPHENOUS VEIN: Saphenofemoral Junction: 0.5 cm; Reflux: 0 ms Mid Thigh: 0.4 cm; Reflux: 0 ms SMALL SAPHENOUS VEIN: Drainage: Thigh extension Saphenopopliteal Junction: 0.3 cm; Reflux: 0 ms Mid calf: 0.4 cm; Reflux: 0 ms Distal: 0.4 cm; Reflux: 0 ms VEIN OF GIACOMINI: Size: NA cm Reflux: NA ms PERFORATORS: Location: Greater saphenous vein, proximal thigh Size: 0.3 cm Reflux: 0 ms Location: Greater saphenous vein, mid calf 27 cm cephalad to calcaneal tuberosity Size: 0.3 cm Reflux: 1300 ms Location: Greater saphenous vein, distal calf Size: 0.5 cm Reflux: 0 ms VARICOSITIES > 3mm: Location: Small saphenous vein proximal calf Size: 0.6 cm Reflux: 0 ms Location: Greater saphenous vein, midthigh Size: 0.4 cm Reflux: 2600 ms 3. DEEP VENOUS ULTRASOUND OF THE LEFT LOWER EXTREMITY: Common Femoral Vein: Compressible, normal respiratory variation and augmented flow. Femoral Vein: Compressible, normal color flow and augmentation. Popliteal Vein: Compressible, normal augmentation. Deep Reflux: There is no evidence of reflux in the deep system in either the common femoral vein, superficial femoral or the popliteal vein. 4. SUPERFICIAL ULTRASOUND WITH DOPPLER OF LEFT LOWER EXTREMITY: GREAT SAPHENOUS VEIN: Saphenofemoral Junction: 0.7 cm; Reflux: 0 ms Proximal Thigh: 0.4 cm; Reflux: 0 ms Mid Thigh: 0.2 cm; Reflux: 0 ms Distal Thigh: 0.2 cm; Reflux: 0 ms At Knee: 0.2 cm; Reflux: 0 ms Below Knee/Proximl calf: 0.4 cm; Reflux: 1700 ms Mid Calf: 0.3 cm; Reflux: 0 ms Distal Calf/Ankle: 0.3 cm; Reflux: 0 ms Lateral/Medial accessory GREAT SAPHENOUS VEIN: Saphenofemoral Junction: 0.5 cm; Reflux: 0 ms Mid Thigh: 0.4 cm; Reflux: 0 ms SMALL SAPHENOUS VEIN: Drainage: Popliteal vein Saphenopopliteal Junction: 0.2 cm; Reflux: 0 ms Proximal: 0.2 cm; Reflux: 0 ms Distal: 0.2 cm; Reflux: 0 ms VEIN OF GIACOMINI: Size: NA Reflux: NA PERFORATORS: Location: Greater saphenous vein, proximal thigh Size: 0.6 cm Reflux: 0 ms Location: Nuclear Engineering Technician to varicose vein in the distal calf Size: 0.3 cm Reflux: 0 ms Location: Greater saphenous vein, distal calf Size: 0.2 cm Reflux: 0 ms VARICOSITIES > 3mm: None Imaged > 3mm US/US venous insuf bilat IMPRESSION: Right: Again demonstrated is venous incompetence in the greater saphenous vein and in varicosities there is also a keysmith 27 cm above the calcaneus that now demonstrates venous incompetence. Left: Venous incompetence is again demonstrated in the greater saphenous vein in the proximal calf. Electronically signed by: Ramon Stevens MD 12/15/2024 11:18 AM EDT
--- OUTSIDE RECORDS SUMMARY | 2024-12-15 10:13 | XMS_ITS | Clinical Summary ---
Author Organization 175 [facility] Address 175 [place] [address] Phone Care Team Providers Care Geophysical Prospecting Permit Agent Name Role Phone Angie Edwards GEOVANNA Primary Care Provider [phone] Medical History Medical History Date Comments HTN (hypertension) 03/29/2012 DX:HTN (hyper tension) Historical Medical DX 03/29/2012 DX:Hyperli pidemia LDL goal < 70 DM2 (diabetes mellitus, type 2) ([facility] V24, [facility] V28) 03/29/2012 DX:DM2 (diabetes mellitus, t ype 2) ([facility]) Morbid obesity ([facility] V24, [facility] V28) 2011 DX:Morbid obesity ([facility]) Atypical chest pain 03/29/2012 DX:Atypical chest pain [...] Upcoming Encounters Date Type Department Care Team ([facility] Contact Info) Description 01/23/2025 9:30 AM EDT Consult Orthopedic Surgery - [place] [address] [phone] Ramesh Callaway, DPM [address] [address] Health Maintenance Due Date Last Done Comments Breast Cancer Screening 1965 Diabetes: Annual GFR (Glomer ular Filtration Rate) 1967 Diabetes: Annual Foot Exam 1977 Diabetes: Annual Retina Eye Exam 1977 DTaP,Tdap,and Td Vaccines (1 - Tdap) 1986 Hepatitis B Vaccines (1 of 3 - 19+ 3-dose series) 1986 Pneumococcal Vaccine: 50+ Ye ars (1 of 2 - PCV) 1986 Cervical [...] Influencers of Health Screening 10/31/2024 Influenza Vaccine (#1) 2025 HIB Vaccines Aged Out No longer [...] patient's age to complete this topic Insurance [address] [address] [employer] MEDICARE Member Subscriber Plan / Payer (Ef fective 2024-Present) Name:, Relation to Subscriber:Self Name:Sia Tripathi Payer ID:[id number] Group ID:Not on file Type:Not on file Address: [place] [address] [phone] Care Teams Geophysical Prospecting Permit Agent Relationship Specialty Start Date End Date Angie Edwards NP [address] [place] [phone] PCP - General 10/31/24
--- OUTSIDE RECORDS SUMMARY | 2024-12-15 10:13 | XMS_ITS | Encounter Summary ---
Author Organization [employer] Address [address] [facility] 7t [place] [address] Care Team Providers Care Plant Supervisor Name Role Phone Angie Edwards Primary Care Provider [phone] Reason for Visit * Reason Comments Med Refill Encounter Details Date Type Department Care Team ([facility] st Contact Info) Description 03/07/2023 Refill [facility] [address] [place], [place] [phone] Angie Edwards ANP [address] [place] [address] Type 2 diabetes mellitus with hyperlipidemia (CMS/HCC) [...] Care Team (Late st Contact Info) Description 01/25/2025 11:00 AM EDT Office Visit [facility] [address] [place] [address] Angie Edwards ANP [address] [place] [address] documented as of this encounter Visit Diagnoses Diagnosis Type 2 diabetes mellitus with hyperlipidemia (CMS/HCC) (CMS/HCC) Diabetic polyneuropathy associated with type 2 diabetes mellitus (CMS/HCC) documented in this encounter Care Teams Plant Supervisor Relationship Specialty Start Date End Date Angie Edwards ANP [address] [place] [phone] PCP - General Family Medicine 05/05/22 documented as of this encounter
--- OUTSIDE RECORDS SUMMARY | 2024-12-15 10:13 | XMS_ITS | Encounter Summary ---
Author Organization [facility] Address [address] [facility] [address] [place] [phone] Phone Care Team Providers Care Color Checker Roving Or Yarn Name Role Phone Unknown, Unknown Primary Care Provider Odalis khan Encounter Details Date Type Department Care Team (Late st Contact Info) Description 12/29/2017 Ancillary Orders [facility] [address] [place] [address] [place] [address] Davis Harkins DO [address] [place] [phone] Bradycardia Social History Tobacco Use Types Packs/Day Years Used Date Smoking Tobacco: Never Assessed Comments Unknown Sex and Gender Information Value Date Recorded Sex Assigned at Not on file Legal Sex Female 10:16 AM EDT Gender Identity Not on file Sexual Orientation Not on file documented as of this encounter Plan of Treatment Not on file documented as of this encounter Results * Holter Monitor 24 Hours (12/29/2017 10:54 AM EDT) Anatomical Region Laterality Modality Heart Other Narrative 12/29/2017 5:10 PM EDT 24-hour monitor: No symptoms reported. Baseline rhythm is sinus with a minimum heart rate of 34 maximum 86 average 48 bpm. Her PACs and PVCs present. Longest pause 1.8 seconds. Impression: Abnormal 24-hour monitor. No symptoms reported. Sinus bradycardia present, maximum heart rate less than 100 bpm consistent with sinus node disease. Davis Harkins DO [facility] ORDER[facility] S Final Result documented in this encounter Visit Diagnoses Diagnosis Bradycardia Other specified cardiac dysrhythmias Bradycardia Other specified cardiac dysrhythmias documented in this encounter Care Teams Color Checker Roving Or Yarn Relationship Specialty Start Date End Date Unknown, Unknown, PCP - General 10/26/17 documented as of this encounter Additional Source Comments The information contained in this document represents components of the legal health record. It is not the complete legal health record.[facility]
== END 2024-12-15 09:58 | disposition home or self-care (01) ==
LOC: HO.US 09:57
PROVIDERS: Visit Provider Physician Assistant Surgical
DX: I83.11 Varicose veins of right lower extremity with inflammation (principal); I83.12 Varicose veins of left lower extremity with inflammation
CPT/HCPCS: 93970

== ENCOUNTER 2025-01-25 16:21 | Outpatient (REF) | payer OTHER, SELFPAY ==
--- OUTSIDE RECORDS SUMMARY | 2025-01-25 11:00 | XMS_ITS | Encounter Summary ---
Author Organization [employer] Address [address] [facility] 7t [place] [address] Care Team Providers Care Migration Specialist Name Role Phone Angie Edwards Primary Care Provider [phone] Encounter Details Date Type Department Care Team (Latest Contact Info) Description 01/25/2025 11:00 AM EDT Office Visit [facility] MEDICINE [address] [place], [place] [phone] Angie Edwards ANP [address] [place] [address] Vaginal itching (Primary Dx); Diabetic polyneuropathy associated with type 2 diabetes mellitus (CMS/HCC); Need for hepatitis B screening test; Dysuria; Chest pain, unspecified type; Fatigue, unspecified type Social History Tobacco Use Types Packs/Day Years [...] your housing situation today? I have sugar rdoas 07/14/[address] you li [...] the past 12 months, has t he [employer], gas, oil or water company threatened to [...] Sign Reading Time Taken Comments Blood Pressure 140/60 01/25/2025 10:31 AM EDT Pulse 56 01/25/2025 10:31 AM EDT Temperature 36.2 C (97.1 F) 01/25/2025 10:31 AM EDT Respiratory Rate 20 01/25/2025 10:31 AM EDT Oxygen Saturation 98% 01/25/2025 10:31 AM EDT Inhaled Oxygen Concentration - - Weight 103 kg (227 lb) 01/25/2025 10:31 AM EDT Height 152.4 cm (5') 01/25/2025 10:31 AM EDT Body Mass Index 44.33 01/25/2025 10:31 AM EDT documented in this encounter Plan of Treatment Upcoming Encounters Date Type Department Care Team (Late st Contact Info) Description 02/02/2025 9:30 AM EDT Clinical Support [facility] MEDICINE [address] [place] [address] 03/26/2025 11:00 AM EDT Office Visit [facility] MEDICINE [address] [place] [address] Angie Edwards, ANP [address] [place] [address] Scheduled Orders Name Type Priority Associated Diagnoses Orde r Schedule Hemoglobin A1c Lab Routine Diabetic polyneuropathy associated with type 2 diabetes mellitus (CMS/HCC) Expected: 01/25/2025 (Approximate), Expires: 01/25/2026 Hepatitis B Core Antibody, Total Lab Routine Need for hepatitis B screening test Expected: 01/25/2025 (Approximate), Expires: 01/25/2026 Hepatitis B Surface Antibody, Qualitative Lab Routine Need for hepatitis B screening test Expected: 01/25/2025 (Approximate), Expires: 01/25/2026 Hepatitis B surface antigen, EIA Lab Routine Need for hepatitis B screening test Expected: 01/25/2025 (Approximate), Expires: 01/25/2026 ECG 12 lead ECG Routine Chest pain, unspecified type Ordered: 01/25/2025 Bacterial Vaginosis Panel Microbiology Routine Vaginal itching Ordered: 01/25/2025 Urinalysis, Complete, with Reflex to Culture Lab Routine Dysuria Ordered: 01/25/2025 CBC auto differential Lab Routine Fatigue, unspecified type Expected: 01/25/2025 (Approximate), Expires: 01/25/2026 TSH W/Reflex to FT4 Lab Routine Fatigue, unspecified type Expected: 01/25/2025 (Approximate), Expires: 01/25/2026 documented as of this encounter Procedures Procedure Name Priority Date/Time Associated Diagnosis Comments POCT URINALYSIS DIPSTICK Routine 01/25/2025 11:38 AM EDT Vaginal itching POCT GLYCATED HEMOGLOBIN, TOTAL Routine 01/25/2025 10:44 AM EDT Diabetic polyneuropathy associated with type 2 diabetes mellitus (CMS/HCC) POCT GLUCOSE Routine 01/25/2025 10:39 AM EDT Diabetic polyneuropathy associated with type 2 diabetes mellitus (CMS/HCC) documented in this encounter Results * (ABNORMAL) POCT urinalysis dipstick manually resulted (01/25/2025 11:38 AM EDT) Color, UA Yellow Clarity, UA Clear Glucose, UA Trace Comment:1000mg Bilirubin, UA Negative Ketones, UA Negative Spec Grav, UA 1.015 Blood, UA Positive(A) Negative, None Detected pH, UA 5.5 Protein, UA Negative Urobilinogen, UA 0.2 Leukocytes, UA Negative Negative, Rare, Trace Nitrite, UA Negative Negative, None Detected Appearance, UA clear QC Media Lot # [id number] Lot# Expiration Date , Urine 01/25/2025 11:3 8 AM EDT us Angie Edwards ANP POINT OF CARE TEST ENTER/EDIT OR DERABLES Final Result * (ABNORMAL) POCT HGB A1C (01/25/2025 10:44 AM EDT) Hemoglobin A1C 9.1(A) 4.0 - 5.7 % QC Media Lot # [id number] Lot# Expiration Date , Blood 01/25/2025 10:4 4 AM EDT us Angie Edwards ANP POINT OF CARE TEST ENTER/EDIT OR DERABLES Final Result * POCT Glucose (01/25/2025 10:39 AM EDT) Glucose Blood, POC 146 [id number] - 200 mg/dL QC Media Lot # [id number] Lot# Expiration Date 743, Blood Capillary blood specimen / Unknown 01/25/2025 10:39 AM EDT us Angie Edwards ANP POINT OF CARE TEST ENTER/EDIT OR DERABLES Edited Result - Final documented in this encounter Visit Diagnoses Diagnosis Vaginal itching- Primary Pruritus of genital organs Diabetic polyneuropathy associated with type 2 diabetes mellitus (CMS/HCC) Need for hepatitis B screening test Dysuria Chest pain, unspecified type Fatigue, unspecified type documented in this encounter Additional Health Concerns Assessment Noted Time PHQ-9 Depression Total Score: 9 04/07/20 24 10:05 AM EST documented as of this encounter Care Teams Migration Specialist Relationship Specialty Start Date End Date Angie Edwards ANP [address] [place] [address] PCP - General Family Medicine 05/05/22 documented as of this encounter
--- OUTSIDE RECORDS SUMMARY | 2025-01-25 16:29 | XMS_ITS | Encounter Summary ---
Author Organization [employer] Address [address] [facility] 7t [place] [address] Care Team Providers Care Drop Pit Worker Name Role Phone Angie Edwards Primary Care Provider [phone] Reason for Visit * Reason Comments Med Refill Encounter Details Date Type Department Care Team ([facility] st Contact Info) Description 01/21/2024 Refill [facility] MEDICINE [address] [place], [place] [phone] Angie Edwards ANP [address] [place] [address] Type 2 diabetes mellitus with hyperlipidemia (CMS/HCC) [...] Description 02/02/2025 9:30 AM EDT Clinical Support [facility] MEDICINE [address] [place] [phone] 03/26/2025 11:00 AM EDT Office Visit [facility] MEDICINE [address] [place] [address] Angie Edwards ANP [address] [place] [phone] documented as of this encounter Visit Diagnoses Diagnosis Type 2 diabetes mellitus with hyperlipidemia (CMS/HCC) (CMS/HCC) Diabetic polyneuropathy associated with type 2 diabetes mellitus (CMS/HCC) documented in this encounter Additional Health Concerns Assessment Noted Time PHQ-9 Depression Total Score: 20 024 9:36 AM EDT documented as of this encounter Care Teams Drop Pit Worker Relationship Specialty Start Date End Date Angie Edwards ANP [address] [place] [phone] PCP - General Family Medicine 05/05/22 documented as of this encounter
--- OUTSIDE RECORDS SUMMARY | 2025-01-25 16:29 | XMS_ITS | Encounter Summary ---
Author Organization [employer] Address [address] [facility] 7t [place] [address] Care Team Providers Care Filtering Machine Tender Helper Name Role Phone Angie Edwards Primary Care Provider [phone] Reason for Visit * Reason Comments Med Refill Encounter Details Date Type Department Care Team (Late st Contact Info) Description 12/16/[address] [phone] Angie Edwards ANP [address] [place] [address] Diabetic polyneuropathy associated with type 2 diabetes mellitus (CMS/HCC); Type 2 diabetes mellitus with hyperlipidemia ([facility]) Social History Tobacco Use Types Packs/Day [...] Description 02/02/2025 9:30 AM EDT Clinical Support [address] [phone] 03/26/2025 11:00 AM EDT Office Visit [address] [address] Angie Edwards ANP [address] [place] [address] documented as of this encounter Visit Diagnoses Diagnosis Diabetic polyneuropathy associated with type 2 diabetes mellitus (CMS/HCC) Type 2 diabetes mellitus with hyperlipidemia (CMS/HCC) (CMS/HCC) documented in this encounter Care Teams Filtering Machine Tender Helper Relationship Specialty Start Date End Date Angie Edwards ANP [address] [place] [address] PCP - General Family Medicine 05/05/22 documented as of this encounter
--- OUTSIDE RECORDS SUMMARY | 2025-01-25 16:29 | XMS_ITS | Encounter Summary ---
Author Organization [employer] [facility] Address [address] [facility] 7t [place] [address] Care Team Providers Care Cane Cutter Name Role Phone Angie Edwards Primary Care Provider [phone] Encounter Details Date Type Department Care Team ([facility] [address] Contact Info) Description 05/05/[address] [address] Provider, MD Emy Social History Tobacco Use [...] Department Care Team (Late Contact Info) Description 02/02/2025 9:30 AM EDT Clinical Support [address] [address] 03/26/2025 11:00 AM EDT Office Visit [facility] MEDICINE [address] [place] [phone] Angie Edwards ANP [address] [place] [address] documented as of this encounter Visit Diagnoses Not on filedocumented in this encounter Care Teams Cane Cutter Relationship Specialty Start Date End Date Angie Edwards ANP [address] [place] [address] PCP - General Family Medicine 05/05/22 documented as of this encounter
--- OUTSIDE RECORDS SUMMARY | 2025-01-25 16:29 | XMS_ITS | Encounter Summary ---
Author Organization [employer] Address [address] [facility] 7t [place] [address] Care Team Providers Care Social Media Marketing Analyst Name Role Phone Angie Edwards Primary Care Provider [phone] Reason for Visit * Reason Comments Med Refill Encounter Details Date Type Department Care Team ([facility] st Contact Info) Description 01/07/2025 Refill [facility] MEDICINE [address] [place] [address] Angie Edwards ANP [address] [place] [address] Type 2 diabetes mellitus with hyperlipidemia (CMS/HCC) [...] Description 02/02/2025 9:30 AM EDT Clinical Support [facility] MEDICINE [address] [place] [address] 03/26/2025 11:00 AM EDT Office Visit [facility] MEDICINE [address] [place] [address] Angie Edwards ANP [address] [place] [address] documented as of this encounter Visit Diagnoses Diagnosis Type 2 diabetes mellitus with hyperlipidemia (CMS/HCC) Diabetic polyneuropathy associated with type 2 diabetes mellitus (CMS/HCC) documented in this encounter Additional Health Concerns Assessment Noted Time PHQ-9 Depression Total Score: 9 04/07/20 24 10:05 AM EST documented as of this encounter Care Teams Social Media Marketing Analyst Relationship Specialty Start Date End Date Angie Edwards ANP [address] [place] [phone] PCP - General Family Medicine 05/05/22 documented as of this encounter
--- OUTSIDE RECORDS SUMMARY | 2025-01-25 16:29 | XMS_ITS | Encounter Summary ---
Author Organization [facility] Address [address] [facility] [address] [place] [phone] Phone Care Team Providers Care Campaign Marketing Manager Name Role Phone Unknown, Unknown Primary Care Provider Odalis khan Encounter Details Date Type Department Care Team (Late st Contact Info) Description 12/29/2017 Ancillary Orders [facility] [address] [place] [address] [place] [address] Davis Harkins DO [address] [place] [address] Bradycardia Social History Tobacco Use Types Packs/Day [...] dysrhythmias documented in this encounter Care Teams Campaign Marketing Manager Relationship Specialty Start Date End Date Unknown, Unknown, PCP - General 10/26/17 documented as of this encounter Additional Source Comments The information contained in this document represents components of the legal health record. It is not the complete legal health record.[facility]
--- OUTSIDE RECORDS SUMMARY | 2025-01-25 16:29 | XMS_ITS | Encounter Summary ---
Author Organization [employer] Address [address] [facility] [address] 7t [place] [address] Care Team Providers Care Coal Equipment Operator Name Role Phone Angie Edwards Primary Care Provider [phone] Encounter Details Date Type Department Care Team (Latest Contact Info) Description 01/25/2025 Travel Social History Tobacco Use Types Packs/Day [...] Description 02/02/2025 9:30 AM EDT Clinical Support [address] [address] 03/26/2025 11:00 AM EDT Office Visit [address] [address] Angie Edwards ANP [address] [place] [address] documented as of this encounter Visit Diagnoses Not on filedocumented in this encounter Additional Health Concerns Assessment Noted Time PHQ-9 Depression Total Score: 9 04/07/20 24 10:05 AM EST documented as of this encounter Care Teams Coal Equipment Operator Relationship Specialty Start Date End Date Angie Edwards ANP [address] [place] [address] PCP - General Family Medicine 05/05/22 documented as of this encounter
--- OUTSIDE RECORDS SUMMARY | 2025-01-25 16:29 | XMS_ITS | Encounter Summary ---
Demographics Address [address] [facility] [address] [place] [address] Mobile Phone Home Phone Preferred Language es Marital Status Single Rastafari Affiliation Unknown Race Other Race Ethnic Group Unknown Author Organization [employer] Address [address] [facility] 7t [place] [address] Care Team Providers Care Catia Designer Name Role Phone Angie Edwards Primary Care Provider [phone] Reason for Visit * Reason Comments Med Refill Encounter Details Date Type Department Care Team ([facility] st Contact Info) Description 10/25/2024 Refill [facility] MEDICINE [address] [place] [address] Angie Edwards ANP [address] [place] [address] Type 2 diabetes mellitus with hypoglycemia without coma, with long-term current use of insulin ([facility]) Social History Tobacco Use Types [...] Description 02/02/2025 9:30 AM EDT Clinical Support [facility] MEDICINE [address] [place] [address] 03/26/2025 11:00 AM EDT Office Visit [facility] MEDICINE [address] [place] [address] Angie Edwards ANP [address] [place] [address] documented as of this encounter Visit Diagnoses Diagnosis Type 2 diabetes mellitus with hypoglycemia without coma, with long-term current use of insulin ([facility]) documented in this encounter Additional Health Concerns Assessment Noted Time PHQ-9 Depression Total Score: 9 04/07/20 24 10:05 AM EST documented as of this encounter Care Teams Catia Designer Relationship Specialty Start Date End Date Angie Edwards ANP [address] [place] [address] PCP - General Family Medicine 05/05/22 documented as of this encounter
--- OUTSIDE RECORDS SUMMARY | 2025-01-25 16:29 | XMS_ITS | Encounter Summary ---
Author Organization [employer] Address [address] [facility] 7t [place] [address] Care Team Providers Care Ditching Machine Engineer Name Role Phone Angie Edwards Primary Care Provider [phone] Reason for Visit * Reason Comments Med Refill Encounter Details Date Type Department Care Team (Late Contact Info) Description 12/08/2022 Refill [facility] MEDICINE [address] [place] [address] Angie Edwards ANP [address] [place] [address] Type 2 diabetes mellitus with hyperglycemia (CMS/HCC); alf (current) use of insulin (CMS/[facility]) Social History Tobacco Use Types [...] Description 02/02/2025 9:30 AM EDT Clinical Support [address] [address] 03/26/2025 11:00 AM EDT Office Visit [address] [address] Angie Edwards ANP [address] [place] [address] documented as of this encounter Visit Diagnoses Diagnosis Type 2 diabetes mellitus with hyperglycemia (CMS/HCC) intermodal owner operator truck driver (current) use of insulin (CMS/[facility]) documented in this encounter Care Teams Ditching Machine Engineer Relationship Specialty Start Date End Date Angie Edwards ANP [address] [place] [phone] PCP - General Family Medicine 05/05/22 documented as of this encounter
--- OUTSIDE RECORDS SUMMARY | 2025-01-25 16:29 | XMS_ITS | Clinical Summary ---
Author Organization [employer] Address [address] [place] [address] Care Team Providers Care Explosives Engineer Name Role Phone Stephanie Markham Primary Care Provider [phone] Allergies Active Allergy Reactions Criticality Noted Date Comments Dulaglutide 04/21/2021 Other reaction(s): Rash, Rash Penicillins Anaphylaxis High 05/05/2022 Medications * This document contains information received from the source organization and may not represent a complete record from that organization. Blood Pressure kitIndications:Hy pertension associated with type 2 diabetes mellitus ([facility]) 1 kit in the morning. 1 kit 022 Active buPROPion SR (Wellbutrin SR) 150 MG 12 hr tablet Take 1 tablet by mouth every 12 (twelve) hours. Active FLUoxetine (PROzac) 40 MG capsule Take 2 capsules by mouth Once per day. Active spironolactone (Aldactone) 25 MG tablet Take 1 tablet by mouth 1 (one) time each day. Active TRAZODONE HCL PO Take 100 mg by mouth at bedtime. Active Respiratory Therapy Supplies (Nebulizer) device Inhale 1 Device if needed in the morning, at noon, in the evening, and at bedtime. 021 Active TRUEplus Lancets 33G miscIndications:T ype 2 diabetes mellitus with hyperlipidemia (CMS/HCC) ([facility]) TEST BLOOD SUGAR FOUR TIMES DAILY 300 each 8 023 Active glucose blood (FREESTYLE LITE) test stripIndications: Diabetic polyneuropathy associated with type 2 diabetes mellitus ([facility]) Check BG 4x daily or more as needed 200 each 023 Active glucose 4 g chewable tabletIndications :Type 2 diabetes mellitus with hypoglycemia without coma, with long-term current use of insulin ([facility]) CHEW 4 TABLETS NEEDED FOR LOW BLOOD [...] of candidiasis. Do not swallow. 1 each 024 Active Continuous Blood Gluc Game Tester (FreeStyle Ata 2 Lagrange) deviceIndications :Type 2 diabetes mellitus with hypoglycemia without coma, with long-term current use of insulin ([facility]) Use to check blood sugar 4x/d and more if symptomatic 1 each 024 Active glucagon (Baqsimi) 3 MG/DOSE nasal powderIndications :Type 2 diabetes mellitus with hypoglycemia without coma, with long-term current use of insulin ([facility]) Administer 3 mg into affected nostril(s) 1 (one) time if needed for low blood sugar. 2 each 1 024 Active loratadine (Claritin) 10 MG tablet TAKE 1 TABLET BY MOUTH EVERY MORNING 90 tablet 024 Active Ozempic, 1 MG/DOSE, 4 MG/3ML solution pen-injectorIndic ations:Type 2 diabetes mellitus with hyperlipidemia ([facility]/HCC) ([facility]) INJECT 1mg SUBCUTANEOUSLY ONCE WEEKLY DIRECTED 3 mL 11 024 Active Diclofenac Sodium (Voltaren) 1 % gelIndications:Le ft hip pain Apply 2-4g up to 4x/d to affected joint(s) for pain/swelling 100 g 2 024 Active fluticasone (Flonase) 50 MCG/ACT nasal [...] OR CHEW 30 tablet 11 025 Active terconazole (Terazol 7) 0.4 % [...] MOUTH AT BEDTIME 90 tablet 1 Active meloxicam (Mobic) 15 MG tablet Take 1 tablet (15 mg) by mouth Once per day. 30 tablet 025 2025 Active Alcohol Swabs (Alcohol Prep) 70 % pads USE DIRECTED FOUR TIMES DAILY 100 each 11 025 Active lisinopril 40 MG tablet TAKE 1 TABLET BY MOUTH EVERY MORNING 90 tablet 025 Active levothyroxine (Synthroid, Levoxyl) 25 MCG tabletIndications :Hypothyroidism, unspecified type TAKE 1 TABLET BY MOUTH EVERY MORNING BEFORE BREAKFAST 30 tablet 11 025 Active rosuvastatin (Crestor) 40 MG tabletIndications :Type 2 diabetes mellitus with hyperlipidemia (CMS/HCC) ([facility]) TAKE 1 TABLET BY MOUTH AT BEDTIME 90 tablet 1 025 Active ezetimibe (Zetia) 10 MG tabletIndications :Type 2 diabetes mellitus with hyperlipidemia (CMS/HCC) ([facility]/HCC) TAKE 1 TABLET BY MOUTH EVERY MORNING 90 tablet 1 025 Active D3 Super Strength 50 MCG (1999) capsuleIndication s:Vitamin D deficiency TAKE 1 CAPSULE BY MOUTH EVERY MORNING 90 capsule 025 Active Jardiance 25 MGIndications:Typ e 2 diabetes mellitus with diabetic polyneuropathy, with long-term current use of insulin ([facility]) TAKE 1 TABLET BY MOUTH EVERY MORNING 90 tablet 025 Active Multiple Vitamins-Iron (Tab-A-Cristobal/Iron) tabletIndications :Type 2 diabetes mellitus with hyperlipidemia (CMS/HCC) (CMS/HCC) TAKE 1 TABLET BY MOUTH EVERY MORNING 90 tablet 025 Active gabapentin (Neurontin) 100 MG capsuleIndication s:Type 2 diabetes mellitus with hyperlipidemia (CMS/HCC) (CMS/HCC),Diabeti c polyneuropathy associated with type 2 diabetes mellitus (CMS/HCC) TAKE 2 CAPSULES BY MOUTH THREE TIMES DAILY IN THE MORNING, EVENING AND BEDTIME 180 capsule 2 025 Active Continuous Glucose Sensor (FreeStyle Ata 2 Sensor) miscIndications:T ype 2 diabetes mellitus with hypoglycemia without coma, with long-term current use of insulin ([facility]/HCC) USE DIRECTED TO TEST BLOOD SUGAR CHANGE EVERY 14 DAYS 2 each 3 025 Active Repatha SureClick 140 MG/ML injection Active isosorbide mononitrate ER (Imdur) 30 MG 24 hr tablet Take 30 mg by mouth Once per day. 025 Active gabapentin (Neurontin) 100 MG capsuleIndication s:Type 2 diabetes mellitus with hyperlipidemia (CMS/HCC) (CMS/HCC),Diabeti c polyneuropathy associated with type 2 diabetes mellitus (CMS/HCC) TAKE 2 CAPSULES BY MOUTH THREE TIMES DAILY IN THE MORNING, EVENING AND BEDTIME 180 capsule 2 025 2024 Discontinued Continuous Glucose Sensor (FreeStyle Ata 2 Sensor) miscIndications:T ype 2 diabetes mellitus with hypoglycemia without coma, with long-term current use of insulin ([facility]) USE DIRECTED TO TEST BLOOD SUGAR CHANGE EVERY 14 DAYS 2 each 3 025 2024 Discontinued Hospital, Clinic, or Other Facility [...] 40mg Could not tolerate Trulicity d/t rash Hypertriglyceridemia 03/29/2012 Hyperlipidemia with target LDL less than 70 03/02 Overview (01/25/2025): IMO update Depressive disorder 02/02/2012 Diabetic neuropathy 02/02/2012 Morbid [...] spreading of lesion Pruritus of vagina 02/04/2018 Encounters Date Type Department Care Team Description 01/25/2025 11:00 AM EDT Office Visit [facility] [address] [place] [address] Stephanie Markham ANP Vaginal itching (Primary Dx); Diabetic polyneuropathy associated with type 2 diabetes mellitus ([facility]); Need for hepatitis B screening test; Dysuria; Chest pain, unspecified type; Fatigue, unspecified type 01/25/2025 Travel 01/19/[address] [facility] [address] [place] [address] Stephanie Markham ANP Type 2 diabetes mellitus with hypoglycemia without coma, with long-term current use of insulin ([facility]) 01/12/[address] [facility] [address] [place] [phone] Stephanie Markham ANP Type 2 diabetes mellitus with hyperlipidemia ([facility]/HCC) ; Diabetic polyneuropathy associated with type 2 diabetes mellitus (CMS/HCC) 01/07/[address] [facility] [address] [place] [phone] Stephanie Markham ANP Type 2 diabetes mellitus with hyperlipidemia ([facility]/HCC) ; Diabetic polyneuropathy associated with type 2 diabetes mellitus (CMS/HCC) 12/26/2024 Travel 12/12/[address] [facility] [address] [place] [address] [phone] Stephanie Markham ANP Type 2 diabetes mellitus with hyperlipidemia (CMS/HCC) ([facility]/HCC) 12/11/[address] [facility] [address] [place] [phone] Stephanie Markham ANP Vitamin D deficiency; Type 2 diabetes mellitus with diabetic polyneuropathy, with long-term current use of insulin (CMS/HCC); Type 2 diabetes mellitus with hyperlipidemia (CMS/HCC) ([facility]/HCC) 11/28/[address] [facility] [address] [place] [address] [phone] Stephanie Markham ANP 11/27/[address] [facility] [address] [place] [phone] Stephanie Markham ANP No Show 11/14/[address] [facility] [address] [place] [address] Meg Huertas RNfoundry helper 11/09/[address] [facility] [address] [place] [address] [phone] Stephanie Markham ANP Durable Medical Equipment 11/08/[address] [facility] [address] [place] [address] [phone] Stephanie Markham ANP Type 2 diabetes mellitus with hyperlipidemia (CMS/HCC) ([facility]/HCC) 10/27/2024 9:15 AM EDT Office Visit [facility] [address] [place] [address] [phone] Stephanie Markham ANP Diabetic polyneuropathy associated with type 2 diabetes mellitus ([facility]) (Primary Dx); Screening mammogram for breast cancer; Varicose veins of ankle; Chronic abdominal pain 10/27/[address] [facility] [address] [place] [address] [phone] Stephanie Markham ANP Type 2 diabetes mellitus with hypoglycemia without coma, with long-term current use of insulin ([facility]) 10/27/2024 Travel 10/26/[address] [facility] [address] [place] [address] [phone] Stephanie Markham ANP Chart Prep 10/25/[address] [facility] [address] [place] [address] [phone] Stephanie Markham ANP Type 2 diabetes mellitus with hypoglycemia without coma, with long-term current use of insulin ([facility]) from Last 3 Months Immunizations Immunization Administration Dates Next Due Hep B, adult [...] Mass Index 44.33 01/25/2025 10:31 AM EDT Plan of Treatment Upcoming Encounters Date Type Department Care Team (Late st Contact Info) Description 02/02/2025 9:30 AM EDT Clinical Support [facility] [address] [place] [phone] 03/26/2025 11:00 AM EDT Office Visit [facility] [address] [place] [phone] Stephanie Markham, FRANCISCA [address] [place] [address] Health Maintenance Due Date Last Done Comments CT Colonography 1965 Colonoscopy 1967 FIT 1967 FOBT 1965 HIV Screening 1965 Sigmoidoscopy 1967 Diabetes: Foot Exam 1977 Eye Exam 1977 Hepatitis B Vaccines (3 of 3 - 19+ 3-dose series) 08/23/2013 06/28/2013, 02/14/2013 Zoster Vaccines (1 of 2) 2017 Depression Monitoring 10/05/2024 04/07/2024, 024 Influenza Vaccine (#1) 2025 , 03/09/2023, 02/27/2022, Additional history exists Lipid Panel 02/13/2025 02/14/2024, 02/28, 01/17/2021, Additional history exists Diabetes: Hemoglobin A1C 04/27/2025 025, 10/27/2024, 08/09/2024, Additional history exists Colorectal Cancer Screening 06/25/2025 FIT DNA/Cologuard 06/25/2025 SDOH Screening 07/14/2025 07/14/2024 Diabetes: Urine Protein Screening 07/27/2025 07/27/2024, 03/09/2023, 07/23/2020, Additional history exists Alcohol/Substance Use Screening 10/27/2025 10/27/2024 Disability Screening 10/27/2025 10/27/2024 Mammogram 11/28/2025 11/28/2024, 08/30, 03/17/2022, Additional history exists Tobacco Screening 01/25/2026 01/25/2025 Cervical Cancer Screening 01/28/2028 HPV/Cotest 01/28/2028 01/27/2023, 12/30/2016 Pap Smear 01/28/2028 01/27/2023 DTaP/Tdap/Td Vaccines (5 - Td or Tdap) 02/16/2034 02/17/2024, 01/01/2022, 05/17/2015, Additional history exists RSV Patients and Patients Aged 60 years or older (1 - 1-dose 75+ series) 2042 Hepatitis C Screening Completed 07/23/2020 Pneumococcal Vaccine: 50+ Years Completed 03/09/2023, 07/09/2009 COVID-19 Vaccine Completed 02/17/2024, , 09/06/2020, Additional history exists HIB Vaccines Aged Out [...] associated with type 2 diabetes mellitus (CMS/HCC) BI MAMMOGRAM SCREENING TOMOSYNTHESIS BILATERAL Routine 11/28/2024 9:15 AM EDT POCT GLYCATED HEMOGLOBIN, TOTAL Routine 10/27/2024 9:45 AM EDT Diabetic polyneuropathy associated with type 2 diabetes mellitus (CMS/HCC) POCT GLUCOSE Routine 10/27/2024 9:44 AM EDT Diabetic polyneuropathy associated with type 2 diabetes mellitus (CMS/HCC) ALBUMIN, RANDOM URINE W/CREATININE Routine 07/27/2024 10:30 AM EST Type 2 diabetes mellitus with hyperlipidemia (CMS/HCC) LIPID PANEL, STANDARD Routine 02/14/2024 9:24 AM EDT Type 2 diabetes mellitus with hyperlipidemia (CMS/HCC) HPV MRNA E6/E7 REFLEX TO HPV 16, 18/45 Routine 01/27/2023 10:18 AM EDT PAP SMEAR Routine 01/27/2023 ZZZ HISTORICAL HEPATITIS C AB W/REFL TO HCV RNA, QN, PCR Routine 07/23/2020 8:16 AM EST from Last 3 Months or Most Recently Relevant to Health Maintenance Results * (ABNORMAL) POCT urinalysis dipstick manually [...] , Urine 01/25/2025 11:3 8 AM EDT [facility] ANP POINT OF CARE TEST ENTER/EDIT OR DERABLES Final Result * (ABNORMAL) POCT HGB A1C (01/25/2025 10:44 AM EDT) Only the most recent of2 resultswithin the time period is included. Hemoglobin A1C 9.1(A) 4.0 - 5.7 % QC Media Lot # [id number] Lot# Expiration Date [id number] Blood 01/25/2025 10:4 4 AM EDT [facility] Markham ANP POINT OF CARE TEST ENTER/EDIT OR DERABLES Final Result * POCT Glucose (01/25/2025 10:39 AM EDT) Only the most recent of2 resultswithin the time period is included. Glucose Blood, POC 146 60 - 200 mg/dL QC Media Lot # [id number] Lot# Expiration Date 482, Blood Capillary blood specimen / Unknown 01/25/2025 10:39 AM EDT Stephanie ESPINOSA POINT OF CARE TEST ENTER/EDIT OR DERABLES Edited Result - Final * BI Mammogram Screening Tomosynthesis Bilateral (11/28/2024 9:15 AM EDT) Anatomical Region Laterality Modality Breast Bilateral Mammography 11/28/2024 9:15 AM EDT Narrative 12/10/2024 2:45 PM EDT [facility] [address] [place], [place] [address] Mammography Report Signed Patient: Sia Tripathi MR#: [id number] : 1965 Acct:[id number] Age/Sex: 59 / F ADM Date: 11/28/24 Loc: MAMMO Attending Dr: Stephanie Markham NP Ordering Physician: STEPHANIE MARKHAM NP Results: 1Negative Date of Service: 11/28/24 Follow Up: 1 Year From Orig ina Mammogram Procedure(s): MM tomosynthesis screening BI Accession Number(s): [id number] cc: STEPHANIE MARKHAM NP EXAMINATION: MM SCREENING DIGITAL BREAST TOMOSYNTHESIS, BILATERAL CLINICAL INFORMATION: Screening. Asymptomatic. COMPARISON: Mammography: Comparison is made with available priors TECHNIQUE: Digital breast mammography with tomosynthesis is performed in both the craniocaudal and mediolateral oblique views along with computer-aided detection (CAD). FINDINGS: There are scattered areas of fibroglandular density (ACR BI-RADS breast composition Category b). There are no significant masses, abnormal calcifications, or other abnormalities. MM/MM tomosynthesis screening BI IMPRESSION: No mammographic evidence of malignancy. ASSESSMENT: BI-RADS BI-RADS 1 - Negative RECOMMENDATION: Routine annual mammography screening. 1 year F/U This examination should not preclude the clinical evaluation of a suspicious palpable abnormality. This patient's information was entered into a reminder system with a target due date for their next mammogram. Electronically signed by: Ene Diane DO 12/10/2024 02:43 PM EDT Dictated By: Tyminski,Ene DO Signed By: <Electronically signed by Ene Diane DO in OV> 12/10/24 1443 DD/ 4 TD/TT: 11/28/24929 Plant Operations Engineer: Procedure Note Donotuseinterpreter, Image - 12/10/2024 [facility] [address] [place] [address] Mammography Report Signed Patient: Radha TripathiR#: [id number] : 1965Acct:[id number] Age/Sex: 59 / FADM Date: 11/28/24 Loc: HO.MAMMO Attending Dr: Stephanie Markham NP Ordering Physician: STEPHANIE MARKHAMesults: 1Negative Date of Service: 11/28/24Follow Up: 1 Year From Orig inal Mammogram Procedure(s): MM tomosynthesis screening BI Accession Number(s): [id number] cc: STEPHANIE MARKHAM NP EXAMINATION: MM SCREENING DIGITAL BREAST TOMOSYNTHESIS, BILATERAL CLINICAL INFORMATION: Screening. Asymptomatic. COMPARISON: Mammography: Comparison is made with available priors TECHNIQUE: Digital breast mammography with tomosynthesis is performed in both the craniocaudal and mediolateral oblique views along with computer-aided detection (CAD). FINDINGS: There are scattered areas of fibroglandular density (ACR BI-RADS breast composition Category b). There are no significant masses, abnormal calcifications, or other abnormalities. MM/MM tomosynthesis screening BI IMPRESSION: No mammographic evidence of malignancy. ASSESSMENT: BI-RADS BI-RADS 1 - Negative RECOMMENDATION: Routine annual mammography screening. 1 year F/U This examination should not preclude the clinical evaluation of a suspicious palpable abnormality. This patient's information was entered into a reminder system with a target due date for their next mammogram. Electronically signed by: Ene Diane DO 12/10/2024 02:43 PM EDT Dictated By: Ene Diane DO Signed By: <Electronically signed by Ene Diane DO in OV> 12/10/24 144 DD/ 4 TD/TT: 11/28/24 0930 Plant Operations Engineer: us Stephanie Markham ANP IMG BI PROCEDURES Final Result * Albumin, Random Urine W/Creatinine (07/27/2024 10:30 AM EST) Creatinine, Urine 25.75 mg/dL [facility] Microalbumin Urine <5.0 mg/L [facility] Microalbum Creatinine Ratio Ur TNP <30 ug/mg cr [facility] Comment:Unable to calculate albumin/creatinine ratio due to lowmicroalbumin or creatinine result. Urine (Urine, Random) 07/27/2024 10:30 AM EST 07/27/2024 4:26 PM EST us Stephanie Markham ANP LAB URINE ORDERABLES Final Resul t [facility] [address] [place] [phone] * (ABNORMAL) Lipid Panel, Standard (02/14/2024 9:24 AM EDT) Triglycerides 94 <150 mg/dL [facility] Comment:Desirable Triglyceri de: less than 150 mg/dLBorderline High Triglyceride 150-199 mg/dLHigh Triglyceride: 200-499 mg/dLVery High Triglyceride: greater than or equal to 5OO mg/dL Cholesterol 181 <200 mg/dL [facility] Comment:Desirable Cholestero l: less than 200 mg/dLBorderline High Cholesterol: 200-239 mg/dLHigh Cholesterol: greater than 239 mg/dL LDL Cholesterol Calculated 105(H) <100 mg/dL [facility] Comment:Desirable LDL: less than 100 mg/dLNear Optimal/Above Optimal LDL: 110- 129 mg/dLBorderline High LDL: 130-159 mg/dLHigh LDL: 160-189 mg/dLVery High LDL: greater than or equal to 190 mg/dL HDL Cholesterol 58 >40 mg/dL [facility] Comment:Desirable HDL: great er than 40 mg/dL Note: This HDL assay may give artificially low results in patients with liver disease. Blood Venous blood specimen / Unknown 02/14/2024 9:24 AM EDT 02/14/2024 9:24 AM EDT Stephanie ESPINOSA LAB BLOOD ORDERABLES Final Resul t Performing Organization Address [facility]/ZIP Co de Phone Number [facility] [address] [place] [address] [phone] * HPV mRNA E6/E7 w/Reflex to HPV Genotypes 16, 18/45 (01/27/2023 10:18 AM EDT) HPV nRNA E6/E7 Not Detected Not Detected [facility] Comment:Methodology: Transcr iption-Mediated AmplificationThis assay detects E6/E7 viral messenger RNA (mRNA) from 14high-risk HPV types (16,18,31,33,35,39,45,51,52,56,58,59,66,68).Cervical sources are required for HPV testing.If a vaginal source from a patient who has had atotal hysterectomy with removal of cervix wassubmitted, please contact the testing laboratoryfor alternative testing options.For additional information, please refer tohttp://education.[employer] Edge/faq/RHN274l7(This link if provided for information/educational purposes only.)THIS TEST WAS PERFORMED AT:[facility] [place] [phone] MORGAN MD HPV mRNA E6/E7 [facility] HPV 16 RNA [facility] HPV 18/45 RNA [facility] 01/27/2023 10:1 8 AM EDT 01/28/2023 12:15 PM EDT Alba Monroy CNM LAB CYTOLOGY ORDERABLES F inal Result Performing Organization Address City/[facility]/ZIP Co de Phone Number [facility] [address] [place] [address] [phone] * Pap Smear (01/27/2023) 01/27/2023 01/28/2023 12: 15 PM EDT [facility] - 02/09/2023 10:04 AM EDT ----- ------- Name: Becky LopezSia Age/Sex: 57/F : 1965 Unit#: [id number] Attend Dr: ALBA MONROY CNM Re01/27/23 Status: DEP [facility] ----- ------- SPEC : [id number] RECD: 01/28/23 STATUS: MARISSA FERNANDEZ NUM: [id number] RASHIDA: 01/27/23- SUBM DR: ALBA MONROY CNM ENTERED: 01/28/23 SP TYPE: Pap Smr OT DR: ORDERED: Pap Smear Interpretation Satisfactory for evaluation. Cytolysis noted. Negative for intraepithelial lesion or malignancy. HPV mRNA E6/E7: NOT DETECTED This assay detects E6/E7 viral messenger RNA (mRNA) from 14 high-risk HPV types (16, 18, 31, 33, 35, 39, 45, 51, 52, 56, 58, 59, 66, 68) HPV testing performed by [facility], [place], [place]. See reference laboratory pion of the EMR for entire report. Clinical Information LMP:Unknown date Previous PAP test:Unknown date/findings Material Received ThinPrep-Vaginal/Cervical ----- ------- Signed (signature on file) MELVA Clemens ([facility]) 02/09/23 1004 ----- ------- END OF REPORT Alba Monroy [facility] LAB CYTOLOGY ORDERABLES F inal Result Performing Organization Address City/[facility]/ZIP Co de Phone Number [facility] [address] [place] [address] [phone] * HEPATITIS C AB W/REFL TO HCV RNA, QN, PCR (07/23/2020 8:16 AM EST) HEPATITIS C ANTIBODY NON-REACT DIANE NON-REACT DIANE [facility] INDEX 0.03 <1.00 [facility] Comment: HCV antibody was non-reactive. There is no laboratory evidence of HCV infection. In most cases, no further action is required. However, if recent HCV exposure is suspected, a test for HCV RNA (test code 86828) is suggested. For additional information please refer to http://education.[employer] Edge/faq/SJL77q5 (This link is being provided for informational/ educational purposes only.) 07/23/2020 8:16 AM EST Historical Provider MD HISTORICAL/NON ORDERABLE LABS Final Result [facility] [address] from Last 3 Months or Most Recently Relevant to Health Maintenance Insurance [address] [place] [phone] [facility] < [address] [place] [phone] [place] [phone] [place] [phone] Care Teams Explosives Engineer Relationship Specialty Start Date End Date Stephanie Markham ANP [address] [place] [phone] PCP - General Family Medicine 05/05/22
--- OUTSIDE RECORDS SUMMARY | 2025-01-25 16:29 | XMS_ITS | Encounter Summary ---
Author Organization [employer] Address [address] [facility] 7t [place] [address] Care Team Providers Care Wire Weaver Cloth Name Role Phone Angie Edwards Primary Care Provider [phone] Reason for Visit * Reason Comments Med Refill Encounter Details Date Type Department Care Team ([facility] st Contact Info) Description 07/15/2024 Refill [facility] [address] [place] [address] Angie Edwards ANP 230 [place] [address] Type 2 diabetes mellitus with hyperlipidemia (CMS/HCC) [...] 02/02/2025 9:30 AM EDT Clinical Support [facility] [address] [place] [address] 03/26/2025 11:00 AM EDT Office Visit [facility] [address] [place] [address] Angie Edwards ANP 230 [place] [address] documented as of this encounter Visit Diagnoses Diagnosis Type 2 diabetes mellitus with hyperlipidemia (CMS/HCC) Diabetic polyneuropathy associated with type 2 diabetes mellitus (CMS/HCC) documented in this encounter Additional Health Concerns Assessment Noted Time PHQ-9 Depression Total Score: 9 04/07/20 24 10:05 AM EST documented as of this encounter Care Teams Wire Weaver Cloth Relationship Specialty Start Date End Date Angie Edwards ANP [address] [place] [address] PCP - General Family Medicine 05/05/22 documented as of this encounter
--- OUTSIDE RECORDS SUMMARY | 2025-01-25 16:29 | XMS_ITS | Encounter Summary ---
Author Organization [email or web address] Address 75 [facility] 7t [place] [address] Care Team Providers Care Hand Cementer Name Role Phone Angie Edwards Primary Care Provider [phone] Reason for Visit * Reason Comments Med Refill Encounter Details Date Type Department Care Team ([facility] st Contact Info) Description 03/07/2023 Refill [facility] 230 [place], [place] [phone] Angie Edwards ANP 230 [place] [address] Type 2 diabetes mellitus with hyperlipidemia (CMS/HCC) [...] Description 02/02/2025 9:30 AM EDT Clinical Support [address] [address] 03/26/2025 11:00 AM EDT Office Visit [address] [address] Angie Edwards ANP [address] [place] [address] documented as of this encounter Visit Diagnoses Diagnosis Type 2 diabetes mellitus with hyperlipidemia (CMS/HCC) (CMS/HCC) Diabetic polyneuropathy associated with type 2 diabetes mellitus (CMS/HCC) documented in this encounter Care Teams Hand Cementer Relationship Specialty Start Date End Date Angie Edwards ANP [address] [place] [address] PCP - General Family Medicine 05/05/22 documented as of this encounter
--- OUTSIDE RECORDS SUMMARY | 2025-01-25 16:29 | XMS_ITS | Clinical Summary ---
Author Organization [facility] Address [address] [place], [place] [phone] Phone Care Team Providers Care Web Services Developer Name Role Phone Unknown, Unknown Primary Care Provider Odalis khan Social History Tobacco Use Types Packs/Day Years Used Date Smoking Tobacco: Never Assessed Education Answer Date Recorded Are you interested in more education? Not on david e 09/25/2022 Are you concerned about learning? Not on file 09/25/2022 No 09/25/2022 No 09/25/2022 Digital Access Answer Date Recorded No 10/27/2022 No 10/27/2022 No 10/27/2022 Reliable internet access at home? Not on file 10/27/2022 Device with a working camera? Not on file Comments Unknown Sex and Gender Information Value Date Recorded Sex Assigned at Not on file Legal Sex Female 10:16 AM EDT Gender Identity Not on file Sexual Orientation Not on file Plan of Treatment Not on file Medical Devices Not on file Insurance [facility] ONE CARE MEDICARE REPLACEMENT [employer] [id number] CARE MEDICARE REPLACEMENT MEDICARE REPLACEMENT CARE MEDICARE REPLACEMENT CARE MEDICARE REPLACEMENT MEDICARE REPLACEMENT CARE MEDICARE REPLACEMENT [facility] ONE CARE MEDICARE REPLACEMENT Member Subscriber Plan / Payer (Ef fective 2017-Present) Name:Sia Pena Relation to Subscriber:Self Name:Sia Pena Payer ID:[id number] (NAIC) Group ID:Not on file Type:Medicare Address: [address] [facility] CLARE CARE MEDICARE REPLACEMENT Care Teams Web Services Developer Relationship Specialty Start Date End Date Unknown, Unknown, PCP - General 10/26/17 Additional Source Comments The information contained in this document represents components of the legal health record. It is not the complete legal health record.[facility]
--- OUTSIDE RECORDS SUMMARY | 2025-01-25 16:29 | XMS_ITS | Encounter Summary ---
Author Organization [facility] Address [address] [facility] [address] [place] [address] Phone Care Team Providers Care Formula Room Worker Name Role Phone Unknown, Unknown Primary Care Provider Odalis khan Encounter Details Date Type Department Care Team (Late st Contact Info) Description 10/27/2017 Ancillary Orders [facility] [address] [place] [address] [place] [address] Davis Harkins DO [address] [place] [address] Bradycardia Social History Tobacco Use Types Packs/Day [...] encounter Results * Holter Monitor 24 Hours (10/27/2017 8:44 AM EDT) Anatomical Region Laterality Modality Heart Other Narrative 10/27/2017 11:52 AM EDT Holter monitor good quality recorded for 24 hours. Baseline rhythm is sinus with an average heart rate of 47 and a range of 33 during sleep hours to a maximum of 98. There is rare isolated supraventricular and ventricular ectopy. No high-grade dysrhythmia. There are 3 patient activations and 1 labile chest discomfort. There is no change in rate or rhythm with symptoms. 95% of QRS complexes occur during bradycardia. Impression: Holter monitor demonstrating persistent sinus bradycardia with unspecified symptoms and chest discomfort occurring without change in rate or rhythm. Rare isolated ventricular and supraventricular ectopic beats are noted but do not correlate with patient's symptoms. Davis Torin DO CV CARDIAC SERVICES ORDERABLE S Final Result documented in this encounter Visit Diagnoses Diagnosis Bradycardia Other specified cardiac dysrhythmias Bradycardia Other specified cardiac dysrhythmias documented in this encounter Care Teams Formula Room Worker Relationship Specialty Start Date End Date Unknown, Unknown, PCP - General 10/26/17 documented as of this encounter Additional Source Comments The information contained in this document represents components of the legal health record. It is not the complete legal health record.[facility]
--- OUTSIDE RECORDS SUMMARY | 2025-01-25 16:30 | XMS_ITS | Encounter Summary ---
Author Organization [employer] Address [address] [facility] 7t [place] [address] Care Team Providers Care Associate School Psychologist Name Role Phone Angie Edwards Primary Care Provider [phone] Reason for Visit * Reason Comments Med Refill Encounter Details Date Type Department Care Team (Late st Contact Info) Description 12/03/2022 Refill [facility] 230 [place] [address] Angie Edwards ANP 230 [place] [address] Diabetic polyneuropathy associated with type 2 diabetes mellitus (CMS/HCC); Type 2 diabetes mellitus with hyperlipidemia ([facility]/HCC) Social History Tobacco Use Types Packs/Day Years [...] Description 02/02/2025 9:30 AM EDT Clinical Support [facility] [address] [place] [address] 03/26/2025 11:00 AM EDT Office Visit [address] [address] Angie Edwards ANP 230 [place] [address] documented as of this encounter Visit Diagnoses Diagnosis Diabetic polyneuropathy associated with type 2 diabetes mellitus (CMS/HCC) Type 2 diabetes mellitus with hyperlipidemia (CMS/HCC) (CMS/HCC) documented in this encounter Care Teams Associate School Psychologist Relationship Specialty Start Date End Date [place] [address] PCP - General Family Medicine 05/05/22 documented as of this encounter
[2025-01-26 07:22] LABS: Bacterial Vaginosis PCR NEGATIVE (Negative); Candida Group PCR DETECTED (Not Detect); Candida glab krusei PCR DETECTED (Not Detect); Trichomonas vaginalis PCR NOT DETECTED (Not Detect)
== END 2025-01-25 16:22 | disposition home or self-care (01) ==
LOC: HO.HHCLNP 16:21
PROVIDERS: Visit Provider Nurse Practitioner Primary Care
DX: N89.8 Other specified noninflammatory disorders of vagina (principal); R30.0 Dysuria
CPT/HCPCS: 81515; 87086

== ENCOUNTER 2025-02-09 08:04 | Outpatient (REF) | payer OTHER, SELFPAY ==
--- OUTSIDE RECORDS SUMMARY | 2025-02-02 09:20 | XMS_ITS ---
Demographics Address [address] [place] [address] A PT [address] [place] [address] Preferred Language Unknown Marital Status Unknown Confucianist Affiliation Unknown Race Unknown Ethnic Group Unknown Author Organization [facility] Address [address] [place] [address] Care Team Providers Care Channel Machine Operator Name Role Phone STEPHANIE MRAKHAM N.P. Primary Care Provider Dinesh Tristan [phone] REASON FOR VISIT Patient presents today for CHRONIC ABDOMINAL PAIN Encounters Encounter Location Date Provider Diagnosis [facility] [address] [place] [address] 02/02/2025 Dinesh Dawkins Plan Of Treatment No Information Progress Notes * STONE ROSARIO EDOB:1965 (59 yo F)Acc No.[id number]:02/02/2025 Progress Notes Patient: STONE LEÓN Provider: Sierra Dawkins MD :1965 A ge:59 Y S ex:Female Date:02/02/2025 Address:[address] [place] [address] [address] PT [address], [id number] Pcp:STEPHANIE MARKHAM N.P. Subjective: * Chief Complaints: [...] Date: 02/02/2025 Generated for Mike hernandez/Sherri/eTransmitting on: 02/09/2025 08:20 AM EDT
--- OUTSIDE RECORDS SUMMARY | 2025-02-09 08:21 | XMS_ITS | Encounter Summary ---
Author Organization [employer] Address [address] [facility] 7t [place] [address] Care Team Providers Care Legal Compliance Officer Name Role Phone Angie Edwards Primary Care Provider [phone] Reason for Visit * Reason Comments Med Refill Encounter Details Date Type Department Care Team ([facility] st Contact Info) Description 02/04/2025 Refill [facility] 230 [place] [address] Angie Edwards ANP 230 [place] [address] Social History Tobacco Use Types Packs/Day Years [...] Care Team (Late st Contact Info) Description 03/09/2025 9:30 AM EDT Clinical Support [facility] [address] [place] [address] 03/26/2025 11:00 AM EDT Office Visit [facility] [address] [place] [address] Angie Edwards ANP 230 [place] [address] documented as of this encounter Visit Diagnoses Not on filedocumented in this encounter Additional Health Concerns Assessment Noted Time PHQ-9 Depression Total Score: 9 04/07/20 24 10:05 AM EST documented as of this encounter Care Teams Legal Compliance Officer Relationship Specialty Start Date End Date Angie Edwards ANP [address] [place] [address] PCP - General Family Medicine 05/05/22 documented as of this encounter
--- OUTSIDE RECORDS SUMMARY | 2025-02-09 08:21 | XMS_ITS | Encounter Summary ---
Author Organization [facility] Address [address] [facility] [address] [place] [address] Phone Care Team Providers Care Job Setter Honing Name Role Phone Unknown, Unknown Primary Care Provider Odalis khan Encounter Details Date Type Department Care Team (Late st Contact Info) Description 10/27/2017 Ancillary Orders [facility] [address] [place] [address] [place] [address] Davis Harkins DO [address] [place] [address] Bradycardia Social History Tobacco Use Types Packs/Day [...] dysrhythmias documented in this encounter Care Teams Job Setter Honing Relationship Specialty Start Date End Date Unknown, Unknown, PCP - General 10/26/17 documented as of this encounter Additional Source Comments The information contained in this document represents components of the legal health record. It is not the complete legal health record.[facility]
--- OUTSIDE RECORDS SUMMARY | 2025-02-09 08:21 | XMS_ITS | Encounter Summary ---
Author Organization [facility] Address [address] [facility] 7t [place] [address] Care Team Providers Care Inspector And Clipper Name Role Phone Angie Edwards Primary Care Provider [phone] Encounter Details Date Type Department Care Team ([facility] Contact Info) Description 05/05/[address] [address] Provider, MD Emy Social History Tobacco Use [...] Description 03/09/2025 9:30 AM EDT Clinical Support [address] [address] 03/26/2025 11:00 AM EDT Office Visit [facility] [address] [place] [address] Angie Edwards ANP 230 [place] [address] documented as of this encounter Visit Diagnoses Not on filedocumented in this encounter Care Teams Inspector And Clipper Relationship Specialty Start Date End Date Angie Edwards ANP 230 [place] [address] PCP - General Family Medicine 05/05/22 documented as of this encounter
--- OUTSIDE RECORDS SUMMARY | 2025-02-09 08:21 | XMS_ITS | Encounter Summary ---
Author Organization [facility] Address [address] [facility] [address] [place] [address] Phone Care Team Providers Care Box Car Loader Name Role Phone Unknown, Unknown Primary Care Provider Odlais khan Encounter Details Date Type Department Care Team (Late st Contact Info) Description 12/29/2017 Ancillary Orders [facility] [address] [place] [address] [place] [address] Davis Harkins DO [address] [place] [address] Bradycardia Social History Tobacco Use Types Packs/Day [...] bpm consistent with sinus node disease. Davis Harikns DO CV CARDIAC SERVICES ORDERABLE S Final Result documented in this encounter Visit Diagnoses Diagnosis Bradycardia Other specified cardiac dysrhythmias Bradycardia Other specified cardiac dysrhythmias documented in this encounter Care Teams Box Car Loader Relationship Specialty Start Date End Date Unknown, Unknown, PCP - General 10/26/17 documented as of this encounter Additional Source Comments The information contained in this document represents components of the legal health record. It is not the complete legal health record.[facility]
--- OUTSIDE RECORDS SUMMARY | 2025-02-09 08:21 | XMS_ITS | Encounter Summary ---
Author Organization [employer] Address [address] [facility] 7t [place] [address] Care Team Providers Care Clamp Forklift Operator Name Role Phone Angie Edwards Primary Care Provider [phone] Reason for Visit * Reason Comments Med Refill Encounter Details Date Type Department Care Team ([facility] st Contact Info) Description 03/07/2023 Refill [facility] MED[facility]INE 230 [place], [place] [phone] Angie Edwards ANP 230 [place] [address] Type 2 diabetes mellitus with hyperlipidemia (CMS/HCC) [...] Description 03/09/2025 9:30 AM EDT Clinical Support [address] [address] 03/26/2025 11:00 AM EDT Office Visit [address] [address] Angie Edwards ANP [address] [place] [address] documented as of this encounter Visit Diagnoses Diagnosis Type 2 diabetes mellitus with hyperlipidemia (CMS/HCC) (CMS/HCC) Diabetic polyneuropathy associated with type 2 diabetes mellitus (CMS/HCC) documented in this encounter Care Teams Clamp Forklift Operator Relationship Specialty Start Date End Date Angie Edwards ANP [address] [place] [address] PCP - General Family Medicine 05/05/22 documented as of this encounter
--- OUTSIDE RECORDS SUMMARY | 2025-02-09 08:21 | XMS_ITS | Encounter Summary ---
Author Organization [employer] Address [address] [facility] 7t [place] [address] Care Team Providers Care Safemaker Name Role Phone Angie Edwards Primary Care Provider [phone] Reason for Visit * Reason Comments Med Refill Encounter Details Date Type Department Care Team (Late st Contact Info) Description 12/16/2022 Refill [facility] [address] [place] [phone] Angie Edwards ANP 230 [place] [address] Diabetic polyneuropathy associated with type 2 diabetes mellitus (CMS/HCC); Type 2 diabetes mellitus with hyperlipidemia ([facility]) Social History Tobacco Use Types Packs/Day [...] Description 03/09/2025 9:30 AM EDT Clinical Support [address] [phone] 03/26/2025 11:00 AM EDT Office Visit [address] [address] Angie Edwards ANP 230 [place] [address] documented as of this encounter Visit Diagnoses Diagnosis Diabetic polyneuropathy associated with type 2 diabetes mellitus (CMS/HCC) Type 2 diabetes mellitus with hyperlipidemia (CMS/HCC) (CMS/HCC) documented in this encounter Care Teams Safemaker Relationship Specialty Start Date End Date Angie Edwards ANP 230 [place] [address] PCP - General Family Medicine 05/05/22 documented as of this encounter
--- OUTSIDE RECORDS SUMMARY | 2025-02-09 08:21 | XMS_ITS | Encounter Summary ---
Author Organization [employer] Address [address] [facility] 7t [place] [address] Care Team Providers Care Waist Presser Name Role Phone Angie Edwards Primary Care Provider [phone] Reason for Visit * Reason Comments Med Refill Encounter Details Date Type Department Care Team ([facility] st Contact Info) Description 01/07/2025 Refill [facility] 230 [place] [address] Angie Edwards ANP 230 [place] [address] Type 2 diabetes mellitus with hyperlipidemia (CMS/HCC) [...] Description 03/09/2025 9:30 AM EDT Clinical Support [facility] [address] [place] [address] 03/26/2025 11:00 AM EDT Office Visit [facility] [address] [place] [address] Angie Edwards ANP [address] [place] [address] documented as of this encounter Visit Diagnoses Diagnosis Type 2 diabetes mellitus with hyperlipidemia (CMS/HCC) Diabetic polyneuropathy associated with type 2 diabetes mellitus (CMS/HCC) documented in this encounter Additional Health Concerns Assessment Noted Time PHQ-9 Depression Total Score: 9 04/07/20 24 10:05 AM EST documented as of this encounter Care Teams Waist Presser Relationship Specialty Start Date End Date Angie Edwards ANP [address] [place] [address] PCP - General Family Medicine 05/05/22 documented as of this encounter
--- OUTSIDE RECORDS SUMMARY | 2025-02-09 08:21 | XMS_ITS | Encounter Summary ---
Author Organization [employer] Address [address] [facility] 7t [place] [address] Care Team Providers Care Journeyman Plumber Name Role Phone Angie Edwards Primary Care Provider [phone] Reason for Visit * Reason Comments Med Refill Encounter Details Date Type Department Care Team ([facility] st Contact Info) Description 07/15/[address] [facility] MEDICINE 230 [place] [address] Angie Edwards ANP 230 [place] [address] Type 2 diabetes mellitus with hyperlipidemia (CMS/HCC) [...] Description 03/09/2025 9:30 AM EDT Clinical Support [facility] [address] [place] [address] 03/26/2025 11:00 AM EDT Office Visit [facility] [address] [place] [address] Angie Edwards ANP 230 [place] [address] documented as of this encounter Visit Diagnoses Diagnosis Type 2 diabetes mellitus with hyperlipidemia (CMS/HCC) Diabetic polyneuropathy associated with type 2 diabetes mellitus (CMS/HCC) documented in this encounter Additional Health Concerns Assessment Noted Time PHQ-9 Depression Total Score: 9 04/07/20 24 10:05 AM EST documented as of this encounter Care Teams Journeyman Plumber Relationship Specialty Start Date End Date Angie Edwards ANP [address] [place] [address] PCP - General Family Medicine 05/05/22 documented as of this encounter
--- OUTSIDE RECORDS SUMMARY | 2025-02-09 08:21 | XMS_ITS | Clinical Summary ---
Author Organization [facility] Address [address] [place], [place] [phone] Phone Care Team Providers Care Gum Puller Name Role Phone Unknown, Unknown Primary Care [...] file Medical Devices Not on file Insurance [facility] ONE CARE MEDICARE REPLACEMENT [employer] [id number] CARE MEDICARE REPLACEMENT MEDICARE REPLACEMENT CARE MEDICARE REPLACEMENT CARE MEDICARE REPLACEMENT MEDICARE REPLACEMENT CARE MEDICARE REPLACEMENT [facility] ONE CARE MEDICARE REPLACEMENT Member Subscriber Plan / Payer (Ef fective 2017-Present) Name:Sia Pena Relation to Subscriber:Self Name:Sia Pena Payer ID:[id number] (NAIC) Group ID:Not on file Type:Medicare Address: [address] [facility] CARE MEDICARE REPLACEMENT Care Teams Gum Puller Relationship Specialty Start Date End Date Unknown, Unknown, PCP - General 10/26/17 Additional Source Comments The information contained in this document represents components of the legal health record. It is not the complete legal health record.[facility]
--- OUTSIDE RECORDS SUMMARY | 2025-02-09 08:21 | XMS_ITS | Encounter Summary ---
Demographics Address [address] [facility] [place] [address] Mobile Phone Home Phone Preferred Language es Marital Status Single Sabianist Affiliation Unknown Race Other Race Ethnic Group Unknown Author Organization [employer] Address [address] [facility] 7[address] [place] [address] Care Team Providers Care Seed Laboratory Technician Name Role Phone Angie Edwards Primary Care Provider [phone] Reason for Visit * Reason Comments Med Refill Encounter Details Date Type Department Care Team ([facility] st Contact Info) Description 10/25/2024 Refill [facility] [address] [place] [address] Angie Edwards ANP [address] [place] [address] Type 2 diabetes mellitus with hypoglycemia without coma, with long-term current use of insulin ([facility]) Social History Tobacco Use Types Packs/Day Years [...] Description 03/09/2025 9:30 AM EDT Clinical Support [facility] [address] [place] [phone] 03/26/2025 11:00 AM EDT Office Visit [facility] [address] [place] [phone] Angie Edwards ANP [address] [place] [phone] documented as of this encounter Visit Diagnoses Diagnosis Type 2 diabetes mellitus with hypoglycemia without coma, with long-term current use of insulin ([facility]) documented in this encounter Additional Health Concerns Assessment Noted Time PHQ-9 Depression Total Score: 9 04/07/20 24 10:05 AM EST documented as of this encounter Care Teams Seed Laboratory Technician Relationship Specialty Start Date End Date Angie Edwards ANP [address] [place] [phone] PCP - General Family Medicine 05/05/22 documented as of this encounter
--- OUTSIDE RECORDS SUMMARY | 2025-02-09 08:21 | XMS_ITS | Patient Health Record ---
Demographics Address [address] [facility] [address] [place] [address] Preferred Language Unknown Marital Status Unknown Mormon Affiliation Unknown Race Unknown Ethnic Group Unknown Author Organization [facility] Address [address] [place] [address] Care Team Providers Care Risk Specialist Name Role Phone STEPHANIE MARKHAM N.P. Primary Care Provider Dinesh Tristan [phone] Reason For Referral No Information Encounters Encounter Location Date Provider Diagnosis [facility] [address] [facility] [address] [place] [phone] 02/02/2025 Dinesh Dawkins Plan Of Treatment No Information Insurance Providers Payer Name Payer Address Payer Phone Subscriber Number Group Number Insured Name Patient Relationship to Insured Coverage Start Date Coverage End Date [facility] [place] [address] Attn Claims TURNER Olivier [id number] STONE ROSARIO Self - patient is the insured
--- OUTSIDE RECORDS SUMMARY | 2025-02-09 08:21 | XMS_ITS | Encounter Summary ---
Author Organization [employer] Address [address] [facility] 7[address] [place] [address] Care Team Providers Care Bistro Server Name Role Phone Angie Edwards Primary Care Provider [phone] Reason for Visit * Reason Comments Med Refill Encounter Details Date Type Department Care Team ([facility] st Contact Info) Description 01/21/2024 Refill [facility] [address] [place], [place] [phone] Angie Edwards ANP [address] [place] [address] Type 2 diabetes mellitus with hyperlipidemia (CMS/HCC) [...] Description 03/09/2025 9:30 AM EDT Clinical Support [facility] [address] [place] [phone] 03/26/2025 11:00 AM EDT Office Visit [facility] [address] [place] [phone] Angie Edwards ANP [address] [place] [phone] documented as of this encounter Visit Diagnoses Diagnosis Type 2 diabetes mellitus with hyperlipidemia (CMS/HCC) (CMS/HCC) Diabetic polyneuropathy associated with type 2 diabetes mellitus (CMS/HCC) documented in this encounter Additional Health Concerns Assessment Noted Time PHQ-9 Depression Total Score: 20 024 9:36 AM EDT documented as of this encounter Care Teams Bistro Server Relationship Specialty Start Date End Date Angie Edwards ANP [address] [place] [phone] PCP - General Family Medicine 05/05/22 documented as of this encounter
--- OUTSIDE RECORDS SUMMARY | 2025-02-09 08:21 | XMS_ITS | Clinical Summary ---
Author Organization [employer] Address [address] [facility] 7t [place] [address] Care Team Providers Care Wet Pan Operator Name Role Phone Stephanie Markham Primary Care Provider [phone] Allergies Active Allergy Reactions Criticality Noted Date Comments Dulaglutide 04/21/2021 Other reaction(s): Rash, Rash Penicillins Anaphylaxis High 05/05/2022 Medications * This document contains information received from the source organization and may not represent a complete record from that organization. Blood Pressure kitIndications:Hy pertension associated with type 2 diabetes mellitus ([facility]) 1 kit in the morning. 1 kit [...] ype 2 diabetes mellitus with hyperlipidemia (CMS/HCC) ([facility]) TEST BLOOD SUGAR FOUR TIMES DAILY 300 each 8 023 Active glucose blood (FREESTYLE LITE) test stripIndications: Diabetic polyneuropathy associated with type 2 diabetes mellitus ([facility]) Check BG 4x daily or more as needed 200 each 023 Active glucose 4 g chewable tabletIndications :Type 2 diabetes mellitus with hypoglycemia without coma, with long-term current use of insulin ([facility]) CHEW 4 TABLETS NEEDED FOR LOW BLOOD [...] 1 each 024 Active Continuous Blood Gluc Dynamics Ax Consultant (FreeStyle Ata 2 Murdock) deviceIndications :Type 2 diabetes mellitus with hypoglycemia without coma, with long-term current use of insulin ([facility]) Use to check blood sugar 4x/d and more if symptomatic 1 each 024 Active glucagon (Baqsimi) 3 MG/DOSE nasal powderIndications :Type 2 diabetes mellitus with hypoglycemia without coma, with long-term current use of insulin ([facility]) Administer 3 mg into affected nostril(s) 1 (one) time if needed for low blood sugar. 2 each 1 024 Active loratadine (Claritin) 10 MG tablet TAKE 1 TABLET BY MOUTH EVERY MORNING 90 tablet 024 Active Ozempic, 1 MG/DOSE, 4 MG/3ML solution pen-injectorIndic ations:Type 2 diabetes mellitus with hyperlipidemia ([facility]/HCC) ([facility]) INJECT 1mg SUBCUTANEOUSLY ONCE WEEKLY DIRECTED 3 [...] 81 mg by mouth at bedtime. Active meloxicam (Mobic) 15 MG tablet Take 1 tablet (15 mg) by mouth Once per day. 30 tablet 025 2025 Active Alcohol Swabs (Alcohol Prep) 70 % pads USE DIRECTED FOUR TIMES DAILY 100 each 11 025 Active lisinopril 40 MG tablet TAKE 1 TABLET BY MOUTH EVERY MORNING 90 tablet 1 025 Active levothyroxine (Synthroid, Levoxyl) 25 MCG tabletIndications :Hypothyroidism, unspecified type TAKE 1 TABLET BY MOUTH EVERY MORNING BEFORE BREAKFAST 30 tablet 025 Active rosuvastatin (Crestor) 40 MG tabletIndications :Type 2 diabetes mellitus with hyperlipidemia ([facility]/HCC) ([facility]) TAKE 1 TABLET BY MOUTH AT BEDTIME 90 tablet 1 025 Active ezetimibe (Zetia) 10 MG tabletIndications :Type 2 diabetes mellitus with hyperlipidemia (CMS/HCC) ([facility]) TAKE 1 TABLET BY MOUTH EVERY MORNING 90 tablet 1 025 Active D3 Super Strength 50 MCG (1999 [place]) capsuleIndication s:Vitamin D deficiency TAKE 1 CAPSULE BY MOUTH EVERY MORNING 90 capsule 025 Active Jardiance 25 MGIndications:Typ e 2 diabetes mellitus with diabetic polyneuropathy, with long-term current use of insulin ([facility]) TAKE 1 TABLET BY MOUTH EVERY MORNING 90 tablet 025 Active Multiple Vitamins-Iron (Tab-A-Cristobal/Iron) tabletIndications :Type 2 diabetes mellitus with hyperlipidemia (CMS/HCC) ([facility]/HCC) TAKE 1 TABLET BY MOUTH EVERY MORNING 90 tablet 025 Active gabapentin (Neurontin) 100 MG capsuleIndication s:Type 2 diabetes mellitus with hyperlipidemia (CMS/HCC) ([facility]),Diabeti c polyneuropathy associated with type 2 diabetes mellitus (CMS/HCC) TAKE 2 CAPSULES BY MOUTH THREE TIMES DAILY IN THE MORNING, EVENING AND BEDTIME 180 capsule 2 025 Active Continuous Glucose Sensor (FreeStyle Ata 2 Sensor) miscIndications:T ype 2 diabetes mellitus with hypoglycemia without coma, with long-term current use of insulin ([facility]) USE DIRECTED TO TEST BLOOD SUGAR CHANGE EVERY 14 DAYS 2 each 3 025 Active Repatha SureClick 140 MG/ML injection 025 Active isosorbide mononitrate ER (Imdur) 30 MG 24 hr tablet Take 30 mg by mouth Once per day. 025 Active fluconazole (Diflucan) 150 MG tabletIndications :Vaginal yeast infection Take 1 tablet now, repeat 72 hours later 2 tablet 025 Active fenofibrate (Tricor) 54 MG tablet TAKE 1 TABLET BY MOUTH AT BEDTIME 90 tablet 1 025 Active fenofibrate (Tricor) 54 MG tablet TAKE 1 TABLET BY MOUTH AT BEDTIME 90 tablet 1 025 2024 Discontinued gabapentin (Neurontin) 100 MG capsuleIndication s:Type 2 diabetes mellitus with hyperlipidemia (CMS/HCC) ([facility]),Diabeti c polyneuropathy associated with type 2 diabetes mellitus ([facility]/HCC) TAKE 2 CAPSULES BY MOUTH THREE TIMES DAILY IN THE MORNING, EVENING AND BEDTIME 180 capsule 2 025 2024 Discontinued Continuous Glucose Sensor (FreeStyle Ata 2 Sensor) miscIndications:T ype 2 diabetes mellitus with hypoglycemia without coma, with long-term current use of insulin ([facility]) USE DIRECTED TO TEST BLOOD SUGAR CHANGE [...] Encounters Date Type Department Care Team Description 02/04/[address] [address] Stephanie Markham ANP 02/02/2025 9:30 AM EDT Clinical Support [address] [address] Cony Neville RN Type 2 diabetes mellitus with hyperlipidemia (CMS/HCC) ([facility]) 02/02/2025 Travel 01/30/2025 Results Follow-Up [address] [address] Stephanie Markham ANP POCT Glucose, POCT HGB A1C, Bacterial Vaginosis Panel, POCT urinalysis dipstick manually resulted 01/25/2025 11:00 AM EDT Office Visit [address] [address] Stephanie Markham ANP Vaginal itching (Primary Dx); Diabetic polyneuropathy associated with type 2 diabetes mellitus ([facility]/HCC); Need for hepatitis B screening test; Dysuria; Chest pain, unspecified type; Fatigue, unspecified type 01/25/2025 Orders Only [address] [address] Stephanie Markham ANP 01/25/2025 Travel 01/19/2025 Refill [facility] [place] [address] Stephanie Markham ANP Type 2 diabetes mellitus with hypoglycemia without coma, with long-term current use of insulin ([facility]/HCC) 01/12/[address] [address] Stephanie Markham ANP Type 2 diabetes mellitus with hyperlipidemia ([facility]/HCC) ; Diabetic polyneuropathy associated with type 2 diabetes mellitus (CMS/HCC) 01/07/2025 Refill [facility] [address] [place] [address] Stephanie Markham ANP Type 2 diabetes mellitus with hyperlipidemia ([facility]) ; Diabetic polyneuropathy associated with type 2 diabetes mellitus ([facility]) 12/26/2024 Travel 12/12/2024 Refill [facility] [address] [place] [address] Stephanie Markham ANP Type 2 diabetes mellitus with hyperlipidemia ([facility]) ([facility]) 12/11/2024 Refill [facility] [address] [place] [address] Stephanie Markham ANP Vitamin D deficiency; Type 2 diabetes mellitus with diabetic polyneuropathy, with long-term current use of insulin ([facility]); Type 2 diabetes mellitus with hyperlipidemia ([facility]) ([facility]) 11/28/2024 Orders Only [facility] [address] [place] [phone] Stephanie Markham ANP 11/27/2024 Telephone [facility] [address] [place] [phone] Stephanie Markham ANP No Show 11/14/2024 Telephone [facility] [address] [place] [phone] Meg Huertas RNparking lot laborer 11/09/2024 Telephone [facility] [address] [place] [phone] Stephanie Markham ANP Durable Medical Equipment from Last 3 Months Immunizations Immunization Administration [...] Description 03/09/2025 9:30 AM EDT Clinical Support [facility] [address] [place] [phone] 03/26/2025 11:00 AM EDT Office Visit [facility] [address] [place] [phone] Stephanie Markham, ANP [address] [place] [phone] Health Maintenance Due Date Last Done Comments [...] Procedure Name Priority Date/Time Associated Diagnosis Comments AMB REFERRAL TO GASTROENTEROLOGY Routine 02/02/2025 Chronic abdominal pain ECG 12-LEAD Routine 01/25/2025 5:23 PM EDT Chest pain, unspecified type POCT URINALYSIS DIPSTICK Routine 01/25/2025 11:38 AM EDT Vaginal itching CULTURE, URINE, ROUTINE Routine 01/26/20 11:07 AM EDT BACTERIAL VAGINOSIS PANEL Routine 01/25/2025 11:07 AM EDT Vaginal itching POCT GLYCATED HEMOGLOBIN, TOTAL Routine 01/25/2025 10:44 AM EDT Diabetic polyneuropathy associated with type 2 diabetes mellitus (CMS/HCC) POCT GLUCOSE Routine 01/25/2025 10:39 AM EDT Diabetic polyneuropathy associated with type 2 diabetes mellitus (CMS/HCC) BI MAMMOGRAM SCREENING TOMOSYNTHESIS BILATERAL Routine 11/28/2024 9:15 AM EDT ALBUMIN, RANDOM URINE W/CREATININE Routine 07/27/2024 10:30 [...] Recently Relevant to Health Maintenance Results * Referral to Gastroenterology (02/02/2025) us Stephanie ESPINOSA OUTPATIENT REFERRAL ORDERABLES F inal Result * ECG 12 lead (01/25/2025 5:23 PM EDT) Narrative Stephanie Markham ANP - 01/25/2025 5:23 PM EDT HR 51, SC 104, QTc 449, EKG sinus daryl, good r-wave progression, no t-wave abn us Stephanie ESPINOSA ECG ORDERABLES Edited Result - Final * (ABNORMAL) POCT urinalysis dipstick manually resulted [...] Media Lot # [id number] Lot# Expiration Date [id number] Urine 01/25/2025 11:3 8 AM EDT us Stephanie ESPINOSA POINT OF CARE TEST ENTER/EDIT OR DERABLES Final Result * (ABNORMAL) Bacterial Vaginosis Panel (01/25/2025 11:07 AM EDT) TRICHOMONAS VAGINALIS DETECTION BY PCR NOT DETECTED Not Detect [facility] BACTERIAL VAGINOSIS DETECTION BY PCR NEGATIVE Negative [facility] Comment:The BV organism targ ets [...] of 14. FLORES GROUP DETECTION BY PCR DETECTED(A) Not Detect [facility] Flores glab krusei PCR DETECTED(A) Not Detect [facility] Swab Vaginal structure / Unknown 01/25/2025 11:07 AM EDT 01/25/2025 4:23 PM EDT Stephanie Markham [facility] MICROBIOLOGY - GENERAL ORDER DANISHA Final Result Performing Organization Address [facility]/ZIP Co de Phone Number [facility] [address] [place] [phone] * Culture, Urine, Routine (01/25/2025 11:07 AM EDT) Urine Urine specimen obtained by clean catch procedure / Unknown 01/25/2025 11:07 AM EDT 01/27/2025 3:28 PM EDT Comment:UACC Narrative [facility] - 01/29/2025 10:19 AM EDT Urine Culture Report Result Urine Culture 10,000 to 50,000 cfu/ml Urine Culture Mixed bacterial janie characteristic of Urine Culture urogenital contamination. Specimen Source: Urine clean catch Stephanie Markham [facility] MICROBIOLOGY - GENERAL ORDER DANISHA Final Result Performing Organization Address [facility]/ZIP Co de Phone Number [facility] [address] [place] [phone] * (ABNORMAL) POCT HGB A1C (01/25/2025 10:44 AM EDT) Hemoglobin A1C 9.1(A) 4.0 - 5.7 % QC Media Lot # [id number] Lot# Expiration Date Blood 01/25/2025 10:4 4 AM EDT Stephanie Markham ANP POINT OF CARE TEST ENTER/EDIT OR DERABLES Final Result * POCT Glucose (01/25/2025 10:39 AM EDT) Glucose Blood, POC 146 60 - 200 mg/dL QC Media Lot # [id number] Lot# Expiration Date [id number] Blood Capillary blood specimen / Unknown 01/25/2025 10:39 AM EDT Stephanie Markham ANP POINT OF CARE TEST ENTER/EDIT OR DERABLES Edited Result - Final * BI Mammogram Screening Tomosynthesis Bilateral (11/28/2024 9:15 AM EDT) Anatomical Region Laterality Modality Breast Bilateral Mammography 11/28/2024 9:15 AM EDT Narrative 12/10/2024 2:45 PM EDT [facility] [address] [place] [address] Mammography Report Signed Patient: Sia Tripathi MR#: [id number] : 1965 Acct:[id number] Age/Sex: 59 / F ADM Date: 11/28/24 Loc: .MAMMO Attending Dr: Stephanie Markham NP Ordering Physician: STEPHANIE MARKHAM NP Results: 1Negative Date of Service: 11/28/24 Follow Up: 1 Year From [facility] ina Mammogram Procedure(s): MM tomosynthesis screening BI Accession Number(s): [id number] cc: STEPHANIE MARKHAM NP EXAMINATION: MM SCREENING [...] OV> 12/10/24 1443 DD/ 4 TD/TT: 11/28/24929 Assistant Professor Of Life Sciences: Procedure Note Donotuseinterpreter, Image - 12/10/2024 [facility] [address] [place] [address] Mammography Report Signed Patient: Dara TripathimMR#: [id number] : 1965Acct:[id number] Age/Sex: 59 / FADM Date: 11/28/24 Loc: [facility] Attending Dr: Stephanie Markham NP Ordering Physician: STEPHANIE MARKHAM NPResults: 1Negative Date of Service: 11/28/24Follow Up: 1 Year From Orig inal Mammogram Procedure(s): MM tomosynthesis screening BI Accession Number(s): [id number] cc: STEPHANIE MARKHAM NP EXAMINATION: MM SCREENING [...] Ene Diane DO 12/10/2024 02:43 PM EDT RP Dictated By: Ene Diane DO Signed By: <Electronically signed by Ene Diane DO in OV> 12/10/24 1443 DD/ 0915 TD/TT: 11/28/24 09 Assistant Professor Of Life Sciences: us Stephanie Markham ANP IMG BI PROCEDURES Final Result * Albumin, Random Urine W/Creatinine (07/27/2024 10:30 AM EST) Creatinine, Urine 25.75 mg/dL [facility] Microalbumin Urine <5.0 mg/L [facility] Microalbum Creatinine Ratio Ur TNP <30 ug/mg cr [facility] Comment:Unable to calculate albumin/creatinine ratio due to lowmicroalbumin or creatinine result. Urine (Urine, Random) 07/27/2024 10:30 AM EST 07/27/2024 4:26 PM EST us Stephanie Markham ANP LAB URINE ORDERABLES Final Resul t [facility] [address] [place] [phone] * (ABNORMAL) Lipid Panel, Standard (02/14/2024 9:24 AM EDT) Triglycerides 94 <150 mg/dL [facility] Comment:Desirable Triglyceri de: less than 150 mg/dLBorderline High Triglyceride 150-199 mg/dLHigh Triglyceride: 200-499 mg/dLVery High Triglyceride: greater than or equal to 5OO mg/dL Cholesterol 181 <200 mg/dL [facility] Comment:Desirable Cholestero l: less than 200 mg/dLBorderline High Cholesterol: 200-239 mg/dLHigh Cholesterol: greater than 239 mg/dL LDL Cholesterol Calculated 105(H) <100 mg/dL [facility] Comment:Desirable LDL: less than 100 mg/dLNear Optimal/Above Optimal LDL: 110- 129 mg/dLBorderline High LDL: 130-159 mg/dLHigh LDL: 160-189 mg/dLVery High LDL: greater than or equal to 190 mg/dL HDL Cholesterol 58 >40 mg/dL [facility] Comment:Desirable HDL: great er than 40 mg/dL Note: This HDL assay may give artificially low results in patients with liver disease. Blood Venous blood specimen / Unknown 02/14/2024 9:24 AM EDT 02/14/2024 9:24 AM EDT [facility] BLOOD ORDERABLES Final Resul t [facility] [address] [place] [phone] * HPV mRNA E6/E7 w/Reflex to HPV Genotypes 16, 18/45 (01/27/2023 10:18 AM EDT) HPV nRNA E6/E7 Not Detected Not Detected [facility] Comment:Methodology: Transcr iption-Mediated AmplificationThis assay detects E6/E7 viral messenger RNA (mRNA) from 14high-risk HPV types (16,18,31,33,35,39,45,51,52,56,58,59,66,68).Cervical sources are required for HPV testing.If a vaginal source from a patient who has had atotal hysterectomy with removal of cervix wassubmitted, please contact the testing laboratoryfor alternative testing options.For additional information, please refer tohttp://education.WeGather/faq/IIN660f5(This link if provided for information/educational purposes only.)THIS TEST WAS PERFORMED AT:[facility] [place] [phone] MORGAN MD HPV mRNA E6/E7 TNP [facility] HPV 16 RNA TNP [facility] HPV 18/45 RNA [facility] 01/27/2023 10:1 8 AM EDT 01/28/2023 12:15 PM EDT Alba Monroy CNM LAB CYTOLOGY ORDERABLES F inal Result [facility] [address] [place] [phone] * Pap Smear (01/27/2023) 01/27/2023 01/28/2023 12: 15 PM EDT Narrative [facility] - 02/09/2023 10:04 AM EDT ----- ------- Name: Sia Tripathi Age/Sex: 57/F : 1965 Unit#: [id number] Attend Dr: ALBA MONROY CNM Re01/27/23 Status: DEP [facility] Disch[facility] ----- ------- SPEC : [id number] RECD: 01/28/23 STATUS: MARISSA FERNANDEZ NUM: [id number] RASHIDA: 01/27/23- SUBM DR: ALBA MONROY CNM ENTERED: 01/28/23 SP TYPE: Pap Smr OTHR DR: ORDERED: Pap Smear Interpretation Satisfactory for evaluation. Cytolysis noted. Negative for intraepithelial lesion or malignancy. HPV mRNA E6/E7: NOT DETECTED This assay detects E6/E7 viral messenger RNA (mRNA) from 14 high-risk HPV types (16, 18, 31, 33, 35, 39, 45, 51, 52, 56, 58, 59, 66, 68) HPV testing performed by [facility], [place], [place]. See reference laboratory pion of the EMR for entire report. Clinical Information LMP:Unknown date Previous PAP test:Unknown date/findings Material Received ThinPrep-Vaginal/Cervical ----- ------- Signed (signature on file) MELVA Clemens (ASCP) 02/09/23 1004 ----- ------- END OF REPORT Alba Monroy [facility] CYTOLOGY ORDERABLES F inal Result [facility] [address] [place] [phone] * HEPATITIS C AB W/REFL TO HCV RNA, QN, PCR (07/23/2020 8:16 AM EST) HEPATITIS C ANTIBODY NON-REACT DIANE NON-REACT DIANE [facility] INDEX 0.03 <1.00 [facility] Comment: HCV antibody was non-reactive. There is no laboratory evidence of HCV infection. In most cases, no further action is required. However, if recent HCV exposure is suspected, a test for HCV RNA (test code 40769) is suggested. For additional information please refer to http://[employer].WeGather/faq/XRK01n9 (This link is being provided for informational/ educational purposes only.) 07/23/2020 8:16 AM EST us Historical Provider MD HISTORICAL/NON ORDERABLE LABS Final Result [facility] [address] from Last 3 Months or Most Recently Relevant to Health Maintenance Insurance [address] [place] [id number] [facility] < 67 [employer] [employer] [phone] Care Teams Wet Pan Operator Relationship Specialty Start Date End Date Stephanie Markham ANP [address] [place] [address] PCP - General Family Medicine 05/05/22
--- OUTSIDE RECORDS SUMMARY | 2025-02-09 08:22 | XMS_ITS | Encounter Summary ---
Author Organization [employer] Address [address] [facility] 7t [place] [address] Care Team Providers Care Head Mechanic Name Role Phone Angie Edwards Primary Care Provider [phone] Reason for Visit * Reason Comments Med Refill Encounter Details Date Type Department Care Team (Late Contact Info) Description 12/08/2022 Refill [facility] [address] [place] [address] Angie Edwards ANP [address] [place] [address] Type 2 diabetes mellitus with hyperglycemia (CMS/HCC); intermodal customer service (current) use of insulin (CMS/[facility]) Social History Tobacco Use Types [...] Department Care Team (Late Contact Info) Description 03/09/2025 9:30 AM EDT Clinical Support [address] [address] 03/26/2025 11:00 AM EDT Office Visit [address] [address] Angie Edwards ANP [address] [place] [address] documented as of this encounter Visit Diagnoses Diagnosis Type 2 diabetes mellitus with hyperglycemia (CMS/HCC) assisted (current) use of insulin (CMS/[facility]) documented in this encounter Care Teams Head Mechanic Relationship Specialty Start Date End Date Angie Edwards ANP [address] [place] [phone] PCP - General Family Medicine 05/05/22 documented as of this encounter
--- OUTSIDE RECORDS SUMMARY | 2025-02-09 08:22 | XMS_ITS | Encounter Summary ---
Author Organization [employer] Address [address] [facility] 7t [place] [address] Care Team Providers Care Logistics Analytics Manager Name Role Phone Angie Edwards Primary Care Provider [phone] Reason for Visit * Reason Comments Med Refill Encounter Details Date Type Department Care Team (Late st Contact Info) Description 12/03/2022 Refill [facility] [address] [place] [address] Angie Edwards ANP [address] [place] [address] Diabetic polyneuropathy associated with type 2 diabetes mellitus (CMS/HCC); Type 2 diabetes mellitus with hyperlipidemia ([facility] [...] Description 03/09/2025 9:30 AM EDT Clinical Support [facility] [address] [place] [phone] 03/26/2025 11:00 AM EDT Office Visit [address] [address] Angie Edwards ANP [address] [place] [address] documented as of this encounter Visit Diagnoses Diagnosis Diabetic polyneuropathy associated with type 2 diabetes mellitus (CMS/HCC) Type 2 diabetes mellitus with hyperlipidemia (CMS/HCC) (CMS/HCC) documented in this encounter Care Teams Logistics Analytics Manager Relationship Specialty Start Date End Date Angie Edwards [place] [address] PCP - General Family Medicine 05/05/22 documented as of this encounter
[2025-02-09 08:25] LABS: MANUAL DIFF FLAG NO
[2025-02-09 09:39] LABS: Hematocrit 38.7 % (37.0-47.0); Hemoglobin 12.3 g/dl (12.0-16.0); Imm Gran Abs Auto 0.04 X10*3/uL (0.00-0.03); Imm Gran Pct Auto 0.5 % (0.0-0.4); Lymphocytes Absolute Auto 2.6 X10*3/uL (1.2-4.9); Mean Corpuscular HGB Conc 31.8 g/dl (31.0-35.0); Mean Corpuscular Hemoglobin 28.8 pg (27.0-33.0); Mean Corpuscular Volume 90.6 fL (80.0-98.0); NRBC Abs Auto 0.000 X10*3/uL (0.0-0.012); NRBC Pct Auto 0.0 /100WBC (0.0-0.2); Platelet Count 320 X10*3/uL (160-400); Red Blood Count 4.27 X10*6/uL (4.20-5.50); White Blood Count 7.7 X10*3/uL (4.8-10.8)
[2025-02-09 10:17] LABS: Alanine Aminotransferase 28 U/L (0-31); Albumin Level 3.8 g/dL (3.5-5.0); Alkaline Phosphatase 90 U/L (39-117); Anion Gap 13 (12-20); Aspartate Amino Transferase 23 U/L (5-31); Blood Urea Nitrogen 17 mg/dL (9-16); Calcium 8.8 mg/dL (8.4-10.2); Carbon Dioxide 23 mmol/L (22-29); Chloride 106 mmol/L (96-108); Cholesterol 230 mg/dL (<200); Estimated Glomerular Filt Rate > 60; HDL Cholesterol 47 mg/dL (>40); Potassium 3.7 mmol/L (3.3-5.1); Sodium 138 mmol/L (135-145); Total Protein 7.0 g/dL (6.5-8.0); Triglycerides 246 mg/dL (<150)
[2025-02-09 10:23] LABS: Hemoglobin A1C 240.1923 umol/L; Total Hemoglobin (HGBA1C) 3166.8214 umol/L
[2025-02-09 10:30] LABS: HBS Num1 456.39 mIU/mL (0-7.99); HBc Num1 0.09 S/CO (0.00-0.79); HBsAGNum1 0.34 S/CO (0.00-0.99); Hepatitis B Surface Antigen Negative (Negative); ~Hepatitis B Surface Antibody REACTIVE (Nonreactive)
[2025-02-09 11:01] LABS: Appearance Urine Clear; Glucose Urine UA >=1000 mg/dL (Negative); PH 5.0 (5.0-9.0); Specific Gravity - Urine >= 1.030 (1.005-1.025); UMIC TRIGGER UACC YES
== END 2025-02-09 08:05 | disposition home or self-care (01) ==
LOC: HO.LAB 08:04
PROVIDERS: PCP Nurse Practitioner Primary Care; Visit Provider Nurse Practitioner Family
DX: Z11.59 Encounter for screening for other viral diseases (principal); E11.42 Type 2 diabetes mellitus with diabetic polyneuropathy; R30.0 Dysuria; R53.83 Other fatigue
CPT/HCPCS: 36415; 80053; 80061; 81001; 82043; 82570; 83036; 84443; 85025; 86704; 86706; 87340

== ENCOUNTER 2025-02-15 09:14 | Outpatient (AMB) | payer OTHER, SELFPAY ==
--- OUTSIDE RECORDS SUMMARY | 2025-02-02 09:20 | XMS_ITS ---
Demographics Address [address] [place] [address] A PT [address] [place] [address] Preferred Language Unknown Marital Status Unknown Rastafari Affiliation Unknown Race Unknown Ethnic Group Unknown Author Organization [facility] Address [address] [place] [address] Care Team Providers Care Material Attendant Name Role Phone STEPHANIE MARKHAM N.P. Primary Care Provider Dinesh Tristan [phone] REASON FOR VISIT Patient presents today for CHRONIC ABDOMINAL PAIN Encounters Encounter Location Date Provider Diagnosis [facility] [address] [place] [address] 02/02/2025 Dinesh Dawkins Plan Of Treatment No Information Progress Notes * STONE ROSARIO EDOB:1965 (59 yo F)Acc No.[id number]:02/02/2025 Progress Notes Patient: STONE LEÓN Provider: Sierra Dawkins MD :1965 A ge:59 Y S ex:Female Date:02/02/2025 Address:[address] [place] [address] [address], [place] Pcp:STEPHANIE MARKHAM N.P. Subjective: * Chief Complaints: * 1 . Patient presents today for CHRONIC ABDOMINAL PAIN. * Medical History: Objective: * Vitals: Assessment: Plan: * Treatment: * * The named appointment provid er may or may not be the originator of this progress note, and it is not deemed complete until electronically signed by the appointment provider. Sign off status: Pending * Provider: Sierra Dawkins MD Date: 02/02/2025 Generated for Mike hernandez/Sherri/eTransmitting on: 02/15/2025 10:43 AM EDT
--- NOTE | 2025-02-15 09:23 | A.OFFVIS_ITS ---
Vital Signs 02/15/25 09:25 Height 5 ft Weight 232 lb 5.875 oz BMI 45.4 BP 120/62 Blood Pressure Location Lt brachial Position Sitting Pulse 55 Pulse Source Pulse Oximeter Intake Visit Reasons: 6m follow up Intake Note: 6mth f/up Fire Protection Equipment Technician Required: Yes Fire Protection Equipment Technician Language: Conservation Agent Name: [email or web address] Accompanied by: Self / Same As Patient Allergies Penicillins Allergy (Severe, Verified 11/21/24 09:03) analphylaxis dulaglutide ([facility] Allergy (Unknown, Verified 11/21/24 09:03) Rash potassium Allergy (Unknown, Verified 11/21/24 09:03) Itching SHELLFISH Allergy (Unknown, Uncoded 09/08/24 09:53) HIVES Medication List - Last Reconciled 02/15/25 by Conchita Kennedy NP-C alcohol swabs 0 pad topical amlodipine 5 mg PO QAM aspirin 81 mg PO QPM blood sugar diagnostic As directed blood sugar diagnostic (FreeStyle Lite Strips) four times a day blood-glucose meter (FreeStyle [place] Lite kit) 4 times a day bupropion HCl SR 150 mg PO BID cholecalciferol (vitamin D3) 50 mcg PO DAILY cyclobenzaprine 5 mg PO TID PRN empagliflozin (Jardiance) 25 mg PO QAM evolocumab (Repatha SureClick) 140 mg subcut Q2W ezetimibe 10 mg PO QAM fenofibrate 54 mg PO DAILY fluoxetine 40 mg PO DAILY fluticasone propionate 220 mcg/actuation (Flovent HFA) 1 puff PO BID gabapentin 400 mg PO TID glucose (TRUEplus Glucose) 16 grams PO ibuprofen 600 mg PO Q6H PRN insulin aspart U-100 (Novolog FlexPen U-100 Insulin aspart) 6 - 12 units (0.06 - 0.12 mL) subcut TID ipratropium-albuterol 0.5 mg-3 mg(2.5 mg base)/3 mL mL inhalation isosorbide mononitrate ER 30 mg PO QAM lancets As directed lancets (TRUEplus Lancets) 1 gauge miscellaneous QID levothyroxine 25 mcg PO DAILY lisinopril 40 mg PO QAM multivit-iron sulf-folic acid 15 mg iron- 400 mcg (Tab-A-Cristobal Multivitamin w- iron) 1 tab PO QAM omeprazole 20 mg PO DAILY pen needle, diabetic As directed pen needle, diabetic (BD Ultra-Fine Sirena Pen Needle) As directed four times a day polyethylene glycol 3350 (Miralax) 17 grams PO DAILY prednisone 40 mg (2 x 20 mg) PO DAILY 4 days rosuvastatin 40 mg PO DAILY semaglutide (Ozempic) mg subcut trazodone 100 mg PO BEDTIME PRN HPI HPI 6m follow up: Details: Audelia is a 59-year-old female with past medical history of hypertension, hyperlipidemia, diabetes, morbid obesity, nonobstructive CAD who presents for follow-up. Today she reports that she still gets random sharp pains in her left chest that she describes as pinching. This can occur at rest or during activity. The left chest region is tender to palpation when she has the discomfort. Overall this is not changed from prior reports. She has mild shortness of breath with exertion which is not new. No PND, orthopnea or edema. No heart palpitations, lightheadedness, presyncope, syncope, falls. Takes all meds as directed. Confirms she is taking all her cholesterol-lowering agents. She is working on weight loss with injections. Her blood sugar is not well controlled and we discussed the importance of this. Certified patient intake representative used. [facility] Medical History GERD (gastroesophageal reflux disease) Pre-syncope Umbilical hernia Fatty liver Asthma Anxiety Depression Type 2 diabetes mellitus with diabetic polyneuropathy Essential hypertension Hyperlipidemia LDL goal <100 Morbid obesity due to excess calories BMI 45.0-49.9, adult Type 2 diabetes mellitus with hyperglycemia Surgical History History of cardiac cath Hx of hernia repair Hx of gastric bypass History of esophagogastroduodenoscopy (EGD) Family History Father Diabetes mellitus HTN (hypertension) Mother CVD (cardiovascular disease) Mother HTN (hypertension) Diabetes mellitus Asthma Social History Household Members: None Alcohol intake: never Patient Tobacco Use Status: Never used Tobacco Current occupational status: disabled Current occupation: rt hand Review of Systems Const All systems reviewed & are unremarkable except as noted in HPI and below Denies chills, Denies fatigue, Denies fever(s), Denies frequent falls, Denies weakness, Denies weight gain and Denies weight loss ENT Denies dizziness Card Reports chest pain (Sharp, tenderness to palpation), Reports chest pain at rest, Denies leg edema, Denies lightheadedness, Denies palpitations, Denies dyspnea and Denies dyspnea on exertion Resp Denies cough, Denies dyspnea and Denies dyspnea on exertion GI Denies hematochezia Musc Denies abnormal gait, Denies muscle weakness, Denies numbness, Denies radiating pain into limb and Denies tingling Neuro Denies abnormal gait, Denies dizziness, Denies frequent falls, Denies numbness, Denies tingling and Denies weakness Endo Denies fatigue and Denies palpitations Physical Exam Vital Signs: Last Vital Signs Pulse 55 02/15/25 09:25 BP 120/62 02/15/25 09:25 BMI result Body Mass Index 45.4 Const General: cooperative, healthy appearing, comfortable and no acute distress Orientation/consciousness: patient oriented x3 Neck Neck: Yes normal visual inspection and Yes no JVD Carotids: normal carotid upstroke Resp Effort & Inspection: normal respiratory effort Auscultation: clear to auscultation bilaterally, no crackles, no rales, no rhonchi and no wheezes Cardio Jugular venous distension: no JVD Rate: regular rate Rhythm: regular rhythm Heart sounds: S1 normal heart sound present, S2 normal heart sound present, no gallops, no murmurs and no rubs Neuro General: patient oriented x3 Extrem General: Yes normal to inspection, No no pedal edema and No calf tenderness Psych Appearance: grossly normal Mental Status: mental status grossly normal Speech and movement: Normal speech and movement present Assessment & Plan Assessment & Plan (1) CAD (coronary artery disease): Code(s): I25.10 - Atherosclerotic heart disease of [place] coronary artery without angina pectoris Category: Medical Plan: Nobstructive coronary disease as seen on cardiac catheterization last year. Currently reporting only atypical chest discomfort that is worse with palpation of the area. EKG done last visit showing sinus bradycardia, can not exclude prior anterior infarct, rate 55. Continue aspirin indefinitely. Continue Repatha, rosuvastatin and Zetia with ideal LDL goal less than 70. Continue lisinopril for good blood pressure control. Continue isosorbide. Blood pressure is controlled. Signs and symptoms of angina reviewed. Emergency care if ever needed for symptoms. Cardiology follow-up 6 months, sooner if needed. (2) Abnormal nuclear stress test: Code(s): R94.39 - Abnormal result of other cardiovascular function study Category: Medical Plan: She had a nuclear stress test done 12/17/2022 showing a fixed defect in the distal part of the lateral wall and adjacent apex which could indicate prior infarct. She had a cardiac catheterization on 08/10/2023 showing only nonobstructive disease. Stress test false-positive (3) Chest discomfort: Code(s): R07.89 - Other chest pain Category: Medical Plan: Currently atypical and most likely chest wall discomfort (4) History of cardiac cath: Comment: 08/10/2023, lad mild luminal irregularities, left circumflex minimal luminal irregularities, RCA distal 50% stenosis Code(s): Z98.890 - Other specified postprocedural states Category: Surgical Plan: as above (5) Essential hypertension: Code(s): I10 - Essential (primary) hypertension Category: Medical Plan: Blood pressure goal less than 130/80. Well controlled at present time. No medication changes made (6) Hyperlipidemia LDL goal <100: Code(s): E78.5 - Hyperlipidemia, unspecified Category: Medical Plan: [place] LDL goal actually less than 70 in patient with diabetes and CAD. Labs done on 02/09/2025 showed LDL 134, normal LFT. She reports compliance with Repatha, rosuvastatin, Zetia and fenofibrate. She has gained weight since last visit. The importance of weight loss reviewed with her and ongoing med compliance. Plan for recheck of fasting lipids in about 6 months. Plan I discussed with the patient that her chest pain is likely musculoskeletal due to tenderness upon palpation. I advised her to report if the pain becomes non- tender, as it may indicate a cardiac issue. We reviewed her current medications and emphasized the importance of maintaining physical activity and weight loss to manage her diabetes and hyperlipidemia. We discussed that Ozempic has been prescribed to aid in weight loss and improve glycemic control. Patient Instructions: - Continue all current medications as prescribed. - Stay physically active and work on weight loss. - Monitor chest pain and report if it becomes non-tender. - Follow up in 6 months or sooner if needed. Patient was informed and verbally consented to the use of an ambient scribe for clinic note documentation during this visit. Visit time spent on chart review, interview, assessment, orders, documentation. Coding Level of Care Code Est Pt Level 4 (71881) Complex EM visit Add On G2211 Diagnoses CAD (coronary artery disease) I25.10 Abnormal nuclear stress test R94.39 Chest discomfort R07.89 History of cardiac cath Z98.890 Essential hypertension I10 Hyperlipidemia LDL goal <100 E78.5 Time Spent (min) 32
[2025-02-15 09:25] VITALS: BP 120/62; PULSE 55; BMI 45.4
--- OUTSIDE RECORDS SUMMARY | 2025-02-15 10:43 | XMS_ITS | Encounter Summary ---
Author Organization [employer] Address [address] [facility] 7t [place] [address] Care Team Providers Care Cross Country/Track And Field Coach Name Role Phone Angie Edwards Primary Care Provider [phone] Reason for Visit * Reason Comments Med Refill Encounter Details Date Type Department Care Team ([facility] st Contact Info) Description 07/15/2024 Refill [facility] MEDICINE [address] [place] [address] Angie Edwards ANP [address] [place] [address] Type 2 diabetes mellitus with hyperlipidemia (CMS/HCC) [...] Description 03/09/2025 9:30 AM EDT Clinical Support [facility] [address] [place] [address] 03/26/2025 11:00 AM EDT Office Visit [facility] [address] [place] [phone] Angie Edwards ANP [address] [place] [address] documented as of this encounter Visit Diagnoses Diagnosis Type 2 diabetes mellitus with hyperlipidemia (CMS/HCC) Diabetic polyneuropathy associated with type 2 diabetes mellitus (CMS/HCC) documented in this encounter Additional Health Concerns Assessment Noted Time PHQ-9 Depression Total Score: 9 04/07/20 24 10:05 AM EST documented as of this encounter Care Teams Cross Country/Track And Field Coach Relationship Specialty Start Date End Date Angie Edwards ANP [address] [place] [phone] PCP - General Family Medicine 05/05/22 documented as of this encounter
--- OUTSIDE RECORDS SUMMARY | 2025-02-15 10:44 | XMS_ITS | Encounter Summary ---
Author Organization [employer] Address [address] [facility] 7t [place] [address] Care Team Providers Care Impregnator And Drier Helper Name Role Phone Angie Edwards Primary Care Provider [phone] Reason for Visit * Reason Comments Med Refill Encounter Details Date Type Department Care Team ([facility] st Contact Info) Description 01/07/2025 Refill [facility]INE [address] [place] [address] Angie Edwards ANP [address] [place] [address] Type 2 diabetes mellitus with hyperlipidemia (CMS/HCC) [...] Description 03/09/2025 9:30 AM EDT Clinical Support [facility] [address] [place] [phone] 03/26/2025 11:00 AM EDT Office Visit [facility] [address] [place] [phone] Angei Edwards ANP [address] [place] [address] documented as of this encounter Visit Diagnoses Diagnosis Type 2 diabetes mellitus with hyperlipidemia (CMS/HCC) Diabetic polyneuropathy associated with type 2 diabetes mellitus (CMS/HCC) documented in this encounter Additional Health Concerns Assessment Noted Time PHQ-9 Depression Total Score: 9 04/07/20 24 10:05 AM EST documented as of this encounter Care Teams Impregnator And Drier Helper Relationship Specialty Start Date End Date Angie Edwards ANP [address] [place] [phone] PCP - General Family Medicine 05/05/22 documented as of this encounter
--- OUTSIDE RECORDS SUMMARY | 2025-02-15 10:44 | XMS_ITS | Clinical Summary ---
Author Organization [facility] Address [address] [place], [place] [phone] Phone Care Team Providers Care Lab Asst Name Role Phone Unknown, Unknown Primary Care [...] file Medical Devices Not on file Insurance [facility] MEDICARE REPLACEMENT [place] [place] [id number] CARE MEDICARE REPLACEMENT MEDICARE REPLACEMENT CARE MEDICARE REPLACEMENT CARE MEDICARE REPLACEMENT MEDICARE REPLACEMENT CARE MEDICARE REPLACEMENT [facility] CARE MEDICARE REPLACEMENT Member Subscriber Plan / Payer (Ef fective 2017-Present) Name:Sia Pena Relation to Subscriber:Self Name:Sia Pena Payer ID:[id number] (NAIC) Group ID:Not on file Type:Medicare Address: [address] [facility] CARE MEDICARE REPLACEMENT Care Teams Lab Asst Relationship Specialty Start Date End Date Unknown, Unknown, PCP - General 10/26/17 Additional Source Comments The information contained in this document represents components of the legal health record. It is not the complete legal health record.[facility]
--- OUTSIDE RECORDS SUMMARY | 2025-02-15 10:44 | XMS_ITS | Encounter Summary ---
Author Organization [employer] Address [address] [facility] 7t [place] [address] Care Team Providers Care Screw Machine Operator Name Role Phone Angie Edwards Primary Care Provider [phone] Reason for Visit * Reason Comments Med Refill Encounter Details Date Type Department Care Team ([facility] st Contact Info) Description 03/07/2023 Refill [facility] MEDICINE [address] [place], [place] [phone] Angie Edwards ANP [address] [place] [address] Type 2 diabetes mellitus with hyperlipidemia (CMS/HCC) [...] Description 03/09/2025 9:30 AM EDT Clinical Support [address] [address] 03/26/2025 11:00 AM EDT Office Visit [address] [address] Angie Edwards ANP [address] [place] [address] documented as of this encounter Visit Diagnoses Diagnosis Type 2 diabetes mellitus with hyperlipidemia (CMS/HCC) (CMS/HCC) Diabetic polyneuropathy associated with type 2 diabetes mellitus (CMS/HCC) documented in this encounter Care Teams Screw Machine Operator Relationship Specialty Start Date End Date Angie Edwards ANP [address] [place] [phone] PCP - General Family Medicine 05/05/22 documented as of this encounter
--- OUTSIDE RECORDS SUMMARY | 2025-02-15 10:44 | XMS_ITS | Encounter Summary ---
Demographics Address [address] [facility] [address] [place] [address] Mobile Phone Home Phone Preferred Language es Marital Status Single Pentecostal Affiliation Unknown Race Other Race Ethnic Group Unknown Author Organization [employer] Address [address] [facility] 7t [place] [address] Care Team Providers Care Fruit And Vegetable Factory Worker Name Role Phone Angie Edwards Primary Care Provider [phone] Reason for Visit * Reason Comments Med Refill Encounter Details Date Type Department Care Team ([facility] st Contact Info) Description 10/25/2024 Refill [facility] [address] [place] [address] Angie Edwards ANP 230 [place] [address] Type 2 diabetes mellitus with hypoglycemia without coma, with long-term current use of insulin ([facility]) Social History Tobacco Use Types Packs/Day [...] Description 03/09/2025 9:30 AM EDT Clinical Support [facility] [address] [place] [phone] 03/26/2025 11:00 AM EDT Office Visit [facility] [address] [place] [address] Angie Edwards ANP [address] [place] [address] documented as of this encounter Visit Diagnoses Diagnosis Type 2 diabetes mellitus with hypoglycemia without coma, with long-term current use of insulin ([facility]) documented in this encounter Additional Health Concerns Assessment Noted Time PHQ-9 Depression Total Score: 9 04/07/20 24 10:05 AM EST documented as of this encounter Care Teams Fruit And Vegetable Factory Worker Relationship Specialty Start Date End Date Angie Edwards ANP [address] [place] [address] PCP - General Family Medicine 05/05/22 documented as of this encounter
--- OUTSIDE RECORDS SUMMARY | 2025-02-15 10:44 | XMS_ITS | Encounter Summary ---
Author Organization [employer] Address [address] [facility] 7t [place] [address] Care Team Providers Care Fingerer Name Role Phone Angie Edwards Primary Care Provider [phone] Reason for Visit * Reason Comments Med Refill Encounter Details Date Type Department Care Team (Late st Contact Info) Description 12/16/2022 Refill [facility] MED[facility]INE [address] [place] [address] [phone] Angie Edwards ANP [address] [place] [address] Diabetic polyneuropathy associated with type 2 diabetes mellitus (CMS/HCC); Type 2 diabetes mellitus with hyperlipidemia ([facility]) Social History Tobacco Use Types Packs/Day Years [...] Description 03/09/2025 9:30 AM EDT Clinical Support [address] [phone] 03/26/2025 11:00 AM EDT Office Visit [address] [address] Angie Edwards ANP [address] [place] [address] documented as of this encounter Visit Diagnoses Diagnosis Diabetic polyneuropathy associated with type 2 diabetes mellitus (CMS/HCC) Type 2 diabetes mellitus with hyperlipidemia (CMS/HCC) (CMS/HCC) documented in this encounter Care Teams Fingerer Relationship Specialty Start Date End Date Angie Edwards ANP [address] [place] [address] PCP - General Family Medicine 05/05/22 documented as of this encounter
--- OUTSIDE RECORDS SUMMARY | 2025-02-15 10:44 | XMS_ITS | Encounter Summary ---
Author Organization [employer] Address [address] [facility] 7t [place] [address] Care Team Providers Care Natural Resources Engineer Name Role Phone Angie Edwards Primary Care Provider [phone] Reason for Visit * Reason Comments Med Refill Encounter Details Date Type Department Care Team (Late Contact Info) Description 12/08/2022 Refill [facility]INE [address] [place] [address] Angie Edwards ANP [address] [place] [address] Type 2 diabetes mellitus with hyperglycemia (CMS/HCC); intermediate manager (current) use of insulin (CMS/[facility]) Social History Tobacco Use Types Packs/Day [...] Description 03/09/2025 9:30 AM EDT Clinical Support [address] [address] 03/26/2025 11:00 AM EDT Office Visit [address] [address] Angie Edawrds ANP [address] [place] [address] documented as of this encounter Visit Diagnoses Diagnosis Type 2 diabetes mellitus with hyperglycemia (CMS/HCC) [facility] (current) use of insulin (CMS/[facility]) documented in this encounter Care Teams Natural Resources Engineer Relationship Specialty Start Date End Date Angie Edwards ANP [address] [place] [phone] PCP - General Family Medicine 05/05/22 documented as of this encounter
--- OUTSIDE RECORDS SUMMARY | 2025-02-15 10:44 | XMS_ITS | Encounter Summary ---
Author Organization [facility] Address [address] [facility] [address] [place] [phone] Phone Care Team Providers Care Caterer'S Aide Name Role Phone Unknown, Unknown Primary Care Provider Odalis khan Encounter Details Date Type Department Care Team (Late st Contact Info) Description 12/29/2017 Ancillary Orders [facility] [address] [place] [address] [place] [address] Davis Harkins DO [address] [place] [address] Bradycardia Social History Tobacco Use Types Packs/Day [...] dysrhythmias documented in this encounter Care Teams Caterer'S Aide Relationship Specialty Start Date End Date Unknown, Unknown, PCP - General 10/26/17 documented as of this encounter Additional Source Comments The information contained in this document represents components of the legal health record. It is not the complete legal health record.[facility]
--- OUTSIDE RECORDS SUMMARY | 2025-02-15 10:44 | XMS_ITS | Encounter Summary ---
Author Organization [employer] Address [address] [facility] 7t [place] [address] Care Team Providers Care Crab Fisher Name Role Phone Angie Edwards Primary Care Provider [phone] Reason for Visit * Reason Comments Med Refill Encounter Details Date Type Department Care Team ([facility] st Contact Info) Description 01/21/2024 Refill [facility] MEDICINE [address] [place], [place] [phone] Angie Edwards ANP [address] [place] [address] Type 2 diabetes mellitus with hyperlipidemia (CMS/HCC) [...] Description 03/09/2025 9:30 AM EDT Clinical Support [facility] MEDICINE [address] [place] [address] 03/26/2025 11:00 AM EDT Office Visit [facility] [address] [place] [address] Angie Edwards ANP [address] [place] [phone] documented as of this encounter Visit Diagnoses Diagnosis Type 2 diabetes mellitus with hyperlipidemia (CMS/HCC) (CMS/HCC) Diabetic polyneuropathy associated with type 2 diabetes mellitus (CMS/HCC) documented in this encounter Additional Health Concerns Assessment Noted Time PHQ-9 Depression Total Score: 20 024 9:36 AM EDT documented as of this encounter Care Teams Crab Fisher Relationship Specialty Start Date End Date Angie Edwards ANP [address] [place] [phone] PCP - General Family Medicine 05/05/22 documented as of this encounter
--- OUTSIDE RECORDS SUMMARY | 2025-02-15 10:44 | XMS_ITS | Clinical Summary ---
Author Organization [employer] Address [address] [facility] [address] [place] [address] Care Team Providers Care Tooth Cutter Spur Name Role Phone Stephanie Markham Primary Care Provider [phone] Allergies Active Allergy Reactions Criticality Noted Date Comments Dulaglutide 04/21/2021 Other reaction(s): Rash, Rash Penicillins Anaphylaxis High 05/05/2022 Medications * This document contains information received from the source organization and may not represent a complete record from that organization. Blood Pressure kitIndications:Hy pertension associated with type 2 diabetes mellitus ([facility]) 1 kit in the morning. 1 [...] ype 2 diabetes mellitus with hyperlipidemia (CMS/HCC) ([facility]) TEST BLOOD SUGAR FOUR TIMES DAILY 300 each 8 023 Active glucose blood (FREESTYLE LITE) test stripIndications: Diabetic polyneuropathy associated with type 2 diabetes mellitus ([facility]) Check BG 4x daily or more as needed 200 each 023 Active glucose 4 g chewable tabletIndications :Type 2 diabetes mellitus with hypoglycemia without coma, with long-term current use of insulin ([facility]) CHEW 4 TABLETS NEEDED FOR LOW [...] 1 each 024 Active Continuous Blood Gluc Strike Planning Applications (FreeStyle Ata 2 [place]) deviceIndications :Type 2 diabetes mellitus with hypoglycemia without coma, with long-term current use of insulin ([facility]) Use to check blood sugar 4x/d and more if symptomatic 1 each 024 Active glucagon (Baqsimi) 3 MG/DOSE nasal powderIndications :Type 2 diabetes mellitus with hypoglycemia without coma, with long-term current use of insulin ([facility]) Administer 3 mg into affected nostril(s) 1 (one) time if needed for low blood sugar. 2 each 1 024 Active loratadine (Claritin) 10 MG tablet TAKE 1 TABLET BY MOUTH EVERY MORNING 90 tablet 024 Active Ozempic, 1 MG/DOSE, 4 MG/3ML solution pen-injectorIndic ations:Type 2 diabetes mellitus with hyperlipidemia ([facility]/HCC) ([facility]) INJECT 1mg SUBCUTANEOUSLY ONCE WEEKLY DIRECTED [...] tabletIndications :Type 2 diabetes mellitus with hyperlipidemia ([facility]/HCC) ([facility]) TAKE 1 TABLET BY MOUTH AT BEDTIME 90 tablet 1 025 Active ezetimibe (Zetia) 10 MG tabletIndications :Type 2 diabetes mellitus with hyperlipidemia (CMS/HCC) ([facility]) TAKE 1 TABLET BY MOUTH EVERY MORNING 90 tablet 1 025 Active D3 Super Strength 50 MCG (1999 [place]) capsuleIndication s:Vitamin D deficiency TAKE 1 CAPSULE BY MOUTH EVERY MORNING 90 capsule 025 Active Jardiance 25 MGIndications:Typ e 2 diabetes mellitus with diabetic polyneuropathy, with long-term current use of insulin ([facility]) TAKE 1 TABLET BY MOUTH EVERY MORNING 90 tablet 025 Active Multiple Vitamins-Iron (Tab-A-Cristobal/Iron) tabletIndications :Type 2 diabetes mellitus with hyperlipidemia (CMS/HCC) ([facility]) TAKE 1 TABLET BY MOUTH EVERY MORNING 90 tablet 025 Active gabapentin (Neurontin) 100 MG capsuleIndication s:Type 2 diabetes mellitus with hyperlipidemia ([facility]/HCC) ([facility]),Diabeti c polyneuropathy associated with type 2 diabetes mellitus ([facility]) TAKE 2 CAPSULES BY MOUTH THREE TIMES DAILY IN THE MORNING, EVENING AND BEDTIME 180 capsule 2 025 Active Continuous Glucose Sensor (FreeStyle Ata 2 Sensor) miscIndications:T ype 2 diabetes mellitus with hypoglycemia without coma, with long-term current use of insulin ([facility]) USE DIRECTED TO TEST BLOOD SUGAR [...] BEDTIME 90 tablet 1 025 2024 Discontinued Continuous Glucose Sensor (FreeStyle Ata 2 Sensor) miscIndications:T ype 2 diabetes mellitus with hypoglycemia without coma, with long-term current use of insulin ([facility]) USE DIRECTED TO TEST BLOOD SUGAR [...] Type Department Care Team Description 02/04/2025 Refill [facility] [place] [address] Stephanie Markham ANP 02/02/2025 9:30 AM EDT Clinical Support [facility] [place] [phone] Cony Neville RN Type 2 diabetes mellitus with hyperlipidemia (CMS/HCC) ([facility]/HCC) 02/02/2025 Travel 01/30/2025 Results Follow-Up [facility] [place] [address] Stephanie Markham ANP POCT Glucose, POCT HGB A1C, Bacterial Vaginosis Panel, POCT urinalysis dipstick manually resulted 01/25/2025 11:00 AM EDT Office Visit [address] [phone] Stephanie Markham ANP Vaginal itching (Primary Dx); Diabetic polyneuropathy associated with type 2 diabetes mellitus ([facility]/HCC); Need for hepatitis B screening test; Dysuria; Chest pain, unspecified type; Fatigue, unspecified type 01/25/2025 Orders Only [facility] [place] [address] Stephanie Markham ANP 01/25/2025 Travel 01/19/2025 Refill [facility] [place] [address] Stephanie Markham ANP Type 2 diabetes mellitus with hypoglycemia without coma, with long-term current use of insulin (CMS/HCC) 01/12/2025 Refill [facility] [place] [address] Stephanie Markham ANP Type 2 diabetes mellitus with hyperlipidemia ([facility]/HCC) ; Diabetic polyneuropathy associated with type 2 diabetes mellitus (CMS/HCC) 01/07/2025 Refill [facility] [place] [address] Stephanie Markham ANP Type 2 diabetes mellitus with hyperlipidemia (CMS/HCC) ; Diabetic polyneuropathy associated with type 2 diabetes mellitus (CMS/HCC) 12/26/2024 Travel 12/12/2024 Refill [facility] [address] [place] [address] Stephanie Markham ANP Type 2 diabetes mellitus with hyperlipidemia ([facility]/HCC) ([facility]) 12/11/2024 Refill [facility] [address] [place] [address] Stephanie Markham ANP Vitamin D deficiency; Type 2 diabetes mellitus with diabetic polyneuropathy, with long-term current use of insulin ([facility]); Type 2 diabetes mellitus with hyperlipidemia ([facility]) ([facility]) 11/28/2024 Orders Only [facility] [address] [place] [phone] Stephanie Markham ANP 11/27/2024 Telephone [facility] [address] [place] [phone] Stephanie Markham ANP No Show from Last 3 Months Immunizations Immunization Administration [...] Description 03/09/2025 9:30 AM EDT Clinical Support [facility] [address] [place] [phone] 03/26/2025 11:00 AM EDT Office Visit [facility] [address] [place] [address] [phone] Stephanie Markham, ANP [address] [place], [place] [phone] Health Maintenance Due Date Last Done Comments CT Colonography 1967 Colonoscopy 1967 FIT 1967 FOBT 1967 HIV Screening 1967 Sigmoidoscopy 1967 Diabetes: Foot Exam 1977 Eye Exam 1977 Zoster Vaccines (1 of 2) 2017 Depression Monitoring 10/05/2024 04/07/2024, 024 Influenza Vaccine (#1) 2025 , 03/09/2023, 02/27/2022, Additional history exists Diabetes: Hemoglobin A1C 05/11/2025 025, 01/25/2025, 10/27/2024, Additional history exists Colorectal Cancer Screening 06/25/2025 FIT DNA/Cologuard 06/25/2025 SDOH Screening 07/14/2025 07/14/2024 Alcohol/Substance Use Screening 10/27/2025 10/27/2024 Disability Screening 10/27/2025 10/27/2024 Mammogram 11/28/2025 11/28/2024, 08/30, 03/17/2022, Additional history exists Tobacco Screening 01/25/2026 01/25/2025 Diabetes: Urine Protein Screening 02/09/2026 02/09/2025, 07/27/2024, 03/09/2023, Additional history exists Lipid Panel 02/09/2026 02/09/2025, 01/29, 03/09/2023, Additional history exists Cervical Cancer Screening 01/28/2028 HPV/Cotest 01/28/2028 01/27/2023, 12/30/2016 Pap Smear 01/28/2028 01/27/2023 DTaP/Tdap/Td Vaccines (5 - Td or Tdap) 02/16/2034 02/17/2024, 01/01/2022, 05/17/2015, Additional history exists RSV Patients and Patients Aged 60 years or older (1 - 1-dose 75+ series) 2042 Hepatitis B Vaccines Discontinued 06/28/2013, 02/15/20 13 Hepatitis C Screening Completed 07/23/2020 Pneumococcal Vaccine: [...] Procedure Name Priority Date/Time Associated Diagnosis Comments TSH W/REFLEX TO FT4 Routine 02/09/2025 8 :23 AM EDT Fatigue, unspecified type CBC WITH AUTO DIFFERENTIAL Routine 02/09/2025 8:23 AM EDT Fatigue, unspecified type HEPATITIS B SURFACE ANTIGEN, EIA Routine 02/09/2025 8:23 AM EDT Need for hepatitis B screening test HEPATITIS B SURFACE ANTIBODY, QUALITATIVE Routine 02/09/2025 8:23 AM EDT Need for hepatitis B screening test HEPATITIS B CORE AB TOTAL Routine 02/09/2025 8:23 AM EDT Need for hepatitis B screening test HEMOGLOBIN A1C Routine 02/09/2025 8:23 AM EDT Diabetic polyneuropathy associated with type 2 diabetes mellitus (CMS/HCC) COMPREHENSIVE METABOLIC PANEL Routine 02/09/2025 8:23 AM EDT Diabetic polyneuropathy associated with type 2 diabetes mellitus (CMS/HCC) LIPID PANEL, STANDARD Routine 02/09/2025 8:23 AM EDT Diabetic polyneuropathy associated with type 2 diabetes mellitus (CMS/HCC) URINALYSIS, COMPLETE, WITH REFLEX TO CULTURE Routine 02/09/2025 8:18 AM EDT Dysuria ALBUMIN, RANDOM URINE W/CREATININE Routine 02/09/2025 8:18 AM EDT Diabetic polyneuropathy associated with type 2 diabetes mellitus (CMS/HCC) AMB REFERRAL TO GASTROENTEROLOGY Routine 02/02/2025 Chronic [...] TOMOSYNTHESIS BILATERAL Routine 11/28/2024 9:15 AM EDT HPV MRNA E6/E7 REFLEX TO HPV 16, 18/45 Routine 01/27/2023 10:18 AM EDT PAP SMEAR Routine 01/27/2023 ZZZ HISTORICAL HEPATITIS C AB W/REFL TO HCV RNA, QN, PCR Routine 07/23/2020 8:16 AM EST from Last 3 Months or Most Recently Relevant to Health Maintenance Results * TSH W/Reflex to FT4 (02/09/2025 8:23 AM EDT) TSH reflex Free T4 3.53 0.32 - 4.0 uIU/mL [facility] Blood Venous blood specimen / Unknown 02/09/2025 8:23 AM EDT 02/09/2025 8:23 AM EDT [facility] LAB BLOOD ORDERABLES Final Resul t [facility] [address] [place] [phone] [phone] * (ABNORMAL) CBC auto differential (02/09/2025 8:23 AM EDT) White Blood Count 7.7 4.8 - 10.8 X10*3/uL [facility] Red Blood Count 4.27 4.20 - 5.50 X10*6/uL [facility] Hemoglobin 12.3 12.0 - 16.0 g/dl [facility] Hematocrit 38.7 37.0 - 47.0 % [facility] Mean Corpuscular Volume 90.6 80.0 - 98.0 fL [facility] Mean Corpuscular Hemoglobin 28.8 27.0 - 33.0 pg [facility] Mean Corpuscular HGB Conc 31.8 31.0 - 35.0 g/dl [facility] Red Cell Distribution Width 14.2 11.0 - 16.0 % [facility] Platelet Count 320 160 - 400 X10*3/uL [facility] Mean Platelet Volume 9.3(L) 9.4 - 12.3 fL [facility] Neutrophils Percent Auto 55.9 45 - 73 % [facility] Imm Gran Pct Auto 0.5(H) 0.0 - 0.4 % [facility] Lymphocytes Percent Auto 33.7 20 - 40 % [facility] Monocytes Percent Auto 6.6 2 - 11 % [facility] Eosinophils Percent Auto 2.7 0 - 4 % [facility] Basophils Percent Auto 0.6 0 - 2 % [facility] NRBC Pct Auto 0.0 0.0 - 0.2 /100WBC [facility] Neutrophils Absolute Auto 4.3 2.0 - 8.3 x10*3/uL [facility] Imm Gran Abs Auto 0.04(H) 0.00 - 0.03 X10*3/uL [facility] Lymphocytes Absolute Auto 2.6 1.2 - 4.9 X10*3/uL [facility] Monocytes Absolute Auto 0.5 0.1 - 1.2 X10*3/uL [facility] Eosinophils Absolute Auto 0.2 0.0 - 0.4 X10*3/uL [facility] Basophils Absolute Auto 0.1 0.0 - 0.2 X10*3/uL [facility] NRBC Abs Auto 0.000 0.0 - 0.012 X10*3/uL [facility] Blood Venous blood specimen / Unknown 02/09/2025 8:23 AM EDT 02/09/2025 8:23 AM EDT Stephanie Markham ANP LAB BLOOD ORDERABLES Final Resul t Performing Organization Address [facility] de Phone Number [facility] [address] [place] [phone] * Hepatitis B surface antigen, EIA (02/09/2025 8:23 AM EDT) Hepatitis B Surface Ag Negative Negative [facility] Blood Venous blood specimen / Unknown 02/09/2025 8:23 AM EDT 02/09/2025 8:23 AM EDT Stephanie Markham ANP LAB BLOOD ORDERABLES Final Resul t Performing Organization Address [facility] Phone Number [facility] [address] [place] [phone] * Hepatitis B Core Antibody, Total (02/09/2025 8:23 AM EDT) Hepatitis B Core Antibody Nonreactive Nonreactive [facility] Blood Venous blood specimen / Unknown 02/09/2025 8:23 AM EDT 02/09/2025 8:23 AM EDT Stephanie Markham [facility] BLOOD ORDERABLES Final Resul t Performing Organization Address [facility] Phone Number [facility] [address] [place] [phone] * Hepatitis B Surface Antibody, Qualitative (02/09/2025 8:23 AM EDT) ~Hepatitis B Surface Antibody REACTIVE Nonreactive [facility] Comment:REACTIVE: > 11.99 mI U/mL Blood Venous blood specimen / Unknown 02/09/2025 8:23 AM EDT 02/09/2025 8:23 AM EDT Stephanie Markham ANP LAB BLOOD ORDERABLES Final Resul t Performing Organization Address [facility] Co de Phone Number [facility] [address] [place] [phone] * (ABNORMAL) Hemoglobin A1c (02/09/2025 8:23 AM EDT) Hemoglobin A1c 9.1(H) <6.0 % [facility] Comment:Hemoglobin A1C Refer ence Range Adults: 4.8 - 6.0 % Non diabetic: < 6.0 % Goal: < 7.0 %Additional Action Suggested: > 8.0 %Note: Hemoglobin A1c results are invalid for patients with abnormal amounts of HbF. Blood transfusions may impact the HbA1c concentration in the patient sample. Estimated Average Glucose 214 mg/dL [facility] Comment:eAG = Estimated ave rage glucose which is %A1C expressed asaverage glucose, using the formula of the U2N-SyevldySzpqeaq Glucose study (ADAG), Diabetes Care, Vol.31,#8,Dec. 2007 Blood Venous blood specimen / Unknown 02/09/2025 8:23 AM EDT 02/09/2025 8:23 AM EDT [facility] LAB BLOOD ORDERABLES Final Resul t [facility] [address] [place] [phone] * (ABNORMAL) Lipid Panel, Standard (02/09/2025 8:23 AM EDT) Triglycerides 246(H) <150 mg/dL [facility] Comment:Desirable Triglyceri de: less than 150 mg/dLBorderline High Triglyceride 150-199 mg/dLHigh Triglyceride: 200-499 mg/dLVery High Triglyceride: greater than or equal to 5OO mg/dL Cholesterol 230(H) <200 mg/dL [facility] Comment:Desirable Cholestero l: less than 200 mg/dLBorderline High Cholesterol: 200-239 mg/dLHigh Cholesterol: greater than 239 mg/dL LDL Cholesterol Calculated 134(H) <100 mg/dL [facility] Comment:Desirable LDL: less than 100 mg/dLNear Optimal/Above Optimal LDL: 110- 129 mg/dLBorderline High LDL: 130-159 mg/dLHigh LDL: 160-189 mg/dLVery High LDL: greater than or equal to 190 mg/dL HDL Cholesterol 47 >40 mg/dL [facility] Comment:Desirable HDL: great er than 40 mg/dL Note: This HDL assay may give artificially low results in patients with liver disease. Blood Venous blood specimen / Unknown 02/09/2025 8:23 AM EDT 02/09/2025 8:23 AM EDT Stephanie Markham [facility] BLOOD ORDERABLES Final Resul t [facility] [address] [place] [phone] * (ABNORMAL) Comprehensive Metabolic Panel (02/09/2025 8:23 AM EDT) Sodium 138 135 - 145 mmol/L [facility] Potassium 3.7 3.3 - 5.1 mmol/L [facility] Chloride 106 96 - 108 mmol/L [facility] Carbon Dioxide 23 22 - 29 mmol/L [facility] Anion Gap 13 12 - 20 [facility] Urea Nitrogen (BUN) 17(H) 9 - 16 mg/dL [facility] Creatinine, Serum 0.74 0.5 - 1.4 mg/dL [facility] Estimated Glomerular Filt Rate >60 [facility] Comment:Chronic Kidney Disea se: Estimated GFR < 60 mL/min/1.19n2Zcrmpl Kidney Disease: Estimated GFR < 15 mL/min/1.73m2 Glucose 306(H) 60 - 115 mg/dL [facility] Calcium 8.8 8.4 - 10.2 mg/dL [facility] Bilirubin, Total 0.3 0.0 - 1.0 mg/dL [facility] Aspartate Amino Transferase 23 5 - 31 U/L [facility] Alanine Aminotransferase 28 0 - 31 U/L [facility] Total Protein 7.0 6.5 - 8.0 g/dL [facility] Albumin Level 3.8 3.5 - 5.0 g/dL [facility] Alkaline Phosphatase 90 39 - 117 U/L [facility] Blood Venous blood specimen / Unknown 02/09/2025 8:23 AM EDT 02/09/2025 8:23 AM EDT Stephanie Markham ANP LAB BLOOD ORDERABLES Final Resul t Performing Organization Address [facility] Co de Phone Number [facility] [address] [place] [phone] * (ABNORMAL) Urinalysis, Complete, with Reflex to Culture (02/09/2025 8:18 AM EDT) Color Urine Yellow [facility] Appearance Urine Clear [facility] PH 5.0 5.0 - 9.0 [facility] Glucose Urine UA >=1000(A) Negative mg/dL [facility] Urine Blood Negative Negative [facility] Specific [place] - Urine >=1.030(H) 1.005 - 1.025 [facility] Urine Protein Negative Neg-Trace mg/dL [facility] Urine Ketones Negative Negative mg/dL [facility] Nitrite Urine Negative Negative [facility] Leukocyte Esterase Urine Negative Negative [facility] RBC Urine 0-2 0 - 2 /HPF [facility] Urine WBC 0-5 0 - 5 /HPF [facility] Urine Squamous Epithelial Cell 3-5 0 - 2 /HPF [facility] Urine Bacteria 1+ None Seen [facility] Hyaline Casts, Urine 0-2 0 - 2 /LPF [facility] Urine 02/09/2025 8:18 AM EDT 02/09/2025 9:41 AM EDT Narrative [facility] - 02/09/2025 11:08 AM EDT [id number], Clean Catch Stephanie Markham ANP LAB URINE ORDERABLES Final Resul t Performing Organization Address [facility] Co de Phone Number [facility] [address] [place] [phone] * Albumin, Random Urine W/Creatinine (02/09/2025 8:18 AM EDT) Creatinine, Urine 20.73 mg/dL [facility] Microalbumin Urine <5.0 mg/L [facility] Microalbum Creatinine Ratio Ur TNP <30 ug/mg cr [facility] Comment:Unable to calculate albumin/creatinine ratio due to lowmicroalbumin or creatinine result. Urine (Urine, Random) 02/09/2025 8:18 AM EDT 02/09/2025 9:41 AM EDT us Stephanie ESPINOSA LAB URINE ORDERABLES Final Resul t [facility] [address] [place] [phone] * Referral to Gastroenterology (02/02/2025) us Stephanie ESPINOSA OUTPATIENT REFERRAL ORDERABLES F inal Result * ECG 12 lead (01/25/2025 5:23 PM EDT) Narrative Stephanie Markham ANP - 01/25/2025 5:23 PM EDT HR 51, KS 104, QTc 449, EKG sinus daryl, good [...] Media Lot # [id number] Lot# Expiration Date [id number] Urine 01/25/2025 11:3 8 AM EDT us Stephanie ESPINOSA POINT OF CARE TEST ENTER/EDIT OR DERABLES Final Result * (ABNORMAL) Bacterial Vaginosis Panel (01/25/2025 11:07 AM EDT) TRICHOMONAS VAGINALIS DETECTION BY PCR NOT DETECTED Not Detect [facility] BACTERIAL VAGINOSIS DETECTION BY PCR NEGATIVE Negative [facility] Comment:The BV organism targ [...] GROUP DETECTION BY PCR DETECTED(A) Not Detect [facility] Flores glab krusei PCR DETECTED(A) Not Detect [facility] Swab Vaginal structure / Unknown 01/25/2025 11:07 AM EDT 01/25/2025 4:23 PM EDT us Stephanie ESPINOSA LAB MICROBIOLOGY - GENERAL ORDER DANISHA Final Result [facility] [address] [place] [phone] * Culture, Urine, Routine (01/25/2025 11:07 AM EDT) Urine Urine specimen obtained by clean catch procedure / Unknown 01/25/2025 11:07 AM EDT 01/27/2025 3:28 PM EDT Comment:UACC Narrative [facility] - 01/29/2025 10:19 AM EDT Urine Culture Report Result Urine Culture 10,000 to 50,000 cfu/ml Urine Culture Mixed bacterial janie characteristic of Urine Culture urogenital contamination. Specimen Source: Urine clean catch Stephanie Markham ANP LAB MICROBIOLOGY - GENERAL ORDER DANISHA Final Result [facility] [address] [place] [phone] * (ABNORMAL) POCT HGB A1C (01/25/2025 10:44 AM EDT) Hemoglobin A1C 9.1(A) 4.0 - 5.7 % QC Media Lot # [id number] Lot# Expiration Date [id number] Blood 01/25/2025 10:4 4 AM EDT Stephanie Markham ANP POINT OF CARE TEST ENTER/EDIT OR DERABLES Final Result * POCT Glucose (01/25/2025 10:39 AM EDT) Glucose Blood, POC 146 60 - 200 mg/dL QC Media Lot # [id number] Lot# Expiration Date [id number] Blood Capillary blood specimen / Unknown 01/25/2025 10:39 AM EDT Stephanie Markham ANP POINT OF CARE TEST ENTER/EDIT OR DERABLES Edited Result - Final * BI Mammogram Screening Tomosynthesis Bilateral (11/28/2024 9:15 AM EDT) Anatomical Region Laterality Modality Breast Bilateral Mammography 11/28/2024 9:15 AM EDT Narrative 12/10/2024 2:45 PM EDT [facility] [address] [place] [address] Mammography Report Signed Patient: Sia Tripathi MR#: [id number] : 1965 Acct:[id number] Age/Sex: 59 / F ADM Date: 11/28/24 Loc: HO.MAMMO Attending Dr: Stephanie Markham NP Ordering Physician: STEPHANIE MARKHAM NP Results: 1Negative Date of Service: 11/28/24 Follow Up: 1 Year From Orig inal Mammogram Procedure(s): MM tomosynthesis screening BI Accession Number(s): [id number] cc: STEPHANIE MARKHAM NP EXAMINATION: MM SCREENING [...] in OV> 12/10/24 1443 DD/ 4 TD/TT: 11/28/24 0930 Production Maintenance Mechanic: Procedure Note Donotuseinterpreter, Image - [facility] [address] [place] [address] Mammography Report Signed Patient: Dara TripathiKofi#: M [id number] : 1965Acct:[id number] Age/Sex: 59 / FADM Date: 11/28/24 Loc: RITO Attending Dr: Stephanie Markham NP Ordering Physician: STEPHANIE MARKHAM NPResults: 1Negative Date of Service: 11/28/24Follow Up: 1 Year From Orig inal Mammogram Procedure(s): MM tomosynthesis screening BI Accession Number(s): [id number] cc: STEPHANIE MARKHAM SENIOR TELECOMMUNICATIONS TECHNICIAN EXAMINATION: MM SCREENING DIGITAL BREAST TOMOSYNTHESIS, BILATERAL [...] OV> 12/10/24 1443 DD/ 0915 TD/TT: 11/28/24 0930 Production Maintenance Mechanic: us Stephanie Markham ANP IMG BI PROCEDURES Final Result * HPV mRNA E6/E7 w/Reflex to HPV Genotypes 16, 18/45 (01/27/2023 10:18 AM EDT) HPV nRNA E6/E7 Not Detected Not Detected [facility] Comment:Methodology: Transcr iption-Mediated AmplificationThis assay detects E6/E7 viral messenger RNA (mRNA) from 14high-risk HPV types (16,18,31,33,35,39,45,51,52,56,58,59,66,68).Cervical sources are required for HPV testing.If a vaginal source from a patient who has had atotal hysterectomy with removal of cervix wassubmitted, please contact the testing laboratoryfor alternative testing options.For additional information, please refer tohttp://education.Quickflix/faq/JWL366f4(This link if provided for information/educational purposes only.)THIS TEST WAS PERFORMED AT:[facility] [place] [address] [id number] MORGAN MD HPV mRNA E6/E7 [facility] HPV 16 RNA TNP [facility] HPV 18/45 RNA TNP [facility] 01/27/2023 10:1 8 AM EDT 01/28/2023 12:15 PM EDT Alba MATHUR LAB CYTOLOGY ORDERABLES F inal Result [facility] [address] [place] [address] [phone] * Pap Smear (01/27/2023) 01/27/2023 01/28/2023 12: 15 PM EDT Narrative [facility] - 02/09/2023 10:04 AM EDT ----- ------- Name: Sia Tripathi Age/Sex: 57/F : 1965 Unit#: [id number] Attend Dr: ALBA MONROY CNM Re01/27/23 Status: DEP REF Location: HO.HHCLNP Disch: ----- ------- SPEC : [id number] RECD: 01/28/23 STATUS: MARISSA FERNANDEZ NUM: [id number] RASHIDA: 01/27/23- SUBM DR: ALBA MONROY CNM [...] 59, 66, 68) HPV testing performed by [facility], [place], [place]. See reference laboratory pion of the EMR for entire report. Clinical Information LMP:Unknown date Previous PAP test:Unknown date/findings Material Received ThinPrep-Vaginal/Cervical ----- ------- Signed (signature on file) MELVA Clemens (ASCP) 02/09/23 1004 ----- ------- END OF REPORT Alba Monroy CNM LAB CYTOLOGY ORDERABLES F inal Result [facility] [address] [place] [phone] * HEPATITIS C AB W/REFL TO HCV RNA, QN, PCR (07/23/2020 8:16 AM EST) HEPATITIS C ANTIBODY NON-REACT DIANE NON-REACT DIANE [facility] INDEX 0.03 <1.00 [facility] Comment: HCV antibody was non-reactive. There is no laboratory evidence of HCV infection. In most cases, no further action is required. However, if recent HCV exposure is suspected, a test for HCV RNA (test code 99390) is suggested. For additional information please refer to http://education.Quickflix/faq/HCD99i0 (This link is being provided for informational/ educational purposes only.) 07/23/2020 8:16 AM EST us Historical Provider MD HISTORICAL/NON ORDERABLE LABS Final Result [facility] [address] from Last 3 Months or Most Recently Relevant to Health Maintenance Insurance [facility] < [address] [place] [id number] Care Teams Tooth Cutter Spur Relationship Specialty Start Date End Date Stephanie Markham ANP [address] [place] [phone] PCP - General Family Medicine 05/05/22
--- OUTSIDE RECORDS SUMMARY | 2025-02-15 10:44 | XMS_ITS | Patient Health Record ---
Demographics Address [address] [place] [address] Preferred Language Unknown Marital Status Unknown Church Affiliation Unknown Race Unknown Ethnic Group Unknown Author Organization [facility] Address [address] [place] [address] Care Team Providers Care Melt Helper Name Role Phone STEPHANIE MARKHAM N.P. Primary Care Provider Dinesh Tristan [phone] Reason For Referral No Information Encounters Encounter Location Date Provider Diagnosis [facility] [address] [facility] [address] [place] [phone] 02/02/2025 Dinesh Dawkins Plan Of Treatment No Information Insurance Providers Payer Name Payer Address Payer Phone Subscriber Number Group Number Insured Name Patient Relationship to Insured Coverage Start Date Coverage End Date [facility] [address] Attn Claims [place] [id number] STONE ROSARIO Self - patient is the insured
--- OUTSIDE RECORDS SUMMARY | 2025-02-15 10:44 | XMS_ITS | Encounter Summary ---
Author Organization [employer] Address [address] [facility] 7[address] [place] [address] Care Team Providers Care Veterinary Hospital Attendant Name Role Phone Angie Edwards Primary Care Provider [phone] Reason for Visit * Reason Comments Med Refill Encounter Details Date Type Department Care Team (Late st Contact Info) Description 12/03/2022 Refill [facility] [address] [place] [address] Angie Edwards ANP [address] [place] [address] Diabetic polyneuropathy associated with type 2 diabetes mellitus (CMS/HCC); Type 2 diabetes mellitus with hyperlipidemia ([facility]/HCC) Social History Tobacco Use Types [...] Description 03/09/2025 9:30 AM EDT Clinical Support [facility] [address] [place] [phone] 03/26/2025 11:00 AM EDT Office Visit [address] [address] Angie Edwards ANP [address] [place] [address] documented as of this encounter Visit Diagnoses Diagnosis Diabetic polyneuropathy associated with type 2 diabetes mellitus (CMS/HCC) Type 2 diabetes mellitus with hyperlipidemia (CMS/HCC) (CMS/HCC) documented in this encounter Care Teams Veterinary Hospital Attendant Relationship Specialty Start Date End Date [place] [address] PCP - General Family Medicine 05/05/22 documented as of this encounter
--- OUTSIDE RECORDS SUMMARY | 2025-02-15 10:44 | XMS_ITS | Encounter Summary ---
Author Organization [facility] Address [address] [facility] 7[address] [place] [address] Care Team Providers Care Moving Picture Operator Name Role Phone Angie Edwards Primary Care Provider Encounter Details Date Type Department Care Team ([facility] Contact Info) Description 05/05/[address] [address] Provider, MD Emy Social History Tobacco Use [...] Description 03/09/2025 9:30 AM EDT Clinical Support [address] [address] 03/26/2025 11:00 AM EDT Office Visit [facility] [address] [place] [phone] Angie Edwards ANP [address] [place] [address] documented as of this encounter Visit Diagnoses Not on filedocumented in this encounter Care Teams Moving Picture Operator Relationship Specialty Start Date End Date Angie Edwards ANP [address] [place] [address] PCP - General Family Medicine 05/05/22 documented as of this encounter
--- OUTSIDE RECORDS SUMMARY | 2025-02-15 10:44 | XMS_ITS | Encounter Summary ---
Author Organization [facility] Address [address] [facility] [address] [place] [address] Phone Care Team Providers Care Import Export Agent Name Role Phone Unknown, Unknown Primary Care Provider Odalis khan Encounter Details Date Type Department Care Team (Late st Contact Info) Description 10/27/2017 Ancillary Orders [facility] [address] [place] [address] [place] [address] Davis Harkins DO [address] [place] [phone] Bradycardia Social History Tobacco Use Types Packs/Day [...] dysrhythmias documented in this encounter Care Teams Import Export Agent Relationship Specialty Start Date End Date Unknown, Unknown, PCP - General 10/26/17 documented as of this encounter Additional Source Comments The information contained in this document represents components of the legal health record. It is not the complete legal health record.[facility]
== END 2025-02-15 09:54 | disposition home or self-care (01) ==
LOC: HO.HCS 09:14
PROVIDERS: PCP Nurse Practitioner Primary Care; Visit Provider Nurse Practitioner Family
DX: I25.10 Atherosclerotic heart disease of native coronary artery without angina pectoris (principal); R94.39 Abnormal result of other cardiovascular function study; R07.89 Other chest pain; Z98.890 Other specified postprocedural states; I10 Essential (primary) hypertension; E78.5 Hyperlipidemia, unspecified
CPT/HCPCS: 99214; G2211

== ENCOUNTER → 2025-02-15 09:14 | Outpatient (BNVA) | payer OTHER, SELFPAY | PROVIDERS: PCP Nurse Practitioner Primary Care; Visit Provider Nurse Practitioner Family | DX: R07.89 Other chest pain (principal); R94.39 Abnormal result of other cardiovascular function study; I25.10 Atherosclerotic heart disease of native coronary artery without angina pectoris; I10 Essential (primary) hypertension; E78.5 Hyperlipidemia, unspecified; Z98.890 Other specified postprocedural states | CPT/HCPCS: 99212 ==

== ENCOUNTER 2025-02-22 10:44 | Outpatient (AMB) | payer OTHER, SELFPAY ==
[2025-02-22 10:47] VITALS: BMI 45.3
--- NOTE | 2025-02-22 10:47 | MHC.OFFVIS ---
Vital Signs 02/22/25 10:47 Height 5 ft Weight 232 lb BMI 45.3 Intake Visit Reasons: follow up 12/15/24 Intake Note: follow up 12/15/24 for LE pain and swelling. Left LE worse than Right LE Security Systems Technician Required: No Accompanied by: Self / Same As Patient Allergies Penicillins Allergy (Severe, Verified 02/22/25 10:49) analphylaxis dulaglutide (From Trulicity) Allergy (Unknown, Verified 02/22/25 10:49) Rash potassium Allergy (Unknown, Verified 02/22/25 10:49) Itching SHELLFISH Allergy (Unknown, Uncoded 02/22/25 10:49) HIVES HPI HPI follow up 12/15/24: Details: The patient is a 59-year-old female presenting for a follow-up regarding venous insufficiency. She reports that her legs are feeling a little better, although she experiences pain when standing, which improves upon standing up. An ultrasound of her legs was performed, and the results were normal, indicating no significant venous abnormalities. The patient also reports pain in her feet and knees, which is attributed to arthritis. She has spider veins, which are primarily cosmetic, and her vein test results were normal. The patient is morbidly obese, which may contribute to her symptoms. She has been advised to continue walking to build strength in her legs. [facility] Medical History GERD (gastroesophageal reflux disease) Pre-syncope Umbilical hernia Fatty liver Asthma Anxiety Depression Type 2 diabetes mellitus with diabetic polyneuropathy Essential hypertension Hyperlipidemia LDL goal <100 Morbid obesity due to excess calories BMI 45.0-49.9, adult Type 2 diabetes mellitus with hyperglycemia Surgical History History of cardiac cath Hx of hernia repair Hx of gastric bypass History of esophagogastroduodenoscopy (EGD) Family History Father Diabetes mellitus HTN (hypertension) Mother CVD (cardiovascular disease) Mother HTN (hypertension) Diabetes mellitus Asthma Social History Household Members: None Alcohol intake: never Patient Tobacco Use Status: Never used Tobacco Current occupational status: disabled Current occupation: rt hand Review of Systems Const Reports as per HPI ENT Reports no additional complaints Card Denies chest pain, Denies chest pain at rest and Denies chest pain with activity Resp Denies chest congestion and Denies cough GI Reports no additional complaints Musc Details: pain over varicosities, aching of lower extremities, swelling, cramping, heaviness and tiredness, itching Denies abnormal gait Skin/Breast Reports pruritus and Denies wounds Neuro Reports no additional complaints and Denies abnormal gait Psych Denies no additional complaints Physical Exam Vital Signs: BMI result Body Mass Index 45.3 Const General: cooperative, healthy appearing and comfortable Orientation/consciousness: oriented to person, oriented to place and oriented to time Neck Carotids: no bruits Chest Chest palpation & inspection: normal inspection of the chest and normal palpation of entire chest wall Resp Effort & Inspection: normal respiratory effort and able to speak in complete sentences Cardio Rate: regular rate Heart sounds: S1 normal heart sound present and S2 normal heart sound present Peripheral pulses: Peripheral pulses 2+ throughout GI Inspection: Yes normal to inspection Skin Other: +2 edema, bilateral spider telangiectasias CEAP Classification C4 - skin color changes Ep - Etiology Primary As - superficial veins P - reflux General skin exam: dry skin Neuro General: oriented to person, oriented to place and oriented to time Extrem Right lower extremity: full ROM, normal capillary refill and edema Left lower extremity: full ROM, normal capillary refill and edema Psych Mental Status: mental status grossly normal Results Reviewed Results Reviewed: Brief summary of venous insufficiency testing is as follows: right great saphenous vein: negative right small saphenous vein: negative right accessory vein: none present left great saphenous vein: negative left small saphenous vein: negative left accessory vein: none present Please note there is no evidence of any venous aneurysms or significant tortuosity Assessment & Plan Assessment & Plan (1) Varicose veins of both lower extremities with inflammation: Code(s): I83.11 - Varicose veins of right lower extremity with inflammation; I83.12 - Varicose veins of left lower extremity with inflammation Category: Medical Plan: In short patient is negative for any significant venous insufficiency. We did discuss routine conservative measures including compression, elevation and exercise. Patient will follow up with us on an as-needed basis. Thank you for allowing us to assist in her care. Coding Level of Care Code Est Pt Level 4 (55148) Diagnoses Varicose veins of both lower extremities with inflammation I83.11; I83.12
== END 2025-02-22 11:24 | disposition home or self-care (01) ==
LOC: HO.HVS 10:45
PROVIDERS: Visit Provider Surgery Vascular Surgery
DX: I83.11 Varicose veins of right lower extremity with inflammation (principal); I83.12 Varicose veins of left lower extremity with inflammation
CPT/HCPCS: 99214

== ENCOUNTER → 2025-02-22 10:44 | Outpatient (BNVA) | payer OTHER, SELFPAY | PROVIDERS: Visit Provider Surgery Vascular Surgery | DX: I83.11 Varicose veins of right lower extremity with inflammation (principal); I83.12 Varicose veins of left lower extremity with inflammation | CPT/HCPCS: 99212 ==